=== PATIENT | female | born 1975 | race Caucasian/White ===

== ENCOUNTER → 2020-04-05 12:50 | Outpatient (BNVA) | payer MEDICARE, OTHER, SELFPAY | PROVIDERS: PCP Family Medicine; Referring Provider Family Medicine; Visit Provider Dietitian, Registered | DX: Z76.89 Persons encountering health services in other specified circumstances (principal) ==

== ENCOUNTER 2020-06-28 15:21 | Outpatient (REF) | payer MEDICARE, SELFPAY ==
[2020-06-29 09:21] LABS: BV Int Neg Control Negative (Negative); BV Int Pos Control Positive (Positive)
[2020-06-30 11:42] LABS: C. trachomatis RNA TMA NOT DETECTED (NOT DETECTED); N. gonorrhoeae RNA TMA NOT DETECTED (NOT DETECTED)
== END 2020-06-28 15:22 | disposition home or self-care (01) ==
LOC: HO.LAB 15:21
PROVIDERS: PCP Family Medicine; Visit Provider Advanced Practice Midwife
DX: N89.8 Other specified noninflammatory disorders of vagina (principal); N92.6 Irregular menstruation, unspecified; R35.0 Frequency of micturition; R23.2 Flushing; Z20.2 Contact with and (suspected) exposure to infections with a predominantly sexual mode of transmission
CPT/HCPCS: 36415; 87480; 87491; 87510; 87591; 87660; 99212

== ENCOUNTER 2020-07-02 16:28 | Outpatient (REF) | payer MEDICARE, SELFPAY ==
[2020-07-02 17:33] LABS: HCG Quantitative < 2 mIU/mL; Thyroid Stimulating Hormone 2.31 uIU/mL (0.32-4.0)
[2020-07-03 07:31] LABS: Follicle Stimulating Hormone 25.2 mIU/mL
[2020-07-04 13:32] LABS: C. trachomatis RNA TMA NOT DETECTED (NOT DETECTED); N. gonorrhoeae RNA TMA NOT DETECTED (NOT DETECTED)
== END 2020-07-02 16:29 | disposition home or self-care (01) ==
LOC: HO.LAB 16:28
PROVIDERS: Visit Provider Advanced Practice Midwife
DX: R23.2 Flushing (principal); N92.6 Irregular menstruation, unspecified; N92.1 Excessive and frequent menstruation with irregular cycle
CPT/HCPCS: 36415; 83001; 84443; 84702; 87491; 87591

== ENCOUNTER → 2020-07-10 11:31 | Outpatient (BNVA) | payer MEDICARE, SELFPAY | PROVIDERS: Visit Provider Advanced Practice Midwife | CPT/HCPCS: Q3014 ==

== ENCOUNTER 2020-08-31 14:37 | Outpatient (REF) | payer MEDICARE, SELFPAY ==
[2020-08-31 16:02] LABS: MANUAL DIFF FLAG NO
[2020-08-31 16:06] LABS: Basophils Percent Auto 0.6 % (0-2); Eosinophils Absolute Auto 0.2 X10*3/uL (0.0-0.4); Eosinophils Percent Auto 2.2 % (0-4); Hemoglobin 15.2 g/dl (12.0-16.0); Imm Gran Abs Auto 0.03 X10*3/uL (0.00-0.03); Imm Gran Pct Auto 0.4 % (0.0-0.4); Lymphocytes Absolute Auto 2.9 X10*3/uL (1.2-4.9); Lymphocytes Percent Auto 42.5 % (20-40); Mean Corpuscular HGB Conc 34.5 g/dl (31.0-35.0); Mean Corpuscular Hemoglobin 30.8 pg (27.0-33.0); Mean Corpuscular Volume 89.1 fL (80-98); Mean Platelet Volume 10.9 fL (9.4-12.3); Monocytes Absolute Auto 0.5 X10*3/uL (0.1-1.2); Monocytes Percent Auto 7.8 % (2-11); Neutrophils Absolute Auto 3.2 X10*3/uL (2.0-8.3); Neutrophils Percent Auto 46.5 % (45-73); Platelet Count 342 X10*3/uL (160-400); Red Blood Count 4.94 X10*6/uL (4.20-5.50); White Blood Count 6.8 X10*3/uL (4.8-10.8)
[2020-08-31 16:35] LABS: Alanine Aminotransferase 46 U/L (0-31); Albumin Level 4.3 g/dL (3.5-5.0); Anion Gap 11 (12-20); Aspartate Amino Transferase 26 U/L (5-31); Bilirubin Total 0.6 mg/dL (0.0-1.0); Blood Urea Nitrogen 13 mg/dL (9-16); C Reactive Protein 0.55 mg/dL (< or = 0.50); Calcium 9.6 mg/dL (8.4-10.2); Carbon Dioxide 26 mmol/L (22-29); Chloride 107 mmol/L (96-108); Estimated Glomerular Filt Rate > 60; Glucose Random 100 mg/dL (60-115); Potassium 4.4 mmol/L (3.3-5.1); Sodium 140 mmol/L (135-145); Total Protein 7.8 g/dL (6.5-8.0)
[2020-08-31 16:40] LABS: Alkaline Phosphatase 74 U/L (39-117)
[2020-08-31 17:19] LABS: Erythrocyte Sedimentation Rate 12 MM/HR (0-20)
== END 2020-08-31 14:38 | disposition home or self-care (01) ==
LOC: HO.LAB 14:37
PROVIDERS: PCP Family Medicine; Visit Provider Student in an Organized Health Care Education/Training Program
DX: M05.9 Rheumatoid arthritis with rheumatoid factor, unspecified (principal)
CPT/HCPCS: 36415; 80053; 85025; 85652; 86140; 99212

== ENCOUNTER 2020-09-18 16:11 | Outpatient (REF) | payer MEDICARE, OTHER, SELFPAY ==
[2020-09-19 04:49] LABS: CT PCR NOT DETECTED (Not Detect.); NG PCR NOT DETECTED (Not Detect.)
[2020-09-20 08:37] LABS: Follicle Stimulating Hormone 31.9 mIU/mL
== END 2020-09-18 16:12 | disposition home or self-care (01) ==
LOC: HO.LAB 16:11
PROVIDERS: Visit Provider Advanced Practice Midwife
DX: N89.8 Other specified noninflammatory disorders of vagina (principal); R23.2 Flushing; Z20.2 Contact with and (suspected) exposure to infections with a predominantly sexual mode of transmission
CPT/HCPCS: 83001; 87491; 87591

== ENCOUNTER 2020-10-09 15:30 | Outpatient (RCR) | payer MEDICARE, OTHER, SELFPAY ==
--- NOTE | 2020-09-11 15:14 | MHC.OT.OEV ---
[address] [phone] F: [phone] Occupational Therapy Evaluation Diagnosis: RA, B/L HAND PAIN AND TRIGGER FINGER Date of Onset: 03/25/20 Attending Provider: Florentin Richardson Prescribed Treatment: EVAL AND TREAT History of Current Condition: REPORTS A SIX MONTH HISTORY OF TRIGGER FINGER TO RIGHT MIDDLE FINGER, AND A THREE YEAR HISTORY OF ARTHRITIS WITH RECENT INCREASE IN PAIN TO B/L IPs. Significant Medical History: OA, RA, L SHOULDER FRACTURE 2000 Precautions/Contraindications: UNIVERSAL Patient Goals: RELIEVE PAIN Hand Dominance: Right Observations: B/L ARTIFICIAL NAILS QuickDASH Score: 93 Prior Level of Function and Occupation Self Care, Employment, Leisure: STAY AT HOME MOM, DISABLED Living Situation, Family and/or Social Support: LIVES WITH CHILDREN (11 AND 13) AND SPOUSE Current Level of Function and Occupation Self Care, Employment, Leisure: DIFFICULTIES WITH USING KNIFE TO CUT FOOD, OPEN WATER BOTTLES AND CONTAINERS. TROUBLE WITH BUTTONS, ZIPPERS AND SNAPS. Sleep: REPORTS SEVERE DIFFICULTIES WITH SLEEPING DUE TO CONSTANT PAIN Driving: DOES NOT DRIVE Pain Assessment Pain Score: 6-10 Pain Scale Used: Numeric (0 - 10) Pain Location and Description: B/L IPs R>L RIGHT IPs 7/10 AT REST; LEFT IPs 5/10 AT REST 10/10 WITH USE Aggravating Factors: GRIPPING, HEAVY LIFTING WHILE COMPLETING IADLs Alleviating Factors: GABAPENTIN, HUMIRA, FINDS RELIEF WITH USE OF HEAT Skin and Soft Tissue Assessment Skin and Soft Tissue: Comments: SMALL VOLAR NODULE TO R D3 MCP; LONG ARTIFICIAL NAILS Sensory Assessment Temperature: Light Touch: B/L Impaired Proprioception: Vibration: Comments: SUBJECTIVE REPORTS OF SENSORY IMPAIRMENTS B/L'LY, WILL CONTINUE TO ASSESS WITH ONGOING SESSIONS Edema Assessment Upper Extremity: WNL Lower Extremity: Comments: CIRCUMFERENCE OF MCPs D2-D5: RIGHT 20.1 CM, LEFT 20.0 CM SUBJECTIVE REPORTS OF EDEMA IN PIPJs Dexterity Assessment Dexterity: Left Impaired Comments: FUNCTIONAL DEXTERITY TEST: RIGHT 23 SECONDS (NORMAL); LEFT 31 SECONDS (MODERATELY FUNCTIONAL LEVEL) Special Tests Comments: AROM(PROM) Strength Shoulder Flexion: Extension: Abduction: Internal Rotation: External Rotation: Comments: L SHOULDER IMPAIRED FROM PREVIOUS FRACTURE, REPORTS HX OF ATTENDING THERAPY. GROSSLY 110 DEGREES FLEXION Flexion: Extension: Abduction: Internal Rotation: External Rotation: Comments: Elbow Flexion: Extension: Pronation: Supination: Comments: WFL Flexion: Extension: Pronation: Supination: Comments: Wrist Flexion: R 52, L 55 Extension: R 62, L 65 Ulnar Deviation: Radial Deviation: Comments: Flexion: Extension: Ulnar Deviation: Radial Deviation: Comments: Digits Index MCP: PIP: DIP: Long MCP: PIP: DIP: Ring MCP: PIP: DIP: Small MCP: PIP: DIP: Comments: Gross Grasp: R 13, L 38 Lateral Pinch: R 7, L 8 Two-Point Pinch: R 4, L 5 Three-Jaw Vladislav: R 5, L 6 Comments: PAIN WITH R GRASP Patient Education Primary Language: Trimming Machine Operator Required: Yes Current Knowledge: Understands information with skills for self-management Teaching Method: Demonstration Handouts Phone Call Verbal Education Needs Identified on Evaluation: ADL's Disease Information Equipment Use Exercise Pain Safety How did patient/family demonstrate learning? Patient demonstrates Patient verbalizes Needs reinforcement Barriers to Learning: None Readiness for Learning: Accepting Who was educated? 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 SHE REPORTS A SIX MONTH HISTORY OF TRIGGER FINGER TO HER RIGHT MIDDLE FINGER, AND INCREASING DIFFICULTIES PERFORMING HER ADLs AND IADLs. A 93% LIMITATION IS REPORTED PER THE QUICK DASH ASSESSMENT. SHE WOULD BENEFIT FROM SKILLED OT TO ADDRESS THE AREAS MENTIONED BELOW AND IMPROVE HER QOL. STG Duration: 2 WEEKS Short Term Goals: IND HEP IND USE OF HEAT/ ICE IND JOINT PROTECTION AND ACTIVITY MODIFICATION IND ORTHOSIS WEAR REPORT <3/10 PAIN IN B/L HANDS WITH ADLs LTG Duration: 4 WEEKS Nuisance Animal Damage Control Agent Goals: IMPROVE R GRASP >30 POUNDS REPORT <5/10 PAIN IN B/L HANDS WITH MODERATE IADLs QUICK DASH <70 IND SELF MANAGEMENT OF TRIGGER FINGER SYMPTOMS Frequency and Duration: The patient will be seen 2x/WEEK FOR 4 WEEKS Treatment Plan: Therapeutic Exercise Therapeutic Activity Home Exercise Program Splinting Neuro Re-ed Patient Education Desensitization/Sensory Re-ed Edema Control ADL Training Ultrasound NMES Iontophoresis Paraffin Fluidotherapy MHP Cold Packs Joint Mobilization Soft Tissue Mobilization Kinesiotaping Electronically Signed By: ASAD AKINS OTR/L Reviewed/agree with student documentation: N/A Therapist: Please sign and return to therapist, Thank you for your referral.
== END 2021-09-24 10:18 | disposition home or self-care (01) ==
LOC: HO.OT 15:30
PROVIDERS: PCP Family Medicine; Visit Provider Student in an Organized Health Care Education/Training Program
DX: M05.9 Rheumatoid arthritis with rheumatoid factor, unspecified (principal)
CPT/HCPCS: 97035; 97110; 97140; 97166; 97760

== ENCOUNTER 2020-12-25 14:45 | Outpatient (REF) | payer MEDICARE, OTHER, SELFPAY ==
[2020-12-25 15:47] LABS: MANUAL DIFF FLAG NO
[2020-12-25 15:51] LABS: Basophils Percent Auto 0.5 % (0-2); Eosinophils Absolute Auto 0.2 X10*3/uL (0.0-0.4); Eosinophils Percent Auto 1.7 % (0-4); Hemoglobin 13.8 g/dl (12.0-16.0); Imm Gran Abs Auto 0.03 X10*3/uL (0.00-0.03); Imm Gran Pct Auto 0.3 % (0.0-0.4); Lymphocytes Percent Auto 34.4 % (20-40); Mean Corpuscular HGB Conc 33.7 g/dl (31.0-35.0); Mean Corpuscular Hemoglobin 29.9 pg (27.0-33.0); Mean Corpuscular Volume 88.9 fL (80-98); Monocytes Absolute Auto 0.6 X10*3/uL (0.1-1.2); Monocytes Percent Auto 6.6 % (2-11); Neutrophils Percent Auto 56.5 % (45-73); Platelet Count 359 X10*3/uL (160-400); Red Blood Count 4.61 X10*6/uL (4.20-5.50); Red Cell Distribution Width 12.7 % (11.0-16.0); White Blood Count 8.8 X10*3/uL (4.8-10.8)
[2020-12-25 16:19] LABS: Alanine Aminotransferase 29 U/L (0-31); Albumin Level 4.2 g/dL (3.5-5.0); Alkaline Phosphatase 76 U/L (39-117); Anion Gap 13 (12-20); Aspartate Amino Transferase 15 U/L (5-31); Bilirubin Total 0.4 mg/dL (0.0-1.0); Blood Urea Nitrogen 11 mg/dL (9-16); C Reactive Protein 0.33 mg/dL (< or = 0.50); Calcium 9.6 mg/dL (8.4-10.2); Carbon Dioxide 17 mmol/L (22-29); Chloride 113 mmol/L (96-108); Estimated Glomerular Filt Rate > 60; Glucose Random 95 mg/dL (60-115); Potassium 4.1 mmol/L (3.3-5.1); Sodium 139 mmol/L (135-145); Total Protein 7.2 g/dL (6.5-8.0)
[2020-12-25 16:33] LABS: Erythrocyte Sedimentation Rate 9 MM/HR (0-20)
== END 2020-12-25 14:46 | disposition home or self-care (01) ==
LOC: HO.LAB 14:45
PROVIDERS: PCP Family Medicine; Visit Provider Student in an Organized Health Care Education/Training Program
DX: M05.9 Rheumatoid arthritis with rheumatoid factor, unspecified (principal)
CPT/HCPCS: 36415; 80053; 85025; 85652; 86140; 99212

== ENCOUNTER 2021-03-19 12:47 | Outpatient (REF) | payer MEDICARE, OTHER, SELFPAY ==
--- NOTE | ~2021-03-19 | US_ITS ---
EXAMINATION: MM DIAGNOSTIC DIGITAL BREAST TOMOSYNTHESIS, BILATERAL US DIAGNOSTIC ULTRASOUND BREAST, RIGHT CLINICAL INFORMATION: 45-year-old with burning pain and fullness outer right breast. Due for yearly. No known family history breast cancer. The lifetime risk of breast cancer based on the Tyrer-Cuzick Model is 11%. COMPARISON: Mammography: 03/14/2019, 03/05/2018 TECHNIQUE: Digital breast tomosynthesis is performed in both the craniocaudal and mediolateral oblique views along with computer-aided detection (CAD). Synthesized 2D images are generated from the tomosynthesis. Ultrasound right breast is targeted to the areas of clinical concern 7:00 through 11:00 position. Grayscale imaging and color Doppler are performed without and with harmonics. FINDINGS: There are scattered areas of fibroglandular density (ACR BI-RADS breast composition Category b). Background stromal and fibroglandular markings are stable. There is no interval mass or architectural abnormality or abnormal calcifications. No skin thickening or coarsening of the Lukasz's ligaments. No interval duct ectasia. The axilla and skin contours are unremarkable. Ultrasound demonstrates no cystic or solid mass or architectural abnormality. No focal duct ectasia. No skin thickening or edema tracking in soft tissue planes. Results are discussed with the patient at time of visit, using an speech language pathology assistant. US/US breast RT limited IMPRESSION: No mammographic evidence of malignancy or inflammatory changes. Unremarkable targeted right breast ultrasound. ASSESSMENT: BI-RADS 1: Negative RECOMMENDATION: 1. Patient should be managed based on the clinical impression. If there is clinical concern for palpable abnormality, then surgical consult may be considered for further evaluation. 2. Otherwise, routine annual screening mammography. This patient's information was entered into a reminder system with a target due date for their next mammogram.
== END 2021-03-19 12:48 | disposition home or self-care (01) ==
LOC: HO.MAMMO 12:47
PROVIDERS: Visit Provider Internal Medicine
DX: N63.15 Unspecified lump in the right breast, overlapping quadrants (principal)
CPT/HCPCS: 76642; 77062; 77066

== ENCOUNTER 2021-06-27 15:46 | Outpatient (REF) | payer MEDICARE, OTHER, SELFPAY ==
[2021-06-27 16:07] LABS: MANUAL DIFF FLAG NO
[2021-06-27 16:28] LABS: Basophils Percent Auto 0.4 % (0-2); Eosinophils Absolute Auto 0.1 X10*3/uL (0.0-0.4); Eosinophils Percent Auto 1.9 % (0-4); Hematocrit 39.8 % (37.0-47.0); Hemoglobin 13.5 g/dl (12.0-16.0); Imm Gran Abs Auto 0.01 X10*3/uL (0.00-0.03); Imm Gran Pct Auto 0.1 % (0.0-0.4); Lymphocytes Absolute Auto 2.7 X10*3/uL (1.2-4.9); Lymphocytes Percent Auto 35.6 % (20-40); Mean Corpuscular HGB Conc 33.9 g/dl (31.0-35.0); Mean Corpuscular Volume 91.3 fL (80.0-98.0); Mean Platelet Volume 10.8 fL (9.4-12.3); Monocytes Absolute Auto 0.5 X10*3/uL (0.1-1.2); Monocytes Percent Auto 6.5 % (2-11); Neutrophils Absolute Auto 4.2 x10*3/uL (2.0-8.3); Neutrophils Percent Auto 55.5 % (45-73); Platelet Count 318 X10*3/uL (160-400); Red Blood Count 4.36 X10*6/uL (4.20-5.50); Red Cell Distribution Width 12.2 % (11.0-16.0); White Blood Count 7.5 X10*3/uL (4.8-10.8)
[2021-06-27 16:48] LABS: Alanine Aminotransferase 24 U/L (0-31); Alkaline Phosphatase 69 U/L (39-117); Anion Gap 8 (12-20); Aspartate Amino Transferase 17 U/L (5-31); Bilirubin Total 0.6 mg/dL (0.0-1.0); Blood Urea Nitrogen 10 mg/dL (9-16); Calcium 9.7 mg/dL (8.4-10.2); Carbon Dioxide 27 mmol/L (22-29); Chloride 109 mmol/L (96-108); Estimated Glomerular Filt Rate > 60; Glucose Random 85 mg/dL (60-115); Potassium 4.3 mmol/L (3.3-5.1); Sodium 140 mmol/L (135-145)
[2021-06-27 17:04] LABS: Erythrocyte Sedimentation Rate 12 MM/HR (0-20)
== END 2021-06-27 15:47 | disposition home or self-care (01) ==
LOC: HO.LAB 15:46
PROVIDERS: PCP Nurse Practitioner; Visit Provider Nurse Practitioner Family
DX: M05.9 Rheumatoid arthritis with rheumatoid factor, unspecified (principal)
CPT/HCPCS: 36415; 80053; 85025; 85652; 86140

== ENCOUNTER → 2021-07-04 12:50 | Outpatient (BNVA) | payer MEDICARE, OTHER, SELFPAY | PROVIDERS: PCP Nurse Practitioner; Visit Provider Nurse Practitioner Family | DX: M05.9 Rheumatoid arthritis with rheumatoid factor, unspecified (principal) | CPT/HCPCS: 99212 ==

== ENCOUNTER 2021-10-16 10:54 | Outpatient (REF) | payer MEDICARE, OTHER, SELFPAY ==
--- NOTE | ~2021-10-16 | XR_ITS ---
EXAMINATION: X-RAY BILATERAL FEET CLINICAL INFORMATION: Rheumatoid arthritis COMPARISON: None TECHNIQUE: Bilateral feet each 3 views FINDINGS: Right foot: No fracture or dislocation. Toes are slightly flexed in positioning. No significant joint space narrowing or marginal osteophytes. No osseous erosion. No abnormal soft tissue calcification. Small posterior calcaneal spur. Left foot: No fracture or dislocation. Toes are slightly flexed in positioning. No significant joint space narrowing or marginal osteophytes. No osseous erosion. No abnormal soft tissue calcification. Small posterior calcaneus spur. XR/XR foot RT 2V IMPRESSION: No radiographic evidence of significant arthropathy.
--- NOTE | ~2021-10-16 | XR_ITS ---
EXAMINATION: X-RAY BILATERAL HANDS CLINICAL INFORMATION: Rheumatoid arthritis with rheumatoid factor COMPARISON: X-ray 02/23/2018 TECHNIQUE: Bilateral hands each 3 views FINDINGS: Left hand: No fracture or dislocation. No significant joint space narrowing or marginal osteophytes. No osseous erosion. No abnormal soft tissue calcification. Right hand: No fracture or dislocation. No significant joint space narrowing or marginal osteophytes. No osseous erosion. No abnormal soft tissue calcification. XR/XR hand LT min 3V IMPRESSION: No radiographic evidence of significant arthropathy.
--- NOTE | ~2021-10-16 | XR_ITS ---
EXAMINATION: X-RAY BILATERAL HANDS CLINICAL INFORMATION: Rheumatoid arthritis with rheumatoid factor COMPARISON: X-ray 02/23/2018 TECHNIQUE: Bilateral hands each 3 views FINDINGS: Left hand: No fracture or dislocation. No significant joint space narrowing or marginal osteophytes. No osseous erosion. No abnormal soft tissue calcification. Right hand: No fracture or dislocation. No significant joint space narrowing or marginal osteophytes. No osseous erosion. No abnormal soft tissue calcification. XR/XR hand RT min 3V IMPRESSION: No radiographic evidence of significant arthropathy.
--- NOTE | ~2021-10-16 | XR_ITS ---
EXAMINATION: X-RAY BILATERAL FEET CLINICAL INFORMATION: Rheumatoid arthritis COMPARISON: None TECHNIQUE: Bilateral feet each 3 views FINDINGS: Right foot: No fracture or dislocation. Toes are slightly flexed in positioning. No significant joint space narrowing or marginal osteophytes. No osseous erosion. No abnormal soft tissue calcification. Small posterior calcaneal spur. Left foot: No fracture or dislocation. Toes are slightly flexed in positioning. No significant joint space narrowing or marginal osteophytes. No osseous erosion. No abnormal soft tissue calcification. Small posterior calcaneus spur. XR/XR foot LT 2V IMPRESSION: No radiographic evidence of significant arthropathy.
[2021-10-16 12:45] LABS: MANUAL DIFF FLAG NO
[2021-10-16 13:18] LABS: Basophils Percent Auto 0.3 % (0-2); Eosinophils Absolute Auto 0.1 X10*3/uL (0.0-0.4); Eosinophils Percent Auto 1.6 % (0-4); Hematocrit 40.7 % (37.0-47.0); Hemoglobin 13.8 g/dl (12.0-16.0); Imm Gran Abs Auto 0.03 X10*3/uL (0.00-0.03); Imm Gran Pct Auto 0.4 % (0.0-0.4); Lymphocytes Percent Auto 37.8 % (20-40); Mean Corpuscular HGB Conc 33.9 g/dl (31.0-35.0); Mean Corpuscular Hemoglobin 30.5 pg (27.0-33.0); Mean Corpuscular Volume 89.8 fL (80.0-98.0); Mean Platelet Volume 11.1 fL (9.4-12.3); Monocytes Absolute Auto 0.4 X10*3/uL (0.1-1.2); Monocytes Percent Auto 4.8 % (2-11); Neutrophils Absolute Auto 4.4 x10*3/uL (2.0-8.3); Neutrophils Percent Auto 55.1 % (45-73); Platelet Count 286 X10*3/uL (160-400); Red Blood Count 4.53 X10*6/uL (4.20-5.50); Red Cell Distribution Width 12.3 % (11.0-16.0); White Blood Count 7.9 X10*3/uL (4.8-10.8)
[2021-10-16 13:53] LABS: Alanine Aminotransferase 21 U/L (0-31); Albumin Level 4.1 g/dL (3.5-5.0); Alkaline Phosphatase 66 U/L (39-117); Anion Gap 12 (12-20); Aspartate Amino Transferase 13 U/L (5-31); Bilirubin Total 0.5 mg/dL (0.0-1.0); Blood Urea Nitrogen 14 mg/dL (9-16); C Reactive Protein 0.21 mg/dL (< or = 0.50); Calcium 9.8 mg/dL (8.4-10.2); Carbon Dioxide 22 mmol/L (22-29); Chloride 108 mmol/L (96-108); Erythrocyte Sedimentation Rate 6 MM/HR (0-20); Estimated Glomerular Filt Rate > 60; Glucose Random 124 mg/dL (60-115); Potassium 4.4 mmol/L (3.3-5.1); Sodium 138 mmol/L (135-145); Total Protein 7.3 g/dL (6.5-8.0)
== END 2021-10-16 10:55 | disposition home or self-care (01) ==
LOC: HO.LAB 10:54
PROVIDERS: PCP Nurse Practitioner; Visit Provider Nurse Practitioner Family
DX: M05.9 Rheumatoid arthritis with rheumatoid factor, unspecified (principal)
CPT/HCPCS: 36415; 73130; 73620; 80053; 85025; 85652; 86140; 99212

== ENCOUNTER 2022-01-20 12:10 | Outpatient (REF) | payer MEDICARE, SELFPAY ==
[2022-01-20 13:43] LABS: MANUAL DIFF FLAG NO
[2022-01-20 13:54] LABS: Basophils Absolute Auto 0.1 X10*3/uL (0.0-0.2); Basophils Percent Auto 0.6 % (0-2); Eosinophils Absolute Auto 0.2 X10*3/uL (0.0-0.4); Eosinophils Percent Auto 2.2 % (0-4); Hematocrit 41.1 % (37.0-47.0); Hemoglobin 14.2 g/dl (12.0-16.0); Imm Gran Abs Auto 0.04 X10*3/uL (0.00-0.03); Imm Gran Pct Auto 0.5 % (0.0-0.4); Lymphocytes Percent Auto 34.2 % (20-40); Mean Corpuscular HGB Conc 34.5 g/dl (31.0-35.0); Mean Corpuscular Hemoglobin 31.1 pg (27.0-33.0); Mean Corpuscular Volume 90.1 fL (80.0-98.0); Mean Platelet Volume 10.5 fL (9.4-12.3); Monocytes Absolute Auto 0.4 X10*3/uL (0.1-1.2); Monocytes Percent Auto 4.9 % (2-11); Neutrophils Percent Auto 57.6 % (45-73); Platelet Count 356 X10*3/uL (160-400); Red Blood Count 4.56 X10*6/uL (4.20-5.50); Red Cell Distribution Width 12.4 % (11.0-16.0); White Blood Count 8.7 X10*3/uL (4.8-10.8)
[2022-01-20 14:38] LABS: Erythrocyte Sedimentation Rate 9 MM/HR (0-20)
[2022-01-20 14:48] LABS: Alanine Aminotransferase 25 U/L (0-31); Aspartate Amino Transferase 17 U/L (5-31); C Reactive Protein 0.45 mg/dL (< or = 0.50); Estimated Glomerular Filt Rate > 60
== END 2022-01-20 12:11 | disposition home or self-care (01) ==
LOC: HO.LAB 12:10
PROVIDERS: PCP Nurse Practitioner; Visit Provider Nurse Practitioner Family
DX: M05.9 Rheumatoid arthritis with rheumatoid factor, unspecified (principal); M79.7 Fibromyalgia; Z79.899 Other long term (current) drug therapy
CPT/HCPCS: 36415; 82565; 84450; 84460; 85025; 85652; 86140; 99212

== ENCOUNTER → 2022-05-27 10:20 | Outpatient (BNVA) | payer MEDICARE, SELFPAY | PROVIDERS: PCP Nurse Practitioner; Visit Provider Nurse Practitioner Family | DX: M05.9 Rheumatoid arthritis with rheumatoid factor, unspecified (principal); M79.7 Fibromyalgia; M17.0 Bilateral primary osteoarthritis of knee; Z79.899 Other long term (current) drug therapy; Z22.7 Latent tuberculosis | CPT/HCPCS: 36415; 82565; 84450; 84460; 85025; 85652; 86140; 99212 ==

== ENCOUNTER 2022-05-27 11:33 | Outpatient (REF) | payer MEDICARE, SELFPAY ==
[2022-05-27 13:45] LABS: MANUAL DIFF FLAG NO
[2022-05-27 13:54] LABS: Basophils Percent Auto 0.6 % (0-2); Eosinophils Absolute Auto 0.2 X10*3/uL (0.0-0.4); Eosinophils Percent Auto 2.6 % (0-4); Hematocrit 42.7 % (37.0-47.0); Hemoglobin 14.2 g/dl (12.0-16.0); Imm Gran Abs Auto 0.02 X10*3/uL (0.00-0.03); Imm Gran Pct Auto 0.3 % (0.0-0.4); Lymphocytes Absolute Auto 2.7 X10*3/uL (1.2-4.9); Lymphocytes Percent Auto 42.4 % (20-40); Mean Corpuscular HGB Conc 33.3 g/dl (31.0-35.0); Mean Corpuscular Hemoglobin 30.2 pg (27.0-33.0); Mean Corpuscular Volume 90.9 fL (80.0-98.0); Mean Platelet Volume 11.3 fL (9.4-12.3); Monocytes Absolute Auto 0.3 X10*3/uL (0.1-1.2); Neutrophils Absolute Auto 3.1 x10*3/uL (2.0-8.3); Neutrophils Percent Auto 49.1 % (45-73); Platelet Count 326 X10*3/uL (160-400); White Blood Count 6.3 X10*3/uL (4.8-10.8)
[2022-05-27 14:06] LABS: Alanine Aminotransferase 23 U/L (0-31); Aspartate Amino Transferase 14 U/L (5-31); C Reactive Protein 0.28 mg/dL (< or = 0.50); Estimated Glomerular Filt Rate > 60
[2022-05-27 14:45] LABS: Erythrocyte Sedimentation Rate 7 MM/HR (0-20)
== END 2022-05-27 11:34 | disposition home or self-care (01) ==
LOC: HO.10HDL 11:33
PROVIDERS: Visit Provider Nurse Practitioner Family
DX: Z13.89 Encounter for screening for other disorder (principal)
CPT/HCPCS: 36415; 82565; 84450; 84460; 85025; 85652; 86140

== ENCOUNTER → 2022-10-09 13:23 | Outpatient (BNVA) | payer MEDICARE, MEDICAID, SELFPAY | PROVIDERS: PCP Nurse Practitioner; Visit Provider Nurse Practitioner Family | DX: M05.9 Rheumatoid arthritis with rheumatoid factor, unspecified (principal); M79.7 Fibromyalgia; M79.18 Myalgia, other site; Z79.899 Other long term (current) drug therapy | CPT/HCPCS: 99212 ==

== ENCOUNTER 2022-10-27 10:15 | Outpatient (REF) | payer MEDICARE, MEDICAID, SELFPAY ==
--- NOTE | ~2022-10-27 | XR_ITS ---
EXAMINATION: XR HIP, RIGHT CLINICAL INFORMATION: Rheumatoid arthritis. COMPARISON: None available. TECHNIQUE: Two views of the right hip. FINDINGS: Bones and soft tissues appear unremarkable. No fracture identified. Alignment is anatomic. Hip joint space is maintained. XR/XR hip RT min 2V IMPRESSION: Normal plain film examination of the right hip.
--- NOTE | ~2022-10-27 | XR_ITS ---
EXAMINATION: XR LUMBOSACRAL SPINE WITH OBLIQUES CLINICAL INFORMATION: Rheumatoid arthritis. COMPARISON: None available. TECHNIQUE: AP, both oblique, and lateral views of the lumbar spine. Lateral view of the lumbosacral junction. FINDINGS: The vertebral bodies and posterior elements appear unremarkable. Mild disc degenerative change at L4-L5 and L5-S1. The vertebral alignment appears unremarkable. The paraspinal soft tissues appear unremarkable. XR/XR lumbar spine 4V min IMPRESSION: Mild disc degenerative change at L4-L5 and L5-S1.
--- NOTE | ~2022-10-27 | XR_ITS ---
EXAMINATION: XR HIP, LEFT CLINICAL INFORMATION: Rheumatoid arthritis. COMPARISON: None available. TECHNIQUE: Two views of the left hip. FINDINGS: Bones and soft tissues appear unremarkable. No fracture identified. Alignment is anatomic. Hip joint space is maintained. XR/XR hip LT min 2V IMPRESSION: Normal plain film examination of the left hip.
[2022-10-27 10:44] LABS: MANUAL DIFF FLAG NO
[2022-10-27 11:30] LABS: Basophils Absolute Auto 0.1 X10*3/uL (0.0-0.2); Basophils Percent Auto 0.6 % (0-2); Eosinophils Absolute Auto 0.2 X10*3/uL (0.0-0.4); Eosinophils Percent Auto 1.9 % (0-4); Imm Gran Abs Auto 0.02 X10*3/uL (0.00-0.03); Imm Gran Pct Auto 0.3 % (0.0-0.4); Lymphocytes Absolute Auto 3.2 X10*3/uL (1.2-4.9); Lymphocytes Percent Auto 41.2 % (20-40); Mean Corpuscular HGB Conc 33.3 g/dl (31.0-35.0); Mean Corpuscular Hemoglobin 30.6 pg (27.0-33.0); Mean Corpuscular Volume 91.7 fL (80.0-98.0); Mean Platelet Volume 11.3 fL (9.4-12.3); Monocytes Absolute Auto 0.4 X10*3/uL (0.1-1.2); Monocytes Percent Auto 5.6 % (2-11); Neutrophils Absolute Auto 3.9 x10*3/uL (2.0-8.3); Neutrophils Percent Auto 50.4 % (45-73); Platelet Count 363 X10*3/uL (160-400); Red Blood Count 4.58 X10*6/uL (4.20-5.50); Red Cell Distribution Width 12.1 % (11.0-16.0); White Blood Count 7.7 X10*3/uL (4.8-10.8)
[2022-10-27 11:59] LABS: Alanine Aminotransferase 22 U/L (0-31); Albumin Level 4.2 g/dL (3.5-5.0); Alkaline Phosphatase 69 U/L (39-117); Anion Gap 12 (12-20); Aspartate Amino Transferase 12 U/L (5-31); Bilirubin Total 0.6 mg/dL (0.0-1.0); Blood Urea Nitrogen 17 mg/dL (9-16); C Reactive Protein 0.25 mg/dL (< or = 0.50); Calcium 9.6 mg/dL (8.4-10.2); Carbon Dioxide 21 mmol/L (22-29); Chloride 111 mmol/L (96-108); Estimated Glomerular Filt Rate > 60; Glucose Random 103 mg/dL (60-115); Potassium 4.4 mmol/L (3.3-5.1); Sodium 140 mmol/L (135-145); Total Protein 7.4 g/dL (6.5-8.0)
[2022-10-27 12:06] LABS: Erythrocyte Sedimentation Rate 9 MM/HR (0-20)
== END 2022-10-27 10:16 | disposition home or self-care (01) ==
LOC: HO.XRAY 10:15
PROVIDERS: Absent Provider Student in an Organized Health Care Education/Training Program; PCP Nurse Practitioner; Visit Provider Nurse Practitioner Family
DX: M54.50 Low back pain, unspecified (principal); M05.9 Rheumatoid arthritis with rheumatoid factor, unspecified
CPT/HCPCS: 36415; 72110; 73502; 80053; 85025; 85652; 86140

== ENCOUNTER 2022-12-02 08:39 | Outpatient (AMB) | payer MEDICARE, MEDICAID, SELFPAY ==
[2022-12-02 08:45] VITALS: BMI 44.3
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
== END 2022-12-02 09:35 | disposition home or self-care (01) ==
PROVIDERS: PCP Nurse Practitioner; Visit Provider Physician Assistant
DX: M17.10 Unilateral primary osteoarthritis, unspecified knee (principal)
CPT/HCPCS: 20610; 99204

== ENCOUNTER 2022-12-02 11:21 | Outpatient (REF) | payer MEDICARE, MEDICAID, SELFPAY ==
--- NOTE | ~2022-12-02 | XR_ITS ---
Examination: XR knee standing BI, XR knee RT 2V, XR knee LT 2V Indication: Pain Comparison: No pertinent prior studies are currently available for comparison. Technique: Frontal views of both knees with coned lateral and sunrise views of both knees and separately. Findings: Right: Tricompartmental degenerative changes are seen with loss of joint space in both medial lateral compartments with osteophyte formation in all 3 compartments. I do not appreciate any acute fracture or dislocation. Surrounding soft tissues unremarkable. Left: Tricompartmental degenerative changes are seen as well with loss of joint space in the medial more so in the lateral compartments with mild tricompartmental osteophyte formation and no significant joint effusion. XR/XR knee standing BI Impression: Tricompartmental degenerative changes bilaterally. No acute fracture or dislocation.
--- NOTE | ~2022-12-02 | XR_ITS ---
Examination: XR knee standing BI, XR knee RT 2V, XR knee LT 2V Indication: Pain Comparison: No pertinent prior studies are currently available for comparison. Technique: Frontal views of both knees with coned lateral and sunrise views of both knees and separately. Findings: Right: Tricompartmental degenerative changes are seen with loss of joint space in both medial lateral compartments with osteophyte formation in all 3 compartments. I do not appreciate any acute fracture or dislocation. Surrounding soft tissues unremarkable. Left: Tricompartmental degenerative changes are seen as well with loss of joint space in the medial more so in the lateral compartments with mild tricompartmental osteophyte formation and no significant joint effusion. XR/XR knee LT 2V Impression: Tricompartmental degenerative changes bilaterally. No acute fracture or dislocation.
--- NOTE | ~2022-12-02 | XR_ITS ---
Examination: XR knee standing BI, XR knee RT 2V, XR knee LT 2V Indication: Pain Comparison: No pertinent prior studies are currently available for comparison. Technique: Frontal views of both knees with coned lateral and sunrise views of both knees and separately. Findings: Right: Tricompartmental degenerative changes are seen with loss of joint space in both medial lateral compartments with osteophyte formation in all 3 compartments. I do not appreciate any acute fracture or dislocation. Surrounding soft tissues unremarkable. Left: Tricompartmental degenerative changes are seen as well with loss of joint space in the medial more so in the lateral compartments with mild tricompartmental osteophyte formation and no significant joint effusion. XR/XR knee RT 2V Impression: Tricompartmental degenerative changes bilaterally. No acute fracture or dislocation.
== END 2022-12-02 11:22 | disposition home or self-care (01) ==
LOC: HO.HOSX 11:21
PROVIDERS: Visit Provider Physician Assistant
DX: M17.0 Bilateral primary osteoarthritis of knee (principal)
CPT/HCPCS: 20610; 73560; 73565; 99202; J1040

== ENCOUNTER 2022-12-09 08:46 | Outpatient (AMB) | payer MEDICARE, MEDICAID, SELFPAY ==
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
[2022-12-09 08:52] VITALS: BP 143/92; PULSE 69; RESP 14; O2SAT 99; BMI 46.0
== END 2022-12-09 09:21 | disposition home or self-care (01) ==
PROVIDERS: PCP Nurse Practitioner; Visit Provider Registered Nurse Emergency
DX: M53.3 Sacrococcygeal disorders, not elsewhere classified (principal)
CPT/HCPCS: 99204

== ENCOUNTER → 2022-12-09 08:46 | Outpatient (BNVA) | payer MEDICARE, MEDICAID, SELFPAY | PROVIDERS: PCP Nurse Practitioner; Visit Provider Registered Nurse Emergency | DX: M53.3 Sacrococcygeal disorders, not elsewhere classified (principal) | CPT/HCPCS: 99202 ==

== ENCOUNTER 2022-12-18 11:00 | Outpatient (RCR) | payer MEDICARE, MEDICAID, SELFPAY | END 2023-01-14 15:33 | disposition home or self-care (01) | LOC: HO.PT 11:00 | PROVIDERS: PCP Nurse Practitioner; Visit Provider Nurse Practitioner Family | DX: M54.40 Lumbago with sciatica, unspecified side (principal); G89.29 Other chronic pain | CPT/HCPCS: 97110; 97162 ==

== ENCOUNTER 2023-01-06 06:05 | Outpatient (REF) | payer MEDICARE, MEDICAID, SELFPAY ==
--- NOTE | ~2023-01-06 | FL_ITS ---
EXAMINATION: XR FLUOROSCOPY WITH IMAGES CLINICAL INFORMATION: Sacrococcygeal disorders, not elsewhere classified. COMPARISON: None available. TECHNIQUE: Fluoroscopy Supervised By: Dr. Lionel Harden. Fluoroscopy Time: 0.2 minutes. Cumulative Dose: 13.3 mGy. DAP: 0.231 mGy-m2. Images: 2. FINDINGS: Images demonstrate contrast injection and needle placement over the left sacroiliac joint. FL/FL guidance in treatment room IMPRESSION: Fluoroscopy guidance for pain management procedure.
== END 2023-01-06 06:06 | disposition home or self-care (01) ==
LOC: CF 06:05
PROVIDERS: Visit Provider Anesthesiology
DX: M53.3 Sacrococcygeal disorders, not elsewhere classified (principal)
CPT/HCPCS: 27096

== ENCOUNTER 2023-01-06 13:20 | Outpatient (AMB) | payer MEDICARE, MEDICAID, SELFPAY ==
--- NOTE | 2023-01-06 13:41 | MHC.OFFVIS ---
Intake Vital Signs 01/06/23 13:42 01/06/23 14:03 Height 5 ft 4 in 5 ft 4 in Weight 268 lb 268 lb BMI 46.0 46.0 BP 136/78 124/60 Blood Pressure Location Lt brachial Lt brachial Position Sitting Sitting Respiration 16 16 Pulse 83 80 Pulse Source Pulse Oximeter Pulse Oximeter Pulse Oximetry (%) 98 99 Oxygen Delivery Method Room Air Room Air Comment pre-op Post-op Intake Visit Reasons: LEFT DIAGNOSTIC SIJ INJECTION Allergies methotrexate Allergy (Intermediate, Verified 01/06/23 13:41) rash [facility] Medical History (Updated 12/09/22 @ 09:32 by Nahed Winkler APRN, INTERNET SALES MANAGER) Fibromyalgia History of high blood pressure Low back pain, unspecified Morbid obesity with BMI of 45.0-49.9, adult Osteoarthritis of left knee Osteoarthritis of right knee Seropositive rheumatoid arthritis Surgical History History of surgery Hx of section Family History Father Diabetes Hypertension Mother Diabetes Hypertension Rheumatoid arthritis Kidney transplant recipient Sister Thyroid disease Social History Household Members: Spouse and Children Housing: Apartment Alcohol intake: never Patient Tobacco Use Status: Never used Tobacco Female Reproductive History Menstrual Age of Menarche: 12 Physical Exam Vital Signs: Last Vital Signs Pulse 80 01/06/23 14:03 Resp 16 01/06/23 14:03 BP 124/60 01/06/23 14:03 Pulse Ox 99 01/06/23 14:03 Oxygen Delivery Method Room Air 01/06/23 14:03 BMI result Body Mass Index 46.0 Assessment & Plan Assessment & Plan (1) Sacroiliac joint dysfunction of left side: Code(s): M53.3 - Sacrococcygeal disorders, not elsewhere classified Plan: left diagnostic sacroiliac joint injection Informed consent was explained thoroughly to the patient. All questions about benefits and risks for the procedure were answered. Patient came to the operating room and was positioned prone on the operating table with the pillow under the pelvis. Time out was performed delineating name and of the patient, allergies and the nature of the procedure. The lower back and buttocks of the patient were prepped with ChloraPrep prepped and draped with sterile utility towels. C-arm was brought over the operating field and sq picture of patient's pelvis was demonstrated on the screen. For the left joint tilting C-arm contralateral to the site of the joint the most posterior portion of the joints was superimposed with anterior silhouette of the joint. Skin was injected in the projection of the joint slightly medial to the location of the joint with 25 gauge 1/2 inch needle using local lidocaine 2% .After that 22 gauge 3 and 1/2 inch needle was driven to the right joint in tunnel vision fashion. When needle entered the joint capsule injection of the contrast was performed demonstrating intra-articular and minimally periarticular spread of the contrast. After that 4 cc. of ropivacaine 0.5% was injected into the joint. Upon completion of the injections the needle was removed Sterile dressing was applied. Upon completion of the injection patient was taken outside of the operating room to the recovery room where recovered uneventfully. Plan Eliza is a very pleasant 47-year-old female who presented to the office today for evaluation management of her left lower back pain. Recent x-ray was reviewed and discussed with patient. History, physical exam and provocative testing consistent with left-sided sacroiliac joint dysfunction. Discussed options for treatment including diagnostic interventional testing, epidural steroid injections, peripheral nerve stimulation with Sprint, RFA and more permanent neuromodulation. Will schedule patient for fluoroscopy guided left diagnostic sacroiliac joint injection with local anesthetic. Discussed in length with the patient diagnostic testing, if she receives good benefit will plan for a Fluoroscopy guided therapeutic left-sided SI joint injection with local anesthetic. Continue PT as planned. C/W naproxen as needed for pain. All questions and concerns have been answered and patient agrees with the plan. Follow up after injections and sooner if needed. Orders: Orders FL guidance in treatment room Today M53.3 - Sacrococcygeal disorders, not elsewhere classified Coding Level of Care Code Procedure Only Diagnoses Sacroiliac joint dysfunction of left side M53.3
[2023-01-06 13:42] VITALS: BP 136/78; PULSE 83; RESP 16; O2SAT 98; BMI 46.0
[2023-01-06 14:03] VITALS: BP 124/60; PULSE 80; RESP 16; O2SAT 99; BMI 46.0
== END 2023-01-06 13:53 | disposition home or self-care (01) ==
PROVIDERS: PCP Nurse Practitioner; Visit Provider Anesthesiology
DX: M53.3 Sacrococcygeal disorders, not elsewhere classified (principal)
CPT/HCPCS: 27096

== ENCOUNTER 2023-01-09 12:53 | Outpatient (AMB) | payer MEDICARE, MEDICAID, SELFPAY ==
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
[2023-01-09 13:05] VITALS: BP 122/84; PULSE 81; RESP 14; O2SAT 96; BMI 43.3
== END 2023-01-09 13:09 | disposition home or self-care (01) ==
PROVIDERS: PCP Nurse Practitioner; Visit Provider Registered Nurse Emergency
DX: M53.3 Sacrococcygeal disorders, not elsewhere classified (principal)
CPT/HCPCS: 99213

== ENCOUNTER → 2023-01-09 12:53 | Outpatient (BNVA) | payer MEDICARE, MEDICAID, SELFPAY | PROVIDERS: PCP Nurse Practitioner; Visit Provider Registered Nurse Emergency | DX: M53.3 Sacrococcygeal disorders, not elsewhere classified (principal) | CPT/HCPCS: 99212 ==

== ENCOUNTER 2023-02-03 13:48 | Outpatient (AMB) | payer MEDICARE, MEDICAID, SELFPAY ==
[2023-02-03 13:54] VITALS: BP 118/66; PULSE 78; TEMP 36.5; O2SAT 94; BMI 43.9
--- NOTE | 2023-02-03 13:54 | A.OFFVIS_ITS ---
Intake Vital Signs 02/03/23 13:54 Height 5 ft 4 in Weight 255 lb 8.252 oz BMI 43.9 BP 118/66 Blood Pressure Location Rt brachial Position Sitting Pulse 78 Pulse Source Pulse Oximeter Temp 97.7 F Temp Source Skin Pulse Oximetry (%) 94 Intake Visit Reasons: rheumatoid arthritis Intake Note: Pt seen today s/p SI joint injection. C/o injection site pain leg pain resolved. Commissioner Of Conciliation Required: Yes Commissioner Of Conciliation Name: Said [id number] Information Interpreted: clinical only Accompanied by: Self / Same As Patient Allergies methotrexate Allergy (Intermediate, Verified 02/03/23 13:58) rash Medication List - Last Reconciled 02/03/23 by Shirley De León MD adalimumab (Humira(CF)) inject one - 40 mg/0.4 mL syringe every 2 weeks subcut amitriptyline 50 mg PO DAILY amlodipine 10 mg PO DAILY bupropion HCl 300 mg PO DAILY buspirone 10 mg PO BID enalapril maleate 5 mg PO DAILY gabapentin 300 mg PO TID labetalol 100 mg PO BID naproxen 500 mg PO BID omeprazole 20 mg PO DAILY topiramate 50 mg PO Q12H trazodone 100 mg PO BEDTIME HPI HPI Comments History of Present Illness Details This is a 47-year-old female with seropositive RA returns for follow- up. On Humira every other week. She was last evaluated by Heidi Alvarez 09/2022. Patient was evaluated by Pain Management and had an SI joint injection therapeutic trial which was successful. She is to be scheduled for a therapeutic injection. She had bilateral knee cortisone injections by Orthopedics which provided some relief for about 15 days. Continues to have pain in her left leg, both knees and ankles. Her right index finger locks up after slicing some vegetables for 5-10 minutes. She has morning stiffness of her hands lasting 5-10 minutes. COUNT INCLUDES THE [facility] Medical History (Updated 02/03/23 @ 14:30 by Shirley De León MD) History of latent tuberculosis Osteoarthritis of left knee Osteoarthritis of right knee History of high blood pressure Low back pain, unspecified Fibromyalgia Seropositive rheumatoid arthritis Morbid obesity with BMI of 45.0-49.9, adult Surgical History History of surgery Hx of section Family History Father Diabetes Hypertension Mother Diabetes Hypertension Rheumatoid arthritis Kidney transplant recipient Sister Thyroid disease Social History Household Members: Spouse and Children Housing: Apartment Alcohol intake: never Patient Tobacco Use Status: Never used Tobacco Female Reproductive History Menstrual Age of Menarche: 12 Review of Systems Musc Reports arthralgias, Reports limited range of motion and Reports stiffness Physical Exam Vital Signs: Last Vital Signs Temp 97.7 F 02/03/23 13:54 Pulse 78 02/03/23 13:54 BP 118/66 02/03/23 13:54 Pulse Ox 94 02/03/23 13:54 BMI result Body Mass Index 43.9 Const General: cooperative, healthy appearing and comfortable Nutritional Appearance: obese morbidly obese Orientation/consciousness: patient oriented x3 Limitations: ambulation with cane HEENT Head: Yes normocephalic and Yes atraumatic Mouth: moist mucous membranes Resp Effort & Inspection: normal respiratory effort and able to speak in complete sentences Auscultation: clear to auscultation bilaterally Cardio Rate: regular rate Rhythm: regular rhythm Neuro General: patient oriented x3 Extrem Other: Right 2nd and 4th MCP tenderness without swelling Right 2nd through 5th PIP tenderness without swelling Right 2nd the IP tenderness Left 4th PIP tenderness MTP tenderness in the plantar aspect bilaterally, bilateral ankle tenderness without swelling Bilateral knee pain with flexion Assessment & Plan Assessment & Plan (1) Seropositive rheumatoid arthritis: Comment: +++RF-ve CCP Humira August 2018 - present Methotrexate- 2018- failed due to rash Enbrel- 07/2018-08/2018-ineffective Code(s): M05.9 - Rheumatoid arthritis with rheumatoid factor, unspecified Plan: This is a 47-year-old female with seropositive RA who returns for follow-up. On Humira every other week. Doing fairly well. She has few tender joints without swelling. Previous inflammatory markers were within normal. Continue Humira 40 mg every other week Labs before next visit in 4 months (2) Osteoarthritis of right knee: Code(s): M17.11 - Unilateral primary osteoarthritis, right knee Qualifiers: Osteoarthritis type: primary Qualified Code(s): M17.11 - Unilateral primary osteoarthritis, right knee (3) Osteoarthritis of left knee: Code(s): M17.12 - Unilateral primary osteoarthritis, left knee Qualifiers: Osteoarthritis type: primary Qualified Code(s): M17.12 - Unilateral primary osteoarthritis, left knee Plan: The patient received bilateral cortisone injections by Orthopedics which provided some relief for about 15 days. Will discuss gel injections next visit Plan I spent 26 minutes reviewing patient's chart, evaluating patient, ordering diagnostic workup, counseling patient and documenting in the chart Orders: Orders Comprehensive Met. Panel 4 Months M05.9 - Rheumatoid arthritis with rheumatoid factor, unspecified Erythrocyte Sedimentation Rate 4 Months M05.9 - Rheumatoid arthritis with rheumatoid factor, unspecified Protein Electrophoresis, Serum 4 Months M05.9 - Rheumatoid arthritis with rheumatoid factor, unspecified Complete Blood Count Auto Diff 4 Months M05.9 - Rheumatoid arthritis with rheumatoid factor, unspecified C Reactive Protein 4 Months M05.9 - Rheumatoid arthritis with rheumatoid factor, unspecified Hepatitis A,B,C Profile 4 Months Z11.59 - Encounter for screening for other viral diseases Immunofixation Pnl, Serum 4 Months M05.9 - Rheumatoid arthritis with rheumatoid factor, unspecified Coding Level of Care Code Est Pt Level 4 (07005) Diagnoses Seropositive rheumatoid arthritis M05.9 Primary osteoarthritis of right knee M17.11 Osteoarthritis type: primary Primary osteoarthritis of left knee M17.12 Osteoarthritis type: primary
== END 2023-02-03 14:23 | disposition home or self-care (01) ==
PROVIDERS: PCP Nurse Practitioner; Visit Provider Student in an Organized Health Care Education/Training Program
DX: M05.79 Rheumatoid arthritis with rheumatoid factor of multiple sites without organ or systems involvement (principal); M17.12 Unilateral primary osteoarthritis, left knee
CPT/HCPCS: 99214

== ENCOUNTER → 2023-02-03 13:48 | Outpatient (BNVA) | payer MEDICARE, MEDICAID, SELFPAY | PROVIDERS: PCP Nurse Practitioner; Visit Provider Student in an Organized Health Care Education/Training Program | DX: M05.9 Rheumatoid arthritis with rheumatoid factor, unspecified (principal); M17.0 Bilateral primary osteoarthritis of knee; Z79.899 Other long term (current) drug therapy | CPT/HCPCS: 99212 ==

== ENCOUNTER 2023-02-17 05:58 | Outpatient (REF) | payer MEDICARE, MEDICAID, SELFPAY ==
--- NOTE | ~2023-02-17 | FL_ITS ---
EXAMINATION: XR FLUOROSCOPY WITH IMAGES CLINICAL INFORMATION: Sacrococcygeal disorders, not elsewhere classified. Left SI joint injection. COMPARISON: None available. TECHNIQUE: Fluoroscopy Supervised By: Dr. Lionel Harden. Fluoroscopy Time: 0.1 minute. Cumulative Dose: 5.27 mGy. DAP: 0.0845 Gycm2. Images: 1. FINDINGS: Images demonstrate needle placement and contrast injection of the left sacroiliac joint FL/FL guidance in treatment room IMPRESSION: Fluoroscopy guidance for left sacroiliac joint injection.
== END 2023-02-17 05:59 | disposition home or self-care (01) ==
LOC: CF 05:58
PROVIDERS: Visit Provider Anesthesiology
DX: M53.3 Sacrococcygeal disorders, not elsewhere classified (principal)
CPT/HCPCS: 27096; J2795; J3301; Q9967

== ENCOUNTER 2023-02-17 07:39 | Outpatient (AMB) | payer MEDICARE, MEDICAID, SELFPAY ==
--- NOTE | 2023-02-17 07:44 | MHC.OFFVIS ---
Intake Vital Signs 02/17/23 07:45 02/17/23 09:05 Height 5 ft 4 in 5 ft 4 in Weight 255 lb 255 lb BMI 43.8 43.8 BP 130/62 124/72 Blood Pressure Location Rt brachial Rt radial Position Sitting Sitting Respiration 16 16 Pulse 78 75 Pulse Source Pulse Oximeter Pulse Oximeter Pulse Oximetry (%) 99 97 Oxygen Delivery Method Room Air Room Air Comment Pre-Op post-op Intake Visit Reasons: L SIJ STEROID INJ/LOCAL Allergies methotrexate Allergy (Intermediate, Verified 02/17/23 07:45) rash [facility] Medical History (Updated 02/17/23 @ 08:22 by Lionel Harden MD) History of latent tuberculosis Osteoarthritis of left knee Osteoarthritis of right knee History of high blood pressure Low back pain, unspecified Fibromyalgia Seropositive rheumatoid arthritis Morbid obesity with BMI of 45.0-49.9, adult Surgical History History of surgery Hx of section Family History Father Diabetes Hypertension Mother Diabetes Hypertension Rheumatoid arthritis Kidney transplant recipient Sister Thyroid disease Social History Household Members: Spouse and Children Housing: Apartment Alcohol intake: never Patient Tobacco Use Status: Never used Tobacco Female Reproductive History Menstrual Age of Menarche: 12 Physical Exam Vital Signs: Last Vital Signs Pulse 75 02/17/23 09:05 Resp 16 02/17/23 09:05 BP 124/72 02/17/23 09:05 Pulse Ox 97 02/17/23 09:05 Oxygen Delivery Method Room Air 02/17/23 09:05 BMI result Body Mass Index 43.8 Assessment & Plan Assessment & Plan (1) Sacroiliac joint dysfunction of left side: Code(s): M53.3 - Sacrococcygeal disorders, not elsewhere classified Plan: left therapeutic sacroiliac joint injection Informed consent was explained thoroughly to the patient. All questions about benefits and risks for the procedure were answered. Patient came to the operating room and was positioned prone on the operating table with the pillow under the pelvis. Time out was performed delineating name and of the patient, allergies and the nature of the procedure. The lower back and buttocks of the patient were prepped with ChloraPrep prepped and draped with sterile utility towels. C-arm was brought over the operating field and sq picture of patient's pelvis was demonstrated on the screen. For the left joint tilting C-arm contralateral to the site of the joint the most posterior portion of the joints was superimposed with anterior silhouette of the joint. Skin was injected in the projection of the joint slightly medial to the location of the joint with 25 gauge 1/2 inch needle using local lidocaine 2% .After that 22 gauge 3 and 1/2 inch needle was driven to the right joint in tunnel vision fashion. When needle entered the joint capsule injection of the contrast was performed demonstrating intra-articular and minimally periarticular spread of the contrast. After that 4 cc. of ropivacaine 0.5% mixed with kenalog 40 mg was injected into the joint. Upon completion of the injections the needle was removed Sterile dressing was applied. Upon completion of the injection patient was taken outside of the operating room to the recovery room where recovered uneventfully. Plan Eliza is a very pleasant 47-year-old female who presented to the office today follow up s/p left diagnostic SIJ injection. She reports 100% pain relief for 3 hours after procedure with improvement in mobility and function. She would like to proceed with therapeutic injection. Will schedule for fluoroscopy guided left therapeutic sacroiliac joint injection with local anesthetic. C/W naproxen as needed for pain. All questions and concerns have been answered and patient agrees with the plan. Follow up after injections and sooner if needed. Orders: Orders FL guidance in treatment room Today M53.3 - Sacrococcygeal disorders, not elsewhere classified Coding Level of Care Code Procedure Only Diagnoses Sacroiliac joint dysfunction of left side M53.3
[2023-02-17 07:45] VITALS: BP 130/62; PULSE 78; RESP 16; O2SAT 99; BMI 43.8
[2023-02-17 09:05] VITALS: BP 124/72; PULSE 75; RESP 16; O2SAT 97; BMI 43.8
== END 2023-02-17 08:32 | disposition home or self-care (01) ==
LOC: HO.PMCPRC 07:39
PROVIDERS: PCP Nurse Practitioner; Visit Provider Anesthesiology
DX: M53.3 Sacrococcygeal disorders, not elsewhere classified (principal)
CPT/HCPCS: 27096

== ENCOUNTER 2023-03-27 10:31 | Outpatient (AMB) | payer MEDICARE, MEDICAID, SELFPAY ==
[2023-03-27 10:39] VITALS: BP 131/74; PULSE 72; RESP 18; BMI 43.6
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
== END 2023-03-27 10:44 | disposition home or self-care (01) ==
PROVIDERS: PCP Nurse Practitioner; Visit Provider Registered Nurse Emergency
DX: M53.3 Sacrococcygeal disorders, not elsewhere classified (principal)
CPT/HCPCS: 99213

== ENCOUNTER → 2023-03-27 10:31 | Outpatient (BNVA) | payer MEDICARE, MEDICAID, SELFPAY | PROVIDERS: PCP Nurse Practitioner; Visit Provider Registered Nurse Emergency | DX: M53.3 Sacrococcygeal disorders, not elsewhere classified (principal) | CPT/HCPCS: 99212 ==

== ENCOUNTER 2023-04-28 14:16 | Outpatient (REF) | payer MEDICARE, MEDICAID, SELFPAY ==
[2023-04-28 15:06] LABS: Anion Gap 12 (12-20); Carbon Dioxide 22 mmol/L (22-29); Chloride 111 mmol/L (96-108); Potassium 4.3 mmol/L (3.3-5.1); Sodium 141 mmol/L (135-145)
[2023-04-28 15:09] LABS: Alanine Aminotransferase 15 U/L (0-31); Alkaline Phosphatase 58 U/L (39-117); Anion Gap 11 (12-20); Aspartate Amino Transferase 13 U/L (5-31); Bilirubin Total 0.4 mg/dL (0.0-1.0); Blood Urea Nitrogen 17 mg/dL (9-16); Calcium 9.2 mg/dL (8.4-10.2); Carbon Dioxide 22 mmol/L (22-29); Chloride 111 mmol/L (96-108); Estimated Glomerular Filt Rate > 60; Glucose Random 94 mg/dL (60-115); Potassium 4.1 mmol/L (3.3-5.1); Sodium 140 mmol/L (135-145); Total Protein 7.2 g/dL (6.5-8.0)
== END 2023-04-28 14:17 | disposition home or self-care (01) ==
LOC: HO.LAB 14:16
PROVIDERS: PCP Nurse Practitioner Family; Referring Provider Nurse Practitioner Family; Visit Provider Student in an Organized Health Care Education/Training Program
DX: I10 Essential (primary) hypertension (principal); G47.33 Obstructive sleep apnea (adult) (pediatric)
CPT/HCPCS: 36415; 80051; 80053

== ENCOUNTER 2023-06-01 15:23 | Outpatient (REF) | payer MEDICARE, MEDICAID, SELFPAY ==
[2023-06-01 15:43] LABS: MANUAL DIFF FLAG NO
[2023-06-01 17:04] LABS: Basophils Percent Auto 0.5 % (0-2); Eosinophils Absolute Auto 0.1 X10*3/uL (0.0-0.4); Eosinophils Percent Auto 1.4 % (0-4); Hematocrit 44.2 % (37.0-47.0); Hemoglobin 14.9 g/dl (12.0-16.0); Imm Gran Abs Auto 0.02 X10*3/uL (0.00-0.03); Imm Gran Pct Auto 0.3 % (0.0-0.4); Lymphocytes Absolute Auto 2.6 X10*3/uL (1.2-4.9); Lymphocytes Percent Auto 33.4 % (20-40); Mean Corpuscular HGB Conc 33.7 g/dl (31.0-35.0); Mean Corpuscular Hemoglobin 30.4 pg (27.0-33.0); Mean Corpuscular Volume 90.2 fL (80.0-98.0); Mean Platelet Volume 11.3 fL (9.4-12.3); Monocytes Absolute Auto 0.5 X10*3/uL (0.1-1.2); Monocytes Percent Auto 6.1 % (2-11); Neutrophils Absolute Auto 4.5 x10*3/uL (2.0-8.3); Neutrophils Percent Auto 58.3 % (45-73); Platelet Count 369 X10*3/uL (160-400); Red Cell Distribution Width 12.1 % (11.0-16.0); White Blood Count 7.7 X10*3/uL (4.8-10.8)
[2023-06-01 17:43] LABS: Alanine Aminotransferase 15 U/L (0-31); Albumin Level 4.2 g/dL (3.5-5.0); Alkaline Phosphatase 63 U/L (39-117); Anion Gap 15 (12-20); Aspartate Amino Transferase 13 U/L (5-31); Bilirubin Total 0.4 mg/dL (0.0-1.0); Blood Urea Nitrogen 14 mg/dL (9-16); C Reactive Protein 0.24 mg/dL (< or = 0.50); Carbon Dioxide 18 mmol/L (22-29); Chloride 109 mmol/L (96-108); Estimated Glomerular Filt Rate > 60; Glucose Random 92 mg/dL (60-115); Sodium 138 mmol/L (135-145); Total Protein 7.6 g/dL (6.5-8.0)
[2023-06-01 18:11] LABS: Erythrocyte Sedimentation Rate 10 MM/HR (0-20)
[2023-06-02 07:27] LABS: HBS Num1 0.49 mIU/mL (0-7.99); HBc Num1 0.09 S/CO (0.00-0.79); HBsAGNum1 0.27 S/CO (0.00-0.99); Hepatitis A Antibody IgM 0.24 Index (0-0.79); Hepatitis B Core Antibody Nonreactive (Nonreactive); Hepatitis B Surface Antigen Negative (Negative); ~HepC Num1 0.08 S/CO (0.00-0.79); ~Hepatitis A Antibody IgM Nonreactive (Nonreactive); ~Hepatitis B Surface Antibody NONREACTIVE (Nonreactive); ~Hepatitis C Antibody Nonreactive (Nonreactive)
[2023-06-04 11:04] LABS: Prot Elec - Albumin 4.2 g/dL (3.8-4.8); Prot Elec - Alpha1 0.3 g/dL (0.2-0.3); Prot Elec - Alpha2 0.7 g/dL (0.5-0.9); Prot Elec - Beta 1 0.5 g/dL (0.4-0.6); Prot Elec - Beta 2 0.5 g/dL (0.2-0.5); Prot Elec - Gamma 1.2 g/dL (0.8-1.7); Prot Elec - Total Protein 7.3 g/dL (6.1-8.1)
[2023-06-09 09:59] LABS: IgA 315 mg/dL (47-310); IgG 1303 mg/dL (600-1640); IgM 92 mg/dL (50-300)
== END 2023-06-01 15:24 | disposition home or self-care (01) ==
LOC: HO.LAB 15:23
PROVIDERS: PCP Nurse Practitioner; Visit Provider Student in an Organized Health Care Education/Training Program
DX: M05.9 Rheumatoid arthritis with rheumatoid factor, unspecified (principal); Z11.59 Encounter for screening for other viral diseases
CPT/HCPCS: 36415; 80053; 82784; 84165; 85025; 85652; 86140; 86334; 86704; 86706; 86709; 86803; 87340

== ENCOUNTER 2023-06-04 12:14 | Outpatient (AMB) | payer MEDICARE, MEDICAID, SELFPAY ==
--- NOTE | 2023-06-04 13:04 | A.OFFVIS_ITS ---
Intake Vital Signs 06/04/23 13:06 Height 5 ft 4 in Weight 248 lb 3.848 oz BMI 42.6 Temp 97.6 F Temp Source Skin Intake Visit Reasons: RA Intake Note: Pt last seen 02/03/23 presents today for follow up and test results. Denies new surgery or hospitalization. Animal Health Technician Required: Yes Animal Health Technician Name: Justin #[id number] Accompanied by: Self / Same As Patient Allergies methotrexate Allergy (Intermediate, Verified 06/04/23 14:08) rash Medication List - Last Reconciled 06/04/23 by Shirley De León MD adalimumab (Humira(CF)) inject one - 40 mg/0.4 mL syringe every 2 weeks subcut amitriptyline 50 mg PO DAILY amlodipine 10 mg PO DAILY bupropion HCl 300 mg PO DAILY buspirone 10 mg PO BID enalapril maleate 5 mg PO DAILY gabapentin 300 mg PO TID labetalol 100 mg PO BID naproxen 500 mg PO BID omeprazole 20 mg PO DAILY tizanidine 2 mg PO BEDTIME topiramate 50 mg PO Q12H trazodone 100 mg PO BEDTIME HPI HPI Comments History of Present Illness Details This is a 47-year-old female with seropositive RA returns for follow- up. On Humira every other week. Well tolerated. Patient states that she has diffuse pain, she has pain all over her body, including her joints, her muscles, her back, the pain is in the hands, knees, neck, back. She has been under plenty of stress recently, she has a problem with her neighbors. She feels that when she was started on Humira she felt much better but she does not believe that the medication is working very much anymore, she feels however that if she stops it she will get worse. She states that recently she has been having numbness of her hands and feet. Has been going on for 3 years She recently received SI joint injection by pain management and believes it did help. [facility] Medical History (Updated 06/04/23 @ 14:16 by Shirley De León MD) History of latent tuberculosis Osteoarthritis of left knee Osteoarthritis of right knee History of high blood pressure Low back pain, unspecified Fibromyalgia Seropositive rheumatoid arthritis Morbid obesity with BMI of 45.0-49.9, adult Surgical History History of surgery Hx of section Family History Father Diabetes Hypertension Mother Diabetes Hypertension Rheumatoid arthritis Kidney transplant recipient Sister Thyroid disease Social History Household Members: Spouse and Children Housing: Apartment Alcohol intake: never Patient Tobacco Use Status: Never used Tobacco Female Reproductive History Menstrual Age of Menarche: 12 Review of Systems Const Reports fatigue and Reports weakness ENT Reports neck pain Card Reports dyspnea Resp Reports dyspnea Musc Reports back pain, Reports arthralgias, Reports neck pain, Reports numbness and Reports tingling Neuro Reports numbness, Reports tingling and Reports weakness Endo Reports fatigue Physical Exam Vital Signs: Last Vital Signs Temp 97.6 F 06/04/23 13:06 BMI result Body Mass Index 42.6 Const General: cooperative, healthy appearing and comfortable Nutritional Appearance: obese morbidly obese Orientation/consciousness: patient oriented x3 Limitations: ambulation with cane HEENT Head: Yes normocephalic and Yes atraumatic Mouth: moist mucous membranes Resp Effort & Inspection: normal respiratory effort and able to speak in complete sentences Auscultation: clear to auscultation bilaterally Cardio Rate: regular rate Rhythm: regular rhythm Neuro General: patient oriented x3 Extrem Other: Multiple tender joints without swelling including wrists, MCPs, PIP, DIPs, elbows Multiple fibromyalgia tender points Multiple tender MTPs Negative Tinel sign bilaterally Sensation to touch is grossly normal all 4 extremities peripherally Right knee warmth Bilateral knee pain with flexion and extension Psych Other: Tearful Affect: Anxious affect present Assessment & Plan Assessment & Plan (1) Seropositive rheumatoid arthritis: Code(s): M05.9 - Rheumatoid arthritis with rheumatoid factor, unspecified Plan: This is a 47-year-old female with seropositive RA who returns for follow-up. On Humira every other week. Doing well. She has multiple tender joints as well as widespread tender points and widespread pains but no swollen joints. This is likely fibromyalgia Continue Humira 40 mg every other week Labs before next visit in 4 months (2) Numbness and tingling in both hands: Code(s): R20.0 - Anesthesia of skin; R20.2 - Paresthesia of skin Plan: And both feet. Order EMG/NCV for further evaluate (3) History of latent tuberculosis: Comment: s/p treatment Code(s): Z86.15 - Personal history of latent tuberculosis infection Plan I spent 30 minutes reviewing patient's chart, evaluating patient, ordering ken gnostic workup, counseling patient and documenting in the chart Orders: Orders NE electromyogram (EMG) Today R20.0 - Anesthesia of skin, R20.2 - Paresthesia of skin Comprehensive Met. Panel 3 Months M05.9 - Rheumatoid arthritis with rheumatoid factor, unspecified Erythrocyte Sedimentation Rate 3 Months M05.9 - Rheumatoid arthritis with rheumatoid factor, unspecified Complete Blood Count Auto Diff 3 Months M05.9 - Rheumatoid arthritis with rheumatoid factor, unspecified C Reactive Protein 3 Months M05.9 - Rheumatoid arthritis with rheumatoid factor, unspecified Coding Level of Care Code Est Pt Level 4 (47680) Diagnoses Seropositive rheumatoid arthritis M05.9 Numbness and tingling in both hands R20.0; R20.2 History of latent tuberculosis Z86.15
[2023-06-04 13:06] VITALS: TEMP 36.4; BMI 42.6
== END 2023-06-04 13:43 | disposition home or self-care (01) ==
PROVIDERS: PCP Nurse Practitioner; Visit Provider Student in an Organized Health Care Education/Training Program
DX: M05.79 Rheumatoid arthritis with rheumatoid factor of multiple sites without organ or systems involvement (principal); R20.0 Anesthesia of skin; R20.2 Paresthesia of skin; Z86.15 Personal history of latent tuberculosis infection
CPT/HCPCS: 99214

== ENCOUNTER → 2023-06-04 12:14 | Outpatient (BNVA) | payer MEDICARE, MEDICAID, SELFPAY | PROVIDERS: PCP Nurse Practitioner; Visit Provider Student in an Organized Health Care Education/Training Program | DX: M17.11 Unilateral primary osteoarthritis, right knee (principal); M17.12 Unilateral primary osteoarthritis, left knee; M05.9 Rheumatoid arthritis with rheumatoid factor, unspecified; R20.0 Anesthesia of skin; R20.2 Paresthesia of skin; Z86.15 Personal history of latent tuberculosis infection | CPT/HCPCS: 20610; 99212; J1040 ==

== ENCOUNTER 2023-06-04 13:53 | Outpatient (AMB) | payer MEDICARE, MEDICAID, SELFPAY ==
--- NOTE | 2023-06-04 14:06 | A.OFFVIS_ITS ---
Intake Vital Signs 06/04/23 14:07 Height 5 ft 4 in Weight 246 lb BMI 42.2 Intake Visit Reasons: ov- B/L knee pain last inject 12/02/22 Intake Note: Eliza is a 47 year old female who presents today for a follow up appointment for her bilateral knee OA, last injection 12/02/22. Patient reports pain in both knees but it is worse in the left. Computer Technical Specialist Required: Yes Computer Technical Specialist Name: Julia [id number] Allergies methotrexate Allergy (Intermediate, Verified 06/04/23 14:08) rash HPI ov- B/L knee pain last inject 12/02/22 HPI Details 47-year-old female, who is Kitt[place] speak ing, presents in the office today for a follow up of bilateral knee pain. I last saw the patient in the office on 12/02/2022 when she received bilateral knee cortisone injections. She was also give reaction knee braces for her knees. While in the office today she reports pain in both knees but states it is worse on the left side. [facility] Medical History (Updated 06/04/23 @ 14:16 by Shirley De León MD) History of latent tuberculosis Osteoarthritis of left knee Osteoarthritis of right knee History of high blood pressure Low back pain, unspecified Fibromyalgia Seropositive rheumatoid arthritis Morbid obesity with BMI of 45.0-49.9, adult Surgical History History of surgery Hx of section Family History Father Diabetes Hypertension Mother Diabetes Hypertension Rheumatoid arthritis Kidney transplant recipient Sister Thyroid disease Social History Household Members: Spouse and Children Housing: Apartment Alcohol intake: never Patient Tobacco Use Status: Never used Tobacco Female Reproductive History Menstrual Age of Menarche: 12 Review of Systems Const All systems reviewed & are unremarkable except as noted in HPI and below Physical Exam Vital Signs: BMI result Body Mass Index 42.2 Const General: cooperative, healthy appearing and no acute distress Resp Effort & Inspection: normal respiratory effort and able to speak in complete sentences Cardio Rate: regular rate Peripheral pulses: Peripheral pulses 2+ throughout GI Palpation (GI): Soft to palpation Skin Lesions: no lesions Rashes: no rashes Extrem Other: Bilateral knees: Normal to inspection. No ecchymosis, erythema, or joint effusion. No tenderness to palpation to the medial or lateral joint lines. Full knee extension and flexion. Crepitus felt with ROM. NVI. Office Procedures Joint Injection/Drain Joint Injection/Drain Primary Site: right knee Secondary Site: left knee Prep: site was prepped using aseptic technique, ethochloride spray was applied and injection warnings given Injected: 80 mg of, DepoMedrol, with 8 mL of (2% plain lido ) and in the joint Approach Used: anterolateral Procedure: The patient tolerated the procedure well, but had some pain with the injection and there was some relief with the local anesthesia Coding 52714 - Large joint Procedure code (CPT) selection complete Assessment & Plan Assessment & Plan (1) Osteoarthritis of right knee: Code(s): M17.11 - Unilateral primary osteoarthritis, right knee Qualifiers: Osteoarthritis type: primary Qualified Code(s): M17.11 - Unilateral primary osteoarthritis, right knee (2) Osteoarthritis of left knee: Code(s): M17.12 - Unilateral primary osteoarthritis, left knee Qualifiers: Osteoarthritis type: primary Qualified Code(s): M17.12 - Unilateral primary osteoarthritis, left knee Plan Ms. Kenia Hernandes is a 47-year-old female, who is Kitt[place] speaking, presents in the office today for a follow up of bilateral knee pain. I last saw the patient in the office on 12/02/2022 when she received bilateral knee cortisone injections. She was also give reaction knee braces for her knees. While in the office today she reports pain in both knees but states it is worse on the left side. The patient was offered a cortisone injection in the bilateral knees with 80 mg of DepoMedrol. The patient was explained the risk, benefits, and alternatives to receiving this injection. After receiving consent for the injection, the patient had the procedure done while in office today. The patient tolerated the procedure well with no complications. Follow up will be PRN, or sooner if needed. Patient Instructions: Scribed for Silvia Da Silva PA-C by Janey Nguyen medical instrument technician, on 06/04/2023 at 2:15 pm, EST. Coding Level of Care Code Est Pt Level 3 (23190) Diagnoses Primary osteoarthritis of right knee M17.11 Osteoarthritis type: primary Primary osteoarthritis of left knee M17.12 Osteoarthritis type: primary CPT Codes Coding - 41292 Large joint: 19079 - Large joint ([id number])
[2023-06-04 14:07] VITALS: BMI 42.2
== END 2023-06-04 15:14 | disposition home or self-care (01) ==
PROVIDERS: PCP Nurse Practitioner; Visit Provider Physician Assistant
DX: M17.0 Bilateral primary osteoarthritis of knee (principal)
CPT/HCPCS: 20610; 99213

== ENCOUNTER 2023-06-19 13:13 | Outpatient (AMB) | payer MEDICARE, MEDICAID, SELFPAY ==
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
== END 2023-06-19 13:26 | disposition home or self-care (01) ==
LOC: HO.PMC 13:13
PROVIDERS: PCP Nurse Practitioner; Visit Provider Registered Nurse Emergency
DX: M53.3 Sacrococcygeal disorders, not elsewhere classified (principal)
CPT/HCPCS: 99442

== ENCOUNTER → 2023-06-19 13:13 | Outpatient (BNVA) | payer MEDICARE, MEDICAID, SELFPAY | PROVIDERS: PCP Nurse Practitioner; Visit Provider Registered Nurse Emergency ==

== ENCOUNTER 2023-07-22 12:58 | Outpatient (REF) | payer MEDICARE, MEDICAID, SELFPAY ==
--- NOTE | 2023-07-22 13:01 | EMG_ITS ---
Chief complaint: History of RA, diabetes, hand and feet numbness especially in the morning Reason for referral: Evaluate for neuropathy, Carpal Tunnel Syndrome Referred by: Dr. De León Procedure done: Bilateral upper extremities/bilateral lower extremity NCS/EMG Precautions and/or limitations: None The limb temperature was monitored continuously and remained between 32-36 degrees C during the performance of the NCS. Nerve Conduction Studies Anti Sensory Summary Table ?Stim Site NR Onset (ms) Norm Onset (ms) Peak (ms) Norm Peak (ms) O-P Amp (?V) Norm O-P Amp Site1 Site2 Delta-0 (ms) Dist (cm) Fab (m/s) Norm Fab (m/s) Left Median Anti Sensory (2nd Digit) Wrist ? 2.2 2.6 <3.6 29.5 >10 Wrist 2nd Digit 2.2 14.0 64 Right Median Anti Sensory (2nd Digit) Wrist ? 2.2 2.7 <3.6 46.7 >10 Wrist 2nd Digit 2.2 14.0 64 Left Sural Anti Sensory (Lat Mall) Calf ? 2.4 3.2 <4.0 5.4 >5.0 Calf Lat Mall 2.4 14.0 58 Right Sural Anti Sensory (Lat Mall) Calf ? 2.3 2.9 <4.0 5.4 >5.0 Calf Lat Mall 2.3 14.0 61 Left Ulnar Anti Sensory (5th Digit) Wrist ? 2.2 2.8 <3.7 15 >15.0 Wrist 5th Digit 2.2 14.0 64 Right Ulnar Anti Sensory (5th Digit) Wrist ? 2.1 2.6 <3.7 15 >15.0 Wrist 5th Digit 2.1 14.0 67 Motor Summary Table ?Stim Site NR Onset (ms) Norm Onset (ms) O-P Amp (mV) Norm O-P Amp iAmp (mV) Amp (1st) (%) Site1 Site2 Delta-0 (ms) Dist (cm) Fab (m/s) Norm Fab (m/s) Left Median Motor (Abd Poll Brev) Wrist ? 2.5 <3.9 12.7 >4.5 15.8 100.0 Elbow Wrist 3.0 18.0 60 >45 Elbow ? 5.5 10.9 14.3 85.8 Right Median Motor (Abd Poll Brev) Wrist ? 2.7 <3.9 11.1 >4.5 14.7 100.0 Elbow Wrist 3.2 18.5 58 >45 Elbow ? 5.9 12.1 16.0 109.0 Left Peroneal Motor (Ext Dig Brev) Ankle ? 3.4 <4.0 4.5 >2.5 5.5 100.0 Ankle Ext Dig Brev 3.4 0.0 B Fib ? 9.7 4.3 5.2 95.6 B Fib Ankle 6.3 32.0 51 >40 Poplt ? 10.2 4.2 5.2 93.3 Poplt B Fib 0.5 5.0 100 >40 Right Peroneal Motor (Ext Dig Brev) Ankle ? 3.8 <4.0 5.3 >2.5 6.8 100.0 Ankle Ext Dig Brev 3.8 0.0 B Fib ? 10.4 4.8 6.2 90.6 B Fib Ankle 6.6 35.0 53 >40 Poplt ? 10.9 4.9 6.3 92.5 Poplt B Fib 0.5 4.0 80 >40 Left Tibial Motor (Abd Ceballos Brev) Ankle ? 3.8 <5 6.0 >2.5 9.0 100.0 Ankle Abd Ceballos Brev 3.8 0.0 Knee ? 10.6 4.7 7.2 78.3 Knee Ankle 6.8 36.0 53 >40 Right Tibial Motor (Abd Ceballos Brev) Ankle ? 4.9 <5 4.8 >2.5 6.8 100.0 Ankle Abd Ceballos Brev 4.9 0.0 Knee ? 9.9 6.1 8.9 127.1 Knee Ankle 5.0 38.0 76 >40 Left Ulnar Motor (Abd Dig Minimi) Wrist ? 2.3 <3.0 5.6 >5 7.5 100.0 B Elbow Wrist 2.6 19.0 73 >45 B Elbow ? 4.9 5.4 7.4 96.4 A Elbow B Elbow 1.0 10.0 100 >45 A Elbow ? 5.9 5.3 7.2 94.6 Right Ulnar Motor (Abd Dig Minimi) Wrist ? 2.4 <3.0 7.1 >5 8.8 100.0 B Elbow Wrist 2.7 17.0 63 >45 B Elbow ? 5.1 6.5 8.2 91.5 A Elbow B Elbow 0.7 10.0 143 >45 A Elbow ? 5.8 7.1 9.0 100.0 EMG ?Side Muscle Nerve Root Ins Act Fibs Psw Amp Dur Poly Recrt Int Pat Comment Right 1stDorInt Ulnar C8-T1 Nml Nml Nml Nml Nml 0 Nml Complete Right FlexCarRad Median C6-7 Nml Nml Nml Nml Nml 0 Nml Complete Right Biceps Musculocut C5-6 Nml Nml Nml Nml Nml 0 Nml Complete Right Triceps Radial C6-7-8 Nml Nml Nml Nml Nml 0 Nml Complete Right Deltoid Axillary C5-6 Nml Nml Nml Nml Nml 0 Nml Complete Right AbdHallucis MedPlantar S1-2 Nml Nml Nml Nml Nml 0 Nml Complete Right AntTibialis Dp Br Peron L4-5 Nml Nml Nml Nml Nml 0 Nml Complete Right PostTibialis Tibial L5, S1 Nml Nml Nml Nml Nml 0 Nml Complete Right MedGastroc Tibial S1-2 Nml Nml Nml Nml Nml 0 Nml Complete Right VastusMed Femoral L2-4 Nml Nml Nml Nml Nml 0 Nml Complete Left AbdHallucis MedPlantar S1-2 Nml Nml Nml Nml Nml 0 Nml Complete Left AntTibialis Dp Br Peron L4-5 Nml Nml Nml Nml Nml 0 Nml Complete Left PostTibialis Tibial L5, S1 Nml Nml Nml Nml Nml 0 Nml Complete Left MedGastroc Tibial S1-2 Nml Nml Nml Nml Nml 0 Nml Complete Left VastusMed Femoral L2-4 Nml Nml Nml Nml Nml 0 Nml Complete FINDINGS: All motor and sensory nerves tested showed normal latencies, amplitudes and conduction velocities. Concentric needle EMG was performed in selected muscles of the bilateral lower extremity and right upper extremity. Study did not reveal signs of electric abnormalities as shown in the table below. IMPRESSION: 1. This is a normal study. 2. There is no electrodiagnostic evidence for median neuropathy, ulnar neuropathy, brachial plexopathy or cervical radiculopathy. 3. There is no electrodiagnostic evidence for peroneal neuropathy, tibial neuropathy, lumbosacral plexopathy, lumbar radiculopathy, or peripheral neuropathy. Thank you for your kind referral. Chuyita Salazar MD, CHAPO Board Certified, [place] Board [employer] and Rehabilitation (ABPMR) Board Certified, [place] Board of Electrodiagnostic Medicine (ABEM) CODIN 26026 x 3 MTDD
== END 2023-07-22 12:59 | disposition home or self-care (01) ==
LOC: HO.NEURO 12:58
PROVIDERS: PCP Nurse Practitioner; Visit Provider Student in an Organized Health Care Education/Training Program
DX: R20.0 Anesthesia of skin (principal); R20.2 Paresthesia of skin
CPT/HCPCS: 95886; 95913

== ENCOUNTER → 2023-07-22 13:01 | Outpatient (BNV) | payer MEDICARE, MEDICAID, SELFPAY | PROVIDERS: PCP Nurse Practitioner; Visit Provider Physical Medicine & Rehabilitation | DX: M79.641 Pain in right hand (principal); M79.642 Pain in left hand; M79.671 Pain in right foot; M79.672 Pain in left foot; R20.0 Anesthesia of skin | CPT/HCPCS: 95886; 95913 ==

== ENCOUNTER 2023-09-02 16:22 | Outpatient (REF) | payer MEDICARE, MEDICAID, SELFPAY ==
[2023-09-02 16:41] LABS: MANUAL DIFF FLAG NO
[2023-09-02 17:51] LABS: Basophils Absolute Auto 0.1 X10*3/uL (0.0-0.2); Basophils Percent Auto 0.6 % (0-2); Eosinophils Absolute Auto 0.1 X10*3/uL (0.0-0.4); Eosinophils Percent Auto 1.5 % (0-4); Hematocrit 42.2 % (37.0-47.0); Hemoglobin 14.7 g/dl (12.0-16.0); Imm Gran Abs Auto 0.06 X10*3/uL (0.00-0.03); Imm Gran Pct Auto 0.8 % (0.0-0.4); Lymphocytes Absolute Auto 3.1 X10*3/uL (1.2-4.9); Lymphocytes Percent Auto 39.8 % (20-40); Mean Corpuscular HGB Conc 34.8 g/dl (31.0-35.0); Mean Corpuscular Hemoglobin 30.9 pg (27.0-33.0); Mean Corpuscular Volume 88.7 fL (80.0-98.0); Mean Platelet Volume 11.2 fL (9.4-12.3); Monocytes Absolute Auto 0.5 X10*3/uL (0.1-1.2); Monocytes Percent Auto 5.9 % (2-11); Neutrophils Percent Auto 51.4 % (45-73); Platelet Count 344 X10*3/uL (160-400); Red Blood Count 4.76 X10*6/uL (4.20-5.50); Red Cell Distribution Width 12.2 % (11.0-16.0); White Blood Count 7.8 X10*3/uL (4.8-10.8)
[2023-09-02 18:31] LABS: Alanine Aminotransferase 21 U/L (0-31); Alkaline Phosphatase 71 U/L (39-117); Anion Gap 11 (12-20); Aspartate Amino Transferase 15 U/L (5-31); Bilirubin Total 0.4 mg/dL (0.0-1.0); Blood Urea Nitrogen 15 mg/dL (9-16); C Reactive Protein 0.33 mg/dL (< or = 0.50); Calcium 9.2 mg/dL (8.4-10.2); Carbon Dioxide 23 mmol/L (22-29); Chloride 110 mmol/L (96-108); Estimated Glomerular Filt Rate > 60; Glucose Random 116 mg/dL (60-115); Potassium 4.5 mmol/L (3.3-5.1); Sodium 139 mmol/L (135-145); Total Protein 7.4 g/dL (6.5-8.0)
[2023-09-02 18:43] LABS: Erythrocyte Sedimentation Rate 9 MM/HR (0-20)
== END 2023-09-02 16:23 | disposition home or self-care (01) ==
LOC: HO.LAB 16:22
PROVIDERS: PCP Nurse Practitioner; Visit Provider Student in an Organized Health Care Education/Training Program
DX: M05.9 Rheumatoid arthritis with rheumatoid factor, unspecified (principal)
CPT/HCPCS: 36415; 80053; 85025; 85652; 86140

== ENCOUNTER → 2023-09-03 10:04 | Outpatient (BNVA) | payer MEDICARE, MEDICAID, SELFPAY | PROVIDERS: PCP Nurse Practitioner; Visit Provider Advanced Practice Midwife | DX: M05.9 Rheumatoid arthritis with rheumatoid factor, unspecified (principal); R20.0 Anesthesia of skin; R20.2 Paresthesia of skin; Z86.15 Personal history of latent tuberculosis infection | CPT/HCPCS: 99212 ==

== ENCOUNTER 2023-09-03 14:51 | Outpatient (AMB) | payer MEDICARE, MEDICAID, SELFPAY ==
[2023-09-03 15:02] VITALS: BP 118/74; PULSE 78; O2SAT 98; BMI 44.2
--- NOTE | 2023-09-03 15:02 | MHC.OFFVIS ---
Intake Vital Signs 09/03/23 15:02 Height 5 ft 4 in Weight 257 lb 4.471 oz BMI 44.2 BP 118/74 Blood Pressure Location Rt brachial Position Sitting Pulse 78 Pulse Source Pulse Oximeter Pulse Oximetry (%) 98 Oxygen Delivery Method Room Air Intake Visit Reasons: RA Intake Note: Patient last seen 06/04/23 presents today for follow up and test results. [employer]ing [employer] Required: Yes [employer]ing [employer] Name: Luz Elena [id number] Information Interpreted: clinical only Accompanied by: Self / Same As Patient Allergies methotrexate Allergy (Intermediate, Verified 09/03/23 15:03) rash Medication List - Last Reconciled 09/03/23 by Shirley De León MD adalimumab (Humira(CF)) inject one - 40 mg/0.4 mL syringe every 2 weeks subcut amitriptyline 50 mg PO DAILY amlodipine 10 mg PO DAILY bupropion HCl XL 300 mg PO DAILY buspirone 10 mg PO BID enalapril maleate 5 mg PO DAILY gabapentin 300 mg PO TID labetalol 100 mg PO BID omeprazole 20 mg PO DAILY tizanidine 2 mg PO BEDTIME topiramate 50 mg PO Q12H trazodone 100 mg PO BEDTIME HPI HPI Comments History of Present Illness Details This is a 47-year-old female with seropositive RA returns for follow-up. On Humira every other week. Well tolerated. She has no new complaints today. [facility] Medical History History of latent tuberculosis Osteoarthritis of left knee Osteoarthritis of right knee History of high blood pressure Low back pain, unspecified Fibromyalgia Seropositive rheumatoid arthritis Morbid obesity with BMI of 45.0-49.9, adult Surgical History History of surgery Hx of section Family History Father Diabetes Hypertension Mother Diabetes Hypertension Rheumatoid arthritis Kidney transplant recipient Sister Thyroid disease Social History Household Members: Spouse and Children Housing: Apartment Alcohol intake: never Patient Tobacco Use Status: Never used Tobacco Female Reproductive History Menstrual Age of Menarche: 12 Review of Systems [employer] [facility] Reports back pain and Reports arthralgias Physical Exam Vital Signs: Last Vital Signs Pulse 78 09/03/23 15:02 BP 118/74 09/03/23 15:02 Pulse Ox 98 09/03/23 15:02 Oxygen Delivery Method Room Air 09/03/23 15:02 BMI result Body Mass Index 44.2 Const General: cooperative, healthy appearing and comfortable Nutritional Appearance: obese morbidly obese Orientation/consciousness: patient oriented x3 HEENT Head: Yes normocephalic and Yes atraumatic Mouth: moist mucous membranes Resp Effort & Inspection: normal respiratory effort and able to speak in complete sentences Cardio Rate: regular rate Rhythm: regular rhythm Neuro General: patient oriented x3 Extrem Other: No swollen or tender joints today. No active synovitis Psych Other: Tearful Affect: Anxious affect present Assessment & Plan Assessment & Plan (1) Seropositive rheumatoid arthritis: Code(s): M05.9 - Rheumatoid arthritis with rheumatoid factor, unspecified Plan: This is a 47-year-old female with seropositive RA who returns for follow-up. On Humira every other week. Doing well. There is no active synovitis on exam Continue Humira 40 mg every other week Labs before next visit in 4 months (2) Numbness and tingling in both hands: Code(s): R20.0 - Anesthesia of skin; R20.2 - Paresthesia of skin Plan: Bilateral upper extremity EMG/NCV was unremarkable (3) History of latent tuberculosis: Comment: s/p treatment Code(s): Z86.15 - Personal history of latent tuberculosis infection Plan I spent 25 minutes reviewing patient's chart, evaluating patient, ordering diagnostic workup, counseling patient and documenting in the chart Orders: Orders Complete Blood Count Auto Diff 4 Months M05.9 - Rheumatoid arthritis with rheumatoid factor, unspecified Comprehensive Met. Panel 4 Months M05.9 - Rheumatoid arthritis with rheumatoid factor, unspecified Erythrocyte Sedimentation Rate 4 Months M05.9 - Rheumatoid arthritis with rheumatoid factor, unspecified C Reactive Protein 4 Months M05.9 - Rheumatoid arthritis with rheumatoid factor, unspecified Coding Level of Care Code Est Pt Level 4 (31446) Diagnoses Seropositive rheumatoid arthritis M05.9 Numbness and tingling in both hands R20.0; R20.2 History of latent tuberculosis Z86.15
== END 2023-09-03 15:11 | disposition home or self-care (01) ==
PROVIDERS: PCP Nurse Practitioner; Visit Provider Student in an Organized Health Care Education/Training Program
DX: M05.79 Rheumatoid arthritis with rheumatoid factor of multiple sites without organ or systems involvement (principal); R20.0 Anesthesia of skin; R20.2 Paresthesia of skin; Z86.15 Personal history of latent tuberculosis infection
CPT/HCPCS: 99214

== ENCOUNTER 2023-09-09 14:36 | Outpatient (AMB) | payer MEDICARE, MEDICAID, SELFPAY ==
[2023-09-09 14:42] VITALS: BP 154/97; PULSE 20; RESP 20; O2SAT 98; BMI 43.1
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
== END 2023-09-09 15:00 | disposition home or self-care (01) ==
PROVIDERS: PCP Nurse Practitioner; Visit Provider Registered Nurse Emergency
DX: M53.3 Sacrococcygeal disorders, not elsewhere classified (principal)
CPT/HCPCS: 99213

== ENCOUNTER → 2023-09-09 14:36 | Outpatient (BNVA) | payer MEDICARE, MEDICAID, SELFPAY | PROVIDERS: PCP Nurse Practitioner; Visit Provider Registered Nurse Emergency | DX: G89.29 Other chronic pain (principal); M53.3 Sacrococcygeal disorders, not elsewhere classified | CPT/HCPCS: 99212 ==

== ENCOUNTER 2023-10-27 06:56 | Outpatient (REF) | payer MEDICARE, MEDICAID, SELFPAY ==
--- NOTE | ~2023-10-27 | FL_ITS ---
EXAMINATION: XR FLUOROSCOPY WITH IMAGES CLINICAL INFORMATION: Sacrococcygeal disorder. COMPARISON: None available. TECHNIQUE: Fluoroscopy Supervised By: Dr. Harden. Fluoroscopy Time: 0.1 mins. Cumulative Dose: 7.54 mGy. DAP: 0.131 mGym2. Images: 2. FINDINGS: Intraoperative fluoroscopy and spot films were performed during a procedure in the OR. Spinal needle overlies the left SI joint with injected contrast media seen within the joint. Please see Dereck's report for complete details. FL/FL guidance in treatment room IMPRESSION: Intraoperative fluoroscopy and spot films were obtained. Please see Dr. Harden's report for complete details.
== END 2023-10-27 06:57 | disposition home or self-care (01) ==
LOC: CF 06:56
PROVIDERS: Visit Provider Anesthesiology
DX: M53.3 Sacrococcygeal disorders, not elsewhere classified (principal)
CPT/HCPCS: 27096; J2795; J3301; Q9967

== ENCOUNTER 2023-10-27 14:52 | Outpatient (AMB) | payer MEDICARE, MEDICAID, SELFPAY ==
--- NOTE | 2023-10-27 15:12 | A.OFFVIS_ITS ---
Vital Signs 10/27/23 15:30 10/27/23 15:31 Height 5 ft 4 in BP 136/84 128/76 Blood Pressure Location Lt brachial Lt brachial Position Sitting Sitting Respiration 18 Pulse 77 Pulse Source Pulse Oximeter Pulse Oximetry (%) 99 Oxygen Delivery Method Room Air Comment Pre-Op Intake Visit Reasons: LEFT THERAPEUTIC SIJ INJECTION Allergies methotrexate Allergy (Intermediate, Verified 09/03/23 15:03) rash [facility] Medical History History of latent tuberculosis Osteoarthritis of left knee Osteoarthritis of right knee History of high blood pressure Low back pain, unspecified Fibromyalgia Seropositive rheumatoid arthritis Morbid obesity with BMI of 45.0-49.9, adult Surgical History History of surgery Hx of section Family History Father Diabetes Hypertension Mother Diabetes Hypertension Rheumatoid arthritis Kidney transplant recipient Sister Thyroid disease Social History Household Members: Spouse and Children Housing: Apartment Alcohol intake: never Patient Tobacco Use Status: Never used Tobacco Female Reproductive History Menstrual Age of Menarche: 12 Physical Exam Vital Signs: Last Vital Signs Pulse 77 10/27/23 15:30 Resp 18 10/27/23 15:30 BP 128/76 10/27/23 15:31 Pulse Ox 99 10/27/23 15:30 Oxygen Delivery Method Room Air 10/27/23 15:30 Assessment & Plan Assessment & Plan (1) Sacroiliac joint dysfunction of left side: Code(s): M53.3 - Sacrococcygeal disorders, not elsewhere classified Category: Medical Plan: Left therapeutic sacroiliac joint injection. Informed consent was explained thoroughly to the patient. All questions about benefits and risks for the procedure were answered. Patient came to the operating room and was positioned prone on the operating table with the pillow under the pelvis. Time out was performed delineating name and of the patient, allergies and the nature of the procedure. The lower back and buttocks of the patient were prepped with ChloraPrep prepped and draped with sterile utility towels. C-arm was brought over the operating field and sq picture of patient's pelvis was demonstrated on the screen. For the left joint tilting C-arm contralateral to the site of the joint the most posterior portion of the joints was superimposed with anterior silhouette of the joint. Skin was injected in the projection of the joint slightly medial to the location of the joint with 25 gauge 1/2 inch needle using local lidocaine 2% .After that 22 gauge 3 and 1/2 inch needle was driven to the right joint in tunnel vision fashion. When needle entered the joint capsule injection of the contrast was performed demonstrating intra-articular and minimally periarticular spread of the contrast. After that 4 cc. of ropivacaine 0.5% was injected into the joint. Upon completion of the injections the needle was removed Sterile dressing was applied. Upon completion of the injection patient was taken outside of the operating room to the recovery room where recovered uneventfully. Plan Patient presents the office today for follow-up left sacroiliac joint dysfunction She is awaiting repeat left therapeutic sacroiliac joint injections. This has been submitted to her insurance but is pending approval. In the meantime her pain has returned and is continuing to worsen. Will recent tizanidine 2 mg p.o. 3 times daily as needed Patient advised that she will be called to schedule left therapeutic sacroiliac joint injection once approved by her insurance. All questions and concerns have been answered and patient agrees with the plan. Follow up after injection, sooner if needed. Coding Level of Care Code Procedure Only Diagnoses Sacroiliac joint dysfunction of left side M53.3
[2023-10-27 15:30] VITALS: BP 136/84; PULSE 77; RESP 18; O2SAT 99
[2023-10-27 15:31] VITALS: BP 128/76
== END 2023-10-27 15:26 | disposition home or self-care (01) ==
LOC: HO.PMCPRC 14:52
PROVIDERS: PCP Nurse Practitioner; Visit Provider Anesthesiology
DX: M53.3 Sacrococcygeal disorders, not elsewhere classified (principal)
CPT/HCPCS: 27096

== ENCOUNTER 2023-11-18 13:41 | Outpatient (AMB) | payer MEDICARE, MEDICAID, SELFPAY ==
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
== END 2023-11-18 13:45 | disposition home or self-care (01) ==
LOC: HO.PMC 13:41
PROVIDERS: PCP Nurse Practitioner; Visit Provider Registered Nurse Emergency
DX: M53.3 Sacrococcygeal disorders, not elsewhere classified (principal)
CPT/HCPCS: 99441

== ENCOUNTER → 2023-11-18 13:41 | Outpatient (BNVA) | payer MEDICARE, MEDICAID, SELFPAY | PROVIDERS: PCP Nurse Practitioner; Visit Provider Registered Nurse Emergency ==

== ENCOUNTER 2023-12-30 15:14 | Outpatient (REF) | payer MEDICARE, MEDICAID, SELFPAY ==
[2023-12-30 15:30] LABS: MANUAL DIFF FLAG NO
[2023-12-30 15:59] LABS: Basophils Absolute Auto 0.1 X10*3/uL (0.0-0.2); Basophils Percent Auto 0.6 % (0-2); Eosinophils Absolute Auto 0.1 X10*3/uL (0.0-0.4); Eosinophils Percent Auto 1.3 % (0-4); Hematocrit 43.3 % (37.0-47.0); Hemoglobin 15.1 g/dl (12.0-16.0); Imm Gran Abs Auto 0.02 X10*3/uL (0.00-0.03); Imm Gran Pct Auto 0.3 % (0.0-0.4); Lymphocytes Absolute Auto 2.4 X10*3/uL (1.2-4.9); Lymphocytes Percent Auto 30.2 % (20-40); Mean Corpuscular HGB Conc 34.9 g/dl (31.0-35.0); Mean Corpuscular Hemoglobin 31.1 pg (27.0-33.0); Mean Corpuscular Volume 89.3 fL (80.0-98.0); Mean Platelet Volume 10.5 fL (9.4-12.3); Monocytes Absolute Auto 0.4 X10*3/uL (0.1-1.2); Monocytes Percent Auto 5.4 % (2-11); Neutrophils Absolute Auto 4.9 x10*3/uL (2.0-8.3); Neutrophils Percent Auto 62.2 % (45-73); Platelet Count 357 X10*3/uL (160-400); Red Blood Count 4.85 X10*6/uL (4.20-5.50); Red Cell Distribution Width 12.4 % (11.0-16.0); White Blood Count 7.9 X10*3/uL (4.8-10.8)
[2023-12-30 16:25] LABS: Alanine Aminotransferase 14 U/L (0-31); Alkaline Phosphatase 63 U/L (39-117); Anion Gap 11 (12-20); Aspartate Amino Transferase 10 U/L (5-31); Bilirubin Total 0.3 mg/dL (0.0-1.0); Blood Urea Nitrogen 9 mg/dL (9-16); C Reactive Protein 0.18 mg/dL (< or = 0.50); Calcium 9.3 mg/dL (8.4-10.2); Carbon Dioxide 23 mmol/L (22-29); Chloride 110 mmol/L (96-108); Estimated Glomerular Filt Rate > 60; Glucose Random 92 mg/dL (60-115); Potassium 3.8 mmol/L (3.3-5.1); Sodium 140 mmol/L (135-145)
[2023-12-30 16:53] LABS: Erythrocyte Sedimentation Rate 6 MM/HR (0-20)
== END 2023-12-30 15:15 | disposition home or self-care (01) ==
LOC: HO.LAB 15:14
PROVIDERS: PCP Nurse Practitioner; Visit Provider Student in an Organized Health Care Education/Training Program
DX: M05.9 Rheumatoid arthritis with rheumatoid factor, unspecified (principal)
CPT/HCPCS: 36415; 80053; 85025; 85652; 86140

== ENCOUNTER 2024-03-08 15:59 | Outpatient (AMB) | payer MEDICARE, MEDICAID, SELFPAY ==
--- NOTE | 2024-03-08 16:01 | A.OFFVIS_ITS ---
Vital Signs 03/08/24 16:02 Height 5 ft 4 in Weight 253 lb 8.505 oz BMI 43.5 BP 130/62 Blood Pressure Location Rt brachial Position Sitting Pulse 88 Pulse Source Pulse Oximeter Pulse Oximetry (%) 98 Oxygen Delivery Method Room Air Intake Visit Reasons: RA Intake Note: Patient last seen by Doctor Shirley De León on 09/03/23. Presents today for RA follow up and test results.? Power Superintendent Name: Anne-Marie [phone] Allergies methotrexate Allergy (Intermediate, Verified 03/08/24 16:06) rash Medication List - Last Reconciled 03/08/24 by Shirley De León MD adalimumab (Humira(CF)) inject one - 40 mg/0.4 mL syringe every 2 weeks subcut amitriptyline 50 mg PO DAILY amlodipine 10 mg PO DAILY bupropion HCl XL 300 mg PO DAILY buspirone 10 mg PO BID enalapril maleate 5 mg PO DAILY gabapentin 300 mg PO TID labetalol 100 mg PO BID omeprazole 20 mg PO DAILY tizanidine 2 mg PO TID topiramate 50 mg PO Q12H trazodone 100 mg PO BEDTIME HPI Comments Details: This is a 48-year-old female with seropositive RA returns for follow-up. On Humira every other week. She states that she has been having pain in her left elbow. She also has pain in her right shoulder. It hurts when she lies on her right side at bed. She cut her right thumb while work in the kitchen 4-5 days ago. She has been cleaning it. She does not think it is infected [facility] Medical History History of latent tuberculosis Osteoarthritis of left knee Osteoarthritis of right knee History of high blood pressure Low back pain, unspecified Fibromyalgia Seropositive rheumatoid arthritis Morbid obesity with BMI of 45.0-49.9, adult Surgical History History of surgery Hx of section Family History Father Diabetes Hypertension Mother Diabetes Hypertension Rheumatoid arthritis Kidney transplant recipient Sister Thyroid disease Social History Household Members: Spouse and Children Housing: Apartment Alcohol intake: never Patient Tobacco Use Status: Never used Tobacco Female Reproductive History Menstrual Age of Menarche: 12 Review of Systems [facility] [place] arthralgias and Reports limited range of motion Physical Exam Vital Signs: Last Vital Signs Pulse 88 03/08/24 16:02 BP 130/62 03/08/24 16:02 Pulse Ox 98 03/08/24 16:02 Oxygen Delivery Method Room Air 03/08/24 16:02 BMI result Body Mass Index 43.5 Const General: cooperative, healthy appearing and comfortable Nutritional Appearance: obese morbidly obese Orientation/consciousness: patient oriented x3 HEENT Head: Yes normocephalic and Yes atraumatic Mouth: moist mucous membranes Resp Effort & Inspection: normal respiratory effort and able to speak in complete sentences Cardio Rate: regular rate Rhythm: regular rhythm Neuro General: patient oriented x3 Extrem Other: Mild tenderness at the common extensor origin on the left lateral epicondyle Positive empty can test on the right A clean cut on right thumb Psych Other: Tearful Affect: Anxious affect present Assessment & Plan Assessment & Plan (1) Seropositive rheumatoid arthritis: Comment: +++RF-ve CCP Humira August 2018 - present effective Methotrexate- 2018- failed due to rash Enbrel- 07/2018-08/2018-ineffective Code(s): M05.9 - Rheumatoid arthritis with rheumatoid factor, unspecified Category: Medical Plan: This is a 48-year-old female with seropositive RA who returns for follow-up. On Humira every other week. Doing well. There is no active synovitis on exam Continue Humira 40 mg every other week Labs before next visit in 4 months (2) History of latent tuberculosis: Comment: s/p treatment Code(s): Z86.15 - Personal history of latent tuberculosis infection Category: Medical (3) Left tennis elbow: Code(s): M77.12 - Lateral epicondylitis, left elbow Category: Medical Plan: Home exercises provided. Advised patient to let us know if she is not improving in a few weeks and I will refer her to formal occupation therapy (4) Right rotator cuff tendinitis: Code(s): M75.81 - Other shoulder lesions, right shoulder Category: Medical Plan: Home exercises provided. Advised patient to let us know if she is not improving in a few weeks and I will refer her to formal physical therapy (5) High risk medication use: Code(s): Z79.899 - Other care home (current) drug therapy Category: Medical Plan: Side effects of Humira were discussed with the patient in detail including increased risk of infection, demyelinating disease, reactivation of latent TB, possible increased risk of solid and skin tumors. Patient fully aware. Advised patient to seek medical care YENY if patient has an infection and advised patient to stop the medication until the infection is resolved. Plan I spent 30 minutes reviewing patient's chart, evaluating patient, ordering diagnostic workup, counseling patient and documenting in the chart Orders: Orders Comprehensive Met. Panel 4 Months M05.9 - Rheumatoid arthritis with rheumatoid factor, unspecified Erythrocyte Sedimentation Rate 4 Months M05.9 - Rheumatoid arthritis with rheumatoid factor, unspecified Complete Blood Count Auto Diff 4 Months M05.9 - Rheumatoid arthritis with rheumatoid factor, unspecified C Reactive Protein 4 Months M05.9 - Rheumatoid arthritis with rheumatoid facto r, unspecified Coding Level of Care Code Est Pt Level 4 (50042) Complex EM visit Add On G2211 Diagnoses Seropositive rheumatoid arthritis M05.9 History of latent tuberculosis Z86.15 Left tennis elbow M77.12 Right rotator cuff tendinitis M75.81 High risk medication use Z79.899
[2024-03-08 16:02] VITALS: BP 130/62; PULSE 88; O2SAT 98; BMI 43.5
== END 2024-03-08 16:21 | disposition home or self-care (01) ==
PROVIDERS: PCP Nurse Practitioner; Visit Provider Student in an Organized Health Care Education/Training Program
DX: M05.79 Rheumatoid arthritis with rheumatoid factor of multiple sites without organ or systems involvement (principal); Z86.15 Personal history of latent tuberculosis infection; M77.12 Lateral epicondylitis, left elbow; M75.81 Other shoulder lesions, right shoulder; Z79.899 Other long term (current) drug therapy
CPT/HCPCS: 99214; G2211

== ENCOUNTER → 2024-03-08 15:59 | Outpatient (BNVA) | payer MEDICARE, MEDICAID, SELFPAY | PROVIDERS: PCP Nurse Practitioner; Visit Provider Student in an Organized Health Care Education/Training Program | DX: M05.9 Rheumatoid arthritis with rheumatoid factor, unspecified (principal); M77.12 Lateral epicondylitis, left elbow; M75.81 Other shoulder lesions, right shoulder; M79.7 Fibromyalgia; E66.01 Morbid (severe) obesity due to excess calories; Z68.41 Body mass index [BMI] 40.0-44.9, adult; Z86.13 Personal history of malaria; Z79.620 Long term (current) use of immunosuppressive biologic | CPT/HCPCS: 99212 ==

== ENCOUNTER 2024-04-12 09:11 | Outpatient (REF) | payer MEDICARE, MEDICAID, SELFPAY | END 2024-04-12 09:12 | disposition home or self-care (01) | LOC: HO.HOSX 09:11 | PROVIDERS: Visit Provider Physician Assistant | DX: M25.569 Pain in unspecified knee (principal); M17.0 Bilateral primary osteoarthritis of knee | CPT/HCPCS: 20610; 73562; 99212; J1010; J2003 ==

== ENCOUNTER 2024-04-12 12:22 | Outpatient (AMB) | payer MEDICARE, MEDICAID, SELFPAY ==
--- NOTE | 2024-04-12 12:54 | A.OFFVIS_ITS ---
Intake Visit Reasons: OV - B/L knee OA, last inj 06/04/23 Intake Note: Eliza is a 47 year old female who presents today for a follow up appointment for her bilateral knee OA, last injection 06/04/23. Patient reports her last injections gave her relief and she would like to repeat. Her last injections gave her more than 3 months of relief. Allergies methotrexate Allergy (Intermediate, Verified 04/12/24 13:08) rash HPI HPI OV - B/L knee OA, last inj 06/04/23: Details: 48-year-old female, who is Greenlandic speaking, presents in the office today for a follow-up of bilateral knee osteoarthritis. I last saw the patient in the office on 06/04/23 when she was given a cortisone injection in the bilateral knees. While in the office today, the patient reports her last cortisone injection in the bilateral knees provided her more than 3 months of relief. She would like to have a repeat injection today. [facility] Medical History History of latent tuberculosis Osteoarthritis of left knee Osteoarthritis of right knee History of high blood pressure Low back pain, unspecified Fibromyalgia Seropositive rheumatoid arthritis Morbid obesity with BMI of 45.0-49.9, adult Surgical History History of surgery Hx of section Family History Father Diabetes Hypertension Mother Diabetes Hypertension Rheumatoid arthritis Kidney transplant recipient Sister Thyroid disease Social History Household Members: Spouse and Children Housing: Apartment Alcohol intake: never Patient Tobacco Use Status: Never used Tobacco Female Reproductive History Menstrual Age of Menarche: 12 Review of Systems Const All systems reviewed & are unremarkable except as noted in HPI and below Physical Exam Const General: cooperative, healthy appearing and no acute distress Resp Effort & Inspection: normal respiratory effort and able to speak in complete sentences Cardio Rate: regular rate Peripheral pulses: Peripheral pulses 2+ throughout GI Palpation (GI): Soft to palpation Skin Lesions: no lesions Rashes: no rashes Extrem Other: Bilateral knees: Normal to inspection. No ecchymosis, erythema, or joint effusion. No tenderness to palpation to the medial or lateral joint lines. Full knee extension and flexion. Crepitus felt with ROM. NVI. Office Procedures AMB Joint Injection/Aspiration Joint Injection/Aspiration Primary Site: right knee Secondary Site: left knee Prep: site was prepped using aseptic technique, ethochloride spray was applied and injection warnings given Injected: 80 mg of, DepoMedrol, with 8 mL of (2% plain lido ) and in the joint Approach Used: anterolateral Procedure: The patient tolerated the procedure well, but had some pain with the injection and there was some relief with the local anesthesia Coding 85346 - Large joint Procedure code (CPT) selection complete Assessment & Plan Assessment & Plan (1) Osteoarthritis of right knee: Code(s): M17.11 - Unilateral primary osteoarthritis, right knee Category: Medical Qualifiers: Osteoarthritis type: primary Qualified Code(s): M17.11 - Unilateral primary osteoarthritis, right knee (2) Osteoarthritis of left knee: Code(s): M17.12 - Unilateral primary osteoarthritis, left knee Category: Medical Qualifiers: Osteoarthritis type: primary Qualified Code(s): M17.12 - Unilateral primary osteoarthritis, left knee Plan Ms. Kenia Hernandes is a 48-year-old female, who is Green[place]ic speaking, presents in the office today for a follow-up of bilateral knee osteoarthritis. I last saw the patient in the office on 06/04/23 when she was given a cortisone injection in the bilateral knees. While in the office today, the patient reports her last cortisone injection in the bilateral knees provided her more than 3 months of relief. She would like to have a repeat injection today. The patient was offered a cortisone injection in the bilateral knees with 80 mg of DepoMedrol. The patient was explained the risks, benefits, and alternatives to receiving this injection. After receiving consent for the injection, the patient had the procedure done while in office today. The patient tolerated the procedure well with no complications. Follow up will be PRN, or sooner if needed. X-rays of the bilateral knees, which were obtained while in the office today and were reviewed by me, Silvia Da Silva PA-C, revealed: Osteoarthritis of the bilateral knees. Orders: Orders XR knee LT 3V 04/12/24 M25.569 - Pain in unspecified knee XR knee RT 3V 04/12/24 M25.569 - Pain in unspecified knee Patient Instructions: Scribed by Karime aCrter, durable medical equipment technician, for Silvia Avinash JIMENEZ on 04/12/2024 at 01:13 pm EST. Coding Level of Care Code Est Pt Level 3 (61946) Diagnoses Primary osteoarthritis of right knee M17.11 Osteoarthritis type: primary Primary osteoarthritis of left knee M17.12 Osteoarthritis type: primary CPT Codes Coding - 71966 Large joint: 69913 - Large joint ([id number])
== END 2024-04-12 13:20 | disposition home or self-care (01) ==
PROVIDERS: PCP Nurse Practitioner; Visit Provider Physician Assistant
DX: M17.0 Bilateral primary osteoarthritis of knee (principal)
CPT/HCPCS: 20610; 99213

== ENCOUNTER → 2024-04-12 12:43 | Outpatient (BNV) | payer MEDICARE, MEDICAID, SELFPAY | PROVIDERS: Visit Provider Radiology Diagnostic Radiology | DX: M17.12 Unilateral primary osteoarthritis, left knee (principal) | CPT/HCPCS: 73562 ==

== ENCOUNTER 2024-06-29 15:36 | Outpatient (REF) | payer MEDICARE, MEDICAID, SELFPAY ==
[2024-06-29 16:25] LABS: MANUAL DIFF FLAG NO
[2024-06-29 16:28] LABS: Basophils Absolute Auto 0.1 X10*3/uL (0.0-0.2); Basophils Percent Auto 0.5 % (0-2); Eosinophils Absolute Auto 0.2 X10*3/uL (0.0-0.4); Eosinophils Percent Auto 2.2 % (0-4); Hematocrit 43.3 % (37.0-47.0); Hemoglobin 14.5 g/dl (12.0-16.0); Imm Gran Abs Auto 0.04 X10*3/uL (0.00-0.03); Imm Gran Pct Auto 0.4 % (0.0-0.4); Lymphocytes Absolute Auto 3.1 X10*3/uL (1.2-4.9); Lymphocytes Percent Auto 32.7 % (20-40); Mean Corpuscular HGB Conc 33.5 g/dl (31.0-35.0); Mean Corpuscular Hemoglobin 30.7 pg (27.0-33.0); Mean Corpuscular Volume 91.5 fL (80.0-98.0); Mean Platelet Volume 10.6 fL (9.4-12.3); Monocytes Absolute Auto 0.5 X10*3/uL (0.1-1.2); Monocytes Percent Auto 5.6 % (2-11); Neutrophils Absolute Auto 5.5 x10*3/uL (2.0-8.3); Neutrophils Percent Auto 58.6 % (45-73); Platelet Count 370 X10*3/uL (160-400); Red Blood Count 4.73 X10*6/uL (4.20-5.50); Red Cell Distribution Width 12.6 % (11.0-16.0); White Blood Count 9.5 X10*3/uL (4.8-10.8)
[2024-06-29 16:58] LABS: Alanine Aminotransferase 18 U/L (0-31); Albumin Level 3.9 g/dL (3.5-5.0); Anion Gap 11 (12-20); Aspartate Amino Transferase 16 U/L (5-31); Bilirubin Total 0.4 mg/dL (0.0-1.0); Blood Urea Nitrogen 13 mg/dL (9-16); C Reactive Protein 0.27 mg/dL (< or = 0.50); Calcium 9.7 mg/dL (8.4-10.2); Carbon Dioxide 23 mmol/L (22-29); Chloride 110 mmol/L (96-108); Estimated Glomerular Filt Rate > 60; Glucose Random 91 mg/dL (60-115); Potassium 4.5 mmol/L (3.3-5.1); Sodium 139 mmol/L (135-145); Total Protein 7.9 g/dL (6.5-8.0)
[2024-06-29 17:05] LABS: Erythrocyte Sedimentation Rate 14 MM/HR (0-20)
[2024-06-29 17:10] LABS: Alkaline Phosphatase 66 U/L (39-117)
== END 2024-06-29 15:37 | disposition home or self-care (01) ==
LOC: HO.HHCL 15:36
PROVIDERS: Visit Provider Student in an Organized Health Care Education/Training Program
DX: M05.9 Rheumatoid arthritis with rheumatoid factor, unspecified (principal)
CPT/HCPCS: 36415; 80053; 85025; 85652; 86140

== ENCOUNTER 2024-07-14 13:10 | Outpatient (AMB) | payer MEDICARE, MEDICAID, SELFPAY ==
--- NOTE | 2024-07-14 13:33 | A.OFFVIS_ITS ---
Intake Visit Reasons: B/L knee Injections (80), last inj 04/12/24 Intake Note: Eliza is a 47 year old female who presents today for a follow up appointment for her bilateral knee OA, last injection 04/12/24. Patient states that her last injections gave her about 2 - 3 months of relief and she would like to repeat. Allergies methotrexate Allergy (Intermediate, Verified 07/14/24 13:33) rash HPI HPI B/L knee Injections (80), last inj 04/12/24: Details: Patient presents to the office today for repeat bilateral knee injections. Last injection was . Patient reports that she had good relief up until recently and would like to repeat injection. [facility] Medical History History of latent tuberculosis Osteoarthritis of left knee Osteoarthritis of right knee History of high blood pressure Low back pain, unspecified Fibromyalgia Seropositive rheumatoid arthritis Morbid obesity with BMI of 45.0-49.9, adult Surgical History History of surgery Hx of section Family History Father Diabetes Hypertension Mother Diabetes Hypertension Rheumatoid arthritis Kidney transplant recipient Sister Thyroid disease Social History Household Members: Spouse and Children Housing: Apartment Alcohol intake: never Patient Tobacco Use Status: Never used Tobacco Female Reproductive History Menstrual Age of Menarche: 12 Review of Systems Const All systems reviewed & are unremarkable except as noted in HPI and below Physical Exam Const General: cooperative, healthy appearing and no acute distress Resp Effort & Inspection: normal respiratory effort and able to speak in complete sentences Cardio Rate: regular rate Peripheral pulses: Peripheral pulses 2+ throughout GI Palpation (GI): Soft to palpation Skin Lesions: no lesions Rashes: no rashes Extrem Other: Bilateral knees: Normal to inspection. No ecchymosis, erythema, or joint effusion. No tenderness to palpation to the medial or lateral joint lines. Full knee extension and flexion. Crepitus felt with ROM. NVI. Office Procedures AMB Joint Injection/Aspiration Joint Injection/Aspiration Primary Site: right knee Secondary Site: left knee Prep: site was prepped using aseptic technique, ethochloride spray was applied and injection warnings given Injected: 80 mg of, DepoMedrol, with 8 mL of (2% plain lido ) and in the joint Approach Used: anterolateral Procedure: The patient tolerated the procedure well, but had some pain with the injection and there was some relief with the local anesthesia Coding - Large joint Procedure code (CPT) selection complete Assessment & Plan Assessment & Plan (1) Osteoarthritis of right knee: Code(s): M17.11 - Unilateral primary osteoarthritis, right knee Category: Medical Qualifiers: Osteoarthritis type: primary Qualified Code(s): M17.11 - Unilateral primary osteoarthritis, right knee (2) Osteoarthritis of left knee: Code(s): M17.12 - Unilateral primary osteoarthritis, left knee Category: Medical Qualifiers: Osteoarthritis type: primary Qualified Code(s): M17.12 - Unilateral primary osteoarthritis, left knee Plan The patient was offered a cortisone injection in bilateral knees with 80 mg of DepoMedrol. The patient was explained the risks, benefits, and alternatives to receiving this injection. After receiving consent for the injection, the patient had the procedure done while in the office today. The patient tolerated the procedure well with no complications. Follow-up will be p.r.n., or sooner if needed Coding Level of Care Code Est Pt Level 3 (51215) Diagnoses Primary osteoarthritis of right knee M17.11 Osteoarthritis type: primary Primary osteoarthritis of left knee M17.12 Osteoarthritis type: primary CPT Codes Coding - Large joint: 75595 - Large joint ([id number])
--- OUTSIDE RECORDS SUMMARY | 2024-07-14 14:05 | XMS_ITS | Encounter Summary ---
Author Organization [email or web address] Address [address] [place] [address] Care Team Providers Care Title Closer Name Role Phone Corrine Barth Primary Care Provider [phone] Quach MD Primary Care Provider [phone] Luz Elena Jiménez MD Primary Care Provide r Dory Ramírez MD Primary Care Provider + Reason for Visit * Reason Onset Date Comments Med Refill 10/27/2023 Encounter Details Date Type Department Care Team (Late st Contact Info) Description 10/27/2023 Refill [facility] MED & PEDS [address] [place] [address] Corrine Barth FNP [address] [place], [place] [phone] Social History Tobacco Use Types Packs/Day Years Used Date Smoking Tobacco: Never Passive Smoke Exposure: Never Smokeless Tobacco: Never Alcohol Use Standard Drinks/Week Comments Never 0 (1 standard drink = 0.6 oz pur e alcohol) Depression Answer Date Recorded Patient Health Questionnaire-9 Score 10/21/2023 Patient Health Questionnaire-9 Score 10/21/2023 Last PHQ-9: Questionnaire Data Not on file 0 10/21/2023 Housing Stability Answer Date Recorded What is your housing situation today? I have yifan rios 03/09/[address] you li ve. Do you have problems with any of the following? None of the above 03/09/2023 Food Insecurity Answer Date Recorded Within the past 12 months, y ou worried that your food would run out before you got money to buy more: Never True 03/09/2023 Within the past 12 months,th e food you bought just didn't last and you didn't have enough money to get more: Never True Transportation Answer Date Recorded In the past 12 months, has l ack of transportation kept you from medical appts, meetings, work or from getting things needed for daily living? No 03/09/2023 Utilities Answer Date Recorded In the past 12 months, has t he electric, gas, oil or water company threatened to shut off services in your home? No 03/09/2023 Depression Answer Date Recorded Patient Health Questionnaire-2 Score 6 10/21/2023 Comments Unknown Sex and Gender Information Value Date Recorded Sex Assigned at Female 03/24/2022 10:28 AM EDT Legal Sex Female 10:28 AM EDT Gender Identity Female 03/24/2022 10:28 AM EDT Sexual Orientation Straight 03/24/2022 10 :28 AM EDT documented as of this encounter Plan of Treatment Upcoming Encounters Date Type Department Care Team (Late st Contact Info) Description 08/18/2024 9:00 AM EDT Office Visit [facility] MEDICINE [address] [place], [place] [phone] Dory Ramírez MD [address] [place] [address] documented as of this encounter Visit Diagnoses Not on filedocumented in this encounter Additional Health Concerns Assessment Noted Time PHQ-9 Depression Total Score: 20 024 9:51 AM EDT documented as of this encounter Care Teams Title Closer Relationship Specialty Start Date End Date Corrine Barth FNP [address] [place], [place] [phone] PCP - General Family Medicine 11/28/22 01/25/24 No Quach MD [address] [place], [place] [phone] PCP - General Family Medicine 01/26/24 03/29/24 Luz Elena Jiménez MD [address] [place] [address] PCP - General Internal Medicine 03/30/24 05/05/24 Dory Ramírez MD [address] [place] [address] PCP - General Internal Medicine 05/06/24 documented as of this encounter
--- OUTSIDE RECORDS SUMMARY | 2024-07-14 14:05 | XMS_ITS | Encounter Summary ---
Author Organization [employer] Address [address] 7[address] [place] [address] Care Team Providers Care Autism Teacher Name Role Phone Dory Ramírez MD Primary Care Provider + Reason for Visit * Reason Comments Care Coordination CHW outreach for SDO H housing search-referral completed Encounter Details Date Type Department Care Team (Latest Contact Info) Description 07/01/2024 Patient Outreach [facility] MEDICINE [address] [place], [place] [phone] Dory Ramírez MD [address] [place], [place] [phone] Care Coordination (CHW outreach for SDOH housing search-referral completed ) Social History Tobacco Use Types Packs/Day Years Used Date Smoking Tobacco: Never Passive Smoke Exposure: Never Smokeless Tobacco: Never Alcohol Use Standard Drinks/Week Comments Never 0 (1 standard drink = 0.6 oz pur e alcohol) Depression Answer Date Recorded Patient Health Questionnaire-9 Score 11 03/03/2024 Patient Health Questionnaire-9 Score 11 03/03/2024 Last PHQ-9: Questionnaire Data Not on file 1 Housing Stability Answer Date Recorded What is your housing situation today? I do not have housing (Staying with others, in a hotel, in a residential, living outside on the street, on a beach, in a car, or in a park 06/20/[address] you li ve. Do you have problems with any of the following? None of the above 06/20/2024 Food Insecurity Answer Date Recorded Within the past 12 months, y ou worried that your food would run out before you got money to buy more: Often true 06/20/2024 Within the past 12 months,th e food you bought just didn't last and you didn't have enough money to get more: Often true Transportation Answer Date Recorded In the past 12 months, has l ack of transportation kept you from medical appts, meetings, work or from getting things needed for daily living? Yes, it has kept me from medical appointments or getting medications. 06/20/2024 Utilities Answer Date Recorded In the past 12 months, has t he electric, gas, oil or water company threatened to shut off services in your home? No 06/20/2024 Depression Answer Date Recorded Patient Health Questionnaire-2 Score 6 03/03/2024 Internet Access Answer Date Recorded Internet Access Q1 Yes 06/20/2024 Internet Access Q2 Not on file 06/20/2024 Comments No Sex and Gender Information Value Date Recorded Sex Assigned at Female 03/24/2022 10:28 AM EDT Legal Sex Female 10:28 AM EDT Gender Identity Female 03/24/2022 10:28 AM EDT Sexual Orientation Straight 03/24/2022 10 :28 AM EDT documented as of this encounter Progress Notes * Jeffy Early - 07/01/2024 11:56 AM EST CHW Jeffy Early, placed outbound call to patient for assistance with SDOH as a referral was received by the provider. Patient's name and were confirmed. Patient screened positive for the following SDOH housing insecurities. CHW referred patient to housing listing was mail out to address on file. Patient agree to follow up with housing search with list and applications. Patient educated onextended clinic hours on Mondays through Wednesdays, and Walk-In Urgent Care Located in [facility]. Patient provided with after-hours line for [facility], , which offer night time triage service and option to transfer to preparation plant supervisor provider if needed. documented in this encounter Plan of Treatment Upcoming Encounters Date Type Department Care Team (Late st Contact Info) Description 08/18/2024 9:00 AM EDT Office Visit [facility] MEDICINE [address] [place] [address] Dory Ramírez MD [address] [place] [address] documented as of this encounter Visit Diagnoses Not on filedocumented in this encounter Additional Health Concerns Assessment Noted Time PHQ-9 Depression Total Score: 11 024 9:38 AM EDT documented as of this encounter Care Teams Autism Teacher Relationship Specialty Start Date End Date Dory Ramírez MD [address] [place] [address] PCP - General Internal Medicine 05/06/24 documented as of this encounter
--- OUTSIDE RECORDS SUMMARY | 2024-07-14 14:05 | XMS_ITS | Encounter Summary ---
Author Organization [employer] Address [address] [place] [address] Care Team Providers Care Lumber Tripper Name Role Phone Corrine Barth Primary Care Provider [phone] No Quach MD Primary Care Provider [phone] Luz Elena Jiménez MD Primary Care Provide r Dory Ramírez MD Primary Care Provider + Reason for Visit * Reason Onset Date Comments Med Refill 03/09/2023 Encounter Details Date Type Department Care Team (Late st Contact Info) Description 03/09/2023 Refill [facility] MED & PEDS [address] [place] [address] Corrine Barth FNP [address] [place], [place] [phone] Social History Tobacco Use Types Packs/Day Years Used Date Smoking Tobacco: Never Passive Smoke Exposure: Never Smokeless Tobacco: Never Alcohol Use Standard Drinks/Week Comments Never 0 (1 standard drink = 0.6 oz pur e alcohol) Depression Answer Date Recorded Patient Health Questionnaire-9 Score 8 08/29/2022 Housing Stability Answer Date Recorded What is [...] Answer Date Recorded Patient Health Questionnaire-2 Score 2 08/29/2022 Comments Unknown Sex and Gender Information Value [...] Description 08/18/2024 9:00 AM EDT Office Visit [facility] MEDICINE [address] [place] [address] Dory Ramírez MD [address] [place] [address] documented as of this encounter Visit Diagnoses Not on filedocumented in this encounter Additional Health Concerns Assessment Noted Time PHQ-9 Depression Total Score: 8 08/30/19 23 2:28 PM EDT documented as of this encounter Care Teams Lumber Tripper Relationship Specialty Start Date End Date Corrine Barth FNP [address] [place] [address] PCP - General Family Medicine 11/28/22 01/25/24 No Quach MD [address] [place] [address] PCP - General Family Medicine 01/26/24 03/29/24 Luz Elena Jiménez MD [address] [place] [address] PCP - General Internal Medicine 03/30/24 05/05/24 Dory Ramírez MD [address] [place] [address] PCP - General Internal Medicine 05/06/24 documented as of this encounter
--- OUTSIDE RECORDS SUMMARY | 2024-07-14 14:05 | XMS_ITS | Encounter Summary ---
Author Organization [employer] Address [address] [place] [address] Care Team Providers Care Electoral Officer Name Role Phone Dory Ramírez MD Primary Care Provider + Encounter Details Date Type Department Care Team (Latest Contact Info) Description 07/01/2024 Travel Social History Tobacco Use Types Packs/Day Years [...] with others, in a hotel, in a assisted, living outside on the street, on a [...] Description 08/18/2024 9:00 AM EDT Office Visit [facility] MEDICINE [address] [place] [address] Dory Ramírez MD [address] [place] [address] documented as of this encounter Visit Diagnoses Not on filedocumented in this encounter Additional Health Concerns Assessment Noted Time PHQ-9 Depression Total Score: 11 024 9:38 AM EDT documented as of this encounter Care Teams Electoral Officer Relationship Specialty Start Date End Date Dory Ramírez MD [address] [place] [address] PCP - General Internal Medicine 05/06/24 documented as of this encounter
--- OUTSIDE RECORDS SUMMARY | 2024-07-14 14:05 | XMS_ITS | Encounter Summary ---
Author Organization [employer] Address [address] [place] [address] Care Team Providers Care Hot Die Press Operator Name Role Phone Corrine Barth Primary Care Provider [phone] No Quach MD Primary Care Provider [phone] Luz Elena Jiménez MD Primary Care Provide r Dory Ramírez MD Primary Care Provider + Reason for Visit * Reason Comments Med Refill Encounter Details Date Type Department Care Team (Late st Contact Info) Description 09/25/2023 Refill [facility] MEDICINE [address] [place], [place] [phone] Corrine Barth FNP [address] [place], [place] [phone] Social History Tobacco Use Types Packs/Day Years Used Date Smoking Tobacco: Never Passive Smoke Exposure: Never Smokeless Tobacco: Never Alcohol Use Standard Drinks/Week Comments Never 0 (1 standard drink = 0.6 oz pur e alcohol) Depression Answer Date Recorded Patient Health Questionnaire-9 Score 17 09/29/2023 Patient Health Questionnaire-9 Score 17 09/29/2023 Last PHQ-9: Questionnaire Data Not on file 0 09/29/2023 Housing Stability Answer Date Recorded What is [...] the past 12 months, has t he [employer], gas, oil or water company threatened to shut off services in your home? No 03/09/2023 Depression Answer Date Recorded Patient Health Questionnaire-2 Score 6 09/29/2023 Comments Unknown Sex and Gender Information Value [...] Description 08/18/2024 9:00 AM EDT Office Visit [facility] MEDICINE [address] [place], [place] [phone] Dory Ramírez MD [address] [place] [address] documented as of this encounter Visit Diagnoses Not on filedocumented in this encounter Additional Health Concerns Assessment Noted Time PHQ-9 Depression Total Score: 20 024 11:50 AM EDT documented as of this encounter Care Teams Hot Die Press Operator Relationship Specialty Start Date End Date Corrine Barth FNP [address] [place], [place] [phone] PCP - General Family Medicine 11/28/22 01/25/24 No Quach MD [address] [place] [phone] PCP - General Family Medicine 01/26/24 03/29/24 Luz Elena Jiménez MD [address] [place] [address] PCP - General Internal Medicine 03/30/24 05/05/24 Dory Ramírez MD [address] [place] [address] PCP - General Internal Medicine 05/06/24 documented as of this encounter
--- OUTSIDE RECORDS SUMMARY | 2024-07-14 14:05 | XMS_ITS | Encounter Summary ---
Author Organization [employer] Address [address] [place] [address] Care Team Providers Care Interpretative Dancer Name Role Phone Corrine Barth Primary Care Provider [phone] No Quach MD Primary Care Provider [phone] Luz Elena Jiménez MD Primary Care Provide r Dory Ramírez MD Primary Care Provider + Reason for Visit * Reason Onset Date Comments Med Refill 03/09/2023 Encounter Details Date Type Department Care Team (Late st Contact Info) Description 03/09/2023 Refill [facility] MED & PEDS [address] [place] [address] Corrine Barth FNP [address] [place], [place] [phone] Social History Tobacco Use Types Packs/Day Years [...] Description 08/18/2024 9:00 AM EDT Office Visit [facility] MEDICINE [address] [place] [address] Dory Ramírez MD [address] [place] [address] documented as of this encounter Visit Diagnoses Not on filedocumented in this encounter Additional Health Concerns Assessment Noted Time PHQ-9 Depression Total Score: 8 08/30/19 23 2:28 PM EDT documented as of this encounter Care Teams Interpretative Dancer Relationship Specialty Start Date End Date Corrine Barth FNP [address] [place] [address] PCP - General Family Medicine 11/28/22 01/25/24 No Quach MD [address] [place] [address] PCP - General Family Medicine 01/26/24 03/29/24 Luz Elena Jiménez MD [address] [place] [address] PCP - General Internal Medicine 03/30/24 05/05/24 Dory Ramírez MD [address] [place] [address] PCP - General Internal Medicine 05/06/24 documented as of this encounter
--- OUTSIDE RECORDS SUMMARY | 2024-07-14 14:05 | XMS_ITS | Encounter Summary ---
Author Organization [employer] Address [address] [place] [address] Care Team Providers Care Refinery Operator Helper Crude Unit Name Role Phone Dory Ramírez MD Primary Care Provider + Reason for Visit * Reason Onset Date Comments Record Request 07/01/2024 Encounter Details Date Type Department Care Team ([facility] st Contact Info) Description 07/01/2024 Telephone [facility] MEDICINE [address] [place], [place] [phone] Dory Ramríez MD [address] [place], [place] [phone] Record Request Social History Tobacco Use Types Packs/Day Years [...] with others, in a hotel, in a mcc, living outside on the street, on a [...] the past 12 months, has t he [employer], gas, oil or water company threatened to [...] AM EDT documented as of this encounter Miscellaneous Notes * Telephone Encounter - Cinthia Ambriz MA - 07/01/2024 2:39 PM EST Tc to [facility] cardiology to requests tests, and OV note. Spoke to Janey who requested cover sheet with pt's info, and needed information. Cover sheet was faxed to ([phone]). * Telephone Encounter - Cinthia Ambriz MA - 07/01/2024 2:37 PM EST ----- Message from Dory Ramírez MD sent at 07/01/2024 11:52 AM EST ----- Please obtain cardiology notes , specially echo, stress test, holter, she was seen there around [phone]? documented in this encounter Plan of Treatment Upcoming Encounters Date Type Department Care Team (Late st Contact Info) Description 08/18/2024 9:00 AM EDT Office Visit [facility] MEDICINE [address] [place] [address] Dory Ramírez MD [address] [place] [address] documented as of this encounter Visit Diagnoses Not on filedocumented in this encounter Additional Health Concerns Assessment Noted Time PHQ-9 Depression Total Score: 11 024 9:38 AM EDT documented as of this encounter Care Teams Refinery Operator Helper Crude Unit Relationship Specialty Start Date End Date Dory Ramírez MD [address] [place] [address] PCP - General Internal Medicine 05/06/24 documented as of this encounter
--- OUTSIDE RECORDS SUMMARY | 2024-07-14 14:05 | XMS_ITS | Encounter Summary ---
Author Organization [employer] Address [address] [place] [address] Care Team Providers Care Air Pollution Specialist Name Role Phone Dory Ramírez MD Primary Care Provider + Reason for Visit * Reason Comments Care Coordination CHW outreach for SDO H PT-1 and food needs-LVM Encounter Details Date Type Department Care Team (Latest Contact Info) Description 06/20/2024 Patient Outreach [facility] MEDICINE [address] [place] [address] Dory Ramírez MD [address] [place], [place] [phone] Care Coordination (CHW outreach for SDOH PT-1 and food needs-LVM ) Social History Tobacco Use Types Packs/Day [...] with others, in a hotel, in a long-term, living outside on the street, on a [...] Access Q2 Not on file 06/20/2024 Comments Unknown Sex and Gender Information Value Date Recorded Sex Assigned at Female 03/24/2022 10:28 AM EDT Legal Sex Female 10:28 AM EDT Gender Identity Female 03/24/2022 10:28 AM EDT Sexual Orientation Straight 03/24/2022 10 :28 AM EDT documented as of this encounter Progress Notes * Jeffy Early - 06/20/2024 2:03 PM EST CHW Jeffy Early, placed outbound call to patient for assistance with SDOH as a referral was placed by the provider. Patient had screened positive for the following SDOH insecurities. No answer atthis time. Patient's name and were not confirmed. CHW left detailed message and provided contact information requesting return call for assistance. Patient educated on extended clinic hours on Mondays through Wednesdays, and Walk-In Urgent Care Located in [facility]. Patient provided with after-hours line for [facility], , which offer night time triage service and option to transfer toon call provider if needed. documented in this encounter Plan of Treatment Upcoming Encounters Date Type Department Care Team (Late st Contact Info) Description 08/18/2024 9:00 AM EDT Office Visit [facility] MEDICINE [address] [place] [address] Dory Ramírez MD [address] [place] [address] documented as of this encounter Visit Diagnoses Not on filedocumented in this encounter Additional Health Concerns Assessment Noted Time PHQ-9 Depression Total Score: 11 024 9:38 AM EDT documented as of this encounter Care Teams Air Pollution Specialist Relationship Specialty Start Date End Date Dory Ramírez MD [address] [place] [address] PCP - General Internal Medicine 05/06/24 documented as of this encounter
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
--- OUTSIDE RECORDS SUMMARY | 2024-07-14 14:05 | XMS_ITS | Encounter Summary ---
Author Organization [employer] Address [address] [place] [address] Care Team Providers Care Application Programmer Analyst Name Role Phone Corrine Barth Primary Care Provider [phone] No Quach MD Primary Care Provider [phone] Elena Jiménez MD Primary Care Provide r Dory Ramírez MD Primary Care Provider + Reason for Visit * Reason Onset Date Comments Med Refill 03/09/2023 Encounter Details Date Type Department Care Team (Late st Contact Info) Description 03/09/2023 Refill [facility] MEDICINE [address] [place], [place] [phone] Corrine Barth FNP [address] [place], [place] [phone] Neuropathy Social History Tobacco Use Types Packs/Day Years [...] Description 08/18/2024 9:00 AM EDT Office Visit [facility] MEDICINE [address] [place] [address] Dory Ramírez MD [address] [place] [address] documented as of this encounter Visit Diagnoses Diagnosis Neuropathy Mononeuritis of unspecified site documented in this encounter Additional Health Concerns Assessment Noted Time PHQ-9 Depression Total Score: 8 08/30/19 23 2:28 PM EDT documented as of this encounter Care Teams Application Programmer Analyst Relationship Specialty Start Date End Date Corrine Barth FNP [address] [place] [address] PCP - General Family Medicine 11/28/22 01/25/24 No Quach MD [address] [place] [id number] PCP - General Family Medicine 01/26/24 03/29/24 Luz Elena Jiménez MD [address] [place] [address] PCP - General Internal Medicine 03/30/24 05/05/24 Dory Ramírez MD [address] [place] [address] PCP - General Internal Medicine 05/06/24 documented as of this encounter
--- OUTSIDE RECORDS SUMMARY | 2024-07-14 14:05 | XMS_ITS | Clinical Summary ---
Author Organization [facility] [facility] [employer] Address [address] 7[address] [place] [address] Care Team Providers Care Prison Classification Counselor Name Role Phone Dory Ramírez MD Primary Care Provider + Allergies Active Allergy Reactions Criticality Noted Date Comments Methotrexate 10/31/2020 Other reaction(s): Rash, Rash Sumatriptan Nausea Only 10/31/2020 Medications * This document contains information received from the source organization and may not represent a complete record from that organization. gabapentin (Neurontin) 300 MG capsule Take 1 capsule by mouth at bed time. Active Humira 40 MG/0.4ML Prefilled Syringe Kit prefilled syringe 05/22/20 22 Active amLODIPine (Norvasc) 10 MG tablet Take 1 tablet (10 mg) by mouth Once per day. 90 tablet 2 09/26/19 24 Active busPIRone (Buspar) 10 MG tablet Take 1 tablet (10 mg) by mouth 2 times daily. 180 tablet 3 09/26/19 24 025 Active polyethylene glycol, PEG, 3350 (Glycolax) 17 GM/SCOOP powder TAKE 17 GM MIXED IN 8 OUNCES OF WATER, COFFEE OR TEA ONCE DAILY AT BEDTIME NEEDED FOR CONSTIPATION 510 g 5 01/15/20 24 Active labetalol (Normodyne) 100 MG tablet TAKE 1 TABLET BY MOUTH TWICE DAILY 180 tablet 3 02/01/20 24 Active enalapril (Vasotec) 5 MG tablet TAKE 1 TABLET BY MOUTH EVERY MORNING 90 tablet 3 02/01/20 24 Active rizatriptan EMPLOYMENT AND CLAIMS AIDE (Maxalt-EMPLOYMENT AND CLAIMS AIDE) 5 MG disintegrating tablet DISSOLVE 1 TABLET ON TONGUE AND SWALLOW ONCE NEEDED FOR MIGRAINE, MAY REPEAT IN 2 HOURS NEEDED, DO NOT EXCEED 6 TABLETS / 24 HOURS 9 tablet 02/02/20 24 Active hydrOXYzine pamoate (Vistaril) 25 MG capsule TAKE 1 CAPSULE BY MOUTH EVERY DAY AT BEDTIME NEEDED FOR ANXIETY 30 capsule 1 02/25/20 24 Active tiZANidine (Zanaflex) 2 MG tablet Take 2 mg by mouth if needed in the morning, at noon, and at bedtime for muscle spasms. 03/28/20 24 Active omeprazole (PriLOSEC) [address] capsule TAKE 1 CAPSULE BY MOUTH EVERY DAY NEEDED FOR HEARTBURN 90 capsule 1 04/27/20 24 Active topiramate 50 MG tabletIndications: Neuropathy TAKE 1 TABLET BY MOUTH EVERY TWELVE HOURS 180 tablet 1 04/27/20 24 Active docusate sodium (Colace) 100 MG capsule Take 1 tab po bid prn constipation 60 capsule 3 06/14/19 25 Active DULoxetine (Cymbalta) [address] capsule Take 1 capsule (30 mg) by mouth Once per day. Do not crush or chew. 30 capsule 11 07/01/19 25 026 Active Active Problems Problem Noted Date Diagnosed Date BMI 40.0-44.9, adult 07/01/2024 Assessment & Plan (07/01/2024 10:02 AM EST): Discussed re weight reduction options including exercise, life style modifications, diet. Recommended to decrease soda and sugary beverage consumption, increase protein intake with meals (at least 1 portion of protein with each meal) to assist with satiety, increase dietary fiber Recommended at least 150 min/week of moderate intensity exercise. Fu 1 mo, will consider meds. Housing instability 07/01/2024 Assessment & Plan (07/01/2024 9:59 AM EST): Currently living at a relative with her family. Negative for information about [employer] to reach out regarding housing issues and will refer to case management. Class 3 severe obesity with serious comorbidity and body mass index (BMI) of 40.0 to 44.9 in adult 07/01/2024 Assessment & Plan (07/01/2024 10:14 AM EST): Discussed re weight reduction options including exercise, life style modifications, diet. Recommended to decrease soda and sugary beverage consumption, increase protein intake with meals (at least 1 portion of protein with each meal) to assist with satiety, increase dietary fiber Recommended at least 150 min/week of moderate intensity exercise. Fu 1 mo, will consider meds. Generalized anxiety disorder with panic attacks 05/12/2023 Neuropathy 04/21/2022 Obstructive sleep apnea syndrome 03/10/2022 Assessment & Plan (07/01/2024 9:56 AM EST): Using CPAP every night, feels comfortable and sleeps well Continue to use CPAP every night, will order O2 sat monitoring at some point at next appointment. Advised to weight reduction Fibromyalgia 12/16/2021 Assessment & Plan (07/01/2024 9:59 AM EST): Seen by rheumatology Advised regarding importance of [...] and Tylenol as needed and follow-up with taping supervisor Migraine with aura 11/04/2020 Palpitations 01/11/2020 Diastolic heart failure 12/23/2019 Assessment & Plan (07/01/2024 9:57 AM EST): Seen last time in 2019 by Jessica Interiano, no recent notes available I will obtain results of most recent echocardiogram and a stress test is available. Seropositive rheumatoid arthritis 04/01/2018 Assessment & Plan (07/01/2024 10:01 AM EST): Doing well on Humira twice per month, follow-up with taping supervisor Will retrieve recent labs from [facility]. COVID influenza and pneumonia immunizations are up-to-date. Essential hypertension 06/04/2016 Hypermetropia 05/07/2016 Primary osteoarthritis of both knees 04/25/2016 Recurrent major depressive episodes 04/25/2016 Assessment & Plan (07/01/2024 10:00 AM EST): Currently exacerbated by potential homelessness. Advised to follow-up with counselor, will refer to case planner to help her with housing issues. Start duloxetine 30 mg and follow-up with me in 4 weeks. Encounters * This document contains information received from the source organization and may not represent a complete record from that organization. Date Type Department Care Team Description 07/01/2024 9:15 AM EST Office Visit [facility] [address] [place] [phone] Dory Ramírez MD Recurrent major depressive episodes (CMS/HCC) (Primary Dx); Seropositive rheumatoid arthritis (CMS/HCC); BMI 40.0-44.9, adult (CMS/HCC); Chronic diastolic heart failure (CMS/HCC); Fibromyalgia; Housing instability; Obstructive sleep apnea syndrome; Dietary counseling; Exercise counseling; Class 3 severe obesity with serious comorbidity and body mass index (BMI) of 40.0 to 44.9 in adult, unspecified obesity type (CMS/HCC) 07/01/2024 Telephone [facility] [address] [place] [address] [phone] Dory Ramírez MD Record Request 07/01/2024 Patient Outreach [facility] [address] [place], [place] [phone] Dory Ramírez MD Care Coordination (CH[facility] outreach for SDOH housing search-referral completed ) 07/01/2024 Travel 06/20/2024 Patient Outreach [facility] [address] [place] [address] [phone] Dory Ramírez MD Care Coordination ([facility] outreach for SDOH PT-1 and food needs-LVM ) 06/20/2024 Patient Outreach [facility] [address] [place], [place] [phone] Dory Ramírez MD Pre-visit Planning (SDOH screening positive and Tobacco screening negative) 06/14/2024 Refill [facility] [address] [place], [place] [phone] Dory Ramírez MD 05/31/2024 Outside Procedure [facility] [address] [place] [address] Steven, Annemarie, OD Presbyopia (Primary Dx) 05/30/2024 1:00 PM EST Office Visit [facility] [address] [facility] [place] [phone] Steven, Annemarie, OD Hyperopia of both eyes (Primary Dx) 05/30/2024 Travel 05/06/2024 Telephone [facility] [address] [place] [address] Myriam Mc MA R\S APPT 05/06/2024 Telephone [facility] [address] [place] [address] Luz Elena Jiménez MD Appointment Request 04/29/2024 Patient Outreach [facility] [address] [place], [place] [phone] Luz Elena Jiménez MD Pre-visit Planning ((Unable to reach for PVP screening, LVM)) 04/27/2024 Refill [facility] [address] [place], [place] [phone] Corrine Barth FNP Neuropathy from Last 3 Months Immunizations Name Administration Dates Next Due Hep B, adult 03/30/2019,04/01/2018,02/16/2017 Influenza Injectable Quadriv alant Preservative Free IIV4 MDCK 04/06/2020 Influenza injectable quadriv alent IIV4 with preservative 04/01/2018 Influenza injectable quadriv alent preservative free 03/04/2023,02/07/2022,03/30/2019,2016,03/11/2016 Influenza, seasonal, injecta ble, preservative free 03/30/2024 Pfizer Covid-19 Vaccine 12+ 03/30/2024,1 ,10/07/2021,2020,01/29/2021 Pfizer Covid-19 Vaccine 12+ jay-sucrose (Kendall Cap) 10/07/2021 Tdap 06/04/2016,12/24/2015 Family History Medical History Relation Name Comments Diabetes Father Hypertension Father Diabetes Mother Hypertension Mother Kidney disease Mother Uterine cancer Paternal Grandmother Relation Name Status Comments Father Mother Paternal Grandmother Social History Tobacco Use Types Packs/Day Years [...] with others, in a hotel, in a usp, living outside on the street, on a [...] Orientation Straight 03/24/2022 10 :28 AM EDT Last Filed Vital Signs Vital Sign Reading [...] Mass Index 42.31 07/01/2024 8:41 AM EST Plan of Treatment Upcoming Encounters Date Type Department Care Team (Late st Contact Info) Description 08/18/2024 9:00 AM EDT Office Visit [facility] [address] [place], [place] [phone] Dory Ramírez MD [address] [place], [place] [phone] Health Maintenance Due Date Last Done Comments CT Colonography 1976 Colonoscopy 1976 Colorectal Cancer Screening 1976 FIT DNA/Cologuard 1976 FIT 1976 FOBT 1976 HIV Screening 1976 Sigmoidoscopy 1976 Alcohol/Substance Use Screening 1988 Family Planning (PISQ) 11/09/1991 Hepatitis C Screening 1994 Pneumococcal Vaccine: Pediatrics (0 to 5 Years) and At-Risk Patients (6 to 49) Years) (1 of 2 - PCV) 11/09/1995 Pap Smear 1997 Cervical Cancer Screening 2006 HPV/Cotest 2006 Mammogram 03/19/2023 03/19/2021, 02/23, 03/09/2018 Depression Monitoring (PHQ-9) 09/01/2024 03/03/2024, 03/03/2024 Depression Screening 03/03/2025 03/03/2024, 03/03/20 24 SDOH Screening 06/20/2025 06/20/2024 Tobacco Screening 07/01/2025 07/01/2024 Lipid Panel 10/31/2025 10/31/2020 DTaP/Tdap/Td Vaccines (3 - Td or Tdap) 06/04/2026 06/04/2016, 12/24/2015 Zoster Vaccines (1 of 2) 2026 RSV Patients and Patients Aged 60 years or older (1 - 1-dose 75+ series) 11/09/2051 Hepatitis B Vaccines Completed 03/30/2019, 04/01/2018, 02/16/2017 COVID-19 Vaccine Completed 03/30/2024, 03/2023, 10/07/2021, Additional history exists Influenza Vaccine Completed 03/30/2024, , 02/07/2022, Additional history exists HIB Vaccines Aged Out No longer eligi ble based on patient's age to complete this topic HPV Vaccines Aged Out No longer eligi ble based on patient's age to complete this topic Hepatitis A Vaccines Aged Out No long er eligible based on patient's age to complete this topic IPV Vaccines Aged Out No longer eligi ble based on patient's age to complete this topic Meningococcal Vaccine Aged Out No faviola omar eligible based on patient's age to complete this topic RSV under 20 months Aged Out No longe r eligible based on patient's age to complete this topic Rotavirus Vaccines Aged Out No longer eligible based on patient's age to complete this topic Procedures Procedure Name Priority Date/Time Associated Diagnosis Comments MAMMOGRAM GENERIC Routine 03/19/2021 1:0 0 PM EDT LIPID PANEL, STANDARD Routine 10/31/2020 10:09 AM EDT from Last 3 Months or Most Recently Relevant to Health Maintenance Results * Mammography Report 1 (03/19/2021 1:00 PM EDT) Anatomical Region Laterality Modality Breast Bilateral Mammography 03/19/2021 1:00 PM EDT Narrative 03/19/2021 2:08 PM EDT Refer to the Notes tab for result details [facility] Procedure: Mammography Report 1 Procedure Note ProviderAndrew MD - 08/17/2022 Refer to the Notes tab for result details [facility] Procedure: Mammography Report 1 Salena Lerma MD IMG BI PROCEDURES Final Resu lt * (ABNORMAL) LIPID PANEL, STANDARD (10/31/2020 10:09 AM EDT) Chol/HDLC Ratio 4.5 <5.0 (calc) [facility] Cholesterol, Total 207(H) <200 mg/dL [facility] HDL Cholesterol 46(L) > OR = 50 mg/dL [facility] LDL Cholesterol 126(H) mg/dL (calc) [facility] Comment: Reference range: <100 ?? Desirable range <100 mg/dL for primary prevention; ?? <70 mg/dL for patients with CHD or diabetic patients ?? with > or = 2 CHD risk factors. ?? LDL-C is now calculated using the Memo ?? calculation, which is a validated novel method providing ?? better accuracy than the Friedewald equation in the ?? estimation of LDL-C. ?? Eric RODRIGUEZ et al. EDUARDA. 2013;310(19): 2807-3902 ?? (http://education.BollingoBlog.Beiang Technology/faq/PQY443) Non-HDL Cholesterol 161(H) <130 mg/dL (calc) [facility] Comment: For patients with diabetes plus 1 major ASCVD risk ?? factor, treating to a non-HDL-C goal of <100 mg/dL ?? (LDL-C of <70 mg/dL) is considered a therapeutic ?? option. Triglycerides 208(H) <150 mg/dL [facility] Comment: ?? If a non-fasting specimen was collected, consider repeat triglyceride testing on a fasting specimen if clinically indicated. ?? Lynn et al. J. of Clin. Lipidol. 2015;9:129-169. ?? 10/31/2020 10:0 9 AM EDT us Jessica Interiano HAND PAINT MIXER LAB BLOOD ORDERABLES Final Resu lt [facility] [address] from Last 3 Months or Most Recently Relevant to Health Maintenance Insurance [employer] MEDICARE REPLACEMENT Care Teams Prison Classification Counselor Relationship Specialty Start Date End Date Dory Ramírez MD [address] [place] [address] NEO Vivas [address] PCP - General Internal Medicine 05/06/24
--- OUTSIDE RECORDS SUMMARY | 2024-07-14 14:06 | XMS_ITS | Encounter Summary ---
Author Organization [employer] Address [address] [place] [address] Care Team Providers Care Real Time Operator Name Role Phone Corrine Barth Primary Care Provider [phone] No Quach MD Primary Care Provider Luz Elena Jiménez MD Primary Care Provide r Dory Ramírez MD Primary Care Provider + Reason for Visit * Reason Onset Date Comments Med Refill 10/27/2023 Encounter Details Date Type Department Care Team (Late st Contact Info) Description 10/27/2023 Refill [facility] [address] [place], [place] [phone] Corrine Barth FNP [address] [place], [place] [phone] Social History Tobacco Use Types Packs/Day Years [...] Description 08/18/2024 9:00 AM EDT Office Visit [facility] [address] [place], [place] [phone] Dory Raímrez MD [address] [place] [address] documented as of this encounter Visit Diagnoses Not on filedocumented in this encounter Additional Health Concerns Assessment Noted Time PHQ-9 Depression Total Score: 20 024 9:51 AM EDT documented as of this encounter Care Teams Real Time Operator Relationship Specialty Start Date End Date Corrine Barth FNP [address] [place], [place] [phone] PCP - General Family Medicine 11/28/22 01/25/24 No Quach MD [address] [place], [place] [phone] PCP - General Family Medicine 01/26/24 03/29/24 Luz Elena Jiménez MD [address] [place] [address] PCP - General Internal Medicine 03/30/24 05/05/24 Dory Ramírez MD [address] [place] [address] PCP - General Internal Medicine 05/06/24 documented as of this encounter
--- OUTSIDE RECORDS SUMMARY | 2024-07-14 14:06 | XMS_ITS | Encounter Summary ---
Author Organization [employer] Address [address] [place] [address] Care Team Providers Care Foundry Superintendant Name Role Phone Dory Ramírez MD Primary Care Provider + Reason for Visit * Reason Onset Date Comments Med Refill 06/14/2024 Encounter Details Date Type Department Care Team (Late st Contact Info) Description 06/14/2024 Refill [facility] [address] [place] [address] Dory Ramírez MD [address] [place] [address] Social History Tobacco Use Types Packs/Day Years [...] Recorded Patient Health Questionnaire-2 Score 6 03/03/2024 Comments Unknown Sex and Gender Information Value [...] Description 08/18/2024 9:00 AM EDT Office Visit [facility] [address] [place] [address] Dory Ramírez MD [address] [place] [address] documented as of this encounter Visit Diagnoses Not on filedocumented in this encounter Additional Health Concerns Assessment Noted Time PHQ-9 Depression Total Score: 11 024 9:38 AM EDT documented as of this encounter Care Teams Foundry Superintendant Relationship Specialty Start Date End Date Dory Ramírez MD [address] [place] [address] PCP - General Internal Medicine 05/06/24 documented as of this encounter
--- OUTSIDE RECORDS SUMMARY | 2024-07-14 14:06 | XMS_ITS | Encounter Summary ---
Author Organization [employer] Address [address] [place] [address] Care Team Providers Care Hydroelectric Production Technician Name Role Phone Dory Ramírez MD Primary Care Provider + Reason for Visit * Reason Comments Pre-visit Planning SDOH screening posit shazia and Tobacco screening negative Encounter Details Date Type Department Care Team ([facility] st Contact Info) Description 06/20/2024 Patient Outreach [facility] [address] [place], [place] [phone] Dory Ramírez MD [address] [place], [place] [phone] Pre-visit Planning (SDOH screening positive and Tobacco screening negative) Social History Tobacco Use Types Packs/Day Years [...] with others, in a hotel, in a longterm, living outside on the street, on a [...] as of this encounter Progress Notes * Melvin Huffman - 06/20/2024 12:39 PM EST SHAYNA Davis placed successful outbound call to patient for pre-visit planning. Patient name and confirmed. Patient confirms appt date and time, and has transportation arrangements. Biggest concern for appointment at this time is she is having upper back pain and would like STD testing. Patientadvised to bring to appointment a photo id and insurance card. Appropriate screenings completed in a nticipation of appointment. SDOH positive. Patient looking for assistance with housing: stays in a attic, transportation and food insecurities. Referral will be placed. documented in this encounter Plan of Treatment Upcoming Encounters Date Type Department Care Team (Late st Contact Info) Description 08/18/2024 9:00 AM EDT Office Visit [facility] [address] [place] [address] Dory Ramírez MD [address] [place] [address] documented as of this encounter Visit Diagnoses Not on filedocumented in this encounter Additional Health Concerns Assessment Noted Time PHQ-9 Depression Total Score: 11 024 9:38 AM EDT documented as of this encounter Care Teams Hydroelectric Production Technician Relationship Specialty Start Date End Date Dory Ramírez MD [address] [place] [address] PCP - General Internal Medicine 05/06/24 documented as of this encounter
--- OUTSIDE RECORDS SUMMARY | 2024-07-14 14:06 | XMS_ITS | Encounter Summary ---
Author Organization [employer] Address [address] [place] [address] Care Team Providers Care Adjunct Mathematics Instructor Name Role Phone Dory Ramírez MD Primary Care Provider + Reason for Visit * Reason Onset Date Comments Appointment Request 05/06/2024 Encounter Details Date Type Department Care Team ([facility] st Contact Info) Description 05/06/2024 Telephone [facility] [address] [place], [place] [phone] Luz Elena Jiménez MD [address] [place], [place] [phone] Appointment Request Social History Tobacco Use Types Packs/Day [...] is your housing situation today? I have yifannorth rios 03/09/[address] you [...] encounter Miscellaneous Notes * Telephone Encounter - Marlon Alexander - 05/06/2024 8:02 AM EST TC from pt requesting to r/s TP apt from 05/06. Contact pt at [phone] documented in this encounter Plan of Treatment Upcoming Encounters Date Type Department Care Team (Late st Contact Info) Description 08/18/2024 9:00 AM EDT Office Visit [facility] [address] [place] [address] Dory Ramírez MD [address] [place] [address] documented as of this encounter Visit Diagnoses Not on filedocumented in this encounter Additional Health Concerns Assessment Noted Time PHQ-9 Depression Total Score: 11 024 9:38 AM EDT documented as of this encounter Care Teams Adjunct Mathematics Instructor Relationship Specialty Start Date End Date Dory Ramírez MD [address] [place] [phone] PCP - General Internal Medicine 05/06/24 documented as of this encounter
== END 2024-07-14 13:45 | disposition home or self-care (01) ==
PROVIDERS: PCP Nurse Practitioner; Visit Provider Physician Assistant
DX: M17.0 Bilateral primary osteoarthritis of knee (principal)
CPT/HCPCS: 20610; 99213

== ENCOUNTER → 2024-07-14 13:10 | Outpatient (BNVA) | payer MEDICARE, MEDICAID, SELFPAY | PROVIDERS: PCP Nurse Practitioner; Visit Provider Physician Assistant | DX: M17.0 Bilateral primary osteoarthritis of knee (principal) | CPT/HCPCS: 20610; 99212; J1010; J2003 ==

== ENCOUNTER 2024-10-11 13:31 | Outpatient (AMB) | payer MEDICARE, MEDICAID, SELFPAY ==
--- NOTE | 2024-10-11 13:41 | MHC.OFFVIS ---
Vital Signs 10/11/24 13:52 Height 5 ft 4 in Intake Visit Reasons: Inj-B/L knee Injections last inj 07/14/24 Intake Note: Eliza is a 48 year old female who presents today for a repeat injection for her bilateral knee OA, last injection 07/14/24. Patient states her last injections gave her 3 months of relief. She states her right knee swelling has gone down and her knee brace is fitting a little lose. Allergies methotrexate Allergy (Intermediate, Verified 10/11/24 13:52) rash HPI HPI Inj-B/L knee Injections last inj 07/14/24: Details: Ms. Kenia Hernandes is a 48 yo female presents to the office today for bilat knee osteoarthritis. She would like to repeat cortisone injections. [facility] Medical History History of latent tuberculosis Osteoarthritis of left knee Osteoarthritis of right knee History of high blood pressure Low back pain, unspecified Fibromyalgia Seropositive rheumatoid arthritis Morbid obesity with BMI of 45.0-49.9, adult Surgical History History of surgery Hx of section Family History Father Diabetes Hypertension Mother Diabetes Hypertension Rheumatoid arthritis Kidney transplant recipient Sister Thyroid disease Social History Household Members: Spouse and Children Housing: Apartment Alcohol intake: never Patient Tobacco Use Status: Never used Tobacco Female Reproductive History Menstrual Age of Menarche: 12 Physical Exam Const General: cooperative, healthy appearing and no acute distress Resp Effort & Inspection: normal respiratory effort and able to speak in complete sentences Extrem Other: Bilateral knees: Normal to inspection. No ecchymosis, erythema, or joint effusion. No tenderness to palpation to the medial or lateral joint lines. Full knee extension and flexion. Crepitus felt with ROM. NVI. Office Procedures AMB Joint Injection/Aspiration Joint Injection/Aspiration Primary Site: left knee Secondary Site: right knee Prep: site was prepped using aseptic technique, ethochloride spray was applied and injection warnings given Injected: 80 mg of, DepoMedrol, with 8 mL of (2% plain lido ) and in the joint Approach Used: anterolateral Procedure: The patient tolerated the procedure well, but had some pain with the injection and there was some relief with the local anesthesia Coding - Bilateral Large Joint Procedure code (CPT) selection complete Assessment & Plan Assessment & Plan (1) Osteoarthritis of right knee: Code(s): M17.11 - Unilateral primary osteoarthritis, right knee Category: Medical Qualifiers: Osteoarthritis type: primary Qualified Code(s): M17.11 - Unilateral primary osteoarthritis, right knee (2) Osteoarthritis of left knee: Code(s): M17.12 - Unilateral primary osteoarthritis, left knee Category: Medical Qualifiers: Osteoarthritis type: primary Qualified Code(s): M17.12 - Unilateral primary osteoarthritis, left knee Plan The patient was offered a cortisone injection in bilateral knees with 80 mg of DepoMedrol. The patient was explained the risks, benefits, and alternatives to receiving this injection. After receiving consent for the injection, the patient had the procedure done while in the office today. The patient tolerated the procedure well with no complications. Additionally, the patient was given a right knee reaction brace off the shelf while in the office today. Follow-up will be prn, or sooner if needed. Coding Level of Care Code Est Pt Level 3 (93478) Diagnoses Primary osteoarthritis of right knee M17.11 Osteoarthritis type: primary Primary osteoarthritis of left knee M17.12 Osteoarthritis type: primary CPT Codes Coding - - Bilateral Large Joint: 00607 - Bilateral Large Joint ([id number])
--- OUTSIDE RECORDS SUMMARY | 2024-10-11 14:43 | XMS_ITS | Encounter Summary ---
Author Organization [employer] Address [address] 7 [place] [address] Care Team Providers Care Biochemistry Technologist Name Role Phone Dory Ramírez MD Primary Care Provider + Reason for Visit * Reason Onset Date Comments Appointment Request 05/06/2024 Encounter Details Date Type Department Care Team ([facility] st Contact Info) Description 05/06/2024 Telephone [facility] MEDICINE [address] [place], [place] [phone] Luz Elena Jiménez MD [address] [place], [place] [phone] Appointment Request Social History Tobacco Use Types [...] TP apt from 05/06. Contact pt at [phone] documented in this encounter Plan of Treatment Upcoming Encounters Date Type Department Care Team (Late st Contact Info) Description 12/13/2024 1:45 PM EDT Office Visit [facility] MEDICINE [address] [place] [address] Dory Ramírez MD [address] [place] [address] documented as of this encounter Visit Diagnoses Not on filedocumented in this encounter Additional Health Concerns Assessment Noted Time PHQ-9 Depression Total Score: 11 024 9:38 AM EDT documented as of this encounter Care Teams Biochemistry Technologist Relationship Specialty Start Date End Date Dory Ramírez MD [address] [place] [address] PCP - General Internal Medicine 05/06/24 documented as of this encounter
--- OUTSIDE RECORDS SUMMARY | 2024-10-11 14:43 | XMS_ITS | Encounter Summary ---
Author Organization [employer] Address [address] 7t [place] [address] Care Team Providers Care Wire Splicer Name Role Phone Corrine Barth Primary Care Provider +[phone] No Quach MD Primary Care Provider [phone] Luz Elena Jiménez MD Primary Care Provide r Dory Ramírez MD Primary Care Provider + Reason for Visit * Reason Onset Date Comments Med Refill 03/09/2023 Encounter Details Date Type Department Care Team (Late st Contact Info) Description 03/09/2023 Refill [facility] MEDICINE [address] [place], [place] [phone] Corrine Barth FNP [address] [place], [place] [phone] Neuropathy Social History Tobacco Use Types Packs/Day [...] Description 12/13/2024 1:45 PM EDT Office Visit [facility] MEDICINE [address] [place] [address] Dory Ramírez MD [address] [place] [address] documented as of this encounter Visit Diagnoses Diagnosis Neuropathy Mononeuritis of unspecified site documented in this encounter Additional Health Concerns Assessment Noted Time PHQ-9 Depression Total Score: 8 08/30/19 23 2:28 PM EDT documented as of this encounter Care Teams Wire Splicer Relationship Specialty Start Date End Date Corrine Barth FNP [address] [place] [address] PCP - General Family Medicine 11/28/22 01/25/24 No Quach MD [address] [place] [address] PCP - General Family Medicine 01/26/24 03/29/24 Luz Elena Jiménez MD [address] [place] [address] PCP - General Internal Medicine 03/30/24 05/05/24 Dory Ramírez MD [address] [place] [address] PCP - General Internal Medicine 05/06/24 documented as of this encounter
--- OUTSIDE RECORDS SUMMARY | 2024-10-11 14:43 | XMS_ITS | Encounter Summary ---
Author Organization [employer] Address [address] 7t [place] [address] Care Team Providers Care Cognos Bi Administrator Name Role Phone Corrine Barth Primary Care Provider [phone] No Quach MD Primary Care Provider Luz Elena Jiménez MD Primary Care Provide r Dory Ramírez MD Primary Care Provider + Reason for Visit * Reason Onset Date Comments Med Refill 10/27/2023 Encounter Details Date Type Department Care Team (Late st Contact Info) Description 10/27/2023 Refill [facility] MED & PEDS [address] [place] [address] Corrine Barth FNP [address] [place], [place] [phone] Social History Tobacco Use Types Packs/Day Years [...] Description 12/13/2024 1:45 PM EDT Office Visit [facility] MEDICINE [address] [place], [place] [phone] Dory Ramírez MD [address] [place] [address] documented as of this encounter Visit Diagnoses Not on filedocumented in this encounter Additional Health Concerns Assessment Noted Time PHQ-9 Depression Total Score: 20 024 9:51 AM EDT documented as of this encounter Care Teams Cognos Bi Administrator Relationship Specialty Start Date End Date Corrine Barth FNP [address] [place], [place] [phone] PCP - General Family Medicine 11/28/22 01/25/24 No Quach MD [address] [place] [address] [phone] PCP - General Family Medicine 01/26/24 03/29/24 Luz Elena Jiménez MD [address] [place] [address] PCP - General Internal Medicine 03/30/24 05/05/24 Dory Ramírez MD [address] [place] [address] PCP - General Internal Medicine 05/06/24 documented as of this encounter
--- OUTSIDE RECORDS SUMMARY | 2024-10-11 14:43 | XMS_ITS | Encounter Summary ---
Author Organization [employer] Address [address] 7[address] [place] [address] Care Team Providers Care Database Developer Name Role Phone Corrine Barth Primary Care Provider +[phone] No Quach MD Primary Care Provider [phone] Luz Elena Jiménez MD Primary Care Provide r Dory Ramírez MD Primary Care Provider + Reason for Visit * Reason Comments Med Refill Encounter Details Date Type Department Care Team (Late st Contact Info) Description 09/25/2023 Refill [facility] MEDICINE [address] [place], [place] [phone] Corrine Barth FNP [address] [place], [place] [phone] Social History Tobacco Use Types Packs/Day Years [...] the past 12 months, has t he [employer] gas, oil or water company threatened to [...] Description 12/13/2024 1:45 PM EDT Office Visit [facility] MEDICINE 230 [place], [place] [phone] Dory Ramírez MD [address] [place] [address] documented as of this encounter Visit Diagnoses Not on filedocumented in this encounter Additional Health Concerns Assessment Noted Time PHQ-9 Depression Total Score: 20 024 11:50 AM EDT documented as of this encounter Care Teams Database Developer Relationship Specialty Start Date End Date Corrine Barth FNP [address] [place], [place] [phone] PCP - General Family Medicine 11/28/22 01/25/24 No Quach MD [address] [place] [address] [phone] PCP - General Family Medicine 01/26/24 03/29/24 Luz Elena Jiménez MD [address] [place] [address] PCP - General Internal Medicine 03/30/24 05/05/24 Dory Ramírez MD [address] [place] [address] PCP - General Internal Medicine 05/06/24 documented as of this encounter
--- OUTSIDE RECORDS SUMMARY | 2024-10-11 14:43 | XMS_ITS | Encounter Summary ---
Author Organization [employer] Address [address] 7t [place] [address] Care Team Providers Care Exhibits Coordinator Name Role Phone Corrine Barth Primary Care Provider +[phone] No Quach MD Primary Care Provider [phone] Luz Elena Jiménez MD Primary Care Provide r Dory Ramírez MD Primary Care Provider + Reason for Visit * Reason Onset Date Comments Med Refill 03/09/2023 Encounter Details Date Type Department Care Team (Late st Contact Info) Description 03/09/2023 Refill [facility] MED & PEDS [address] [place] [address] Corrine Barth FNP [address] [place], [place] [phone] Social History Tobacco Use Types Packs/Day Years [...] Description 12/13/2024 1:45 PM EDT Office Visit [facility] MEDICINE [address] [place] [address] Dory Ramírez MD [address] [place] [address] documented as of this encounter Visit Diagnoses Not on filedocumented in this encounter Additional Health Concerns Assessment Noted Time PHQ-9 Depression Total Score: 8 08/30/19 23 2:28 PM EDT documented as of this encounter Care Teams Exhibits Coordinator Relationship Specialty Start Date End Date Corrine Barth FNP [address] [place] [address] PCP - General Family Medicine 11/28/22 01/25/24 No Quach MD [address] [place] [address] PCP - General Family Medicine 01/26/24 03/29/24 LuzE lena Jiménez MD 230 [place] [address] PCP - General Internal Medicine 03/30/24 05/05/24 Dory Ramírez MD [address] [place] [address] PCP - General Internal Medicine 05/06/24 documented as of this encounter
--- OUTSIDE RECORDS SUMMARY | 2024-10-11 14:43 | XMS_ITS | Clinical Summary ---
Author Organization [employer] Address [address] [facility] 7t [place] [address] Care Team Providers Care Construction Controller Name Role Phone Dory Ramírez MD Primary [...] 40 MG/0.4ML Prefilled Syringe Kit prefilled syringe 022 Active amLODIPine (Norvasc) 10 MG tablet Take 1 tablet (10 mg) by mouth Once per day. 90 tablet 2 Active busPIRone (Buspar) 10 MG tablet Take 1 tablet (10 mg) by mouth 2 times daily. 180 tablet 3 024 Active polyethylene glycol, PEG, 3350 (Glycolax) 17 GM/SCOOP powder TAKE 17 GM MIXED IN 8 OUNCES OF WATER, COFFEE OR TEA ONCE DAILY AT BEDTIME NEEDED FOR CONSTIPATION 510 g 5 024 Active labetalol (Normodyne) 100 MG tablet TAKE 1 TABLET BY MOUTH TWICE DAILY 180 tablet 3 Active enalapril (Vasotec) 5 MG tablet TAKE 1 TABLET BY MOUTH EVERY MORNING 90 tablet 3 024 Active rizatriptan SCRIP CLERK (Maxalt-SCRIP CLERK) 5 MG disintegrating tablet DISSOLVE 1 TABLET ON TONGUE AND SWALLOW ONCE NEEDED FOR MIGRAINE, MAY REPEAT IN 2 HOURS NEEDED, DO NOT EXCEED 6 TABLETS / 24 HOURS 9 tablet Active hydrOXYzine pamoate (Vistaril) 25 MG capsule TAKE 1 CAPSULE BY MOUTH EVERY DAY AT BEDTIME NEEDED FOR ANXIETY 30 capsule 1 Active omeprazole (PriLOSEC) [address] capsule TAKE 1 CAPSULE BY MOUTH EVERY DAY NEEDED FOR HEARTBURN 90 capsule 1 Active topiramate 50 MG tabletIndications :Neuropathy TAKE 1 TABLET BY MOUTH EVERY TWELVE HOURS 180 tablet 1 Active DULoxetine (Cymbalta) [address] capsule Take 1 capsule (30 mg) by mouth Once per day. Do not crush or chew. 30 capsule 11 2025 Active docusate sodium (Colace) 100 MG capsule TAKE 1 CAPSULE BY MOUTH TWICE DAILY NEEDED FOR CONSTIPATION 180 capsule 1 Active tiZANidine (Zanaflex) 2 MG tablet Take 1 tablet (2 mg) by mouth if needed in the morning and at bedtime for muscle spasms. 60 tablet Active meloxicam (Mobic) 15 MG tablet Take 1 tablet (15 mg) by mouth Once per day. 30 tablet 2025 Active acetaminophen (Tylenol Extra Strength) 500 MG tablet Take 1 tablet (500 mg) by mouth every 6 (six) hours if needed for mild pain. 120 tablet 2024 Active tiZANidine (Zanaflex) 2 MG tablet Take 2 mg by mouth if needed in the morning, at noon, and at bedtime for muscle spasms. 2024 Discontinued(R eorder (will not trigger notification to Pharmacy)) Active Problems Problem Noted Date Diagnosed Date Mastalgia 09/13/2024 Chronic bilateral thoracic back pain 09/13/2024 Menopause 09/13/2024 Chronic bilateral low back pain without sciatica 09/13/2024 Screening mammogram for breast cancer 09/13/2024 BMI 40.0-44.9, adult 07/01/2024 Assessment & Plan [...] exercise. Fu 1 mo, will consider meds. Class 3 severe obesity with serious comorbidity [...] and Tylenol as needed and follow-up with hatchery laborer Migraine with aura 11/04/2020 Palpitations 01/11/2020 Overview (07/20/2024): Holter monitor on 01/19/2020 was within normal limits, average rhythm was NSR at 61-116 bpm Diastolic heart failure 12/23/2019 Overview (07/20/2024): Echo on 12/23/2019 at [facility] showed normal LVEF and no wall abnormalities, essentially normal echo. Nuclear stress test on 12/23/2019 was negative for ischemia, no arrhythmias and normotensive response to test Patient last seen at [facility] cardiology by Penelope Bhakta NP Assessment & Plan (07/01/2024 9:57 AM EST): Seen last time in 2019 by Jessica Interiano, no recent notes available I will obtain results of most recent echocardiogram and a stress test is available. Seropositive rheumatoid arthritis 04/01/2018 Assessment & Plan (07/01/2024 10:01 AM EST): Doing well on Humira twice per month, follow-up with hatchery laborer Will retrieve recent labs from [facility]. COVID influenza and pneumonia immunizations are up-to-date. Essential hypertension 06/04/2016 Hypermetropia 05/07/2016 Primary osteoarthritis of both knees 04/25/2016 Recurrent major depressive episodes 04/25/2016 Assessment & Plan (07/01/2024 10:00 AM EST): Currently exacerbated by potential homelessness. Advised to follow-up with counselor, will refer to supportive employment case manager to help her with housing issues. Start duloxetine 30 mg and follow-up with me in 4 weeks. Resolved Problems Problem Noted Date Diagnosed Date Resolved Date Housing instability 07/01/2024 09/14/19 25 Assessment & Plan (07/01/2024 9:59 AM EST): Currently living at a relative with her family. Negative for information about [employer] to reach out regarding housing issues and will refer to case management. Encounters * This document contains information received from the source organization and may not represent a complete record from that organization. Date Type Department Care Team Description 09/13/2024 3:00 PM EDT Office Visit [facility] MEDICINE [address] [place] [phone] Dory Ramírez MD Essential hypertension (Primary Dx); Mastalgia; Seropositive rheumatoid arthritis (CMS/HCC); Menopause; Chronic bilateral thoracic back pain; Chronic bilateral low back pain without sciatica; Screening mammogram for breast cancer 09/13/2024 Travel 09/05/2024 Refill [facility] PEDS [address] [place] [address] Dory Ramírez MD 07/28/2024 Travel from Last 3 Months Immunizations Immunization Administration Dates Next Due Hep B, adult [...] Answer Date Recorded Patient Health Questionnaire-9 Score 12 07/18/2024 Patient Health Questionnaire-9 Score 12 07/18/2024 Last PHQ-9: Questionnaire Data Not on file 0 07/18/2024 Housing Stability Answer Date Recorded What is your housing situation today? I do not have housing (Staying with others, in a hotel, in a correction, living outside on the street, on a [...] Answer Date Recorded Patient Health Questionnaire-2 Score 3 07/18/2024 Internet Access Answer Date Recorded Internet Access [...] Sign Reading Time Taken Comments Blood Pressure 140/88 09/13/2024 2:03 PM EDT Pulse 104 09/13/2024 2:03 PM EDT Temperature 36.6 ??C (97.8 ??F) 09/13/2024 2:03 PM ED T Respiratory Rate 24 09/13/2024 2:03 PM EDT Oxygen Saturation 99% 09/13/2024 2:03 PM EDT Inhaled Oxygen Concentration - - Weight 118 kg (260 lb) 09/13/2024 2:03 PM EDT Height 165.1 cm (5' 5 ) 09/13/2024 2:03 PM EDT Body Mass Index 43.27 09/13/2024 2:03 PM EDT Plan of Treatment Upcoming Encounters Date Type Department Care Team (Late st Contact Info) Description 12/13/2024 1:45 PM EDT Office Visit [facility] MEDICINE [address] [place] [address] Dory Ramírez MD [address] [place] [address] Health Maintenance Due Date Last Done Comments CT Colonography 1976 Colonoscopy 1976 Colorectal Cancer Screening 1976 FIT DNA/Cologuard 1976 FIT 1976 FOBT 1976 HIV Screening 1976 Sigmoidoscopy 1976 Disability Screening 1976 Alcohol/Substance Use Screening 1988 Family Planning (PISQ) 11/09/1991 Hepatitis C Screening 1994 Pneumococcal Vaccine: Pediatrics (0 to 5 Years) and At-Risk Patients (6 to 49) Years) (1 of 2 - PCV) 11/09/1995 Pap Smear 1997 Cervical Cancer Screening 2006 HPV/Cotest 2006 Mammogram 03/19/2023 03/19/2021, 02/23, 03/09/2018 SDOH Screening 06/20/2025 06/20/2024 Depression Screening 07/18/2025 07/18/2024, 07/18/19 25 Tobacco Screening 09/13/2025 09/13/2024 Lipid Panel 10/31/2025 10/31/2020 DTaP/Tdap/Td Vaccines (3 [...] patient's age to complete this topic Meningococcal B Vaccine Aged Out No l onger eligible based on patient's age to complete [...] Legacy Procedure: Mammography Report 1 Procedure Note Provider, MD Andrew - 08/17/2022 Refer to the Notes tab [...] ?? LDL-C is now calculated using the Eric-Hines ?? calculation, which is a validated novel method providing ?? better accuracy than the Friedewald equation in the ?? estimation of LDL-C. ?? Eric SS et al. EDUARDA. 2013;310(19): 2868-4319 ?? (http://Theravance.Reality Mobile/faq/BPD811) Non-HDL Cholesterol 161(H) <130 mg/dL (calc) [facility] [...] 2015;9:129-169. ?? 10/31/2020 10:0 9 AM EDT Jessica Interiano NP LAB BLOOD ORDERABLES Final Resu lt [facility] [address] from Last 3 Months or Most Recently Relevant to Health Maintenance Insurance N PARTIAL [employer] MEDICARE REPLACEMENT Care Teams Construction Controller Relationship Specialty Start Date End Date Dory Ramírez MD [address] [place] [address] [place] [address] PCP - General Internal Medicine 05/06/24
--- OUTSIDE RECORDS SUMMARY | 2024-10-11 14:43 | XMS_ITS | Encounter Summary ---
Author Organization [employer] Address [address] 7t [place] [address] Care Team Providers Care Operating Room Specialist Name Role Phone Corrine Barth Primary Care Provider +[phone] No Quach MD Primary Care Provider [phone] Luz Elena Jiménez MD Primary Care Provide r Dory Ramírez MD Primary Care Provider + Reason for Visit * Reason Onset Date Comments Med Refill 03/09/2023 Encounter Details Date Type Department Care Team (Late st Contact Info) Description 03/09/2023 Refill [facility] MED & PEDS [address] [place] [address] Corrine Barth FNP [address], [place] [phone] Social History Tobacco Use Types Packs/Day Years [...] Description 12/13/2024 1:45 PM EDT Office Visit [facility] MEDICINE [address] [place] [address] Dory Ramírez MD [address] [place] [address] documented as of this encounter Visit Diagnoses Not on filedocumented in this encounter Additional Health Concerns Assessment Noted Time PHQ-9 Depression Total Score: 8 08/30/19 23 2:28 PM EDT documented as of this encounter Care Teams Operating Room Specialist Relationship Specialty Start Date End Date Corrine Barth FNP [address] [place] [address] PCP - General Family Medicine 11/28/22 01/25/24 No Quach MD [address] [place] [address] PCP - General Family Medicine 01/26/24 03/29/24 Luz Elena Jiménez MD [address] [place] [address] PCP - General Internal Medicine 03/30/24 05/05/24 Dory Ramírez MD [address] [place] [address] PCP - General Internal Medicine 05/06/24 documented as of this encounter
--- OUTSIDE RECORDS SUMMARY | 2024-10-11 14:43 | XMS_ITS | Encounter Summary ---
Author Organization [employer] Address [address] [facility] [place] [address] Care Team Providers Care Roguer Name Role Phone Corrine Barth Primary Care Provider [phone] No Quach MD Primary Care Provider Luz Elena Jiménez MD Primary Care Provide r Dory Ramírez MD Primary Care Provider + Reason for Visit * Reason Onset Date Comments Med Refill 10/27/2023 Encounter Details Date Type Department Care Team (Late st Contact Info) Description 10/27/2023 Refill [facility] [address] [place], [place] [phone] Corrine Barth FNP [address] [place], [place] [phone] Social History Tobacco Use Types Packs/Day Years [...] Description 12/13/2024 1:45 PM EDT Office Visit [facility] [facility] MEDICINE [address] [place], [place] [phone] Dory Ramírez MD [address] [place] [address] documented as of this encounter Visit Diagnoses Not on filedocumented in this encounter Additional Health Concerns Assessment Noted Time PHQ-9 Depression Total Score: 20 024 9:51 AM EDT documented as of this encounter Care Teams Roguer Relationship Specialty Start Date End Date Corrine Barth FNP [address] [place], [place] [phone] PCP - General Family Medicine 11/28/22 01/25/24 No Quach MD [address] [place] [address] [phone] PCP - General Family Medicine 01/26/24 03/29/24 Luz Elena Jiménez MD [address] [place] [address] PCP - General Internal Medicine 03/30/24 05/05/24 Dory Ramírez MD [address] [place] [address] PCP - General Internal Medicine 05/06/24 documented as of this encounter
== END 2024-10-11 14:08 | disposition home or self-care (01) ==
LOC: HO.HOS 13:32
PROVIDERS: PCP Nurse Practitioner; Visit Provider Physician Assistant
DX: M17.0 Bilateral primary osteoarthritis of knee (principal)
CPT/HCPCS: 20610; 99213

== ENCOUNTER → 2024-10-11 13:31 | Outpatient (BNVA) | payer MEDICARE, MEDICAID, SELFPAY | PROVIDERS: PCP Nurse Practitioner; Visit Provider Physician Assistant | DX: M17.0 Bilateral primary osteoarthritis of knee (principal) | CPT/HCPCS: 20610; 99212; J1010; J2003 ==

== ENCOUNTER 2024-11-07 16:36 | Outpatient (REF) | payer MEDICARE, SELFPAY ==
--- NOTE | ~2024-11-07 | XR_ITS ---
EXAMINATION: XR THORACIC SPINE CLINICAL INFORMATION: mid and LBP COMPARISON: None available. TECHNIQUE: 3 views of the thoracic spine were obtained. FINDINGS: There is no fracture or bone destruction seen and the vertebral alignment is normal. There is no disc space narrowing. There is no abnormality of the paraspinal soft tissues. XR/XR thoracic spine 3V IMPRESSION: Unremarkable examination. Electronically signed by: Sandor Zeng MD 11/07/2024 06:02 PM EDT
--- NOTE | ~2024-11-07 | XR_ITS ---
EXAMINATION: XR LUMBOSACRAL SPINE CLINICAL INFORMATION: mid and LBP COMPARISON: October 27, 2022 TECHNIQUE: Three views of the lumbosacral spine. FINDINGS: There are 5 nonrib-bearing lumbar sequence. Convex right curvature is noted. T12-L1: There is mild disc space narrowing. Stable L1-2: There is moderate disc space narrowing and endplate osteophytes. Stable. L2-3: There is mild disc space narrowing. Stable. Otherwise unremarkable. XR/XR lumbar spine 2-3V IMPRESSION: Stable mild degenerative disc disease. Electronically signed by: Sandor Zeng MD 11/07/2024 06:01 PM EDT
[2024-11-07 17:13] LABS: Baso%MD 0.5 %; Eos%MD 1.7 %; Hematocrit 40.6 % (37.0-47.0); Hemoglobin 13.7 g/dl (12.0-16.0); IG%MD 0.4 %; Lymph%MD 37.2 %; Mean Corpuscular HGB Conc 33.7 g/dl (31.0-35.0); Mean Corpuscular Hemoglobin 31.1 pg (27.0-33.0); Mean Corpuscular Volume 92.1 fL (80.0-98.0); Mean Platelet Volume 10.9 fL (9.4-12.3); Mono%MD 6.2 %; Platelet Count 360 X10*3/uL (160-400); Red Blood Count 4.41 X10*6/uL (4.20-5.50); Red Cell Distribution Width 12.1 % (11.0-16.0); White Blood Count 8.4 X10*3/uL (4.8-10.8)
[2024-11-07 17:33] LABS: Alanine Aminotransferase 22 U/L (0-31); Albumin Level 4.3 g/dL (3.5-5.0); Alkaline Phosphatase 70 U/L (39-117); Anion Gap 12 (12-20); Aspartate Amino Transferase 17 U/L (5-31); Bilirubin Total 0.5 mg/dL (0.0-1.0); Blood Urea Nitrogen 13 mg/dL (9-16); C Reactive Protein 0.18 mg/dL (< or = 0.50); Calcium 9.5 mg/dL (8.4-10.2); Carbon Dioxide 21 mmol/L (22-29); Chloride 111 mmol/L (96-108); Estimated Glomerular Filt Rate > 60; Glucose Random 90 mg/dL (60-115); Potassium 3.8 mmol/L (3.3-5.1); Sodium 140 mmol/L (135-145); Total Protein 7.2 g/dL (6.5-8.0)
--- OUTSIDE RECORDS SUMMARY | 2024-11-07 18:01 | XMS_ITS | Encounter Summary ---
Author Organization [employer] Address [address] 7[address] [place] [address] Care Team Providers Care Window Display Designer Name Role Phone Corrine Barth Primary Care Provider [phone] No Quach MD Primary Care Provider Luz Elena Jiménez MD Primary Care Provide r Dory Ramírez MD Primary Care Provider + Reason for Visit * Reason Onset Date Comments Med Refill 03/09/2023 Encounter Details Date Type Department Care Team (Late st Contact Info) Description 03/09/2023 Refill [facility] [address] [place], [place] [phone] Corrine Barth FNP [address] [place], [place] [phone] Neuropathy Social History Tobacco Use Types Packs/Day [...] 1:45 PM EDT Office Visit [facility] MEDICINE [address] [place] [address] Dory Ramírez MD [address] [place] [address] documented as of this encounter Visit Diagnoses Diagnosis Neuropathy Mononeuritis of unspecified site documented in this encounter Additional Health Concerns Assessment Noted Time PHQ-9 Depression Total Score: 8 08/30/19 23 2:28 PM EDT documented as of this encounter Care Teams Window Display Designer Relationship Specialty Start Date End Date Corrine Barth FNP [address] [place] [address] PCP - General Family Medicine 11/28/22 01/25/24 No Quach MD [address] [place] [address] PCP - General Family Medicine 01/26/24 03/29/24 Luz Elena iJménez MD [address] [place] [address] PCP - General Internal Medicine 03/30/24 05/05/24 Dory Ramírez MD [address] [place] [address] PCP - General Internal Medicine 05/06/24 documented as of this encounter
[2024-11-07 18:07] LABS: Erythrocyte Sedimentation Rate 9 MM/HR (0-20)
[2024-11-07 18:21] LABS: Atypical Lymph Absolute Manual 0.3 x10*3/uL; Atypical Lymphs Percent Manual 4 % (0-6); Band Neutrophils Percent 1 % (3-5); Eosinophils Absolute Manual 0.2 X10*3/uL (0.0-0.4); Eosinophils Percent Manual 2 % (0-4); Lymphocytes Absolute Manual 3.4 X10*3/uL (1.2-4.9); Lymphocytes Percent Manual 40 % (20-40); Monocytes Absolute Manual 0.2 X10*3/uL (0.1-1.2); Monocytes Percent Manual 2 % (2-11); Neutrophils Absolute Manual 4.4 X10*3/uL (2.0-8.3); Neutrophils Percent Manual 51 % (45-73); Platelet Estimate NORMAL (NORMAL); Platelet Morphology Comment NORMAL; RBC Morphology NORMAL
[2024-11-08 03:47] LABS: HBS Num1 0.29 mIU/mL (0-7.99); HBc Num1 0.04 S/CO (0.00-0.79); Hepatitis B Core Antibody Nonreactive (Nonreactive); Hepatitis B Surface Antigen Negative (Negative); ~HepC Num1 0.11 S/CO (0.00-0.79); ~Hepatitis B Surface Antibody NONREACTIVE (Nonreactive); ~Hepatitis C Antibody Nonreactive (Nonreactive)
[2024-11-10 01:54] LABS: TS Negative Control Passed; TS Panel A 21; TS Panel B 33; TS Positive Control Passed; TSpotTB Positive (Negative)
== END 2024-11-07 16:37 | disposition home or self-care (01) ==
LOC: HO.XRAY 16:36
PROVIDERS: Absent Provider Student in an Organized Health Care Education/Training Program; PCP Internal Medicine; Visit Provider Internal Medicine
DX: M51.360 Other intervertebral disc degeneration, lumbar region with discogenic back pain only (principal); M05.9 Rheumatoid arthritis with rheumatoid factor, unspecified; G89.29 Other chronic pain
CPT/HCPCS: 36415; 72072; 72100; 80053; 85007; 85027; 85652; 86140; 86481; 86704; 86706; 86803; 87340

== ENCOUNTER → 2024-11-07 16:51 | Outpatient (BNV) | payer MEDICARE, SELFPAY | PROVIDERS: Absent Provider Student in an Organized Health Care Education/Training Program; PCP Internal Medicine; Visit Provider Radiology Diagnostic Radiology | DX: M54.6 Pain in thoracic spine (principal); M54.50 Low back pain, unspecified | CPT/HCPCS: 72072; 72100 ==

== ENCOUNTER 2024-11-09 08:41 | Outpatient (AMB) | payer MEDICARE, SELFPAY ==
--- NOTE | 2024-11-09 09:06 | A.OFFVIS_ITS ---
Vital Signs 11/09/24 09:10 Height 5 ft 4 in Weight 247 lb 12.793 oz BMI 42.5 BP 124/82 Blood Pressure Location Rt radial Position Sitting Pulse 97 Pulse Source Pulse Oximeter Pulse Oximetry (%) 98 Oxygen Delivery Method Room Air Intake Visit Reasons: RA Intake Note: Patient presents for RA [id number]. Residential Director Required: Yes Residential Director Language: Railroad Signal And Switch Operator Name: Manoj [id number] Information Interpreted: non-clinical & clinical Allergies methotrexate Allergy (Intermediate, Verified 11/09/24 09:09) rash Medication List - Last Reconciled 11/09/24 by Ashley Hurley MD adalimumab (Humira(CF)) 40 mg (0.4 mL) subcut QWEEK amitriptyline 50 mg PO DAILY amlodipine 10 mg PO DAILY bupropion HCl XL 300 mg PO DAILY buspirone 10 mg PO BID diclofenac sodium 1% 4 grams topical QID enalapril maleate 5 mg PO DAILY gabapentin 300 mg PO TID labetalol 100 mg PO BID omeprazole 20 mg PO DAILY prednisone 5 mg PO DIRECTED tizanidine 2 mg PO TID topiramate 50 mg PO Q12H trazodone 100 mg PO BEDTIME HPI Comments Details: Patient is a 49-year-old female with hypertension, GERD, history of latent TB status post treatment, polyarticular osteoarthritis, fibromyalgia and seropositive rheumatoid arthritis here today for follow up Interval History: Patient last seen 03/08/[address] De León. At that time she was following up for her seropositive rheumatoid arthritis on Humira every other week. She was complaining of pain in her left elbow, pain in her right shoulder and pain when she lies on her right side at night. There is no evidence of active synovitis on her examination and so her Humira was continued. She was diagnosed with lateral epicondylitis and given home exercises. She also was given home exercises for her shoulder pain which was likely rotator cuff tendonitis. Rheumatologic History: +++RF-ve CCP Humira August 2018 - present effective Methotrexate- 2018- failed due to rash Enbrel- 07/2018-08/2018-ineffective Current Rheumatology Medication(s): Humira 40 mg every other week Topical diclofenac 1% [facility] Medical History History of latent tuberculosis Osteoarthritis of left knee Osteoarthritis of right knee History of high blood pressure Low back pain, unspecified Fibromyalgia Seropositive rheumatoid arthritis Morbid obesity with BMI of 45.0-49.9, adult Surgical History History of surgery Hx of section Family History (Updated 11/09/24 @ 09:09 by KIARA Nicole) Father Diabetes Hypertension Cancer Mother Diabetes Hypertension Rheumatoid arthritis Kidney transplant recipient Sister Thyroid disease Social History Household Members: Spouse and Children Housing: Apartment Alcohol intake: never Patient Tobacco Use Status: Never used Tobacco Female Reproductive History Menstrual Age of Menarche: 12 Review of Systems Const Details: Review of Systems Constitutional: Denies fever, chills, weight loss ENT: Denies vision changes, eye pain or eye redness, dental caries, dry mouth GI: Denies nausea, vomiting, diarrhea, abdominal pain, change in BM Pulm: Denies SOB, RYAN, hemoptysis, wheezing Cards: Denies chest pain, palpitations Skin: Denies Raynaud's, rash, nail changes, photosensitivity, INSTITUTION DIRECTOR: Denies headaches, weakness, paresthesias, recurrent falls MSK: as per HPI All other systems reviewed and are unremarkable except noted above Physical Exam Vital Signs: Last Vital Signs Pulse 97 11/09/24 09:10 BP 124/82 11/09/24 09:10 Pulse Ox 98 11/09/24 09:10 Oxygen Delivery Method Room Air 11/09/24 09:10 BMI result Body Mass Index 42.5 Vital signs reviewed Physical Examination CONSTITUITIONAL Patient alert and cooperative. Well appearing and in no apparent painful distress HEENT Conjunctiva and sclera clear. No lymphadenopathy. CHEST/RESPIRATORY SYSTEM Normal respiratory effort and able to speak in complete sentences. Clear to auscultation bilaterally. No crackles, rales, rhonchi, wheezes heard. CARDIAC SYSTEM Regular rate and rhythm. S1 and S2 heard no murmurs. Radial pulses intact bilaterally MSK Hands * Able to make a fist bilaterally. Tenderness to palpation of bilateral MCPs PIPs. Wrists * Right Wrist: Full ROM. 70 degrees of wrist flexion, 80 degrees of wrist extens ion. Tenderness to palpation * Left Wrist: Full ROM. 70 degrees of wrist flexion, 80 degrees of wrist extension. Tenderness to palpation Elbows * Right Elbow: Full ROM. No swelling but tenderness to palpation of the lateral epicondyle * Left Elbow: Full ROM. No swelling but tenderness to palpation of the lateral epicondyle Shoulders * Right shoulder: Full ROM. No swelling noted. Tenderness to palpation of the AC joint and subacromial bursa * Left shoulder: Full ROM. No swelling noted. Tenderness to palpation of the AC joint and subacromial bursa Knees * Right knee: Full ROM. No swelling noted. No TTP of the knee joint lie or pes anserine bursa * Left knee: Full ROM. No swelling noted. No TTP of the knee joint lie or pes anserine bursa. Ankles * Right ankle: Good ankle dorsiflexion and plantar flexion. No swelling. No TTP of the ankle joint * Left ankle: Good ankle dorsiflexion and plantar flexion. No swelling. No TTP of the ankle joint Feet * Right foot: Negative squeeze test * Left foot: Negative squeeze test Tender points? * No tenderness to palpation of the bilateral trapezius, supraspinatus, anterior costochondral junctions, bilateral suboccipital muscle insertions SKIN No rashes Results Reviewed Results Reviewed: Laboratory Tests 11/07/24 16:49 WBC 8.4 RBC 4.41 Hgb 13.7 Hct 40.6 Plt Count 360 ESR 9 Sodium 140 Potassium 3.8 Chloride 111 H Carbon Dioxide 21 L BUN 13 Creatinine 0.80 AST 17 ALT 22 Alkaline Phosphatase 70 C-Reactive Protein 0.18 Total Protein 7.2 Albumin 4.3 Laboratory Tests 11/07/24 16:49 Hep Bs Antigen Negative Hep Bs Antibody NONREACTIVE Hep B Core Total Ab Nonreactive Hepatitis C Ab (EIA) Nonreactive TB Test (T-Spot) Com Pending Assessment & Plan Assessment & Plan (1) Seropositive rheumatoid arthritis: Comment: +++RF-ve CCP Humira August 2018 - present effective Methotrexate- 2018- failed due to rash Enbrel- 07/2018-08/2018-ineffective Code(s): M05.9 - Rheumatoid arthritis with rheumatoid factor, unspecified Category: Medical Plan: #Seropositive RA Patient is a 49-year-old female with seropositive rheumatoid arthritis here today for follow up. Patient has a moderate disease activity despite Humira monotherapy. It does seem that the drug effectiveness wanes after a week of administration. Therefore we will increase the frequency of administration to weekly For now we will give her a short course of prednisone to assist with her joint pain. Plan - Increase humira 40mg SC every week - Prednisone 15mg x 4 days then 10mg x 4 days then 5mg x 4 days then stop - RTC 4 months - Labs before visit: CBC, CMP, ESR, CRP (2) Fibromyalgia: Code(s): M79.7 - Fibromyalgia Category: Medical Plan: #Fibromyalgia Patient with several fibromyalgia tender points today. We will control her rheumatoid arthritis and see what disease activities left from her fibromyalgia and see if we can optimize this. (3) Encounter for monitoring of adalimumab therapy: Code(s): Z51.81 - Encounter for therapeutic drug level monitoring; Z79.620 - long-term (current) use of immunosuppressive biologic Plan: #Long-term Use of TNF Inhibitors: Humira Discussed with the patient the benefits and risks of TNF inhibitors for the management of the rheumatic condition Benefits include reduce pain, maintenance of remission and reduction of flares as well as ?progression of the disease Risks include injection sites/infusion reactions, serious infections (such as bacterial infections, opportunistic infections), malignancy, delaminating syndromes, autoimmune phenomena, CHF exacerbations, palmar plantar psoriasis and cytopenias Recommended rotating injection sites, and holding medication during and for up to 1 week after resolution of a febrile illness or open skin wound Plan I spent 40 minutes reviewing the record and labs, taking a history, examining the patient, discussing the treatment plan, ordering diagnostic work up and documenting in the medical record Orders: Orders Comprehensive Met. Panel 4 Months M05.9 - Rheumatoid arthritis with rheumatoid factor, unspecified XR hand LT min 3V Today M05.9 - Rheumatoid arthritis with rheumatoid factor, unspecified XR hand RT min 3V Today M05.9 - Rheumatoid arthritis with rheumatoid factor, unspecified Complete Blood Count Auto Diff 4 Months M05.9 - Rheumatoid arthritis with rheumatoid factor, unspecified C Reactive Protein 4 Months M05.9 - Rheumatoid arthritis with rheumatoid factor, unspecified Erythrocyte Sedimentation Rate 4 Months M05.9 - Rheumatoid arthritis with rheumatoid factor, unspecified Medications: New prednisone Take 3 tablets for 4 days then 2 tablets for 4 days then 1 tablet for 4 days then stop 5 mg PO DIRECTED 24 tabs 0RF M05.9 - Rheumatoid arthritis with rheumatoid factor, unspecified Changed From adalimumab (Humira(CF)) 40 mg (0.4 mL) subcut Q2W 2 ea 2RF M05.9 - Rheumatoid arthritis with rheumatoid factor, unspecified To adalimumab (Humira(CF)) 40 mg (0.4 mL) subcut QWEEK 4 ea 5RF M05.9 - Rheumatoid arthritis with rheumatoid factor, unspecified Coding Level of Care Code Est Pt Level 5 (25698) Complex EM visit Add On G2211 Diagnoses Seropositive rheumatoid arthritis M05.9 Fibromyalgia M79.7 Encounter for monitoring of adalimumab therapy Z51.81; Z79.620
--- OUTSIDE RECORDS SUMMARY | 2024-11-09 09:07 | XMS_ITS | Encounter Summary ---
Author Organization [employer] Address [address] [place] [address] Care Team Providers Care Psychologist Educational Name Role Phone Corrine Barth Primary Care Provider [phone] No Quach MD Primary Care Provider [phone] Luz Elena Jiménez MD Primary Care Provide r Dory Ramírez MD Primary Care Provider + Reason for Visit * Reason Onset Date Comments Med Refill 03/09/2023 Encounter Details Date Type Department Care Team (Late st Contact Info) Description 03/09/2023 Refill [facility] [address] [place], [place] [phone] Corrine Barth FNP [address] [place], [place] [phone] Neuropathy Social History Tobacco Use Types Packs/Day [...] Description 12/13/2024 1:45 PM EDT Office Visit [facility] [address] [place] [phone] Dory Ramírez MD [address] [place] [phone] documented as of this encounter Visit Diagnoses Diagnosis Neuropathy Mononeuritis of unspecified site documented in this encounter Additional Health Concerns Assessment Noted Time PHQ-9 Depression Total Score: 8 08/30/19 23 2:28 PM EDT documented as of this encounter Care Teams Psychologist Educational Relationship Specialty Start Date End Date Corrine Barth FNP [address] [place] [address] PCP - General Family Medicine 11/28/22 01/25/24 No Quach MD [address] [place] [address] PCP - General Family Medicine 01/26/24 03/29/24 Luz Elena Jiménez MD [address] [place] [address] PCP - General Internal Medicine 03/30/24 05/05/24 Dory Ramírez MD [address] [place] [address] PCP - General Internal Medicine 05/06/24 documented as of this encounter
[2024-11-09 09:10] VITALS: BP 124/82; PULSE 97; O2SAT 98; BMI 42.5
== END 2024-11-09 09:57 | disposition home or self-care (01) ==
PROVIDERS: PCP Internal Medicine; Visit Provider Student in an Organized Health Care Education/Training Program
DX: M05.79 Rheumatoid arthritis with rheumatoid factor of multiple sites without organ or systems involvement (principal); M79.7 Fibromyalgia; Z51.81 Encounter for therapeutic drug level monitoring; Z79.620 Long term (current) use of immunosuppressive biologic
CPT/HCPCS: 99215; G2211

== ENCOUNTER → 2024-11-09 08:41 | Outpatient (BNVA) | payer MEDICARE, SELFPAY | PROVIDERS: Visit Provider Student in an Organized Health Care Education/Training Program | DX: M05.79 Rheumatoid arthritis with rheumatoid factor of multiple sites without organ or systems involvement (principal); M79.7 Fibromyalgia; Z79.620 Long term (current) use of immunosuppressive biologic; Z51.81 Encounter for therapeutic drug level monitoring | CPT/HCPCS: 99212 ==

== ENCOUNTER 2025-01-17 13:26 | Outpatient (AMB) | payer MEDICARE, SELFPAY ==
[2025-01-17 13:30] VITALS: BMI 42.4
--- NOTE | 2025-01-17 13:30 | A.OFFVIS_ITS ---
Vital Signs 01/17/25 13:30 Height 5 ft 4 in Weight 247 lb BMI 42.4 Intake Visit Reasons: Inj-B/L knee Injections last inj 10/11/24 Intake Note: Eliza is a 49 year old female who presents today for a repeat injection for her bilateral knee OA, last injection 10/11/24. Patient states the injections have been helping with the pain and last about 3 months. She is currently feeling more pain in her right knee compared to her left. interested in proceding with bilateral knee injections Allergies methotrexate Allergy (Intermediate, Verified 01/17/25 13:36) rash HPI HPI Inj-B/L knee Injections last inj 10/11/24: Details: Ms. Kenia Hernandes is a 49-year-old female who presents to the office today for bilateral knee arthritis. Patient experiences chronic pain from this. Last cortisone injections were administered on 10/11/2024. She would like to repeat injections while in the office today. [facility] Medical History History of latent tuberculosis Osteoarthritis of left knee Osteoarthritis of right knee History of high blood pressure Low back pain, unspecified Fibromyalgia Seropositive rheumatoid arthritis Morbid obesity with BMI of 45.0-49.9, adult Surgical History History of surgery Hx of section Family History (Updated 11/09/24 @ 09:09 by KIARA Nicole) Father Diabetes Hypertension Cancer Mother Diabetes Hypertension Rheumatoid arthritis Kidney transplant recipient Sister Thyroid disease Social History Household Members: Spouse and Children Housing: Apartment Alcohol intake: never Patient Tobacco Use Status: Never used Tobacco Female Reproductive History Menstrual Age of Menarche: 12 Review of Systems Const All systems reviewed & are unremarkable except as noted in HPI and below Physical Exam Vital Signs: BMI result Body Mass Index 42.4 Const General: cooperative, healthy appearing and no acute distress Resp Effort & Inspection: normal respiratory effort and able to speak in complete sentences Extrem Other: Bilateral knees: Normal to inspection. No ecchymosis, erythema, or joint effusion. No tenderness to palpation to the medial or lateral joint lines. Full knee extension and flexion. Crepitus felt with ROM. NVI. Office Procedures AMB Joint Injection/Aspiration Joint Injection/Aspiration Primary Site: right knee Secondary Site: left knee Prep: site was prepped using aseptic technique, ethochloride spray was applied and injection warnings given Injected: with 1 mL of (DEXA), with 3 mL of (2% plain lidocaine), 0.25% bupivacaine (3 mL of 2% plain lidocaine) and other (And 0.25% bupivacaine) Approach Used: anterolateral Procedure: The patient tolerated the procedure well, but had some pain with the injection and there was some relief with the local anesthesia Coding - Bilateral Large Joint Procedure code (CPT) selection complete Assessment & Plan Assessment & Plan (1) Osteoarthritis of left knee: Code(s): M17.12 - Unilateral primary osteoarthritis, left knee Category: Medical Qualifiers: Osteoarthritis type: primary Qualified Code(s): M17.12 - Unilateral primary osteoarthritis, left knee (2) Osteoarthritis of right knee: Code(s): M17.11 - Unilateral primary osteoarthritis, right knee Category: Medical Qualifiers: Osteoarthritis type: primary Qualified Code(s): M17.11 - Unilateral primary osteoarthritis, right knee Plan The patient was offered a TYPE injection in the BODYPART with DOSE mg of DepoMedrol. The patient was explained the risks, benefits, and alternatives to receiving this injection. After receiving consent for the injection, the patient had the procedure done while in the office today. The patient tolerated the procedure well with no complications. Follow-up will be PRN, or sooner if needed Coding Level of Care Code Est Pt Level 3 (31532) Diagnoses Primary osteoarthritis of left knee M17.12 Osteoarthritis type: primary Primary osteoarthritis of right knee M17.11 Osteoarthritis type: primary CPT Codes Coding - 08318 - Bilateral Large Joint: 85130 - Bilateral Large Joint ([id number])
--- OUTSIDE RECORDS SUMMARY | 2025-01-17 14:22 | XMS_ITS | Encounter Summary ---
Author Organization [employer] Address [address] [place] [address] Care Team Providers Care Holter Scanning Technician Name Role Phone Corrine Barth Primary Care Provider [phone] No Quach MD Primary Care Provider [phone] Luz Elena Jiménez MD Primary Care Provide r Dory Ramírez MD Primary Care Provider + Reason for Visit * Reason Comments Med Refill Encounter Details Date Type Department Care Team (Late st Contact Info) Description 09/25/2023 Refill [facility] [address] [place], [place] [phone] Corrine Barth FNP [address] [place], [place] [phone] Social History Tobacco Use Types Packs/Day Years [...] the past 12 months, has t he [employer], gas, oil or water company threatened to [...] Care Team (Late st Contact Info) Description 02/15/2025 11:30 AM EDT Office Visit [facility] [address] [place], [place] [phone] Dory Ramírez MD [address] [place] [address] documented as of this encounter Visit Diagnoses Not on filedocumented in this encounter Additional Health Concerns Assessment Noted Time PHQ-9 Depression Total Score: 20 024 11:50 AM EDT documented as of this encounter Care Teams Holter Scanning Technician Relationship Specialty Start Date End Date Corrine Barth FNP [address] [place], [place] [phone] PCP - General Family Medicine 11/28/22 01/25/24 No Quach MD [address] [place] [phone] PCP - General Family Medicine 01/26/24 03/29/24 Luz Elena Jiménez MD [address] [place] [address] PCP - General Internal Medicine 03/30/24 05/05/24 Dory Ramírez MD [address] [place] [address] PCP - General Internal Medicine 05/06/24 documented as of this encounter
--- OUTSIDE RECORDS SUMMARY | 2025-01-17 14:22 | XMS_ITS | Encounter Summary ---
Author Organization [employer] Address [address] [place] [address] Care Team Providers Care Minister Assistant Name Role Phone Corrine Barth Primary Care Provider [phone] No Quach MD Primary Care Provider [phone] Luz Elena Jiménez MD Primary Care Provide r Dory Ramírez MD Primary Care Provider + Reason for Visit * Reason Onset Date Comments Med Refill 03/09/2023 Encounter Details Date Type Department Care Team (Late st Contact Info) Description 03/09/2023 Refill [facility] [address] [place] [address] Corrine Barth FNP [address] [place], [place] [phone] Social History Tobacco Use Types Packs/Day Years [...] Description 02/15/2025 11:30 AM EDT Office Visit [facility] [address] [place] [address] Dory Ramírez MD [address] [place] [phone] documented as of this encounter Visit Diagnoses Not on filedocumented in this encounter Additional Health Concerns Assessment Noted Time PHQ-9 Depression Total Score: 8 08/30/19 23 2:28 PM EDT documented as of this encounter Care Teams Minister Assistant Relationship Specialty Start Date End Date Corrine Barth FNP [address] [place] [id number] PCP - General Family Medicine 11/28/22 01/25/24 No Quach MD [address] [place] [id number] PCP - General Family Medicine 01/26/24 03/29/24 Luz Elena Jiménez MD [address] [place] [address] PCP - General Internal Medicine 03/30/24 05/05/24 Dory Ramírez MD [address] [place] [address] PCP - General Internal Medicine 05/06/24 documented as of this encounter
--- OUTSIDE RECORDS SUMMARY | 2025-01-17 14:22 | XMS_ITS | Encounter Summary ---
Author Organization [employer] Address [address] [place] [address] Care Team Providers Care Large Engine Assembler Name Role Phone Corrine Barth Primary Care Provider [phone] No Quach MD Primary Care Provider Luz Elena Jiménez MD Primary Care Provide r Dory Ramírez MD Primary Care Provider + Reason for Visit * Reason Onset Date Comments Med Refill 03/09/2023 Encounter Details Date Type Department Care Team (Late st Contact Info) Description 03/09/2023 Refill [facility] [address] [place] [address] Corrine Barth FNP [address] [place], [place] [phone] Social History Tobacco Use Types Packs/Day Years [...] Description 02/15/2025 11:30 AM EDT Office Visit [facility] [address] [place] [address] Dory Ramírez MD [address] [place] [phone] documented as of this encounter Visit Diagnoses Not on filedocumented in this encounter Additional Health Concerns Assessment Noted Time PHQ-9 Depression Total Score: 8 08/30/19 23 2:28 PM EDT documented as of this encounter Care Teams Large Engine Assembler Relationship Specialty Start Date End Date Corrine Barth FNP [address] [place] [phone] PCP - General Family Medicine 11/28/22 01/25/24 No Quach MD [address] [place] [id number] PCP - General Family Medicine 01/26/24 03/29/24 Luz Elena Jiménez MD [address] [place] [address] PCP - General Internal Medicine 03/30/24 05/05/24 Dory Ramírez MD [address] [place] [address] PCP - General Internal Medicine 05/06/24 documented as of this encounter
--- OUTSIDE RECORDS SUMMARY | 2025-01-17 14:22 | XMS_ITS | Encounter Summary ---
Author Organization [employer] Address [address] [place] [address] Care Team Providers Care Lean Manager Name Role Phone Dory Ramírez MD Primary Care Provider + Reason for Visit * Reason Onset Date Comments Appointment Request 05/06/2024 Encounter Details Date Type Department Care Team ([facility] st Contact Info) Description 05/06/2024 Telephone [facility] [address] [place], [place] [phone] Luz Elena Jiménez MD [address] [place], [place] [phone] Appointment Request Social History Tobacco Use Types [...] TP apt from 05/06. Contact pt at [phone] documented in this encounter Plan of Treatment Upcoming Encounters Date Type Department Care Team (Late st Contact Info) Description 02/15/2025 11:30 AM EDT Office Visit [facility] [address] [place] [address] Dory Ramírez MD [address] [place] [address] documented as of this encounter Visit Diagnoses Not on filedocumented in this encounter Additional Health Concerns Assessment Noted Time PHQ-9 Depression Total Score: 11 024 9:38 AM EDT documented as of this encounter Care Teams Lean Manager Relationship Specialty Start Date End Date Dory Ramírez MD [address] [place] [id number] PCP - General Internal Medicine 05/06/24 documented as of this encounter
--- OUTSIDE RECORDS SUMMARY | 2025-01-17 14:22 | XMS_ITS | Encounter Summary ---
Author Organization [employer] Address [address] [place] [address] Care Team Providers Care Conference Director Name Role Phone Dory Ramírez MD Primary Care Provider + Reason for Visit * Reason Onset Date Comments Results 11/15/2024 Encounter Details Date Type Department Care Team (Latest Contact Info) Description 11/15/2024 Results Follow-Up [facility] [address] [place] [address] Dory Ramírez MD [address] [place] [address] Complete Blood Count Manual Diff, Comprehensive Metabolic Panel, C-reactive Protein, Additional followed-up results: 3 Social History Tobacco Use Types Packs/Day Years Used Date Smoking Tobacco: Never Passive Smoke Exposure: Never Smokeless Tobacco: Never Alcohol Use Standard Drinks/Week Comments Never 0 (1 standard drink = 0.6 oz pur e alcohol) Depression Answer Date Recorded Patient Health Questionnaire-9 Score 0 12/13/2024 Patient Health Questionnaire-9 Score 0 12/13/2024 Last PHQ-9: Questionnaire Data Not on file 0 12/13/2024 Housing Stability Answer Date Recorded What is your housing situation today? I have yifan rios 12/13/[address] you li ve. Do you have problems with any of the following? None of the above 12/13/2024 Food Insecurity Answer Date Recorded Within the [...] getting things needed for daily living? No 12/13/2024 Utilities Answer Date Recorded In the past 12 months, has t he electric, gas, oil or water company threatened to shut off services in your home? No 06/20/2024 Depression Answer Date Recorded Patient Health Questionnaire-2 Score 0 12/13/2024 Internet Access Answer Date Recorded Internet Access Q1 Yes 06/20/2024 Internet Access Q2 Not on file 06/20/2024 Comments No Sex and Gender Information Value Date Recorded Sex Assigned at Female 03/24/2022 10:28 AM EDT Legal Sex Female 10:28 AM EDT Gender Identity Female 03/24/2022 10:28 AM EDT Sexual Orientation Straight 03/24/2022 10 :28 AM EDT documented as of this encounter Functional Status * Over the past 2 weeks, how often have you been bothered by any of the following problems? Question Answer Date of Assessment Author Patient Health Questionnaire -2 Score 0 12/13/2024 11:21 AM EDT Dolores Tom MA * Little interest or pleasure in doing things Answer Date of Assessment Author Not at all 12/13/2024 11:21 AM EDT Dolores Tom MA * Feeling down, depressed, or hopeless Answer Date of Assessment Author Not at all 12/13/2024 11:21 AM EDT Dolores Tom MA * Trouble falling or staying asleep, or sleeping too much Answer Date of Assessment Author Not at all 12/13/2024 11:21 AM EDT Dolores Tom MA * Feeling tired or having little energy Answer Date of Assessment Author Not at all 12/13/2024 11:21 AM DOROTHYT Dolores Tom MA * Poor appetite or overeating Answer Date of Assessment Author Not at all 12/13/2024 11:21 AM EDT Dolores oTm MA * Feeling bad about yourself - or that you are a failure or have let yourself or your family down Answer Date of Assessment Author Not at all 12/13/2024 11:21 AM Dolores Santiago MA * Trouble concentrating on things, such as reading the newspaper or watching television Answer Date of Assessment Author Not at all 12/13/2024 11:21 AM Dolores Santiago MA * Moving or speaking so slowly that other people could have noticed? Or the opposite - being so fidgety or restless that you have been moving around a lot more than usual. Answer Date of Assessment Author Not at all 12/13/2024 11:21 AM Dolores Santiago MA * Thoughts that you would be better off or hurting yourself in some way Answer Date of Assessment Author Not at all 12/13/2024 11:21 AM Dolores Santiago MA * Patient Health Questionnaire-9 Score Answer Date of Assessment Author 0 12/13/2024 11:21 AM Dolores Santiago MA * Over the last 2 weeks, how often have you been bothered by any of the following problems? Question Answer Date of Assessment Author Feeling nervous, anxious, or on edge 0 12/13/2024 11:22 AM Dolores Santiago MA Not being able to stop or co ntrol worrying 0 12/13/2024 11:22 AM Dolores Santiago MA Worrying too much about diff erent things 0 12/13/2024 11:22 AM Dolores Santiago MA Trouble relaxing 0 12/13/2024 11:22 AM Dolores Santiago MA Being so restless that it is hard to sit still 0 12/13/2024 11:22 AM Dolores Santiago MA Becoming easily annoyed or irritable 0 12/13/2024 11:22 AM Dolores Santiago MA Feeling afraid as if somethi ng awful might happen 0 12/13/2024 11:22 AM Dolores Santiago MA ANTHONY-7 Total Score 0 12/13/2024 11:22 AM Dolores Santiago MA documented as of this encounter Miscellaneous Notes * Telephone Encounter - Stephanie Alcantara RN - 11/16/2024 9:04 AM EDT Noted. Patient has history of latent TB from 2018. Labs were ordered by rheumatology. 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 RN was was informed a message would be sent to the provider to review and office will return call to [facility] once provider respond s. Please consider adding latent TB diagnosis to problem list ----- Message from Dory Ramírez MD sent at 11/15/2024 8:00 PM EDT ----- Labs on 11/07/2024 showed positive T spot which is at least consistent with latent tuberculosis. I do not see a history of previous TB spot of TB testing ordered recent CXR. Please call patient and check for history of a positive TB test at any point and if she has not had a CXR done within the past year, please ask her to get CXR, if she has any S/S of active TB (history of fever, chills, cough, SOB, pleuritic chest pain, hemoptysis or weight loss), please schedule a walk-in clinic witha sick appointment with me to address this issues. Test was done probably by his rheumatology as patient is not on Humira, is very likely that they have previous TB testing, Please call them if appropriate ----- Message ----- From: Interface, Lab Results In Sent: 11/07/2024 5:13 PM EDT To: Dory Ramírez MD * Result Encounter Note - Dory Ramírez MD - 11/15/2024 8:00 PM EDT Labs on 11/07/2024 showed positive T spot which is at least consistent with latent tuberculosis. I do not see a history of previous TB spot of TB testing ordered recent CXR. Please call patient and check for history of a positive TB test at any point and if she has not had a CXR done within the pastyear, please ask her to get CXR, if she has any S/S of active TB (history of fever, chills, cough, SOB, pleuritic chest pain, hemoptysis or weight loss), please schedule a walk-in clinic with a sick appointment with me to address this issues. Test was done probably by his rheumatology as patient isnot on Humira, is very likely that they have previous TB testing, Please call them if appropriate documented in this encounter Plan of Treatment Upcoming Encounters Date Type Department Care Team (Late st Contact Info) Description 02/15/2025 11:30 AM EDT Office Visit [facility] [address] [place] [phone] Dory Ramírez MD [address] [place] [phone] Scheduled Orders Name Type Priority Associated Diagnoses Orde r Schedule XR Chest 2 Views Imaging Routine Positive TB test Ordered: 11/15/2024 documented as of this encounter Visit Diagnoses Diagnosis Positive TB test- Primary documented in this encounter Additional Health Concerns Assessment Noted Time PHQ-9 Depression Total Score: 12 025 4:04 PM EST documented as of this encounter Care Teams Conference Director Relationship Specialty Start Date End Date Dory Ramírez MD [address] [place] [id number] PCP - General Internal Medicine 05/06/24 documented as of this encounter
--- OUTSIDE RECORDS SUMMARY | 2025-01-17 14:22 | XMS_ITS | Encounter Summary ---
Author Organization [employer] Address [address] [place] [address] Care Team Providers Care Bilingual Executive Assistant Name Role Phone Dory Ramírez MD Primary Care Provider + Reason for Visit * Reason Onset Date Comments Med Refill 12/01/2024 Encounter Details Date Type Department Care Team (Late st Contact Info) Description 12/01/2024 Refill [facility] [address] [place], [place] [phone] Corrine Barth FNP [address] [place], [place] [phone] Social History Tobacco Use Types Packs/Day Years [...] Description 02/15/2025 11:30 AM EDT Office Visit [facility] [address] [place] [phone] Dory Ramírez MD [address] [place] [address] documented as of this encounter Visit Diagnoses Not on filedocumented in this encounter Additional Health Concerns Assessment Noted Time PHQ-9 Depression Total Score: 12 025 4:04 PM EST documented as of this encounter Care Teams Bilingual Executive Assistant Relationship Specialty Start Date End Date Dory Ramírez MD [address] [place] [id number] PCP - General Internal Medicine 05/06/24 documented as of this encounter
--- OUTSIDE RECORDS SUMMARY | 2025-01-17 14:22 | XMS_ITS | Clinical Summary ---
Author Organization [employer] Address [address] [place] [address] Care Team Providers Care Lens Polisher Name Role Phone Dory Ramírez MD Primary [...] Syringe Kit prefilled syringe 05/22/20 22 Active polyethylene glycol, PEG, 3350 (Glycolax) 17 [...] MORNING 90 tablet 3 02/01/20 24 Active hydrOXYzine pamoate (Vistaril) 25 MG capsule TAKE 1 CAPSULE BY MOUTH EVERY DAY AT BEDTIME NEEDED FOR ANXIETY 30 capsule 1 02/25/20 24 Active docusate sodium (Colace) 100 MG capsule TAKE 1 CAPSULE BY MOUTH TWICE DAILY NEEDED FOR CONSTIPATION 180 capsule 1 09/07/19 25 Active tiZANidine (Zanaflex) 2 MG tablet Take 1 tablet (2 mg) by mouth if needed in the morning and at bedtime for muscle spasms. 60 tablet 09/14/19 25 Active Acetaminophen Extra Strength 500 MG tablet TAKE 1 TABLET BY MOUTH EVERY 6 HOURS NEEDED FOR MILD PAIN 120 tablet 11/25/19 25 Active busPIRone (Buspar) 10 MG tablet TAKE 1 TABLET BY MOUTH TWICE A DAY 180 tablet 3 12/02/19 25 Active rizatriptan FLOOR REPRESENTATIVE (Maxalt-FLOOR REPRESENTATIVE) 5 MG disintegrating tablet DISSOLVE 1 TABLET ON TONGUE AND SWALLOW ONCE NEEDED FOR MIGRAINE, MAY REPEAT IN 2 HOURS NEEDED, DO NOT EXCEED 6 TABLETS / 24 HOURS 9 tablet 12/02/19 25 Active amLODIPine (Norvasc) 10 MG tablet TAKE 1 TABLET BY MOUTH EVERY DAY 90 tablet 3 12/02/19 25 Active topiramate 50 MG tabletIndications: Neuropathy TAKE 1 TABLET BY MOUTH EVERY TWELVE HOURS 180 tablet 1 12/02/19 25 Active meloxicam (Mobic) 15 MG tablet TAKE 1 TABLET BY MOUTH EVERY DAY 30 tablet 12/02/19 25 Active omeprazole (PriLOSEC) [address] capsule TAKE 1 CAPSULE BY MOUTH EVERY DAY NEEDED FOR HEARTBURN 90 capsule 1 12/02/19 25 Active buPROPion XL (Wellbutrin XL) 150 MG 24 hr tablet Take 1 tablet (150 mg) by mouth Once per day. Do not crush, chew, or split. 30 tablet 11 12/14/19 25 026 Active amoxicillin-clavul anate (Augmentin) 875-125 MG tabletIndications: Tooth infection Take 1 tablet by mouth 2 times daily for 7 days. 14 tablet 01/01/20 25 025 ibuprofen 800 MG tabletIndications: Tooth infection Take 1 tablet (800 mg) by mouth every 8 (eight) hours if needed for moderate pain for up to 10 days. 30 tablet 01/01/20 25 025 Active Problems Problem Noted Date Diagnosed Date Tooth infection 12/31/2024 Open fracture of tooth 12/31/2024 TB lung, latent 12/13/2024 Assessment & Plan (12/13/2024 1:53 PM EDT): Old, reportedly status post INH, will obtain records from director of group sales. Order CXR. Mastalgia 09/13/2024 Assessment & Plan (12/13/2024 1:53 PM EDT): Unchanged, referral has been sent since last month, information given to patient to call and schedule her appointment. Follow-up closely right after mammogram and ultrasound Assessment & Plan (11/29/2024 12:45 PM EDT): Take tylenol prn Order mammogram and US Chronic bilateral thoracic back pain 09/13/2024 Assessment & Plan (11/29/2024 12:51 PM EDT): Take tylenol and tizanidine Declined PT referral, she will call back if she wants to be referred. Menopause 09/13/2024 Assessment & Plan (11/29/2024 12:44 PM EDT): We discussed about tight control of HTN, weight reduction, increased physical activity Reminded to take duloxetine and topamax daily. Discussed re obtaining mammogram an PAP smear reportedly done within this past year, will obtain results Chronic bilateral low back pain without sciatica 09/13/2024 Screening mammogram for breast cancer 09/13/2024 Assessment & Plan (11/29/2024 12:57 PM EDT): No report of mammogram, will order BMI 40.0-44.9, adult 07/01/2024 Assessment & Plan [...] 44.9 in adult 07/01/2024 Assessment & Plan (12/13/2024 1:52 PM EDT): Discussed re weight reduction options including exercise, life style modifications, diet. Recommended to decrease soda and sugary beverage consumption, increase protein intake with meals (at least 1 portion of protein with each meal) to assist with satiety, increase dietary fiber Recommended at least 150 min/week of moderate intensity exercise. Will send a referral to dietitian Restart Wellbutrin 150 mg daily and follow-up in 4 weeks, may titrate up and consider Topamax titration. Assessment & Plan (07/01/2024 10:14 AM EST): [...] weight reduction Fibromyalgia 12/16/2021 Assessment & Plan (12/13/2024 1:59 PM EDT): Patient is mostly followed by rheumatology. I congratulated him for doing her best to stay physically active and encouraged her to continue exercises as much as she can. Continue tizanidine and Tylenol as needed. Continue close follow-up with mental health team, will discuss with her current counselor (Denise De Jesus) regarding long-term psychotherapist and prescriber. Will start Wellbutrin due to safer weight loss profile and DC duloxetine. Follow-up in 4 weeks. We discussed importance of coming to acupuncture clinic at least once per week, we will try to see if she is eligible for transportation of some sort. Assessment & Plan (07/01/2024 9:59 AM EST): [...] and Tylenol as needed and follow-up with director of group sales Migraine with aura 11/04/2020 Palpitations 01/11/2020 Overview (07/20/2024): Holter monitor on 01/19/2020 was within normal limits, average rhythm was NSR at 61-116 bpm Diastolic heart failure 12/23/2019 Overview (07/20/2024): Echo on 12/23/2019 at [facility] showed normal LVEF and no wall abnormalities, essentially normal echo. Nuclear stress test on 12/23/2019 was negative for ischemia, no arrhythmias and normotensive response to test Patient last seen at [facility] cardiology by Penelope Bhakta NP Assessment & Plan (07/01/2024 9:57 AM EST): Seen last time in 2019 by Jessica Interiano, no recent notes available I will obtain results of most recent echocardiogram and a stress test is available. Seropositive rheumatoid arthritis 04/01/2018 Assessment & Plan (11/29/2024 12:48 PM EDT): Continue Humira and fu with rheumatology Assessment & Plan (07/01/2024 10:01 AM EST): Doing well on Humira twice per month, follow-up with director of group sales Will retrieve recent labs from [facility]. COVID influenza and pneumonia immunizations are up-to-date. Essential hypertension 06/04/2016 Assessment & Plan (11/29/2024 12:33 PM EDT): Controlled. Compliant w/meds Continue labetalol + amlodipine same dose Counseled re low salt diet/increase moderate physical activity. Check home BP BIW and prn CP/PLASENCIA/RYAN Non smoking patient. Hypermetropia 05/07/2016 Primary osteoarthritis of both knees 04/25/2016 Recurrent major depressive episodes 04/25/2016 Assessment & Plan (12/13/2024 1:55 PM EDT): Currently out of mental health care, she would like to have a female counselor, will contact Denise Barreraro for this. Start Wellbutrin XL100 50 mg daily and follow-up in 4 weeks, she will continue duloxetine for the next 3 weeks and stop. Continue BuSpar and gabapentin nightly (may consider titrating up Topamax that will help with weight loss instead of gabapentin, will follow-up at next visit) Use hydroxyzine as needed anxiety Follow-up with me in 4 weeks Assessment & Plan (07/01/2024 10:00 AM EST): Currently exacerbated by potential homelessness. Advised to follow-up with counselor, will refer to case assistant to help her with housing issues. Start duloxetine 30 mg and follow-up with me in 4 weeks. Resolved Problems Problem Noted Date Diagnosed Date Resolved Date Housing instability 07/01/2024 09/14/19 Assessment & Plan (07/01/2024 9:59 AM EST): Currently living at a relative with her family. Negative for information about [employer] to reach out regarding housing issues and will refer to case management. Encounters Date Type Department Care Team Description 12/31/2024 9:20 AM EDT Office Visit [facility] [address] [place] [phone] Luz Elena Jiménez MD Tooth infection; Open fracture of tooth, initial encounter 12/31/2024 Travel 12/13/2024 11:30 AM EDT Office Visit [facility] [address] [place] [phone] Dory Ramírez MD Mastalgia (Primary Dx); Class 3 severe obesity with serious comorbidity and body mass index (BMI) of 40.0 to 44.9 in adult; Recurrent major depressive episodes (CMS/HCC); TB lung, latent; Fibromyalgia 12/13/2024 Patient Outreach [facility] [address] [place] [phone] Dory Ramírez MD Care Coordination ([facility] outreach for SDOH PT-1 and food needs-referral completed /) 12/13/2024 Travel 12/10/2024 Telephone [facility] [address] [place] [phone] Dory Ramírez MD Chart Prep 12/01/2024 Refill [facility] [address] [place] [phone] Corrine Barth FNP Neuropathy 12/01/2024 Refill [facility] [address] [place] [phone] Corrine Barth FNP 12/01/2024 Refill [facility] [address] [place] [address] Corrine Barth FNP 12/01/2024 Refill [facility] [address] [place] [address] Corrine Barth FNP Neuropathy 12/01/2024 Refill [facility] [address] [place] [address] Corrine Barth FNP 12/01/2024 Refill [facility] [address] [place] [phone] Dory Ramírez MD 12/01/2024 Refill [facility] [address] [place] [phone] Dory Ramírez MD 11/23/2024 Refill [facility] [address] [place] [phone] Dory Ramírez MD 11/16/2024 Telephone [facility] [address] [place] [phone] Dory Ramírez MD Call Back Request 11/15/2024 Results Follow-Up [facility] [address] [place] [phone] Dory Ramírez MD Complete Blood Count Manual Diff, Comprehensive Metabolic Panel, C-reactive Protein, Additional followed-up results: 3 11/07/2024 Orders Only GENERIC EXTERNAL DATA DEPARTMENT Provider, Generic External Data from Last 3 Months Immunizations Immunization Administration [...] Sign Reading Time Taken Comments Blood Pressure 127/84 12/31/2024 9:08 AM EDT Pulse 72 12/31/2024 9:08 AM EDT Temperature 35.3 C (95.5 F) 12/31/2024 9:08 AM EDT Respiratory Rate 18 12/31/2024 9:08 AM EDT Oxygen Saturation 96% 12/31/2024 9:08 AM EDT Inhaled Oxygen Concentration - - Weight 110 kg (243 lb) 12/31/2024 9:08 AM EDT Height 162.6 cm (5' 4 ) 12/31/2024 9:08 AM EDT Body Mass Index 41.71 12/31/2024 9:08 AM EDT Plan of Treatment Upcoming Encounters Date Type Department Care Team (Late st Contact Info) Description 02/15/2025 11:30 AM EDT Office Visit [facility] [address] [place] [address] Dory aRmírez MD [address] [place] [address] Health Maintenance Due Date Last Done Comments CT Colonography 1975 Colonoscopy 1976 Colorectal Cancer Screening 1975 FIT DNA/Cologuard 1976 FIT 1975 FOBT 1975 HIV Screening 1975 Sigmoidoscopy 1975 Family Planning (PISQ) 11/09/1991 Pneumococcal Vaccine: Pediatrics (0 to 5 Years) and At-Risk Patients (6 to 49) Years (1 of 2 - PCV) 11/09/1995 Pap Smear 1997 Cervical Cancer Screening 2006 HPV/Cotest 2006 Mammogram 03/19/2023 03/19/2021, 02/23, 03/09/2018 Influenza Vaccine (#1) 2025 , 03/04/2023, 02/07/2022, Additional history exists Lipid Panel 10/31/2025 10/31/2020 Alcohol/Substance Use Screening 12/13/2025 12/13/2024 Depression Screening 12/13/2025 12/13/2024, 12/14/19 Disability Screening 12/13/2025 12/13/2024 SDOH Screening 12/13/2025 12/13/2024 Tobacco Screening 12/13/2025 12/13/2024 DTaP/Tdap/Td Vaccines (3 - Td or Tdap) 06/04/2026 06/04/2016, 12/24/2015 Zoster Vaccines (1 of 2) 2026 RSV Patients and Patients Aged 60 years or older (1 - 1-dose 75+ series) 11/09/2051 Hepatitis B Vaccines Completed 03/30/2019, 04/01/2018, 02/16/2017 COVID-19 Vaccine Completed 03/30/2024, 03/2023, 10/07/2021, Additional history exists Hepatitis C Screening Completed 11/07/2024 HIB Vaccines Aged Out No longer eligi [...] Procedure Name Priority Date/Time Associated Diagnosis Comments XR THORACIC SPINE 3 VIEWS Routine 11/07/2024 5:00 PM EDT Chronic bilateral thoracic back pain XR LUMBAR SPINE 2-3 VIEWS Routine 11/07/2024 5:00 PM EDT Chronic bilateral low back pain without sciatica T-SPOT(R).TB Routine 11/07/2024 4:49 PM EDT HEPATITIS B, C PROFILE Routine 4:49 PM EDT SED RATE BY MODIFIED WESTERGREN Routine 11/07/2024 4:49 PM EDT C-REACTIVE PROTEIN Routine 11/07/2024 4: 49 PM EDT COMPREHENSIVE METABOLIC PANEL Routine 11/07/2024 4:49 PM EDT COMPLETE BLOOD COUNT MAN DIF Routine 11/07/2024 4:49 PM EDT MAMMOGRAM GENERIC Routine 03/19/2021 1:0 0 PM EDT LIPID PANEL, STANDARD Routine 10/31/2020 10:09 AM EDT from Last 3 Months or Most Recently Relevant to Health Maintenance Results * XR Lumbar Spine 2-3 Views (11/07/2024 5:00 PM EDT) Anatomical Region Laterality Modality Spine, L-spine Radiographic Venessa ging 11/07/2024 5:00 PM EDT Narrative 11/07/2024 6:04 PM EDT [address] [address] XRay Report Signed Patient: Eliza Meléndez MR#: [id number] 547 : 1975 Acct:[id number] Age/Sex: 48 / F ADM Date: 11/07/24 Loc: HO.XRAY Attending Dr: Dory Ramírez MD Ordering Physician: Dory Ramírez MD Date of Service: 11/07/24 Procedure(s): XR lumbar spine 2-3V Accession Number(s): [id number] cc: Dory Ramírez MD EXAMINATION: XR LUMBOSACRAL SPINE CLINICAL INFORMATION: mid and LBP COMPARISON: October 27, 2022 TECHNIQUE: Three views of the lumbosacral spine. FINDINGS: There are 5 nonrib-bearing lumbar sequence. Convex right curvature is noted. T12-L1: There is mild disc space narrowing. Stable L1-2: There is moderate disc space narrowing and endplate osteophytes. Stable. L2-3: There is mild disc space narrowing. Stable. Otherwise unremarkable. XR/XR lumbar spine 2-3V IMPRESSION: Stable mild degenerative disc disease. Electronically signed by: Sandor Zeng MD 11/07/2024 06:01 PM EDT RP Dictated By: Sandor Zeng MD Signed By: <Electronically signed by Sandor Zeng MD in OV> 11/07/24 1801 DD/ 1700 TD/TT: 11/07/24 1715 Clinical Training Coordinator: Procedure Note Donotuseinterpreter, Image - 11/07/2024 [place] [address] XRay Report Signed Patient: Anahi Meléndez#: [id number] 547 : 1975Acct:[id number] Age/Sex: 48 / FADM Date: 11/07/24 Loc: [facility] Attending Dr: Dory Ramírez MD Ordering Physician: Dory Ramírez MD Date of Service: 11/07/24 Procedure(s): XR lumbar spine 2-3V Accession Number(s): [id number] cc: Dory Ramírez MD EXAMINATION: XR LUMBOSACRAL SPINE CLINICAL INFORMATION: mid and LBP COMPARISON: October 27, 2022 TECHNIQUE: Three views of the lumbosacral spine. FINDINGS: There are 5 nonrib-bearing lumbar sequence. Convex right curvature is noted. T12-L1: There is mild disc space narrowing. Stable L1-2: There is moderate disc space narrowing and endplate osteophytes. Stable. L2-3: There is mild disc space narrowing. Stable. Otherwise unremarkable. XR/XR lumbar spine 2-3V IMPRESSION: Stable mild degenerative disc disease. Electronically signed by: Sandor Zeng MD 11/07/2024 06:01 PM EDT RP Dictated By: Sandor Zeng MD Signed By: <Electronically signed by Sandor Zeng MD in OV> 11/07/24 1801 DD/ 1700 TD/TT: 11/07/24 1715 Clinical Training Coordinator: Dory Ramírez MD IMG XR PROCEDURES Final Result * XR Thoracic Spine 3 Views (11/07/2024 5:00 PM EDT) Anatomical Region Laterality Modality Spine, T-spine Radiographic Venessa ging 11/07/2024 5:00 PM EDT Narrative 11/07/2024 6:05 PM EDT [place] [address] XRay Report Signed Patient: Eliza Meléndez MR#: [id number] 547 : 1975 Acct:[id number] Age/Sex: 48 / F ADM Date: 11/07/24 Loc: HO.XRAY Attending Dr: Dory Ramírez MD Ordering Physician: Dory Ramírez MD Date of Service: 11/07/24 Procedure(s): XR thoracic spine 3V Accession Number(s): [id number] cc: Dory Ramírez MD EXAMINATION: XR THORACIC SPINE CLINICAL INFORMATION: mid and LBP COMPARISON: None available. TECHNIQUE: 3 views of the thoracic spine were obtained. FINDINGS: There is no fracture or bone destruction seen and the vertebral alignment is normal. There is no disc space narrowing. There is no abnormality of the paraspinal soft tissues. XR/XR thoracic spine 3V IMPRESSION: Unremarkable examination. Electronically signed by: Sandor Zeng MD 11/07/2024 06:02 PM EDT RP Dictated By: Sandor Zeng MD Signed By: <Electronically signed by Sandor Zeng MD in OV> 11/07/241801 DD/ 99 TD/TT: 11/07/241714 Clinical Training Coordinator: Procedure Note Donotuseinterpreter, Image - 11/07/[address] [address] XRay Report Signed Patient: Anahi Meléndez#: [id number] 547 : 1975Acct:[id number] Age/Sex: 48 / FADM Date: 11/07/24 Loc: [facility] Attending Dr: Dory Ramírez MD Ordering Physician: Dory Ramírez MD Date of Service: 11/07/24 Procedure(s): XR thoracic spine 3V Accession Number(s): [id number] cc: Dory Ramírez MD EXAMINATION: XR THORACIC SPINE CLINICAL INFORMATION: mid and LBP COMPARISON: None available. TECHNIQUE: 3 views of the thoracic spine were obtained. FINDINGS: There is no fracture or bone destruction seen and the vertebral alignment is normal. There is no disc space narrowing. There is no abnormality of the paraspinal soft tissues. XR/XR thoracic spine 3V IMPRESSION: Unremarkable examination. Electronically signed by: Sandor Zeng MD 11/07/2024 06:02 PM EDT RP Dictated By: Sandor Zeng MD Signed By: <Electronically signed by Sandor Zeng MD in OV> 11/07/24 180 DD/ 99 TD/TT: 11/07/241714 Clinical Training Coordinator: Dory Ramírez MD IMG XR PROCEDURES Final Result * Hepatitis B, C Profile (11/07/2024 4:49 PM EDT) ~Hepatitis B Surface Antibody NONREACTIVE Nonreactive [facility] Comment:Nonreactive: < 8.00 mIU/mL Hepatitis B Core Antibody Nonreactive Nonreactive [facility] Hepatitis C Antibody Nonreactive Nonreactive [facility] Comment:Antibodies to HCV no t detected; does not exclude early acuteHCV infection. Hepatitis B Surface Ag Negative Negative [facility] 11/07/2024 4:49 PM EDT 11/07/2024 4:49 PM EDT us Generic External Data Provider LAB BLOOD ORDERAB LES Final Result [facility] [address] [place] [address] [phone] * (ABNORMAL) Complete Blood Count Manual Diff (11/07/2024 4:49 PM EDT) White Blood Count 8.4 4.8 - 10.8 X10*3/uL [facility] Red Blood Count 4.41 4.20 - 5.50 X10*6/uL [facility] Hemoglobin 13.7 12.0 - 16.0 g/dl [facility] Hematocrit 40.6 37.0 - 47.0 % [facility] Mean Corpuscular Volume 92.1 80.0 - 98.0 fL [facility] Mean Corpuscular Hemoglobin 31.1 27.0 - 33.0 pg [facility] Mean Corpuscular HGB Conc 33.7 31.0 - 35.0 g/dl [facility] Red Cell Distribution Width 12.1 11.0 - 16.0 % [facility] Platelet Count 360 160 - 400 X10*3/uL [facility] Mean Platelet Volume 10.9 9.4 - 12.3 fL [facility] NRBC Pct Auto 0.0 0.0 - 0.2 /100WBC [facility] NRBC Abs Auto 0.000 0.0 - 0.012 X10*3/uL [facility] Neutrophils % Manual 51 45 - 73 % [facility] Band Neutrophils Percent 1(L) 3 - 5 % [facility] Lymphocytes Percent Manual 40 20 - 40 % [facility] Atypical Lymphs Percent Manual 4 0 - 6 % [facility] Monocytes Percent Manual 2 2 - 11 % [facility] EOSINOPHILS % MANUAL 2 0 - 4 % [facility] NEUTROPHILS ABSOLUTE MANUAL 4.4 2.0 - 8.3 X10*3/uL [facility] LYMPHOCYTES ABSOLUTE MANUAL 3.4 1.2 - 4.9 X10*3/uL [facility] Atypical Lymph Absolute Manual 0.3 x10*3/uL [facility] MONOCYTES ABSOLUTE MANUAL 0.2 0.1 - 1.2 X10*3/uL [facility] EOSINOPHILS ABSOLUTE MANUAL 0.2 0.0 - 0.4 X10*3/uL [facility] Platelet Estimate NORMAL N[facility]AL [facility] Platelet Morphology Comment NORMAL [facility] RBC Morphology NORMAL [facility] 11/07/2024 4:49 PM EDT 11/07/2024 4:49 PM EDT us Generic External Data Provider LAB BLOOD ORDERAB LES Final Result [facility] [address] [place] [phone] * (ABNORMAL) T-SPOT??.TB (11/07/2024 4:49 PM EDT) T Spot TB Positive( A) Negative [facility] Comment: Diagnosing or excluding tuberculosis (TB) disease andassessing the probability of latent TB infection (LTBI)requires a combination of epidemiological, historical,medical and diagnostic findings that should be takeninto consideration when interpreting T-SPOT.TB testresults. A positive test result does not rule in activeTB disease caused by Mycobacterium tuberculosis(M. tuberculosis); active TB disease should beconfirmed by other tests such as sputum smear andculture, PCR, and chest radiography.Uncommonly, a positive T-SPOT.TB result may be due toinfection with other Mycobacterium species includingM. kansasii, M. szulgai, M. gordonae, or M. marinum.Alternative tests would be required if these infectionsare suspected.The T-SPOT.TB test is qualitative and results arereported as positive, borderline, or negative, giventhat the test controls perform as expected. In linewith the Centers for Disease Control and Prevention's2010 recommendation to report quantitative measurementsalongside the qualitative result, the laboratoryprovides spot counts for informational purposes only.The T-SPOT.TB test should not be interpreted as aquantitative test. TS PANEL A 21 [facility] TS PANEL B 33 [facility] Negative Control Passed [facility] Positive Control Passed [facility] Comment:For additional infor mation, please refer tohttp://education.Jixee/faq/YUA374(This link is being provided for informational/educational purposes only.)THIS TEST WAS PERFORMED AT:[employer] [id number] [place] [id number] CARRERO MD,PHD 11/07/2024 4:49 PM EDT 11/07/2024 4:49 PM EDT us Generic External Data Provider LAB BLOOD ORDERAB LES Final Result Performing Organization Address [facility]/ZIP Co de Phone Number [facility] [address] [place] [phone] * Sed Rate by Modified Chrissergren (11/07/2024 4:49 PM EDT) Erythrocyte Sedimentation Rate 9 0 - 20 MM/HR [facility] Comment:Patients with polycy themia and many hemoglobin abnormalitiesmay have depressed sed rates whereas patients with anemiamay have elevated sed rates. 11/07/2024 4:4 9 PM EDT 11/07/2024 4:49 PM EDT us Generic External Data Provider LAB BLOOD ORDERAB LES Final Result Performing Organization Address [facility]/ZIP Co de Phone Number [facility] [address] [place] [phone] * C-reactive Protein (11/07/2024 4:49 PM EDT) C Reactive Protein 0.18 < or = 0.50 mg/dL [facility] 11/07/2024 4:49 PM EDT 11/07/2024 4:49 PM EDT us Generic External Data Provider LAB BLOOD ORDERAB LES Final Result [facility] [address] [place] [address] [phone] * (ABNORMAL) Comprehensive Metabolic Panel (11/07/2024 4:49 PM EDT) Sodium 140 135 - 145 mmol/L [facility] Potassium 3.8 3.3 - 5.1 mmol/L [facility] Chloride 111(H) 96 - 108 mmol/L [facility] Carbon Dioxide 21(L) 22 - 29 mmol/L [facility] Anion Gap 12 12 - 20 [facility] Urea Nitrogen (BUN) 13 9 - 16 mg/dL [facility] Creatinine, Serum 0.80 0.5 - 1.4 mg/dL [facility] Estimated Glomerular Filt Rate >60 [facility] Comment:Chronic Kidney Disea se: Estimated GFR < 60 mL/min/1.31v5[place]edhiz Kidney Disease: Estimated GFR < 15 mL/min/1.73m2 Glucose 90 60 - 115 mg/dL [facility] Calcium 9.5 8.4 - 10.2 mg/dL [facility] Bilirubin, Total 0.5 0.0 - 1.0 mg/dL [facility] Aspartate Amino Transferase 17 5 - 31 U/L [facility] Alanine Aminotransferase 22 0 - 31 U/L [facility] Total Protein 7.2 6.5 - 8.0 g/dL [facility] Albumin Level 4.3 3.5 - 5.0 g/dL [facility] Alkaline Phosphatase 70 39 - 117 U/L [facility] 11/07/2024 4:49 PM EDT 11/07/2024 4:49 PM EDT us Generic External Data Provider LAB BLOOD ORDERAB LES Final Result [facility] [address] [place] [phone] * Mammography Report 1 (03/19/2021 1:00 PM EDT) Anatomical Region Laterality Modality Breast Bilateral Mammography 03/19/2021 1:00 PM EDT Narrative 03/19/2021 2:08 PM EDT Refer to the Notes tab for result details [facility] Procedure: Mammography Report 1 Procedure Note ProviderAndrew MD - 08/17/2022 Refer to the Notes tab for result details [facility] Procedure: Mammography Report 1 us Salena Lerma MD IMG BI PROCEDURES Final Resu lt * (ABNORMAL) LIPID PANEL, STANDARD (10/31/2020 10:09 AM EDT) Chol/HDLC Ratio 4.5 <5.0 (calc) [facility] Cholesterol, Total 207(H) <200 mg/dL [facility] HDL Cholesterol 46(L) > OR = 50 mg/dL [facility] LDL Cholesterol 126(H) mg/dL (calc) [facility] Comment: Reference range: <100 Desirable range <100 mg/dL for primary prevention; <70 mg/dL for patients with CHD or diabetic patients with > or = 2 CHD risk factors. LDL-C is now calculated using the Memo calculation, which is a validated novel method providing better accuracy than the Friedewald equation in the estimation of LDL-C. Eric RODRIGUEZ et al. EDUARDA. 2013;310(19): 6359-2918 (http://education.Invision.com.FLIP4NEW/faq/MMM809) Non-HDL Cholesterol 161(H) <130 mg/dL (calc) [facility] Comment: For patients with diabetes plus 1 major ASCVD risk factor, treating to a non-HDL-C goal of <100 mg/dL (LDL-C of <70 mg/dL) is considered a therapeutic option. Triglycerides 208(H) <150 mg/dL [facility] Comment: If a non-fasting specimen was collected, consider repeat triglyceride testing on a fasting specimen if clinically indicated. Lynn et al. J. of Clin. Lipidol. 2015;9:129-169. 10/31/2020 10:0 9 AM EDT us Jessica Interiano HOUSE PAINTER HELPER LAB BLOOD ORDERABLES Final Resu lt [facility] [address] from Last 3 Months or Most Recently Relevant to Health Maintenance Insurance [employer] MEDICARE REPLACEMENT Care Teams Lens Polisher Relationship Specialty Start Date End Date Dory Ramírez MD [address] [place] [address] NEO Maher [address] PCP - General Internal Medicine 05/06/24
--- OUTSIDE RECORDS SUMMARY | 2025-01-17 14:22 | XMS_ITS | Encounter Summary ---
Author Organization [employer] Address [address] 7t [place] [address] Care Team Providers Care Municipal Firefighter Name Role Phone Corrine Barth Primary Care Provider [phone] No Quach MD Primary Care Provider Luz Elena Jiménez MD Primary Care Provide r Dory Ramírez MD Primary Care Provider + Reason for Visit * Reason Onset Date Comments Med Refill 10/27/2023 Encounter Details Date Type Department Care Team (Late st Contact Info) Description 10/27/2023 Refill [facility] & [facility]S [address] [place] [address] Corrine Barth FNP [address] [place], [place] [phone] Social History Tobacco Use Types Packs/Day Years Used Date Smoking Tobacco: Never Passive Smoke Exposure: Never Smokeless Tobacco: Never Alcohol Use Standard Drinks/Week Comments Never 0 (1 standard drink = 0.6 oz pur e alcohol) Depression Answer Date Recorded Patient Health Questionnaire-9 Score 20 10/21/2023 Patient Health Questionnaire-9 Score 10/21/2023 Last [...] Description 02/15/2025 11:30 AM EDT Office Visit [facility] [address] [place], [place] [phone] Dory Ramírez MD 230 [place] [address] documented as of this encounter Visit Diagnoses Not on filedocumented in this encounter Additional Health Concerns Assessment Noted Time PHQ-9 Depression Total Score: 20 024 9:51 AM EDT documented as of this encounter Care Teams Municipal Firefighter Relationship Specialty Start Date End Date Corrine Barth FNP 230 [place], [place] [phone] PCP - General Family Medicine 11/28/22 01/25/24 No Quach MD 230 [place], [place] [phone] PCP - General Family Medicine 01/26/24 03/29/24 Luz Elena Jiménez MD 230 [place] [address] PCP - General Internal Medicine 03/30/24 05/05/24 Dory Ramírez MD 230 [place] [address] PCP - General Internal Medicine 05/06/24 documented as of this encounter
--- OUTSIDE RECORDS SUMMARY | 2025-01-17 14:22 | XMS_ITS | Encounter Summary ---
Author Organization [employer] Address [address] [facility] 7 [place] [address] Care Team Providers Care Reel Tender Name Role Phone Dory Ramírez MD Primary Care Provider + Reason for Visit * Reason Onset Date Comments Med Refill 12/01/2024 Encounter Details Date Type Department Care Team (Late st Contact Info) Description 12/01/2024 Refill [facility] MED & PEDS [address] [place] [address] Corrine Barth, PATHOLOGY MANAGER 230 [facility] [place] [address] Social History Tobacco Use Types Packs/Day Years [...] Description 02/15/2025 11:30 AM EDT Office Visit [facility] MEDICINE [address] [place] [address] Dory Ramírez MD 230 [place] [address] documented as of this encounter Visit Diagnoses Not on filedocumented in this encounter Additional Health Concerns Assessment Noted Time PHQ-9 Depression Total Score: 12 025 4:04 PM EST documented as of this encounter Care Teams Reel Tender Relationship Specialty Start Date End Date Dory Ramírez MD [address] [place] [address] PCP - General Internal Medicine 05/06/24 documented as of this encounter
--- OUTSIDE RECORDS SUMMARY | 2025-01-17 14:22 | XMS_ITS | Encounter Summary ---
Author Organization [employer] Address [address] [facility] [address] [address] 7[address] [place] [address] Care Team Providers Care Interpreter And Translator Name Role Phone Corrine Barth Primary Care Provider [phone] No Quach MD Primary Care Provider uLz Elena Jiménez MD Primary Care Provide r Dory Ramírez MD Primary Care Provider + Reason for Visit * Reason Onset Date Comments Med Refill 10/27/2023 Encounter Details Date Type Department Care Team (Late st Contact Info) Description 10/27/2023 Refill [facility] 230 [place], [place] [phone] Corrine Barth FNP 230 [place], [place] [phone] Social History Tobacco Use Types Packs/Day Years [...] Description 02/15/2025 11:30 AM EDT Office Visit [facility] 230 [place], [place] [phone] Dory Ramírez MD 230 [place] [address] documented as of this encounter Visit Diagnoses Not on filedocumented in this encounter Additional Health Concerns Assessment Noted Time PHQ-9 Depression Total Score: 20 024 9:51 AM EDT documented as of this encounter Care Teams Interpreter And Translator Relationship Specialty Start Date End Date Corrine Barth FNP 230 [place], [place] [phone] PCP - General Family Medicine 11/28/22 01/25/24 No Quach MD 230 [place], [place] [phone] PCP - General Family Medicine 01/26/24 03/29/24 Luz Elena Jiménez MD 230 [place] [address] PCP - General Internal Medicine 03/30/24 05/05/24 Dory Ramírez MD 230 [place] [address] PCP - General Internal Medicine 05/06/24 documented as of this encounter
--- OUTSIDE RECORDS SUMMARY | 2025-01-17 14:22 | XMS_ITS | Encounter Summary ---
Author Organization [employer] Address [address] 7t [place] [address] Care Team Providers Care Bee Keeper Name Role Phone Corrine Barth Primary Care Provider +[phone] No Quach MD Primary Care Provider [phone] Luz Elena Jiménez MD Primary Care Provide r Dory Ramírez MD Primary Care Provider + Reason for Visit * Reason Onset Date Comments Med Refill 03/09/2023 Encounter Details Date Type Department Care Team (Late st Contact Info) Description 03/09/2023 Refill [facility] 230 [place], [place] [phone] Corrine Barth FNP 230 [place], [place] [phone] Neuropathy Social History Tobacco Use Types Packs/Day [...] Description 02/15/2025 11:30 AM EDT Office Visit [facility] 230 [place] [address] Dory Ramírez MD 230 [place] [address] documented as of this encounter Visit Diagnoses Diagnosis Neuropathy Mononeuritis of unspecified site documented in this encounter Additional Health Concerns Assessment Noted Time PHQ-9 Depression Total Score: 8 08/30/19 23 2:28 PM EDT documented as of this encounter Care Teams Bee Keeper Relationship Specialty Start Date End Date Corrine Barth FNP 230 [place] [address] PCP - General Family Medicine 11/28/22 01/25/24 No Quach MD [address] [place] [address] PCP - General Family Medicine 01/26/24 03/29/24 Luz Elena Jiménez MD 230 [place] [address] PCP - General Internal Medicine 03/30/24 05/05/24 Dory Ramírez MD 230 [place] [address] PCP - General Internal Medicine 05/06/24 documented as of this encounter
--- OUTSIDE RECORDS SUMMARY | 2025-01-17 14:23 | XMS_ITS | Encounter Summary ---
Author Organization [employer] Address [address] [facility] 7 [place] [address] Care Team Providers Care Quilting Machine Helper Name Role Phone Dory Ramírez MD Primary Care Provider + Reason for Visit * Reason Onset Date Comments Med Refill 12/01/2024 Encounter Details Date Type Department Care Team (Late st Contact Info) Description 12/01/2024 Refill [facility]S [address] [place] [address] Corrine Barth, COSMETIC SALES ADVISOR 230 [facility] [place] [address] Social History Tobacco Use Types Packs/Day Years [...] with others, in a hotel, in a custodial, living outside on the street, on a [...] Description 02/15/2025 11:30 AM EDT Office Visit [facility] MEDICINE [address] [place] [address] Dory Ramírez MD 230 [place] [address] documented as of this encounter Visit Diagnoses Not on filedocumented in this encounter Additional Health Concerns Assessment Noted Time PHQ-9 Depression Total Score: 12 025 4:04 PM EST documented as of this encounter Care Teams Quilting Machine Helper Relationship Specialty Start Date End Date Dory Ramírez MD [address] [place] [address] PCP - General Internal Medicine 05/06/24 documented as of this encounter
--- OUTSIDE RECORDS SUMMARY | 2025-01-17 14:23 | XMS_ITS | Encounter Summary ---
Author Organization [employer] Address [address] [facility] 7 [place] [address] Care Team Providers Care Pomologist Name Role Phone Dory Ramírez MD Primary Care Provider + Reason for Visit * Reason Onset Date Comments Med Refill 12/01/2024 Encounter Details Date Type Department Care Team (Late st Contact Info) Description 12/01/2024 Refill [facility] MED[facility] 230 [place], [place] [phone] Dory Ramírez MD 230 [place], [place] [phone] Social History Tobacco Use Types Packs/Day Years [...] Description 02/15/2025 11:30 AM EDT Office Visit [facility] MEDICINE [address] [place] [address] Dory Ramírez MD [address] [place] [address] documented as of this encounter Visit Diagnoses Not on filedocumented in this encounter Additional Health Concerns Assessment Noted Time PHQ-9 Depression Total Score: 12 025 4:04 PM EST documented as of this encounter Care Teams Pomologist Relationship Specialty Start Date End Date Dory Ramírez MD [address] [place] [address] PCP - General Internal Medicine 05/06/24 documented as of this encounter
--- OUTSIDE RECORDS SUMMARY | 2025-01-17 14:23 | XMS_ITS | Encounter Summary ---
Author Organization [employer] Address [address] [facility] 7 [place] [address] Care Team Providers Care Process Supervisor Name Role Phone Dory Ramírez MD Primary Care Provider + Reason for Visit * Reason Onset Date Comments Med Refill 12/01/2024 Encounter Details Date Type Department Care Team (Late st Contact Info) Description 12/01/2024 Refill [facility] MED & PEDS [address] [place] [address] Corrine Barth, SYSTEM SUPPORT SPECIALIST 230 [facility] [place] [address] Neuropathy Social History Tobacco Use Types Packs/Day [...] with others, in a hotel, in a [place] [facility] [place], living outside on the street, on a [...] Description 02/15/2025 11:30 AM EDT Office Visit [facility] MEDICINE [address] [place] [address] Dory Ramírez MD 230 [place] [address] documented as of this encounter Visit Diagnoses Diagnosis Neuropathy Mononeuritis of unspecified site documented in this encounter Additional Health Concerns Assessment Noted Time PHQ-9 Depression Total Score: 12 025 4:04 PM EST documented as of this encounter Care Teams Process Supervisor Relationship Specialty Start Date End Date Dory Ramírez MD [address] [place] [address] PCP - General Internal Medicine 05/06/24 documented as of this encounter
--- OUTSIDE RECORDS SUMMARY | 2025-01-17 14:23 | XMS_ITS | Encounter Summary ---
Author Organization [employer] Address 75 [facility] 7 [place] [address] Care Team Providers Care Baseball Inspector And Repairer Name Role Phone Dory Ramírez MD Primary Care Provider + Reason for Visit * Reason Onset Date Comments Med Refill 12/01/2024 Encounter Details Date Type Department Care Team (Late st Contact Info) Description 12/01/2024 Refill [facility] MEDICINE 230 [place], [place] [phone] Dory Ramírez MD 230 [place], [place] [phone] Social History Tobacco Use Types Packs/Day Years [...] with others, in a hotel, in a fdc, living outside on the street, on a [...] Description 02/15/2025 11:30 AM EDT Office Visit [facility] MEDICINE [address] [place] [address] Dory Ramírez MD [address] [place] [address] documented as of this encounter Visit Diagnoses Not on filedocumented in this encounter Additional Health Concerns Assessment Noted Time PHQ-9 Depression Total Score: 12 025 4:04 PM EST documented as of this encounter Care Teams Baseball Inspector And Repairer Relationship Specialty Start Date End Date Dory Ramírez MD [address] [place] [address] PCP - General Internal Medicine 05/06/24 documented as of this encounter
== END 2025-01-17 14:03 | disposition home or self-care (01) ==
LOC: HO.HOS 13:27
PROVIDERS: PCP Nurse Practitioner; Visit Provider Physician Assistant
DX: M17.0 Bilateral primary osteoarthritis of knee (principal)
CPT/HCPCS: 20610

== ENCOUNTER → 2025-01-17 13:26 | Outpatient (BNVA) | payer MEDICARE, SELFPAY | PROVIDERS: PCP Nurse Practitioner; Visit Provider Physician Assistant | DX: M17.12 Unilateral primary osteoarthritis, left knee (principal); M17.11 Unilateral primary osteoarthritis, right knee | CPT/HCPCS: 20610; J0665; J1100; J2003 ==

== ENCOUNTER 2025-01-24 15:30 | Outpatient (REF) | payer MEDICARE, SELFPAY ==
--- NOTE | ~2025-01-24 | XR_ITS ---
EXAMINATION: XR CHEST CLINICAL INFORMATION: Positive TB test COMPARISON: May 28, 2018. TECHNIQUE: 2 views of the chest were obtained. FINDINGS: No consolidation, pleural effusion or pneumothorax. Poor inspiration. Cardiac mediastinal silhouette size is normal. Mild multilevel thoracic spondylosis. Patient's large body habitus/obesity. XR/XR chest 2V IMPRESSION: No acute airspace disease. Stable chest. Electronically signed by: Ryan Casiano MD 01/24/2025 03:50 PM EDT
--- OUTSIDE RECORDS SUMMARY | 2025-01-24 16:31 | XMS_ITS | Encounter Summary ---
Author Organization [employer] Address [address] [facility] 7 [place] [address] Care Team Providers Care Manager Case Name Role Phone Dory Ramírez MD Primary Care Provider + Reason for Visit * Reason Onset Date Comments Med Refill 12/01/2024 Encounter Details Date Type Department Care Team (Late st Contact Info) Description 12/01/2024 Refill [facility] MED & PEDS [address] [place] [address] Corrine Barth, TRANSFER AND LINE UP WORKER 230 [facility] [place] [address] Social History Tobacco Use Types Packs/Day Years [...] with others, in a hotel, in a group home, living outside on the street, on a [...] Description 02/15/2025 11:30 AM EDT Office Visit [facility] MEDICINE [address] [place] [address] Dory Ramírez MD 230 [place] [address] documented as of this encounter Visit Diagnoses Not on filedocumented in this encounter Additional Health Concerns Assessment Noted Time PHQ-9 Depression Total Score: 12 025 4:04 PM EST documented as of this encounter Care Teams Manager Case Relationship Specialty Start Date End Date Dory Ramírez MD [address] [place] [address] PCP - General Internal Medicine 05/06/24 documented as of this encounter
--- OUTSIDE RECORDS SUMMARY | 2025-01-24 16:31 | XMS_ITS | Encounter Summary ---
Author Organization [employer] Address 75 [facility] 7 [place] [address] Care Team Providers Care Tetryl Blender Operator Name Role Phone Dory Ramírez MD Primary Care Provider + Reason for Visit * Reason Onset Date Comments Med Refill 12/01/2024 Encounter Details Date Type Department Care Team (Late st Contact Info) Description 12/01/2024 Refill [facility] MED & PEDS [address] [place] [address] Corrine Barth, CONE PICKER 230 [facility] [place] [address] Social History Tobacco Use Types Packs/Day Years [...] Description 02/15/2025 11:30 AM EDT Office Visit [facility] MEDICINE [address] [place] [address] Dory Ramírez MD 230 [place] [address] documented as of this encounter Visit Diagnoses Not on filedocumented in this encounter Additional Health Concerns Assessment Noted Time PHQ-9 Depression Total Score: 12 025 4:04 PM EST documented as of this encounter Care Teams Tetryl Blender Operator Relationship Specialty Start Date End Date Dory Ramírez MD [address] [place] [address] PCP - General Internal Medicine 05/06/24 documented as of this encounter
--- OUTSIDE RECORDS SUMMARY | 2025-01-24 16:31 | XMS_ITS | Encounter Summary ---
Author Organization [employer] Address [address] [facility] [address] 7t [place] [address] Care Team Providers Care Director Of Retail Operations Name Role Phone Corrine Barth Primary Care Provider [phone] No Quach MD Primary Care Provider Luz Elena Jiménez MD Primary Care Provide r Dory Ramírez MD Primary Care Provider + Reason for Visit * Reason Onset Date Comments Med Refill 10/27/2023 Encounter Details Date Type Department Care Team (Late st Contact Info) Description 10/27/2023 Refill [facility] MED & PEDS [address] [place] [address] Corrine Barth FNP [address] [place], [place] [phone] Social History Tobacco Use Types Packs/Day Years Used Date Smoking Tobacco: Never Passive Smoke Exposure: Never Smokeless Tobacco: Never Alcohol Use Standard Drinks/Week Comments Never 0 (1 standard drink = 0.6 oz pur e alcohol) Depression Answer Date Recorded Patient Health Questionnaire-9 Score 20 10/21/2023 Patient Health Questionnaire-9 Score 20 10/21/2023 Last PHQ-9: Questionnaire Data Not on [...] Description 02/15/2025 11:30 AM EDT Office Visit [facility] MEDICINE 230 [place], [place] [phone] Dory Ramírez MD 230 [place] [address] documented as of this encounter Visit Diagnoses Not on filedocumented in this encounter Additional Health Concerns Assessment Noted Time PHQ-9 Depression Total Score: 20 024 9:51 AM EDT documented as of this encounter Care Teams Director Of Retail Operations Relationship Specialty Start Date End Date Corrine Barth FNP 230 [place], [place] [phone] PCP - General Family Medicine 11/28/22 01/25/24 No Quach MD 230 [place], [place] [phone] PCP - General Family Medicine 01/26/24 03/29/24 Luz Elena Jiménez MD 230 [place] [address] PCP - General Internal Medicine 03/30/24 05/05/24 Dory Ramírez MD 230 [place] [address] PCP - General Internal Medicine 05/06/24 documented as of this encounter
--- OUTSIDE RECORDS SUMMARY | 2025-01-24 16:31 | XMS_ITS | Encounter Summary ---
Author Organization [employer] Address [address] [facility] [address] 7t [place] [address] Care Team Providers Care Water Resource Manager Name Role Phone Corrine Barth Primary Care Provider +[phone] No Quach MD Primary Care Provider [phone] Luz Elena Jiménez MD Primary Care Provide r Dory Ramírez MD Primary Care Provider + Reason for Visit * Reason Comments Med Refill Encounter Details Date Type Department Care Team (Late st Contact Info) Description 09/25/2023 Refill [facility] MEDICINE 230 [place], [place] [phone] Corrine Barth FNP 230 [place], [place] [phone] Social History Tobacco Use Types Packs/Day Years [...] the past 12 months, has t he [employer], gas, oil or water company threatened to [...] Description 02/15/2025 11:30 AM EDT Office Visit [facility] MEDICINE 230 [place], [place] [phone] Dory Ramírez MD 230 [place] [address] documented as of this encounter Visit Diagnoses Not on filedocumented in this encounter Additional Health Concerns Assessment Noted Time PHQ-9 Depression Total Score: 20 024 11:50 AM EDT documented as of this encounter Care Teams Water Resource Manager Relationship Specialty Start Date End Date Corrine Barth FNP 230 [place], [place] [phone] PCP - General Family Medicine 11/28/22 01/25/24 No Quach MD [address] [place] [phone] PCP - General Family Medicine 01/26/24 03/29/24 Luz Elena Jiménez MD 230 [place] [address] PCP - General Internal Medicine 03/30/24 05/05/24 Dory Ramírez MD 230 [place] [address] PCP - General Internal Medicine 05/06/24 documented as of this encounter
--- OUTSIDE RECORDS SUMMARY | 2025-01-24 16:31 | XMS_ITS | Encounter Summary ---
Author Organization [employer] Address [address] [facility] [address] 7 [place] [address] Care Team Providers Care Animal Ride Attendant Name Role Phone Dory Ramírez MD Primary Care Provider + Reason for Visit * Reason Onset Date Comments Med Refill 12/01/2024 Encounter Details Date Type Department Care Team (Late st Contact Info) Description 12/01/2024 Refill [facility] 230 [place], [place] [phone] Corrine Barth FNP 230 [place], [place] [phone] Social History Tobacco Use Types Packs/Day Years [...] with others, in a hotel, in a fpc, living outside on the street, on a [...] Description 02/15/2025 11:30 AM EDT Office Visit [facility] MED[facility] [address] [place] [address] Dory Ramírez MD [address] [place] [address] documented as of this encounter Visit Diagnoses Not on filedocumented in this encounter Additional Health Concerns Assessment Noted Time PHQ-9 Depression Total Score: 12 025 4:04 PM EST documented as of this encounter Care Teams Animal Ride Attendant Relationship Specialty Start Date End Date Dory Ramírez MD [address] [place] [address] PCP - General Internal Medicine 05/06/24 documented as of this encounter
--- OUTSIDE RECORDS SUMMARY | 2025-01-24 16:31 | XMS_ITS | Encounter Summary ---
Author Organization [employer] Address 75 [facility] 7 [place] [address] Care Team Providers Care Furniture Repair Technician Name Role Phone Dory Ramírez MD Primary Care Provider + Reason for Visit * Reason Onset Date Comments Med Refill 12/01/2024 Encounter Details Date Type Department Care Team (Late st Contact Info) Description 12/01/2024 Refill [facility] MED[facility]INE 230 [place], [place] [phone] Dory Ramírez MD 230 [place], [place] [phone] Social History Tobacco Use Types Packs/Day Years [...] with others, in a hotel, in a retirement, living outside on the street, on a [...] Description 02/15/2025 11:30 AM EDT Office Visit [facility] MEDICINE [address] [place] [address] Dory Ramírez MD [address] [place] [address] documented as of this encounter Visit Diagnoses Not on filedocumented in this encounter Additional Health Concerns Assessment Noted Time PHQ-9 Depression Total Score: 12 025 4:04 PM EST documented as of this encounter Care Teams Furniture Repair Technician Relationship Specialty Start Date End Date Dory Ramírez MD [address] [place] [address] PCP - General Internal Medicine 05/06/24 documented as of this encounter
--- OUTSIDE RECORDS SUMMARY | 2025-01-24 16:31 | XMS_ITS | Encounter Summary ---
Author Organization [employer] Address 75 [facility] 7 [place] [address] Care Team Providers Care Coat Hanger Shaper Machine Operator Name Role Phone Dory Ramírez MD Primary Care Provider + Reason for Visit * Reason Onset Date Comments Med Refill 12/01/2024 Encounter Details Date Type Department Care Team (Late st Contact Info) Description 12/01/2024 Refill [facility] [address] [place], [place] [phone] Dory Ramírez MD [address] [place], [place] [phone] Social History Tobacco Use Types Packs/Day Years [...] Description 02/15/2025 11:30 AM EDT Office Visit [facility] [address] [place] [phone] Dory Ramírez MD [address] [place] [phone] documented as of this encounter Visit Diagnoses Not on filedocumented in this encounter Additional Health Concerns Assessment Noted Time PHQ-9 Depression Total Score: 12 025 4:04 PM EST documented as of this encounter Care Teams Coat Hanger Shaper Machine Operator Relationship Specialty Start Date End Date Dory Ramírez MD [address] [place] [phone] PCP - General Internal Medicine 05/06/24 documented as of this encounter
--- OUTSIDE RECORDS SUMMARY | 2025-01-24 16:31 | XMS_ITS | Encounter Summary ---
Author Organization [employer] Address [address] [facility] [address] 7t [place] [address] Care Team Providers Care Manager Pmo Name Role Phone Corrine Barth Primary Care Provider +3 No Quach MD Primary Care Provider Luz Elena Jiménez MD Primary Care Provide r Dory Ramírez MD Primary Care Provider + Reason for Visit * Reason Onset Date Comments Med Refill 03/09/2023 Encounter Details Date Type Department Care Team (Late st Contact Info) Description 03/09/2023 Refill [facility] [address] [place] [address] Corrine Barth FNP [address] [place], [place] [phone] Social History Tobacco Use Types Packs/Day Years [...] Description 02/15/2025 11:30 AM EDT Office Visit [facility] 230 [place] [address] Dory Ramírez MD [address] [place] [phone] documented as of this encounter Visit Diagnoses Not on filedocumented in this encounter Additional Health Concerns Assessment Noted Time PHQ-9 Depression Total Score: 8 08/30/19 23 2:28 PM EDT documented as of this encounter Care Teams Manager Pmo Relationship Specialty Start Date End Date Corrine Barth FNP [address] [place] [phone] PCP - General Family Medicine 11/28/22 01/25/24 No Quach MD [address] [place] [phone] PCP - General Family Medicine 01/26/24 03/29/24 Luz Elena Jiménez MD 230 [place] [address] PCP - General Internal Medicine 03/30/24 05/05/24 Dory Ramírez MD 230 [place] [address] PCP - General Internal Medicine 05/06/24 documented as of this encounter
--- OUTSIDE RECORDS SUMMARY | 2025-01-24 16:31 | XMS_ITS | Clinical Summary ---
Author Organization [employer] Address [address] [facility] [address] 7t [place] [address] Care Team Providers Care Planting Machine Crewman Name Role Phone Dory Ramírez MD Primary [...] 180 tablet 3 12/02/19 25 Active rizatriptan MARKET RESEARCH ASSISTANT (Maxalt-MARKET RESEARCH ASSISTANT) 5 MG disintegrating tablet DISSOLVE 1 TABLET [...] status post INH, will obtain records from corporate legal intern. Order CXR. Mastalgia 09/13/2024 Assessment & Plan [...] and Tylenol as needed and follow-up with corporate legal intern Migraine with aura 11/04/2020 Palpitations 01/11/2020 Overview (07/20/2024): Holter monitor on 01/19/2020 was within normal limits, average rhythm was NSR at 61-116 bpm Diastolic heart failure 12/23/2019 Overview (07/20/2024): Echo on 12/23/2019 at [facility] showed normal LVEF and no wall abnormalities, essentially normal echo. Nuclear stress test on 12/23/2019 was negative for ischemia, no arrhythmias and normotensive response to test Patient last seen at [facility] cardiology by Penelope Bhakta NP Assessment & [...] on Humira twice per month, follow-up with corporate legal intern Will retrieve recent labs from [facility]. COVID influenza and pneumonia immunizations are [...] to follow-up with counselor, will refer to registered nurse hh case manager to help her with housing [...] Description 12/31/2024 9:20 AM EDT Office Visit [facility] [address] [place] [address] Luz Elena Jiménez MD Tooth infection; Open fracture of tooth, initial encounter 12/31/2024 Travel 12/13/2024 11:30 AM EDT Office Visit [facility] [address] [place] [address] Dory Ramírez MD Mastalgia (Primary Dx); Class 3 severe obesity with serious comorbidity and body mass index (BMI) of 40.0 to 44.9 in adult; Recurrent major depressive episodes (CMS/HCC); TB lung, latent; Fibromyalgia 12/13/2024 Patient Outreach [facility] [address] [place] [phone] Dory Ramírez MD Care Coordination (CHW outreach for SDOH PT-1 and food needs-referral completed /) 12/13/2024 Travel 12/10/2024 Telephone [facility] [address] [place] [phone] Dory Ramírez MD Chart Prep 12/01/2024 Refill [facility] [address] [place] [address] Corrine Barth FNP Neuropathy 12/01/2024 Refill [facility] [address] [place] [address] Corrine Barth FNP 12/01/2024 Refill [facility] [address] [place] [address] Corrine Barth FNP 12/01/2024 Refill [facility] [address] [place] [address] Corrine Barth FNP Neuropathy 12/01/2024 Refill [facility] [address] [place] [address] Corrnie Barth FNP 12/01/2024 Refill [facility] [address] [place] [address] Dory Ramírez MD 12/01/2024 Refill [facility] [address] [place] [address] Dory Ramírez MD 11/23/2024 Refill [facility] [address] [place] [address] Dory Ramírez MD 11/16/2024 Telephone [facility] [address] [place] [phone] Dory Ramírez MD Call Back Request 11/15/2024 Results Follow-Up [facility] [address] [place] [phone] Dory Ramírez MD Complete Blood Count Manual [...] Description 02/15/2025 11:30 AM EDT Office Visit [facility] [address] [place] [address] Dory Ramírez MD 230 [place] [address] Health Maintenance Due Date Last Done Comments [...] Name Priority Date/Time Associated Diagnosis Comments XR CHEST 2 VIEWS Routine 01/24/2025 2:53 PM EDT Positive TB test XR THORACIC SPINE 3 VIEWS Routine 11/07/2024 [...] Relevant to Health Maintenance Results * XR Chest 2 Views (01/24/2025 2:53 PM EDT) Anatomical Region Laterality Modality Chest Radiographic Venessa ging 01/24/2025 2:53 PM EDT Narrative 01/24/2025 3:53 PM EDT [address] [address] XRay Report Signed Patient: Eliza Meléndez MR#: [id number] 547 : 1975 Acct:[id number] Age/Sex: 49 / F ADM Date: 01/24/25 [facility] Dr: Dory Ramírez MD Ordering Physician: Dory Ramírez MD Date of Service: 01/24/25 Procedure(s): XR chest 2V Accession Number(s): [id number] cc: Dory Ramírez MD Reason for Exam: Positive TB test EXAMINATION: XR CHEST CLINICAL INFORMATION: Positive TB test COMPARISON: May 28, 2018. TECHNIQUE: 2 views of the chest were obtained. FINDINGS: No consolidation, pleural effusion or pneumothorax. Poor inspiration. Cardiac mediastinal silhouette size is normal. Mild multilevel thoracic spondylosis. Patient's large body habitus/obesity. XR/XR chest 2V IMPRESSION: No acute airspace disease. Stable chest. Electronically signed by: Ryan Casiano MD 01/24/2025 03:50 PM EDT RP Dictated By: Ryan Mills MD Signed By: <Electronically signed by Ryan Grullon MD in OV> 01/24/25 1550 DD/ 1453 TD/TT: 01/24/25 1545 Resin Mixer: Procedure Note Donotuseinterpreter, Image - 01/24/2025 [place] [address] XRay Report Signed Patient: Anahi Meléndez#: [id number] 547 : 1975Acct:[id number] Age/Sex: 49 / FADM Date: 01/24/25 Loc: [facility] Attending Dr: Dory Ramírez MD Ordering Physician: Dory Ramírez MD Date of Service: 01/24/25 Procedure(s): XR chest 2V Accession Number(s): [id number] cc: Dory Ramírez MD Reason for Exam: Positive TB test EXAMINATION: XR CHEST CLINICAL INFORMATION: Positive TB test COMPARISON: May 28, 2018. TECHNIQUE: 2 views of the chest were obtained. FINDINGS: No consolidation, pleural effusion or pneumothorax. Poor inspiration. Cardiac mediastinal silhouette size is normal. Mild multilevel thoracic spondylosis. Patient's large body habitus/obesity. XR/XR chest 2V IMPRESSION: No acute airspace disease. Stable chest. Electronically signed by: Ryan Casiano MD 01/24/2025 03:50 PM EDT RP Dictated By: Ryan Mills MD Signed By: <Electronically signed by Ryan Grullon MDin OV> 01/24/25 1550 DD/ 1453 TD/TT: 01/24/25 1545 Resin Mixer: us Dory Ramírez MD IMG XR PROCEDURES Final Result * XR Lumbar Spine 2-3 Views (11/07/2024 5:00 PM EDT) Anatomical Region Laterality Modality Spine, L-spine Radiographic Venessa ging 11/07/2024 5:00 PM EDT Narrative 11/07/2024 6:04 PM EDT [place] [address] XRay Report Signed Patient: Eliza Meléndez MR#: [id number] 547 : 1975 Acct:[id number] Age/Sex: 48 / F ADM Date: 11/07/24 Loc: [facility] Attending Dr: Dory Ramírez MD Ordering Physician: Dory Ramírez MD Date of Service: 11/07/24 Procedure(s): XR lumbar spine 2-3V Accession Number(s): [id number] cc: Dory Ramírez MD EXAMINATION: XR LUMBOSACRAL [...] OV> 11/07/24 180 DD/ 99 TD/TT: 11/07/241714 Resin Mixer: Procedure Note Donotuseinterpreter, Image - 11/07/[address] [address] XRay Report Signed Patient: Anahi Meléndez#: [id number] 547 : 1975Acct:[id number] Age/Sex: 48 / FADM Date: 11/07/24 Loc: [facility].XRAY Attending Dr: Dory Ramírez MD Ordering Physician: Dory Ramírez MD Date of Service: 11/07/24 Procedure(s): XR lumbar spine 2-3V Accession Number(s): [id number] cc: Dory Ramírez MD EXAMINATION: XR LUMBOSACRAL [...] OV> 11/07/24 180 DD/ 99 TD/TT: 11/07/241714 Resin Mixer: Dory Ramírez MD IMG XR PROCEDURES Final Result * XR Thoracic Spine 3 Views (11/07/2024 5:00 PM EDT) Anatomical Region Laterality Modality Spine, T-spine Radiographic Venessa ging 11/07/2024 5:00 PM EDT Narrative 11/07/2024 6:05 PM EDT [address] [address] XRay Report Signed Patient: Eliza Meléndez MR#: [id number] 547 : 1975 Acct:[id number] Age/Sex: 48 / F ADM Date: 11/07/24 Loc: [facility] Attending Dr: Dory Ramírez MD Ordering Physician: Dory Ramírez MD Date of Service: 11/07/24 Procedure(s): XR thoracic spine 3V Accession Number(s): [id number] cc: Dory Ramírez MD EXAMINATION: XR THORACIC [...] Sandor Zeng MD 11/07/2024 06:02 PM EDT Dictated By: Sandor Zeng MD Signed By: <Electronically signed by Sandor Zeng MD in OV> 11/07/24 1802 DD/ 1700 TD/TT: 11/07/24 1715 Resin Mixer: Procedure Note Donotuseinterpreter, Image - 11/07/[address] [address] XRay Report Signed Patient: Angel MeléndezR#: [id number] 547 : 1975Acct:[id number] Age/Sex: 48 / FADM Date: 11/07/24 Loc: [facility] Attending Dr: Dory Ramírez MD Ordering Physician: Dory Ramírez MD Date of Service: 11/07/24 Procedure(s): XR thoracic spine 3V Accession Number(s): [id number] cc: Dory Ramírez MD EXAMINATION: XR THORACIC [...] by Sandor Zeng MD in OV> 11/07/24 1802 DD/ 1700 TD/TT: 11/07/24 1715 Resin Mixer: us Dory Ramírez MD IMG XR PROCEDURES Final Result * Hepatitis B, C Profile (11/07/2024 4:49 PM EDT) ~Hepatitis B Surface Antibody NONREACTIVE Nonreactive [facility] Comment:Nonreactive: < 8.00 mIU/mL Hepatitis B Core Antibody Nonreactive Nonreactive [facility] Hepatitis C Antibody Nonreactive Nonreactive [facility] Comment:Antibodies to HCV no t detected; does not exclude early acuteHCV infection. Hepatitis B Surface Ag Negative Negative [facility] 11/07/2024 4:49 PM EDT 11/07/2024 4:49 PM EDT us Generic External Data Provider LAB BLOOD ORDERAB LES Final Result [facility] [address] [place] [phone] * (ABNORMAL) Complete Blood Count Manual Diff (11/07/2024 4:49 PM EDT) White Blood Count 8.4 4.8 - 10.8 X10*3/uL [facility] Red Blood Count 4.41 4.20 - 5.50 X10*6/uL [facility] Hemoglobin 13.7 12.0 - 16.0 g/dl [facility] Hematocrit 40.6 37.0 - 47.0 % [facility] Mean Corpuscular Volume 92.1 80.0 - 98.0 fL [facility] Mean Corpuscular Hemoglobin 31.1 27.0 - 33.0 pg [facility] Mean Corpuscular HGB Conc 33.7 31.0 - 35.0 g/dl [facility] Red Cell Distribution Width 12.1 11.0 - 16.0 % [facility] Platelet Count 360 160 - 400 X10*3/uL [facility] Mean Platelet Volume 10.9 9.4 - 12.3 fL [facility] NRBC Pct Auto 0.0 0.0 - 0.2 /100WBC [facility] NRBC Abs Auto 0.000 0.0 - 0.012 X10*3/uL [facility] Neutrophils % Manual 51 45 - 73 % [facility] Band Neutrophils Percent 1(L) 3 - 5 % [facility] Lymphocytes Percent Manual 40 20 - 40 % [facility] Atypical Lymphs Percent Manual 4 0 - 6 % [facility] Monocytes Percent Manual 2 2 - 11 % [facility] EOSINOPHILS % MANUAL 2 0 - 4 % [facility] NEUTROPHILS ABSOLUTE MANUAL 4.4 2.0 - 8.3 X10*3/uL [facility] LYMPHOCYTES ABSOLUTE MANUAL 3.4 1.2 - 4.9 X10*3/uL [facility] Atypical Lymph Absolute Manual 0.3 x10*3/uL [facility] MONOCYTES ABSOLUTE MANUAL 0.2 0.1 - 1.2 X10*3/uL [facility] EOSINOPHILS ABSOLUTE MANUAL 0.2 0.0 - 0.4 X10*3/uL [facility] Platelet Estimate NORMAL NORMAL [facility] Platelet Morphology Comment NORMAL [facility] RBC Morphology NORMAL [facility] 11/07/2024 4:49 PM EDT 11/07/2024 4:49 PM EDT us Generic External Data Provider LAB BLOOD ORDERAB LES Final Result [facility] [address] [place] [phone] * (ABNORMAL) T-SPOT??.TB (11/07/2024 4:49 PM EDT) T Spot TB Positive( A) Negative [facility] Comment: Diagnosing or excluding tuberculosis [...] as aquantitative test. TS PANEL A 21 [facility] TS PANEL B 33 [facility] Negative Control Passed [facility] Positive Control Passed [facility] Comment:For additional infor polina, please refer tohttp://education.[employer]/faq/NFT429(This link is being provided for informational/educational purposes only.)THIS TEST WAS PERFORMED AT:[facility]/Tailored [id number] [place] [phone] CARRERO MD,PHD 11/07/2024 4:49 PM EDT 11/07/2024 4:49 PM EDT Generic External Data Provider LAB BLOOD ORDERAB LES Final Result Performing Organization Address City/[facility]/ZIP Co de Phone Number [facility] [address] [place] [phone] * Sed Rate by Modified Westergren (11/07/2024 4:49 PM EDT) Pathologist [facility] Erythrocyte Sedimentation Rate 9 0 - 20 MM/HR [facility] Comment:Patients with polycy themia and many hemoglobin abnormalitiesmay have depressed sed rates whereas patients with anemiamay have elevated sed rates. 11/07/2024 4:49 PM EDT 11/07/2024 4:49 PM EDT us Generic External Data Provider LAB BLOOD ORDERAB LES Final Result Performing Organization Address [facility] Co de Phone Number [facility] [address] [place] [phone] * C-reactive Protein (11/07/2024 4:49 PM EDT) Pathologist [facility] C Reactive Protein 0.18 < or = 0.50 mg/dL [facility] 11/07/2024 4:49 PM EDT 11/07/2024 4:49 PM EDT Generic External Data Provider LAB BLOOD ORDERAB LES Final Result Performing Organization Address [facility] Co de Phone Number [facility] [address] [place] [phone] * (ABNORMAL) Comprehensive Metabolic Panel (11/07/2024 4:49 PM EDT) Sodium 140 135 - 145 mmol/L [facility] Potassium 3.8 3.3 - 5.1 mmol/L [facility] Chloride 111(H) 96 - 108 mmol/L [facility] Carbon Dioxide 21(L) 22 - 29 mmol/L [facility] Anion Gap 12 12 - 20 [facility] Urea Nitrogen (BUN) 13 9 - 16 mg/dL [facility] Creatinine, Serum 0.80 0.5 - 1.4 mg/dL [facility] Estimated Glomerular Filt Rate >60 [facility] Comment:Chronic Kidney Disea se: Estimated GFR < 60 mL/min/1.55q3Qxapar Kidney Disease: Estimated GFR < 15 mL/min/1.73m2 Glucose 90 60 - 115 mg/dL [facility] Calcium 9.5 8.4 - 10.2 mg/dL [facility] Bilirubin, Total 0.5 0.0 - 1.0 mg/dL [facility] Aspartate Amino Transferase 17 5 - 31 U/L [facility] Alanine Aminotransferase 22 0 - 31 U/L [facility] Total Protein 7.2 6.5 - 8.0 g/dL [facility] Albumin Level 4.3 3.5 - 5.0 g/dL [facility] Alkaline Phosphatase 70 39 - 117 U/L [facility] 11/07/2024 4:49 PM EDT 11/07/2024 4:49 PM EDT us Generic External Data Provider LAB BLOOD ORDERAB LES Final Result [facility] [address] [place] [phone] * Mammography Report 1 (03/19/2021 1:00 [...] factors. LDL-C is now calculated using the Eric-Hines calculation, which is a validated novel method providing better accuracy than the Friedewald equation in the estimation of LDL-C. Eric SS et al. EDUARDA. 2013;310(19): 2601-4302 (http://education.[employer].com/faq/IBQ229) Non-HDL Cholesterol 161(H) <130 mg/dL (calc) [facility] Comment: For patients with diabetes plus 1 major ASCVD risk factor, treating to a non-HDL-C goal of <100 mg/dL (LDL-C of <70 mg/dL) is considered a therapeutic option. Triglycerides 208(H) <150 mg/dL [facility] Comment: If a non-fasting specimen was collected, consider repeat triglyceride testing on a fasting specimen if clinically indicated. Lynn et al. J. of Clin. Lipidol. 2015;9:129-169. 10/31/2020 10:0 9 AM EDT us Jessica Interiano NP LAB BLOOD ORDERABLES Final Resu lt [facility] [address] from Last 3 Months or Most Recently Relevant to Health Maintenance Insurance [employer] MEDICARE REPLACEMENT Care Teams Planting Machine Crewman Relationship Specialty Start Date End Date Dory Ramírez MD [address] [place] [address] [place] [address] PCP - General Internal Medicine 05/06/24
--- OUTSIDE RECORDS SUMMARY | 2025-01-24 16:31 | XMS_ITS | Encounter Summary ---
Author Organization [employer] Address [address] [facility] [address] 7[address] [place] [address] Care Team Providers Care Seed Laboratory Technician Name Role Phone Corrine Barth Primary Care Provider [phone] No Quach MD Primary Care Provider Luz Elena Jiménez MD Primary Care Provide r Dory Ramírez MD Primary Care Provider + Reason for Visit * Reason Onset Date Comments Med Refill 03/09/2023 Encounter Details Date Type Department Care Team (Late st Contact Info) Description 03/09/2023 Refill [facility] [address] [place], [place] [phone] Corrine Barth FNP [address] [place], [place] [phone] Neuropathy Social History Tobacco Use Types Packs/Day [...] Description 02/15/2025 11:30 AM EDT Office Visit [facility] [address] [place] [address] Dory Ramírez MD [address] [place] [address] documented as of this encounter Visit Diagnoses Diagnosis Neuropathy Mononeuritis of unspecified site documented in this encounter Additional Health Concerns Assessment Noted Time PHQ-9 Depression Total Score: 8 08/30/19 23 2:28 PM EDT documented as of this encounter Care Teams Seed Laboratory Technician Relationship Specialty Start Date End Date Corrine Barth FNP [address] [place] [address] PCP - General Family Medicine 11/28/22 01/25/24 No Quach MD [address] [place] [phone] PCP - General Family Medicine 01/26/24 03/29/24 Luz Elena Jiménez MD [address] [place] [address] PCP - General Internal Medicine 03/30/24 05/05/24 Dory Ramírez MD [address] [place] [address] PCP - General Internal Medicine 05/06/24 documented as of this encounter
--- OUTSIDE RECORDS SUMMARY | 2025-01-24 16:31 | XMS_ITS | Encounter Summary ---
Author Organization [employer] Address 75 [facility] 7 [place] [address] Care Team Providers Care Early Childhood Lead Teacher Name Role Phone Dory Ramírez MD Primary Care Provider + Reason for Visit * Reason Onset Date Comments Med Refill 12/01/2024 Encounter Details Date Type Department Care Team (Late st Contact Info) Description 12/01/2024 Refill [facility] [address] [place] [address] Corrine Barth, FACTORY LAY OUT ENGINEER [address] [facility] [place] [address] Neuropathy Social History Tobacco Use Types Packs/Day [...] with others, in a hotel, in a half-way, living outside on the street, on a [...] Description 02/15/2025 11:30 AM EDT Office Visit [facility] [address] [place] [phone] Dory Ramírez MD [address] [place] [address] documented as of this encounter Visit Diagnoses Diagnosis Neuropathy Mononeuritis of unspecified site documented in this encounter Additional Health Concerns Assessment Noted Time PHQ-9 Depression Total Score: 12 025 4:04 PM EST documented as of this encounter Care Teams Early Childhood Lead Teacher Relationship Specialty Start Date End Date Dory Ramírez MD [address] [place] [phone] PCP - General Internal Medicine 05/06/24 documented as of this encounter
--- OUTSIDE RECORDS SUMMARY | 2025-01-24 16:31 | XMS_ITS | Encounter Summary ---
Author Organization [employer] Address [address] [facility] [address] 7[address] [place] [address] Care Team Providers Care Geriatric Nurse Name Role Phone Corrine Barth Primary Care Provider [phone] No Quach MD Primary Care Provider Luz Elena Jiménez MD Primary Care Provide r Dory Ramírez MD Primary Care Provider + Reason for Visit * Reason Onset Date Comments Med Refill 10/27/2023 Encounter Details Date Type Department Care Team (Late st Contact Info) Description 10/27/2023 Refill [facility] [address] [place], [place] [phone] Corrine Barth FNP [address] [place], [place] [phone] Social History Tobacco Use Types Packs/Day Years [...] Description 02/15/2025 11:30 AM EDT Office Visit [facility] [address] [place], [place] [phone] Dory Ramírez MD 230 [place] [address] documented as of this encounter Visit Diagnoses Not on filedocumented in this encounter Additional Health Concerns Assessment Noted Time PHQ-9 Depression Total Score: 20 024 9:51 AM EDT documented as of this encounter Care Teams Geriatric Nurse Relationship Specialty Start Date End Date Corrine Barth FNP [address] [place], [place] [phone] PCP - General Family Medicine 11/28/22 01/25/24 No Quach MD 230 [place], [place] [phone] PCP - General Family Medicine 01/26/24 03/29/24 Luz Elena Jiménez MD [address] [place] [address] PCP - General Internal Medicine 03/30/24 05/05/24 Dory Ramírez MD [address] [place] [address] PCP - General Internal Medicine 05/06/24 documented as of this encounter
--- OUTSIDE RECORDS SUMMARY | 2025-01-24 16:31 | XMS_ITS | Encounter Summary ---
Author Organization [employer] Address [address] [facility] [address] [place] [address] Care Team Providers Care Director Of Rooms Name Role Phone Corrine Barth Primary Care Provider +0 No Quach MD Primary Care Provider Luz Elena Jiménez MD Primary Care Provide r Dory Ramírez MD Primary Care Provider + Reason for Visit * Reason Onset Date Comments Med Refill 03/09/2023 Encounter Details Date Type Department Care Team (Late st Contact Info) Description 03/09/2023 Refill [facility] [address] [place] [address] Corrine Barth FNP [address] [place], [place] [phone] Social History Tobacco Use Types Packs/Day Years [...] 02/15/2025 11:30 AM EDT Office Visit [facility] [address] [place] [address] Dory Ramírez MD [address] [place] [phone] documented as of this encounter Visit Diagnoses Not on filedocumented in this encounter Additional Health Concerns Assessment Noted Time PHQ-9 Depression Total Score: 8 08/30/19 23 2:28 PM EDT documented as of this encounter Care Teams Director Of Rooms Relationship Specialty Start Date End Date Corrine Barth FNP [address] [place] [phone] PCP - General Family Medicine 11/28/22 01/25/24 No Quach MD [address] [place] [id number] PCP - General Family Medicine 01/26/24 03/29/24 Luz Elena Jiménez MD [address] [place] [address] PCP - General Internal Medicine 03/30/24 05/05/24 Dory Ramírez MD [address] [place] [address] PCP - General Internal Medicine 05/06/24 documented as of this encounter
--- OUTSIDE RECORDS SUMMARY | 2025-01-24 16:31 | XMS_ITS | Encounter Summary ---
Author Organization [employer] Address [address] [place] [address] Care Team Providers Care Grain Elevator Man Name Role Phone Dory Ramírez MD Primary Care Provider + Reason for Visit * Reason Onset Date Comments Appointment Request 05/06/2024 Encounter Details Date Type Department Care Team ([facility] st Contact Info) Description 05/06/2024 Telephone [facility] [address] [place], [place] [phone] Luz Elena Jiménez MD [address] [place], [place] [phone] Appointment Request Social History Tobacco Use Types [...] TP apt from 05/06. Contact pt at [phone] documented in this encounter Plan of Treatment Upcoming Encounters Date Type Department Care Team (Late st Contact Info) Description 02/15/2025 11:30 AM EDT Office Visit [facility] [address] [place] [address] Dory Ramírez MD [address] [place] [address] documented as of this encounter Visit Diagnoses Not on filedocumented in this encounter Additional Health Concerns Assessment Noted Time PHQ-9 Depression Total Score: 11 024 9:38 AM EDT documented as of this encounter Care Teams Grain Elevator Man Relationship Specialty Start Date End Date Dory Ramírez MD [address] [place] [phone] PCP - General Internal Medicine 05/06/24 documented as of this encounter
== END 2025-01-24 15:31 | disposition home or self-care (01) ==
LOC: HO.HHCX 15:30
PROVIDERS: Visit Provider Internal Medicine
DX: R76.11 Nonspecific reaction to tuberculin skin test without active tuberculosis (principal)
CPT/HCPCS: 71046

== ENCOUNTER → 2025-01-24 15:30 | Outpatient (BNV) | payer MEDICARE, SELFPAY | PROVIDERS: Visit Provider Radiology Diagnostic Radiology | DX: R76.11 Nonspecific reaction to tuberculin skin test without active tuberculosis (principal) | CPT/HCPCS: 71046 ==

== ENCOUNTER 2025-02-01 11:48 | Outpatient (REF) | payer MEDICARE, SELFPAY ==
--- NOTE | ~2025-02-01 | US_ITS ---
EXAMINATION: MM DIAGNOSTIC DIGITAL BREAST TOMOSYNTHESIS, BILATERAL Bilateral Limited ultrasound. CLINICAL INFORMATION: Bilateral areas of pain and palpable lumps. COMPARISON: Mammography: Comparison is made with relevant prior exams. TECHNIQUE: Digital breast mammography with tomosynthesis is performed in both the craniocaudal and mediolateral oblique views along with computer-aided detection (CAD). FINDINGS: There are scattered areas of fibroglandular density (ACR BI-RADS breast composition Category b). Left: BB marker in the upper inner left breast without underlying abnormal finding. No suspicious calcifications masses or other abnormal findings. Targeted color Doppler ultrasound scanning in the left breast upper inner quadrant area of pain and palpable lump demonstrates normal follicular breast tissue. There is no sonographic abnormal finding. Right: BB marker in the upper outer breast middle to posterior depth area of patient's pain and palpable lump without underlying abnormal finding. No suspicious calcifications masses or other abnormal findings. Targeted color Doppler ultrasound scanning in the upper outer quadrant area of pain and palpable lump demonstrates normal fibronodular breast tissue. There is no sonographic abnormal finding. Results are provided to the patient at time of visit by the technologist. US/US breast BI limited mamm only IMPRESSION: No mammographic or sonographic abnormal findings to account for the patient's bilateral pain and palpable lumps. Recommend clinical evaluation and follow-up. ASSESSMENT: BI-RADS BI-RADS 1 - Negative RECOMMENDATION: 1 year F/U This patient's information was entered into a reminder system with a target due date for their next mammogram. Electronically signed by: Almita Ferraro DO 02/01/2025 01:10 PM EDT
--- OUTSIDE RECORDS SUMMARY | 2025-02-01 15:01 | XMS_ITS | Clinical Summary ---
Author Organization [employer] Address [address] [place] [address] Care Team Providers Care Mechanical Adjuster Name Role Phone Dory Ramírez MD Primary [...] 180 tablet 3 12/02/19 25 Active rizatriptan BRAIDER TENDER (Maxalt-BRAIDER TENDER) 5 MG disintegrating tablet DISSOLVE 1 TABLET [...] status post INH, will obtain records from machine umbrella tipper. Order CXR. Mastalgia 09/13/2024 Assessment & Plan [...] and Tylenol as needed and follow-up with machine umbrella tipper Migraine with aura 11/04/2020 Palpitations 01/11/2020 Overview (07/20/2024): Holter monitor on 01/19/2020 was within normal limits, average rhythm was NSR at 61-116 bpm Diastolic heart failure 12/23/2019 Overview (07/20/2024): Echo on 12/23/2019 at [facility] showed normal LVEF and no wall abnormalities, essentially normal echo. Nuclear stress test on 12/23/2019 was negative for ischemia, no arrhythmias and normotensive response to test Patient last seen at [facility] cardiology by Penelope Bhakta NP Assessment & [...] on Humira twice per month, follow-up with machine umbrella tipper Will retrieve recent labs from [facility]. COVID influenza and pneumonia immunizations are [...] have a female counselor, will contact Denise Neal for this. Start Wellbutrin XL100 50 mg [...] to follow-up with counselor, will refer to medical case manager to help her with housing [...] Encounters Date Type Department Care Team Description 02/01/[address] [facility] [address] [place] [phone] Dory Ramírez MD 12/31/2024 9:20 AM EDT Office Visit [facility] [address] [place] [phone] Luz Elena Jiménez MD Tooth infection; Open fracture of tooth, initial encounter 12/31/2024 Travel 12/13/2024 11:30 AM EDT Office Visit [address] [address] Dory Ramírez MD Mastalgia (Primary Dx); Class 3 severe obesity with serious comorbidity and body mass index (BMI) of 40.0 to 44.9 in adult; Recurrent major depressive episodes (CMS/HCC); TB lung, latent; Fibromyalgia 12/13/[address] [facility] [address] [place] [phone] Dory Ramírez MD Care Coordination (CHW outreach for SDOH PT-1 and food needs-referral completed /) 12/13/2024 Travel 12/10/[address] [facility] [address] [place] [phone] Dory Ramírez MD Chart Prep 12/01/[address] [facility] [address] [place] [phone] Corrine Barth FNP Neuropathy 12/01/[address] [facility] [address] [place] [phone] Corrine Barth FNP 12/01/[address] [facility] [address] [place] [address] Corrine Barth BIOMETRICS CONSULTANT 12/01/[address] [facility] [address] [place] [address] Corrine Barth FNP Neuropathy 12/01/[address] [facility] [address] [place] [address] Corrine Barth FNP 12/01/[address] [facility] [address] [place] [phone] Dory Ramírez MD 12/01/[address] [facility] [address] [place] [phone] Dory Ramírez MD 11/23/[address] [facility] [address] [place] [phone] Dory Ramírez MD 11/16/[address] [facility] [address] [place] [phone] Dory Ramírez MD Call Back Request 11/15/2024 Results Follow-Up [facility] [address] [place] [phone] Dory Ramírez MD Complete Blood Count Manual [...] Description 02/15/2025 11:30 AM EDT Office Visit [facility] [address] [place] [address] Dory Ramírez MD [address] [place] [address] Health Maintenance Due Date Last Done Comments CT Colonography 1975 Colonoscopy 1976 Colorectal Cancer Screening 1976 FIT DNA/Cologuard 1976 FIT 1976 FOBT 1975 HIV Screening 1975 Sigmoidoscopy 1975 Family Planning (PISQ) 11/09/1991 Pneumococcal Vaccine: Pediatrics (0 to 5 Years) and At-Risk Patients (6 to 49) Years (1 of 2 - PCV) 11/09/1995 Pap Smear 1997 Cervical Cancer Screening 2006 HPV/Cotest 2006 Mammogram 03/19/2023 02/01/2025, 01/23, 03/19/2021, Additional history exists Influenza Vaccine (#1) 2025 , 03/04/2023, 02/07/2022, Additional history exists Lipid Panel 10/31/2025 10/31/2020 Alcohol/Substance Use Screening 12/13/2025 12/13/2024 Depression Screening 12/13/2025 12/13/2024, 12/14/19 25 Disability Screening 12/13/2025 12/13/2024 SDOH Screening 12/13/2025 [...] Procedure Name Priority Date/Time Associated Diagnosis Comments BI US BREAST LIMITED BILATERAL Routine 02/01/2025 12:18 PM EDT BI MAMMOGRAM DIAGNOSTIC TOMOSYNTHESIS BILATERAL Routine 02/01/2025 11:55 AM EDT XR CHEST 2 VIEWS Routine 01/24/2025 2:53 [...] MAN DIF Routine 11/07/2024 4:49 PM EDT LIPID PANEL, STANDARD Routine 10/31/2020 10:09 AM EDT from Last 3 Months or Most Recently Relevant to Health Maintenance Results * BI US Breast Limited Bilateral (02/01/2025 12:18 PM EDT) Anatomical Region Laterality Modality Breast Bilateral Ultrasound 02/01/2025 12:1 8 PM EDT Narrative 02/01/2025 1:13 PM EDT [address] [place], [place] [address] Ultrasound Report Signed Patient: Eliza Meléndez MR#: [id number] 547 : 1975 Acct:[id number] Age/Sex: 49 / F ADM Date: 02/01/25 Loc: HO.MAMMO Attending Dr: Dory Ramírez MD Ordering Physician: Dory Ramírez MD Date of Service: 02/01/25 Procedure(s): US breast BI limited mamm only Accession Number(s): [id number] cc: Dory Ramírez MD Reason for Exam: MASTALGIA EXAMINATION: MM DIAGNOSTIC DIGITAL BREAST TOMOSYNTHESIS, BILATERAL Bilateral Limited ultrasound. CLINICAL INFORMATION: Bilateral areas of pain and palpable lumps. COMPARISON: Mammography: Comparison is made with relevant prior exams. TECHNIQUE: Digital breast mammography with tomosynthesis is performed in both the craniocaudal and mediolateral oblique views along with computer-aided detection (CAD). FINDINGS: There are scattered areas of fibroglandular density (ACR BI-RADS breast composition Category b). Left: BB marker in the upper inner left breast without underlying abnormal finding. No suspicious calcifications masses or other abnormal findings. Targeted color Doppler ultrasound scanning in the left breast upper inner quadrant area of pain and palpable lump demonstrates normal follicular breast tissue. There is no sonographic abnormal finding. Right: BB marker in the upper outer breast middle to posterior depth area of patient's pain and palpable lump without underlying abnormal finding. No suspicious calcifications masses or other abnormal findings. Targeted color Doppler ultrasound scanning in the upper outer quadrant area of pain and palpable lump demonstrates normal fibronodular breast tissue. There is no sonographic abnormal finding. Results are provided to the patient at time of visit by the technologist. US/US breast BI limited mamm only IMPRESSION: No mammographic or sonographic abnormal findings to account for the patient's bilateral pain and palpable lumps. Recommend clinical evaluation and follow-up. ASSESSMENT: BI-RADS BI-RADS 1 - Negative RECOMMENDATION: 1 year F/U This patient's information was entered into a reminder system with a target due date for their next mammogram. Electronically signed by: Almita Ferraro DO 02/01/2025 01:10 PM EDT Dictated By: Almita Ferraro DO Signed By: <Electronically signed by Almita Ferraro DO in OV> 02/01/25 1310 DD/ 1218 TD/TT: 02/01/25 1233 Seasonal Package Handler: Procedure Note Donotuseinterpreter, Image - 02/01/2025 [facility] [address] [place] [address] Ultrasound Report Signed Patient: Anahi Meléndez#: [id number] 547 : 1975Acct:[id number] Age/Sex: 49 / FADM Date: 02/01/25 Loc: HO.MAMMO Attending Dr: Dory Ramírez MD Ordering Physician: Dory Ramírez MD Date of Service: 02/01/25 Procedure(s): US breast BI limited mamm only Accession Number(s): [id number] cc: Dory Ramírez MD Reason for Exam: MASTALGIA EXAMINATION: MM DIAGNOSTIC DIGITAL BREAST TOMOSYNTHESIS, BILATERAL Bilateral Limited ultrasound. CLINICAL INFORMATION: Bilateral areas of pain and palpable lumps. COMPARISON: Mammography: Comparison is made with relevant prior exams. TECHNIQUE: Digital breast mammography with tomosynthesis is performed in both the craniocaudal and mediolateral oblique views along with computer-aided detection (CAD). FINDINGS: There are scattered areas of fibroglandular density (ACR BI-RADS breast composition Category b). Left: BB marker in the upper inner left breast without underlying abnormal finding. No suspicious calcifications masses or other abnormal findings. Targeted color Doppler ultrasound scanning in the left breast upper inner quadrant area of pain and palpable lump demonstrates normal follicular breast tissue. There is no sonographic abnormal finding. Right: BB marker in the upper outer breast middle to posterior depth area of patient's pain and palpable lump without underlying abnormal finding. No suspicious calcifications masses or other abnormal findings. Targeted color Doppler ultrasound scanning in the upper outer quadrant area of pain and palpable lump demonstrates normal fibronodular breast tissue. There is no sonographic abnormal finding. Results are provided to the patient at time of visit by the technologist. US/US breast BI limited mamm only IMPRESSION: No mammographic or sonographic abnormal findings to account for the patient's bilateral pain and palpable lumps. Recommend clinical evaluation and follow-up. ASSESSMENT: BI-RADS BI-RADS 1 - Negative RECOMMENDATION: 1 year F/U This patient's information was entered into a reminder system with a target due date for their next mammogram. Electronically signed by: Almita Ferraro DO 02/01/2025 01:10 PM EDT Dictated By: Almita Ferraro DO Signed By: <Electronically signed by Almita Ferraro DO in OV> 02/01/25 1310 DD/ 1218 TD/TT: 02/01/25 1233 Seasonal Package Handler: us Dory Ramírez MD IMG US PROCEDURES Final Result * BI Mammogram Diagnostic Tomosynthesis Bilateral (02/01/2025 11:55 AM EDT) Anatomical Region Laterality Modality Breast Bilateral Mammography 02/01/2025 11:5 5 AM EDT Narrative 02/01/2025 1:13 PM EDT [address] [place] [address] Mammography Report Signed Patient: Eliza Meléndez MR#: [id number] 547 : 1975 Acct:[id number] Age/Sex: 49 / F ADM Date: 02/01/25 Loc: HO.MAMMO Attending Dr: Dory Ramírez MD Ordering Physician: Dory Ramírez MD Results: 1Ne gative Date of Service: 02/01/25 Follow Up: 1 Year From [facility] Mammogram Procedure(s): MM tomosynthesis diagnostic BI Accession Number(s): [id number] cc: Dory Ramírez MD EXAMINATION: MM DIAGNOSTIC DIGITAL BREAST TOMOSYNTHESIS, BILATERAL Bilateral Limited ultrasound. CLINICAL INFORMATION: Bilateral areas of pain and palpable lumps. COMPARISON: Mammography: Comparison is made with relevant prior exams. TECHNIQUE: Digital breast mammography with tomosynthesis is performed in both the craniocaudal and mediolateral oblique views along with computer-aided detection (CAD). FINDINGS: There are scattered areas of fibroglandular density (ACR BI-RADS breast composition Category b). Left: BB marker in the upper inner left breast without underlying abnormal finding. No suspicious calcifications masses or other abnormal findings. Targeted color Doppler ultrasound scanning in the left breast upper inner quadrant area of pain and palpable lump demonstrates normal follicular breast tissue. There is no sonographic abnormal finding. Right: BB marker in the upper outer breast middle to posterior depth area of patient's pain and palpable lump without underlying abnormal finding. No suspicious calcifications masses or other abnormal findings. Targeted color Doppler ultrasound scanning in the upper outer quadrant area of pain and palpable lump demonstrates normal fibronodular breast tissue. There is no sonographic abnormal finding. Results are provided to the patient at time of visit by the technologist. MM/MM tomosynthesis diagnostic BI IMPRESSION: No mammographic or sonographic abnormal findings to account for the patient's bilateral pain and palpable lumps. Recommend clinical evaluation and follow-up. ASSESSMENT: BI-RADS BI-RADS 1 - Negative RECOMMENDATION: 1 year F/U This patient's information was entered into a reminder system with a target due date for their next mammogram. Electronically signed by: Almita Ferraro DO 02/01/2025 01:10 PM EDT Dictated By: Almita Ferraro DO Signed By: <Electronically signed by Almita Ferraro DO in OV> 02/01/25 1310 DD/ 1155 TD/TT: 02/01/25 1215 Seasonal Package Handler: Procedure Note Donotuseinterpreter, Image - 02/01/2025 [facility] [address] [place] [address] [place] [address] Mammography Report Signed Patient: Anahi Meléndez#: [id number] 547 : 1975Acct:[id number] Age/Sex: 49 / FADM Date: 02/01/25 Loc: COLLINSO Attending Dr: Dory Ramírez MD Ordering Physician: Dory Ramírez MDResults: 1Ne gative Date of Service: 02/01/25Follow Up: 1 Year From [facility] Mammogram Procedure(s): MM tomosynthesis diagnostic BI Accession Number(s): [id number] cc: Dory Ramírez MD EXAMINATION: MM DIAGNOSTIC DIGITAL BREAST TOMOSYNTHESIS, BILATERAL Bilateral Limited ultrasound. CLINICAL INFORMATION: Bilateral areas of pain and palpable lumps. COMPARISON: Mammography: Comparison is made with relevant prior exams. TECHNIQUE: Digital breast mammography with tomosynthesis is performed in both the craniocaudal and mediolateral oblique views along with computer-aided detection (CAD). FINDINGS: There are scattered areas of fibroglandular density (ACR BI-RADS breast composition Category b). Left: BB marker in the upper inner left breast without underlying abnormal finding. No suspicious calcifications masses or other abnormal findings. Targeted color Doppler ultrasound scanning in the left breast upper inner quadrant area of pain and palpable lump demonstrates normal follicular breast tissue. There is no sonographic abnormal finding. Right: BB marker in the upper outer breast middle to posterior depth area of patient's pain and palpable lump without underlying abnormal finding. No suspicious calcifications masses or other abnormal findings. Targeted color Doppler ultrasound scanning in the upper outer quadrant area of pain and palpable lump demonstrates normal fibronodular breast tissue. There is no sonographic abnormal finding. Results are provided to the patient at time of visit by the technologist. MM/MM tomosynthesis diagnostic BI IMPRESSION: No mammographic or sonographic abnormal findings to account for the patient's bilateral pain and palpable lumps. Recommend clinical evaluation and follow-up. ASSESSMENT: BI-RADS BI-RADS 1 - Negative RECOMMENDATION: 1 year F/U This patient's information was entered into a reminder system with a target due date for their next mammogram. Electronically signed by: Almita Ferraro DO 02/01/2025 01:10 PM EDT Dictated By: Almita Ferraro DO Signed By: <Electronically signed by Almita Ferraro DO in OV> 02/01/25 1310 DD/ 1155 TD/TT: 02/01/25 1215 Seasonal Package Handler: Dory Ramírez MD IMG BI PROCEDURES Final Result * XR Chest 2 Views (01/24/2025 2:53 PM EDT) Anatomical Region Laterality Modality Chest Radiographic Venessa ging 01/24/2025 2:53 PM EDT Narrative 01/24/2025 3:53 PM EDT [address] [address] XRay Report Signed Patient: Eliza Meléndez MR#: [id number] 547 : 1975 Acct:[id number] Age/Sex: 49 / F ADM Date: 01/24/25 Loc: JAENCBrad[facility] Attending Dr: Dory Ramírez MD Ordering Physician: Dory Ramírez MD Date of Service: 01/24/25 Procedure(s): XR chest 2V Accession Number(s): [id number] cc: Dory Ramírez MD Reason for Exam: [...] Ryan Casiano MD 01/24/2025 03:50 PM EDT Dictated By: Ryan Mills MD Signed By: <Electronically signed by Ryan Grullon MD in OV> 01/24/25 1550 DD/ 1453 TD/TT: 01/24/25 1545 Seasonal Package Handler: Procedure Note Donotuseinterpreter, Image - 01/24/[address] [address] XRay Report Signed Patient: Angel MeléndezR#: [id number] 547 : 1975Acct:[id number] Age/Sex: 49 / FADM Date: 01/24/25 Loc: HHCX Attending Dr: Dory Ramírez MD Ordering Physician: Dory Ramírez MD Date of Service: 01/24/25 Procedure(s): XR chest 2V Accession Number(s): [id number] cc: Dory Ramírez MD Reason for Exam: [...] 01/24/25 1550 DD/ 1453 TD/TT: 01/24/25 1545 Seasonal Package Handler: Dory Ramírez MD IMG XR PROCEDURES Final Result * XR Lumbar Spine 2-3 Views (11/07/2024 5:00 PM EDT) Anatomical Region Laterality Modality Spine, L-spine Radiographic Venessa ging 11/07/2024 5:00 PM EDT Narrative 11/07/2024 6:04 PM EDT [place] [address] XRay Report Signed Patient: Eliza Meléndez MR#: [id number] 547 : 1975 Acct:[id number] Age/Sex: 48 / F ADM Date: 11/07/24 Loc: DANYELLE Attending Dr: Dory Ramírez MD Ordering Physician: Dory Ramírez MD Date of Service: 11/07/24 Procedure(s): XR lumbar spine 2-3V Accession Number(s): [id number] cc: Dory Ramírez MD EXAMINATION: XR LUMBOSACRAL [...] 11/07/24 1801 DD/ 1700 TD/TT: 11/07/24 1715 Seasonal Package Handler: Procedure Note Donotuseinterpreter, Image - 11/07/[address] [address] XRay Report Signed Patient: Anahi Meléndez#: [id number] 547 : 1975Acct:[id number] Age/Sex: 48 / FADM Date: 11/07/24 Loc: HO.GARRETTAY Attending Dr: Dory Ramírez MD Ordering Physician: Dory Ramírez MD Date of Service: 11/07/24 Procedure(s): XR lumbar spine 2-3V Accession Number(s): [id number] cc: Dory Ramírez MD EXAMINATION: XR LUMBOSACRAL [...] 11/07/24 1801 DD/ 1700 TD/TT: 11/07/24 1715 Seasonal Package Handler: Dory Ramírez MD IMG XR PROCEDURES Final Result * XR Thoracic Spine 3 Views (11/07/2024 5:00 PM EDT) Anatomical Region Laterality Modality Spine, T-spine Radiographic Venessa ging 11/07/2024 5:00 PM EDT Narrative 11/07/2024 6:05 PM EDT [place] [address] XRay Report Signed Patient: Eliza Meléndez MR#: [id number] 547 : 1975 Acct:[id number] Age/Sex: 48 / F ADM Date: 11/07/24 Loc: DANYELLE Attending Dr: Dory Ramírez MD Ordering Physician: Dory Ramírez MD Date of Service: 11/07/24 Procedure(s): XR thoracic spine 3V Accession Number(s): [id number] cc: Dory Ramírez MD EXAMINATION: XR THORACIC [...] in OV> 11/07/24 1802 DD/ 1700 TD/TT: 11/07/241714 Seasonal Package Handler: Procedure Note Donotdebbieinterpreter, Image - 11/07/[address] [address] XRay Report Signed Patient: Angel MeléndezR#: [id number] 547 : 1975Acct:[id number] Age/Sex: 48 / FADM Date: 11/07/24 Loc: HO.XRAY Attending Dr: Dory Ramírez MD Ordering Physician: Dory Ramírez MD Date of Service: 11/07/24 Procedure(s): XR thoracic spine 3V Accession Number(s): [id number] cc: Dory Ramírez MD EXAMINATION: XR THORACIC [...] in OV> 11/07/24 1802 DD/ 1700 TD/TT: 11/07/241714 Seasonal Package Handler: Dory Ramírez MD IMG XR PROCEDURES Final Result * Hepatitis B, C Profile (11/07/2024 4:49 PM EDT) ~Hepatitis B Surface Antibody NONREACTIVE Nonreactive [facility] Comment:Nonreactive: < 8.00 mIU/mL Hepatitis B Core Antibody Nonreactive Nonreactive [facility] Hepatitis C Antibody Nonreactive Nonreactive [facility] Comment:Antibodies to HCV no t detected; does not exclude early acuteHCV infection. Hepatitis B Surface Ag Negative Negative [facility] 11/07/2024 4:49 PM EDT 11/07/2024 4:49 PM EDT us Generic External Data Provider LAB BLOOD ORDERAB LES Final Result [facility] [address] [place] [address] [phone] * (ABNORMAL) Complete Blood Count Manual Diff (11/07/2024 4:49 PM EDT) White Blood Count 8.4 4.8 - 10.8 X10*3/uL [facility] Red Blood Count 4.41 4.20 - 5.50 X10*6/uL [facility] Hemoglobin 13.7 12.0 - 16.0 g/dl [facility] Hematocrit 40.6 37.0 - 47.0 % [facility] Mean Corpuscular Volume 92.1 80.0 - 98.0 fL [facility] Mean Corpuscular Hemoglobin 31.1 27.0 - 33.0 pg [facility] Mean Corpuscular HGB Conc 33.7 31.0 - 35.0 g/dl [facility] Red Cell Distribution Width 12.1 11.0 - 16.0 % [facility] Platelet Count 360 160 - 400 X10*3/uL [facility] Mean Platelet Volume 10.9 9.4 - 12.3 fL [facility] NRBC Pct Auto 0.0 0.0 - 0.2 /100WBC [facility] NRBC Abs Auto 0.000 0.0 - 0.012 X10*3/uL [facility] Neutrophils % Manual 51 45 - 73 % [facility] Band Neutrophils Percent 1(L) 3 - 5 % [facility] Lymphocytes Percent Manual 40 20 - 40 % [facility] Atypical Lymphs Percent Manual 4 0 - 6 % [facility] Monocytes Percent Manual 2 2 - 11 % [facility] EOSINOPHILS % MANUAL 2 0 - 4 % [facility] NEUTROPHILS ABSOLUTE MANUAL 4.4 2.0 - 8.3 X10*3/uL [facility] LYMPHOCYTES ABSOLUTE MANUAL 3.4 1.2 - 4.9 X10*3/uL [facility] Atypical Lymph Absolute Manual 0.3 x10*3/uL [facility] MONOCYTES ABSOLUTE MANUAL 0.2 0.1 - 1.2 X10*3/uL [facility] EOSINOPHILS ABSOLUTE MANUAL 0.2 0.0 - 0.4 X10*3/uL [facility] Platelet Estimate NORMAL NORMAL [facility] Platelet Morphology Comment NORMAL [facility] RBC Morphology NORMAL [facility] 11/07/2024 4:49 PM EDT 11/07/2024 4:49 PM EDT us Generic External Data Provider LAB BLOOD ORDERAB LES Final Result [facility] [address] [place] [address] [phone] * (ABNORMAL) T-SPOT??.TB (11/07/2024 4:49 PM EDT) T Spot TB Positive( A) Negative [facility] Comment: Diagnosing or excluding tuberculosis [...] as aquantitative test. TS PANEL A 21 [facility] TS PANEL B 33 [facility] Negative Control Passed [facility] Positive Control Passed [facility] Comment:For additional infor polina, please refer tohttp://education.Vint/faq/NVQ775(This link is being provided for informational/educational purposes only.)THIS TEST WAS PERFORMED AT:[employer] [id number] [place] [address]KITBJXVAPOLINAR CARRERO MD,PHD 11/07/2024 4:49 PM EDT 11/07/2024 4:49 PM EDT Generic External Data Provider LAB BLOOD ORDERAB LES Final Result Performing Organization Address [facility]/ZIP Co de Phone Number [facility] [address] [place] [phone] * Sed Rate by Modified Westergren (11/07/2024 4:49 PM EDT) [facility] Erythrocyte Sedimentation Rate 9 0 - 20 MM/HR [facility] Comment:Patients with polycy themia and many hemoglobin abnormalitiesmay have depressed sed rates whereas patients with anemiamay have elevated sed rates. 11/07/2024 4:49 PM EDT 11/07/2024 4:49 PM EDT Generic External Data Provider LAB BLOOD ORDERAB LES Final Result Performing Organization Address [facility] Co de Phone Number [facility] [address] [place] [phone] * C-reactive Protein (11/07/2024 4:49 PM EDT) [facility] C Reactive Protein 0.18 < or = 0.50 mg/dL [facility] 11/07/2024 4:49 PM EDT 11/07/2024 4:49 PM EDT us Generic External Data Provider LAB BLOOD ORDERAB LES Final Result [facility] [address] [place] [address] [phone] * (ABNORMAL) Comprehensive Metabolic Panel (11/07/2024 4:49 PM EDT) Pathologist [facility] Sodium 140 135 - 145 mmol/L [facility] Potassium 3.8 3.3 - 5.1 mmol/L [facility] Chloride 111(H) 96 - 108 mmol/L [facility] Carbon Dioxide 21(L) 22 - 29 mmol/L [facility] Anion Gap 12 12 - 20 [facility] Urea Nitrogen (BUN) 13 9 - 16 mg/dL [facility] Creatinine, Serum 0.80 0.5 - 1.4 mg/dL [facility] Estimated Glomerular Filt Rate >60 [facility] Comment:Chronic Kidney Disea se: Estimated GFR < 60 mL/min/1.29r2Vsriec Kidney Disease: Estimated GFR < 15 mL/min/1.73m2 Glucose 90 60 - 115 mg/dL [facility] Calcium 9.5 8.4 - 10.2 mg/dL [facility] Bilirubin, Total 0.5 0.0 - 1.0 mg/dL [facility] Aspartate Amino Transferase 17 5 - 31 U/L [facility] Alanine Aminotransferase 22 0 - 31 U/L [facility] Total Protein 7.2 6.5 - 8.0 g/dL [facility] Albumin Level 4.3 3.5 - 5.0 g/dL [facility] Alkaline Phosphatase 70 39 - 117 U/L [facility] 11/07/2024 4:49 PM EDT 11/07/2024 4:49 PM EDT us Generic External Data Provider LAB BLOOD ORDERAB LES Final Result Performing Organization Address City/[facility]/ZIP Co de Phone Number [facility] [address] [place] [phone] * (ABNORMAL) LIPID PANEL, STANDARD (10/31/2020 10:09 [...] LDL-C. Eric SS et al. EDUARDA. 2013;310(19): 6563-2380 (http://education.[employer]faq/MFE398) Non-HDL Cholesterol 161(H) <130 mg/dL (calc) [facility] [...] 10:0 9 AM EDT us Jessica Interiano [facility] LAB BLOOD ORDERABLES Final Resu lt [facility] [address] from Last 3 Months or Most Recently Relevant to Health Maintenance Insurance [employer] MEDICARE REPLACEMENT Care Teams Mechanical Adjuster Relationship Specialty Start Date End Date Dory Ramírez MD [address] [place] [address] [place] Maher [address] PCP - General Internal Medicine 05/06/24
--- OUTSIDE RECORDS SUMMARY | 2025-02-01 15:01 | XMS_ITS | Encounter Summary ---
Author Organization [employer] Address [address] [facility] [address] [address] 7t [place] [address] Care Team Providers Care Bottle Dealer Name Role Phone Corrine Barth Primary Care Provider +-[phone] No Quach MD Primary Care Provider Luz Elena Jiménez MD Primary Care Provide r Dory Ramírez MD Primary Care Provider + Reason for Visit * Reason Onset Date Comments Med Refill 10/27/2023 Encounter Details Date Type Department Care Team (Late st Contact Info) Description 10/27/2023 Refill [facility] [address] [place], [place] [phone] Corrine Barth FNP [address] [place], [place] [phone] Social History Tobacco Use Types Packs/Day Years [...] Description 02/15/2025 11:30 AM EDT Office Visit [facility] [address] [place], [place] [phone] Dory Ramírez MD 230 [place] [address] documented as of this encounter Visit Diagnoses Not on filedocumented in this encounter Additional Health Concerns Assessment Noted Time PHQ-9 Depression Total Score: 20 024 9:51 AM EDT documented as of this encounter Care Teams Bottle Dealer Relationship Specialty Start Date End Date Corrine Barth FNP [address] [place], [place] [phone] PCP - General Family Medicine 11/28/22 01/25/24 No Quach MD [address] [place], [place] [phone] PCP - General Family Medicine 01/26/24 03/29/24 Luz Elena Jiménez MD [address] [place] [address] PCP - General Internal Medicine 03/30/24 05/05/24 Dory Ramírez MD [address] [place] [address] PCP - General Internal Medicine 05/06/24 documented as of this encounter
--- OUTSIDE RECORDS SUMMARY | 2025-02-01 15:01 | XMS_ITS | Encounter Summary ---
Author Organization [employer] Address [address] [facility] [address] 7 [place] [address] Care Team Providers Care Marketing Business Analyst Name Role Phone Dory Ramírez MD Primary Care Provider + Reason for Visit * Reason Onset Date Comments Appointment Request 05/06/2024 Encounter Details Date Type Department Care Team ([facility] st Contact Info) Description 05/06/2024 Telephone [facility] [address] [place], [place] [phone] Luz Elena Jiménez MD 230 [place], [place] [phone] Appointment Request Social History Tobacco Use Types [...] TP apt from 05/06. Contact pt at [phone] documented in this encounter Plan of Treatment Upcoming Encounters Date Type Department Care Team (Late st Contact Info) Description 02/15/2025 11:30 AM EDT Office Visit [facility] [address] [place] [address] Dory Ramírez MD [address] [place] [address] documented as of this encounter Visit Diagnoses Not on filedocumented in this encounter Additional Health Concerns Assessment Noted Time PHQ-9 Depression Total Score: 11 024 9:38 AM EDT documented as of this encounter Care Teams Marketing Business Analyst Relationship Specialty Start Date End Date Dory Ramírez MD [address] [place] [address] PCP - General Internal Medicine 05/06/24 documented as of this encounter
--- OUTSIDE RECORDS SUMMARY | 2025-02-01 15:01 | XMS_ITS | Encounter Summary ---
Author Organization [employer] Address [address] [facility] [address] 7t [place] [address] Care Team Providers Care Circular Saw Operator Name Role Phone Corrine Barth Primary Care Provider [phone] No Quach MD Primary Care Provider [phone] Luz Elena Jiménez MD Primary Care Provide r Dory Ramírez MD Primary Care Provider + Reason for Visit * Reason Onset Date Comments Med Refill 03/09/2023 Encounter Details Date Type Department Care Team (Late st Contact Info) Description 03/09/2023 Refill [facility] [address] [place], [place] [phone] Corrine Barth FNP [address] [place], [place] [phone] Neuropathy Social History Tobacco Use Types Packs/Day [...] 02/15/2025 11:30 AM EDT Office Visit [facility] [address] [place] [address] Dory Ramírez MD 230 [place] [address] documented as of this encounter Visit Diagnoses Diagnosis Neuropathy Mononeuritis of unspecified site documented in this encounter Additional Health Concerns Assessment Noted Time PHQ-9 Depression Total Score: 8 08/30/19 23 2:28 PM EDT documented as of this encounter Care Teams Circular Saw Operator Relationship Specialty Start Date End Date Corrine Barth FNP [address] [place] [address] PCP - General Family Medicine 11/28/22 01/25/24 No Quach MD [address] [place] [address] PCP - General Family Medicine 01/26/24 03/29/24 Luz Elena Jiménez MD [address] [place] [address] PCP - General Internal Medicine 03/30/24 05/05/24 Dory Ramírez MD [address] [place] [address] PCP - General Internal Medicine 05/06/24 documented as of this encounter
--- OUTSIDE RECORDS SUMMARY | 2025-02-01 15:01 | XMS_ITS | Encounter Summary ---
Author Organization [employer] Address [address] 7t [place] [address] Care Team Providers Care Nail Tech Name Role Phone Corrine Barth Primary Care Provider [phone] No Quach MD Primary Care Provider [phone] Luz Elena Jiménez MD Primary Care Provide r Dory Ramírez MD Primary Care Provider + Reason for Visit * Reason Onset Date Comments Med Refill 10/27/2023 Encounter Details Date Type Department Care Team (Late st Contact Info) Description 10/27/2023 Refill [facility] [address] [place] [address] Corrine Barth FNP [address] [place], [place] [phone] Social History Tobacco Use Types Packs/Day Years [...] 11:30 AM EDT Office Visit [facility] [address] [place], [place] [phone] Dory Ramírez MD 230 [place] [address] documented as of this encounter Visit Diagnoses Not on filedocumented in this encounter Additional Health Concerns Assessment Noted Time PHQ-9 Depression Total Score: 20 024 9:51 AM EDT documented as of this encounter Care Teams Nail Tech Relationship Specialty Start Date End Date Corrine Barth FNP [address] [place], [place] [phone] PCP - General Family Medicine 11/28/22 01/25/24 No Quach MD [address] [place], [place] [phone] PCP - General Family Medicine 01/26/24 03/29/24 Luz Elena Jiménez MD 230 [place] [address] PCP - General Internal Medicine 03/30/24 05/05/24 Dory Ramírez MD 230 [place] [address] PCP - General Internal Medicine 05/06/24 documented as of this encounter
--- OUTSIDE RECORDS SUMMARY | 2025-02-01 15:02 | XMS_ITS | Encounter Summary ---
Author Organization [employer] Address 75 [facility] 7 [place] [address] Care Team Providers Care Taker Off Hemp Fiber Name Role Phone Dory Ramírez MD Primary Care Provider + Reason for Visit * Reason Onset Date Comments Med Refill 12/01/2024 Encounter Details Date Type Department Care Team (Late st Contact Info) Description 12/01/2024 Refill [facility] 230 [place], [place] [phone] Dory Ramírez MD 230 [place], [place] [phone] Social History Tobacco Use Types Packs/Day Years [...] with others, in a hotel, in a penitentiary, living outside on the street, on a [...] Description 02/15/2025 11:30 AM EDT Office Visit [facility] [address] [place] [address] Dory Ramírez MD [address] [place] [address] documented as of this encounter Visit Diagnoses Not on filedocumented in this encounter Additional Health Concerns Assessment Noted Time PHQ-9 Depression Total Score: 12 025 4:04 PM EST documented as of this encounter Care Teams Taker Off Hemp Fiber Relationship Specialty Start Date End Date Dory Ramírez MD [address] [place] [address] PCP - General Internal Medicine 05/06/24 documented as of this encounter
--- OUTSIDE RECORDS SUMMARY | 2025-02-01 15:02 | XMS_ITS | Encounter Summary ---
Author Organization [employer] Address [address] [facility] [address] 7t [place] [address] Care Team Providers Care Php Software Engineer Name Role Phone Corrine Barth Primary Care Provider +-[phone] No Quach MD Primary Care Provider Luz Elena Jiménez MD Primary Care Provide r Dory Ramírez MD Primary Care Provider + Reason for Visit * Reason Onset Date Comments Med Refill 03/09/2023 Encounter Details Date Type Department Care Team (Late st Contact Info) Description 03/09/2023 Refill [facility] [address] [place] [address] Corrine Barth FNP [address] [place], [place] [phone] Social History Tobacco Use Types Packs/Day Years [...] 02/15/2025 11:30 AM EDT Office Visit [facility] [address] [place] [address] Dory Ramírez MD [address] [place] [address] documented as of this encounter Visit Diagnoses Not on filedocumented in this encounter Additional Health Concerns Assessment Noted Time PHQ-9 Depression Total Score: 8 08/30/19 23 2:28 PM EDT documented as of this encounter Care Teams Php Software Engineer Relationship Specialty Start Date End Date Corrine Barth FNP [address] [place] [address] PCP - General Family Medicine 11/28/22 01/25/24 No Quach MD [address] [place] [address] PCP - General Family Medicine 01/26/24 03/29/24 Luz Elena Jiménez MD 230 [place] [address] PCP - General Internal Medicine 03/30/24 05/05/24 Dory Ramírez MD 230 [place] [address] PCP - General Internal Medicine 05/06/24 documented as of this encounter
--- OUTSIDE RECORDS SUMMARY | 2025-02-01 15:02 | XMS_ITS | Encounter Summary ---
Author Organization [employer] Address [address] [facility] [address] 7t [place] [address] Care Team Providers Care Purchasing Buyer Name Role Phone Corrine Barth Primary Care Provider +-[phone] No Quach MD Primary Care Provider Luz Elena Jiménez MD Primary Care Provide r Dory Ramírez MD Primary Care Provider + Reason for Visit * Reason Onset Date Comments Med Refill 03/09/2023 Encounter Details Date Type Department Care Team (Late st Contact Info) Description 03/09/2023 Refill [facility] [address] [place] [address] Corrine Barth FNP [address] [place], [place] [phone] Social History Tobacco Use Types Packs/Day Years [...] Description 02/15/2025 11:30 AM EDT Office Visit [facility] 230 [place] [address] Dory Ramírez MD [address] [place] [address] documented as of this encounter Visit Diagnoses Not on filedocumented in this encounter Additional Health Concerns Assessment Noted Time PHQ-9 Depression Total Score: 8 08/30/19 23 2:28 PM EDT documented as of this encounter Care Teams Purchasing Buyer Relationship Specialty Start Date End Date Corrine Barth FNP [address] [place] [address] PCP - General Family Medicine 11/28/22 01/25/24 No Quach MD [address] [place] [address] PCP - General Family Medicine 01/26/24 03/29/24 Luz Elena Jiménez MD 230 [place] [address] PCP - General Internal Medicine 03/30/24 05/05/24 Dory Ramírez MD [address] [place] [address] PCP - General Internal Medicine 05/06/24 documented as of this encounter
--- OUTSIDE RECORDS SUMMARY | 2025-02-01 15:02 | XMS_ITS | Encounter Summary ---
Author Organization [employer] Address 75 [facility] 7 [place] [address] Care Team Providers Care Steeping Press Operator Name Role Phone Dory Ramírez MD Primary Care Provider + Reason for Visit * Reason Onset Date Comments Med Refill 12/01/2024 Encounter Details Date Type Department Care Team (Late st Contact Info) Description 12/01/2024 Refill [facility] 230 [place], [place] [phone] Dory Ramírez MD [address] [place], [place] [phone] Social History Tobacco Use Types Packs/Day Years [...] Description 02/15/2025 11:30 AM EDT Office Visit [facility] [address] [place] [address] Dory Ramírez MD [address] [place] [address] documented as of this encounter Visit Diagnoses Not on filedocumented in this encounter Additional Health Concerns Assessment Noted Time PHQ-9 Depression Total Score: 12 025 4:04 PM EST documented as of this encounter Care Teams Steeping Press Operator Relationship Specialty Start Date End Date Dory Ramírez MD [address] [place] [address] PCP - General Internal Medicine 05/06/24 documented as of this encounter
--- OUTSIDE RECORDS SUMMARY | 2025-02-01 15:02 | XMS_ITS | Encounter Summary ---
Author Organization [employer] Address [address] [facility] 7 [place] [address] Care Team Providers Care Car Unloader Helper Name Role Phone Dory Ramírez MD Primary Care Provider + Reason for Visit * Reason Onset Date Comments Med Refill 12/01/2024 Encounter Details Date Type Department Care Team (Late st Contact Info) Description 12/01/2024 Refill [facility] [address] [place] [address] Corrine Barth, MANAGER ECONOMIC [address] [facility] [place] [address] Social History Tobacco Use Types Packs/Day Years [...] with others, in a hotel, in a chcf, living outside on the street, on a [...] Description 02/15/2025 11:30 AM EDT Office Visit [facility] [address] [place] [address] Dory Ramírez MD 230 [place] [address] documented as of this encounter Visit Diagnoses Not on filedocumented in this encounter Additional Health Concerns Assessment Noted Time PHQ-9 Depression Total Score: 12 025 4:04 PM EST documented as of this encounter Care Teams Car Unloader Helper Relationship Specialty Start Date End Date Dory Ramírez MD [address] [place] [address] PCP - General Internal Medicine 05/06/24 documented as of this encounter
--- OUTSIDE RECORDS SUMMARY | 2025-02-01 15:02 | XMS_ITS | Encounter Summary ---
Author Organization [employer] Address [address] [facility] [address] 7 [place] [address] Care Team Providers Care Loader Magazine Grinder Name Role Phone Dory Ramírez MD Primary Care Provider + Reason for Visit * Reason Onset Date Comments Med Refill 12/01/2024 Encounter Details Date Type Department Care Team (Late st Contact Info) Description 12/01/2024 Refill [facility] 230 [place], [place] [phone] Corrine Barth FNP 230 [place], [place] [phone] Social History Tobacco Use Types Packs/Day Years [...] with others, in a hotel, in a skilled nursing, living outside on the street, on a [...] Office Visit [facility] [address] [place] [address] Dory Ramírez MD 230 [place] [address] documented as of this encounter Visit Diagnoses Not on filedocumented in this encounter Additional Health Concerns Assessment Noted Time PHQ-9 Depression Total Score: 12 025 4:04 PM EST documented as of this encounter Care Teams Loader Magazine Grinder Relationship Specialty Start Date End Date Dory Ramírez MD [address] [place] [address] PCP - General Internal Medicine 05/06/24 documented as of this encounter
--- OUTSIDE RECORDS SUMMARY | 2025-02-01 15:02 | XMS_ITS | Encounter Summary ---
Author Organization [employer] Address [address] [facility] [address] 7t [place] [address] Care Team Providers Care Quality Control Engineering Technician Name Role Phone Dory Ramírez MD Primary Care Provider + Encounter Details Date Type Department Care Team ([facility] st Contact Info) Description 02/01/2025 Orders Only [facility] [address] [place], [place] [phone] Dory Ramírez MD 230 [place], [place] [phone] Social History Tobacco Use Types Packs/Day Years [...] housing situation today? I have yifannorth rios 12/13/[address] you [...] 02/15/2025 11:30 AM EDT Office Visit [facility] [address] [place], [place] [phone] Dory Ramírez MD [address] [place], [place] [phone] documented as of this encounter Procedures Procedure Name Priority Date/Time Associated Diagnosis Comments BI US BREAST LIMITED BILATERAL Routine 02/01/2025 12:18 PM EDT documented in this encounter Results * BI US Breast Limited Bilateral (02/01/2025 12:18 PM EDT) Anatomical Region Laterality Modality Breast Bilateral Ultrasound 02/01/2025 12:1 8 PM EDT Narrative 02/01/2025 1:13 PM EDT [facility] [address] [place] [address] Ultrasound Report Signed Patient: Eliza Meléndez MR#: [id number] : 1975 Acct:[id number] Age/Sex: 49 / F ADM Date: 02/01/25 Loc: [facility] Attending Dr: Dory Ramírez MD Ordering Physician: Dory Ramírez MD Date of Service: 02/01/25 Procedure(s): US breast BI limited mamm only Accession Number(s): [id number] cc: Dory Ramírez MD Reason for Exam: [...] 02/01/25 1310 DD/ 1218 TD/TT: 02/01/25 1233 Workers' Compensation Claims Examiner: Procedure Note Donotdebbieinterpreter, Image - 02/01/2025 [facility] [address] [place], [place] [address] Ultrasound Report Signed Patient: Anahi Meléndez#: [id number] : 1975Acct:[id number] Age/Sex: 49 / FADM Date: 02/01/25 Loc: HO.MAMMO Attending Dr: Dory Ramírez MD Ordering Physician: Dory Ramírez MD Date of Service: 02/01/25 Procedure(s): US breast BI limited mamm only Accession Number(s): [id number] cc: Dory Ramírez MD Reason for Exam: [...] Almita Ferraro DO 02/01/2025 01:10 PM EDT RP Dictated By: Almita Ferraro DO Signed By: <Electronically signed by Almita Ferraro DO in OV> 02/01/25 1310 DD/ 1218 TD/TT: 02/01/25 1233 Workers' Compensation Claims Examiner: us Dory Ramírez MD IMG US PROCEDURES Final Result documented in this encounter Visit Diagnoses Not on filedocumented in this encounter Additional Health Concerns Assessment Noted Time PHQ-9 Depression Total Score: 0 12/14/19 25 11:21 AM EDT documented as of this encounter Care Teams Quality Control Engineering Technician Relationship Specialty Start Date End Date Dory Ramírez MD [address] [place] [address] PCP - General Internal Medicine 05/06/24 documented as of this encounter
--- OUTSIDE RECORDS SUMMARY | 2025-02-01 15:02 | XMS_ITS | Encounter Summary ---
Author Organization [employer] Address [address] [facility] [address] 7t [place] [address] Care Team Providers Care Water Commissioner Name Role Phone Corrine Barth Primary Care Provider +[phone] No Quach MD Primary Care Provider [phone] Luz Elena Jiménez MD Primary Care Provide r Dory Ramírez MD Primary Care Provider + Reason for Visit * Reason Comments Med Refill Encounter Details Date Type Department Care Team (Late st Contact Info) Description 09/25/2023 Refill [facility] 230 [place], [place] [phone] Corrine Barth FNP 230 [place], [place] [phone] Social History Tobacco Use Types Packs/Day Years [...] the past 12 months, has t he [employer] gas, oil or water company threatened to [...] 11:30 AM EDT Office Visit [facility] 230 [place], [place] [phone] Dory Ramírez MD 230 [place] [address] documented as of this encounter Visit Diagnoses Not on filedocumented in this encounter Additional Health Concerns Assessment Noted Time PHQ-9 Depression Total Score: 20 024 11:50 AM EDT documented as of this encounter Care Teams Water Commissioner Relationship Specialty Start Date End Date Corrine Barth FNP 230 [place], [place] [phone] PCP - General Family Medicine 11/28/22 01/25/24 oN Quach MD [address] [place] [address] [phone] PCP - General Family Medicine 01/26/24 03/29/24 Luz Elena Jiménez MD 230 [place] [address] PCP - General Internal Medicine 03/30/24 05/05/24 Dory Ramírez MD [address] [place] [address] PCP - General Internal Medicine 05/06/24 documented as of this encounter
--- OUTSIDE RECORDS SUMMARY | 2025-02-01 15:02 | XMS_ITS | Encounter Summary ---
Author Organization [employer] Address 75 [facility] 7 [place] [address] Care Team Providers Care Lap Machine Tender Name Role Phone Dory Ramírez MD Primary Care Provider + Reason for Visit * Reason Onset Date Comments Med Refill 12/01/2024 Encounter Details Date Type Department Care Team (Late st Contact Info) Description 12/01/2024 Refill [facility] [address] [place] [address] Corrine Barth, EXPLOSIVE ORDNANCE DISPOSAL TECHNICIAN [address] [facility] [place] [address] Neuropathy Social History Tobacco Use Types Packs/Day [...] Description 02/15/2025 11:30 AM EDT Office Visit [facility] [address] [place] [address] Dory Ramírez MD 230 [place] [address] documented as of this encounter Visit Diagnoses Diagnosis Neuropathy Mononeuritis of unspecified site documented in this encounter Additional Health Concerns Assessment Noted Time PHQ-9 Depression Total Score: 12 025 4:04 PM EST documented as of this encounter Care Teams Lap Machine Tender Relationship Specialty Start Date End Date Dory Ramírez MD [address] [place] [address] PCP - General Internal Medicine 05/06/24 documented as of this encounter
--- OUTSIDE RECORDS SUMMARY | 2025-02-01 15:02 | XMS_ITS | Encounter Summary ---
Author Organization [employer] Address 75 [facility] 7 [place] [address] Care Team Providers Care Cardiac Sonographer Name Role Phone Dory Ramírez MD Primary Care Provider + Reason for Visit * Reason Onset Date Comments Med Refill 12/01/2024 Encounter Details Date Type Department Care Team (Late st Contact Info) Description 12/01/2024 Refill [facility] [address] [place] [address] Corrine Barth, STRUCTURAL DESIGNER [address] [facility] [address] Social History Tobacco Use Types Packs/Day Years [...] 11:30 AM EDT Office Visit [facility] [address] [place] [address] Dory Ramírez MD 230 [place] [address] documented as of this encounter Visit Diagnoses Not on filedocumented in this encounter Additional Health Concerns Assessment Noted Time PHQ-9 Depression Total Score: 12 025 4:04 PM EST documented as of this encounter Care Teams Cardiac Sonographer Relationship Specialty Start Date End Date Dory Ramírez MD [address] [place] [address] PCP - General Internal Medicine 05/06/24 documented as of this encounter
== END 2025-02-01 11:49 | disposition home or self-care (01) ==
LOC: HO.MAMMO 11:48
PROVIDERS: PCP Internal Medicine; Visit Provider Internal Medicine
DX: N64.4 Mastodynia (principal)
CPT/HCPCS: 76642; 77062; 77066

== ENCOUNTER → 2025-02-01 12:30 | Outpatient (BNV) | payer MEDICARE, SELFPAY | PROVIDERS: PCP Internal Medicine; Visit Provider Internal Medicine | DX: N63.22 Unspecified lump in the left breast, upper inner quadrant (principal); N63.11 Unspecified lump in the right breast, upper outer quadrant | CPT/HCPCS: 76642; 77066; G0279 ==

== ENCOUNTER 2025-02-03 13:57 | Outpatient (AMB) | payer MEDICARE, SELFPAY ==
--- NOTE | 2025-02-03 14:00 | A.OFFVIS_ITS ---
Vital Signs 02/03/25 14:01 Height 5 ft 4 in Weight 236 lb BMI 40.5 BP 122/84 Blood Pressure Location Rt brachial Position Sitting Respiration 16 Pulse 75 Pulse Source Pulse Oximeter Pulse Oximetry (%) 99 Oxygen Delivery Method Room Air Intake Visit Reasons: Left Leg Pain Framework Developer Required: Yes Framework Developer Name: Tori [id number] Accompanied by: Self / Same As Patient Allergies methotrexate Allergy (Intermediate, Verified 02/03/25 14:02) rash HPI Comments Details: Visit completed with language interpreter Tori [id number]. The patient is a 49-year-old female presenting with chronic pain in the sacroiliac joint region. The pain has been persistent and has not improved with previous physical therapy sessions. The patient reports that the pain is worse on the left side and radiates posteriorly down the thigh to the knee. The pain is exacerbated by prolonged sitting, driving, and lying down in various positions. The patient describes the pain as severe and impacting daily activities, requiring frequent changes in position to alleviate discomfort. Previous interventions included injections including left therapeutic sacroiliac joint injection performed 10/2023 with 80% pain relief. The patient has also tried lkrm-pzh-oxolmln medications such as Tylenol and ibuprofen, along with heat application, with limited success. - Onset: Chronic pain persisting despite physical therapy - Quality: Severe pain with a sensation of a bump in the affected area - Location: Primarily on the left side, radiating to the left leg - Exacerbating factors: Prolonged sitting, driving, lying down - Relieving factors: Frequent changes in position - Affect: Pain significantly impacts daily activities and requires frequent position changes - Analgesia: Previous injections provided temporary relief; current use of Tylenol and ibuprofen with limited success - Activities of Daily Living: Pain interferes with sitting, driving, and sleeping [facility] Medical History History of latent tuberculosis Osteoarthritis of left knee Osteoarthritis of right knee History of high blood pressure Low back pain, unspecified Fibromyalgia Seropositive rheumatoid arthritis Morbid obesity with BMI of 45.0-49.9, adult Surgical History History of surgery Hx of section Family History (Updated 11/09/24 @ 09:09 by KIARA Nicole) Father Diabetes Hypertension Cancer Mother Diabetes Hypertension Rheumatoid arthritis Kidney transplant recipient Sister Thyroid disease Social History Household Members: Spouse and Children Housing: Apartment Alcohol intake: never Patient Tobacco Use Status: Never used Tobacco Female Reproductive History Menstrual Age of Menarche: 12 Review of Systems Const Details: - Musculoskeletal: Reports chronic pain in the sacroiliac joint region, radiating to the left leg - Musculoskeletal: Denies anterior pain Physical Exam Exam Exam: General: awake, alert, oriented. Answers questions appropriately. Fully engaged in examination. Skin: warm, dry, intact HEENT: Normocephalic. Hearing intact. Cardiac: External chest normal in appearance. Respiratory: No cough, audible wheezing or stridor. Abdomen: without gross distension. MS: No obvious swelling or deformities. Able to transition from sit to stand unassisted. Ambulates with bilaterally normal heel strike and toe off SLR negative bilaterally Bilateral lower extremity strength 5/5 Bilateral SI: Gaenslen positive, thigh thrust positive, tenderness over bilateral PSIS, SI compression positive Neurological: Oriented to person, place, time and situation. Thought process intact. No gait abnormalities appreciated. Psychiatric: Appropriate mood and affect. Good judgment and insight. Vital Signs: Last Vital Signs Pulse 75 02/03/25 14:01 Resp 16 02/03/25 14:01 BP 122/84 02/03/25 14:01 Pulse Ox 99 02/03/25 14:01 Oxygen Delivery Method Room Air 02/03/25 14:01 BMI result Body Mass Index 40.5 Results Reviewed Results Reviewed: 10/27/2022 EXAMINATION: XR LUMBOSACRAL SPINE WITH OBLIQUES FINDINGS: The vertebral bodies and posterior elements appear unremarkable. Mild disc degenerative change at L4-L5 and L5-S1. The vertebral alignment appears unremarkable. The paraspinal soft tissues appear unremarkable. IMPRESSION: Mild disc degenerative change at L4-L5 and L5-S1.? Assessment & Plan Assessment & Plan (1) Sacroiliac joint dysfunction of both sides: Code(s): M53.3 - Sacrococcygeal disorders, not elsewhere classified Category: Medical (2) Sacroiliac joint dysfunction of left side: Code(s): M53.3 - Sacrococcygeal disorders, not elsewhere classified Category: Medical Plan The plan involves administering test injections with numbing medication to confirm the source of pain in the sacroiliac joint. If the test injections provide relief, subsequent injections with steroids will be considered for longer-term pain management. The patient is advised to perform stretching exercises targeting the sacroiliac joints to aid in pain relief. A muscle relaxer prescription will be refilled, with instructions to avoid driving or consuming alcohol while taking it. The patient will be contacted to schedule the injections once insurance approval is obtained. Will schedule for fluoroscopy guided bilateral diagnostic sacroiliac joint injections with local anesthetic. Patient was informed and verbally consented to the use of an ambient scribe for clinic note documentation during this visit. Medications: Refilled tizanidine 2 mg PO TID 90 tabs 1RF muscle spasticity Coding Level of Care Code Est Pt Level 3 (30970) Complex EM visit Add On G2211 Diagnoses Sacroiliac joint dysfunction of both sides M53.3 Sacroiliac joint dysfunction of left side M53.3
[2025-02-03 14:01] VITALS: BP 122/84; PULSE 75; RESP 16; O2SAT 99; BMI 40.5
--- OUTSIDE RECORDS SUMMARY | 2025-02-03 16:55 | XMS_ITS | Encounter Summary ---
Author Organization [employer] Address [address] [facility] [address] 7 [place] [address] Care Team Providers Care Home Weatherizing Worker Name Role Phone Dory Ramírez MD Primary Care Provider + Reason for Visit * Reason Onset Date Comments Med Refill 12/01/2024 Encounter Details Date Type Department Care Team (Late st Contact Info) Description 12/01/2024 Refill [facility] [address] [place], [place] [phone] Corrine Barth FNP [address] [place], [place] [phone] Social History Tobacco Use Types Packs/Day Years [...] with others, in a hotel, in a long term, living outside on the street, on a [...] 02/15/2025 11:30 AM EDT Office Visit [facility] [address] [place] [address] Dory Ramírez MD 230 [place] [address] documented as of this encounter Visit Diagnoses Not on filedocumented in this encounter Additional Health Concerns Assessment Noted Time PHQ-9 Depression Total Score: 12 025 4:04 PM EST documented as of this encounter Care Teams Home Weatherizing Worker Relationship Specialty Start Date End Date Dory Ramírez MD [address] [place] [address] PCP - General Internal Medicine 05/06/24 documented as of this encounter
--- OUTSIDE RECORDS SUMMARY | 2025-02-03 16:55 | XMS_ITS | Encounter Summary ---
Author Organization [employer] Address [address] [facility] [address] 7t [place] [address] Care Team Providers Care Automatic Casting Machine Operator Name Role Phone Corrine Barth Primary Care Provider +1-2 No Quach MD Primary Care Provider Luz Elena Jiménez MD Primary Care Provide r Dory Ramírez MD Primary Care Provider + Reason for Visit * Reason Onset Date Comments Med Refill 03/09/2023 Encounter Details Date Type Department Care Team (Late st Contact Info) Description 03/09/[address] [facility] [address] [place], [place] [phone] Corrine Barth FNP [address] [place], [place] [phone] Neuropathy Social History Tobacco Use Types Packs/Day [...] 11:30 AM EDT Office Visit [facility] [address] [place] [address] Dory Ramírez MD [address] [place] [address] documented as of this encounter Visit Diagnoses Diagnosis Neuropathy Mononeuritis of unspecified site documented in this encounter Additional Health Concerns Assessment Noted Time PHQ-9 Depression Total Score: 8 08/30/19 23 2:28 PM EDT documented as of this encounter Care Teams Automatic Casting Machine Operator Relationship Specialty Start Date End Date Corrine Barth FNP [address] [place] [address] PCP - General Family Medicine 11/28/22 01/25/24 No Quach MD [address] [place] [address] PCP - General Family Medicine 01/26/24 03/29/24 Luz Elena Jiménez MD [address] [place] [address] PCP - General Internal Medicine 03/30/24 05/05/24 Dory Ramírez MD [address] [place] [address] PCP - General Internal Medicine 05/06/24 documented as of this encounter
--- OUTSIDE RECORDS SUMMARY | 2025-02-03 16:55 | XMS_ITS | Encounter Summary ---
Author Organization [employer] Address [address] [facility] [address] 7t [place] [address] Care Team Providers Care Conductor Freight Name Role Phone Corrine Barth Primary Care Provider +2 No Quach MD Primary Care Provider [phone] Luz Elena Jiménez MD Primary Care Provide r Dory Ramírez MD Primary Care Provider + Reason for Visit * Reason Comments Med Refill Encounter Details Date Type Department Care Team (Late st Contact Info) Description 09/25/2023 Refill [facility] [address] [place], [place] [phone] Corrine Barth FNP 230 [place], [place] [phone] Social History Tobacco Use Types Packs/Day Years [...] the past 12 months, has t he localbacon, gas, oil or water company threatened to [...] 02/15/2025 11:30 AM EDT Office Visit [facility] 230 [place], [place] [phone] Dory Ramírez MD 230 [place] [address] documented as of this encounter Visit Diagnoses Not on filedocumented in this encounter Additional Health Concerns Assessment Noted Time PHQ-9 Depression Total Score: 20 024 11:50 AM EDT documented as of this encounter Care Teams Conductor Freight Relationship Specialty Start Date End Date Corrine Barth FNP 230 [place], [place] [phone] PCP - General Family Medicine 11/28/22 01/25/24 No Quach MD [address] [place] [phone] PCP - General Family Medicine 01/26/24 03/29/24 Luz Elena Jiménez MD 230 [place] [address] PCP - General Internal Medicine 03/30/24 05/05/24 Dory Ramírez MD 230 [place] [address] PCP - General Internal Medicine 05/06/24 documented as of this encounter
--- OUTSIDE RECORDS SUMMARY | 2025-02-03 16:55 | XMS_ITS | Encounter Summary ---
Author Organization [employer] Address [address] [facility] [address] 7t [place] [address] Care Team Providers Care Tube Dispatcher Name Role Phone Corrine Barth Primary Care Provider + No Quach MD Primary Care Provider Luz Elena Jiménez MD Primary Care Provide r Dory Ramírez MD Primary Care Provider + Reason for Visit * Reason Onset Date Comments Med Refill 03/09/2023 Encounter Details Date Type Department Care Team (Late st Contact Info) Description 03/09/2023 Refill [facility] [address] [place] [address] Corrine Barth FNP [address] [place], [place] [phone] Social History Tobacco Use Types Packs/Day Years Used Date Smoking Tobacco: Never Passive Smoke Exposure: Never Smokeless Tobacco: Never Alcohol Use Standard Drinks/Week Comments Never 0 (1 standard drink = 0.6 oz pur e alcohol) Depression Answer Date Recorded Patient Health Questionnaire-9 Score 8 08/29/2022 Housing Stability Answer Date Recorded What is your housing situation today? I have yifan iros 03/09/[address] you li [...] Description 02/15/2025 11:30 AM EDT Office Visit [facility] 230 [place] [address] Dory Ramírez MD [address] [place] [address] documented as of this encounter Visit Diagnoses Not on filedocumented in this encounter Additional Health Concerns Assessment Noted Time PHQ-9 Depression Total Score: 8 08/30/19 23 2:28 PM EDT documented as of this encounter Care Teams Tube Dispatcher Relationship Specialty Start Date End Date Corrine Barth FNP [address] [place] [address] PCP - General Family Medicine 11/28/22 01/25/24 No Quach MD [address] [place] [address] PCP - General Family Medicine 01/26/24 03/29/24 Luz Elena Jiménez MD 230 [place] [address] PCP - General Internal Medicine 03/30/24 05/05/24 Dory Ramírez MD 230 [place] [address] PCP - General Internal Medicine 05/06/24 documented as of this encounter
--- OUTSIDE RECORDS SUMMARY | 2025-02-03 16:55 | XMS_ITS | Encounter Summary ---
Author Organization [employer] Address [address] [facility] [address] 7t [place] [address] Care Team Providers Care Mechatronics Technician Name Role Phone Corrine Barth Primary Care Provider +2 No Quach MD Primary Care Provider Luz Elena Jiménez MD Primary Care Provide r Dory Ramírez MD Primary Care Provider + Reason for Visit * Reason Onset Date Comments Med Refill 03/09/2023 Encounter Details Date Type Department Care Team (Late st Contact Info) Description 03/09/2023 Refill [facility] P[facility] [address] [place] [address] Corrine Barth FNP [address] [place], [place] [phone] Social History Tobacco Use Types Packs/Day Years [...] EDT Office Visit [facility] 230 [place] [address] Dory Ramírez MD [address] [place] [address] documented as of this encounter Visit Diagnoses Not on filedocumented in this encounter Additional Health Concerns Assessment Noted Time PHQ-9 Depression Total Score: 8 08/30/19 23 2:28 PM EDT documented as of this encounter Care Teams Mechatronics Technician Relationship Specialty Start Date End Date Corrine Barth FNP [address] [place] [address] PCP - General Family Medicine 11/28/22 01/25/24 No Quach MD [address] [place] [address] PCP - General Family Medicine 01/26/24 03/29/24 Luz Elena Jiménez MD 230 [place] [address] PCP - General Internal Medicine 03/30/24 05/05/24 Dory Ramírez MD 230 [place] [address] PCP - General Internal Medicine 05/06/24 documented as of this encounter
--- OUTSIDE RECORDS SUMMARY | 2025-02-03 16:55 | XMS_ITS | Encounter Summary ---
Author Organization [employer] Address [address] [facility] 7 [place] [address] Care Team Providers Care Video Producer Name Role Phone Dory Ramírez MD Primary Care Provider + Reason for Visit * Reason Onset Date Comments Med Refill 12/01/2024 Encounter Details Date Type Department Care Team (Late st Contact Info) Description 12/01/2024 Refill [facility] & PEDS [address] [place] [address] Corrine Barth, DRYING MACHINE TENDER [address] [facility] [place] [address] Neuropathy Social History Tobacco Use Types Packs/Day [...] Description 02/15/2025 11:30 AM EDT Office Visit [facility] [address] [place] [address] Dory Ramírez MD 230 [place] [address] documented as of this encounter Visit Diagnoses Diagnosis Neuropathy Mononeuritis of unspecified site documented in this encounter Additional Health Concerns Assessment Noted Time PHQ-9 Depression Total Score: 12 025 4:04 PM EST documented as of this encounter Care Teams Video Producer Relationship Specialty Start Date End Date Dory Ramírez MD [address] [place] [address] PCP - General Internal Medicine 05/06/24 documented as of this encounter
--- OUTSIDE RECORDS SUMMARY | 2025-02-03 16:55 | XMS_ITS | Encounter Summary ---
Author Organization [employer] Address 75 [facility] 7 [place] [address] Care Team Providers Care Credit Verifier Name Role Phone Dory Ramírez MD Primary Care Provider + Reason for Visit * Reason Onset Date Comments Med Refill 12/01/2024 Encounter Details Date Type Department Care Team (Late st Contact Info) Description 12/01/2024 Refill [facility] [address] [place] [address] Corrine Barth, CNC SPECIALIST [address] [facility] [place] [address] Social History Tobacco Use Types Packs/Day Years [...] Description 02/15/2025 11:30 AM EDT Office Visit [facility] MEDICINE [address] [place] [address] Dory Ramírez MD 230 [place] [address] documented as of this encounter Visit Diagnoses Not on filedocumented in this encounter Additional Health Concerns Assessment Noted Time PHQ-9 Depression Total Score: 12 025 4:04 PM EST documented as of this encounter Care Teams Credit Verifier Relationship Specialty Start Date End Date Dory Ramírez MD [address] [place] [address] PCP - General Internal Medicine 05/06/24 documented as of this encounter
--- OUTSIDE RECORDS SUMMARY | 2025-02-03 16:55 | XMS_ITS | Encounter Summary ---
Author Organization [employer] Address [address] [facility] [address] 7 [place] [address] Care Team Providers Care Clearing Hand Name Role Phone Dory Ramírez MD Primary Care Provider + Reason for Visit * Reason Onset Date Comments Appointment Request 05/06/2024 Encounter Details Date Type Department Care Team ([facility] st Contact Info) Description 05/06/2024 Telephone [facility] 230 [place], [place] [phone] Luz Elena Jiménez MD 230 [place], [place] [phone] Appointment Request Social History Tobacco Use Types [...] TP apt from 05/06. Contact pt at [phone] documented in this encounter Plan of Treatment Upcoming Encounters Date Type Department Care Team (Late st Contact Info) Description 02/15/2025 11:30 AM EDT Office Visit [facility] [address] [place] [address] Dory Ramírez MD 230 [place] [address] documented as of this encounter Visit Diagnoses Not on filedocumented in this encounter Additional Health Concerns Assessment Noted Time PHQ-9 Depression Total Score: 11 024 9:38 AM EDT documented as of this encounter Care Teams Clearing Hand Relationship Specialty Start Date End Date Dory Ramírez MD [address] [place] [address] PCP - General Internal Medicine 05/06/24 documented as of this encounter
--- OUTSIDE RECORDS SUMMARY | 2025-02-03 16:55 | XMS_ITS | Encounter Summary ---
Author Organization [employer] Address [address] [facility] [address] 7t [place] [address] Care Team Providers Care Relief Captain Name Role Phone Corrine Barth Primary Care Provider +[phone] No Quach MD Primary Care Provider Luz Elena Jiménez MD Primary Care Provide r Dory Ramírez MD Primary Care Provider + Reason for Visit * Reason Onset Date Comments Med Refill 10/27/2023 Encounter Details Date Type Department Care Team (Late st Contact Info) Description 10/27/2023 Refill [facility] PED[facility] [address] [place] [address] Corrine Barth FNP [address] [place], [place] [phone] Social History Tobacco Use Types Packs/Day Years [...] Description 02/15/2025 11:30 AM EDT Office Visit [facility] MED[facility] 230 [place], [place] [phone] Dory Ramírez MD 230 [place] [address] documented as of this encounter Visit Diagnoses Not on filedocumented in this encounter Additional Health Concerns Assessment Noted Time PHQ-9 Depression Total Score: 20 024 9:51 AM EDT documented as of this encounter Care Teams Relief Captain Relationship Specialty Start Date End Date Corrine Barth FNP 230 [place], [place] [phone] PCP - General Family Medicine 11/28/22 01/25/24 No Quach MD 230 [place], [place] [phone] PCP - General Family Medicine 01/26/24 03/29/24 Luz Elena Jiménez MD 230 [place] [address] PCP - General Internal Medicine 03/30/24 05/05/24 Dory Ramírez MD 230 [place] [address] PCP - General Internal Medicine 05/06/24 documented as of this encounter
--- OUTSIDE RECORDS SUMMARY | 2025-02-03 16:55 | XMS_ITS | Encounter Summary ---
Author Organization [employer] Address [address] [facility] 7 [place] [address] Care Team Providers Care Pie Baker Name Role Phone Dory Ramírez MD Primary Care Provider + Reason for Visit * Reason Onset Date Comments Med Refill 12/01/2024 Encounter Details Date Type Department Care Team (Late st Contact Info) Description 12/01/2024 Refill [facility] MED[facility] 230 [place], [place] [phone] Dory Ramírez MD 230 [place], [place] [phone] Social History Tobacco Use Types Packs/Day Years [...] 02/15/2025 11:30 AM EDT Office Visit [facility] MEDICINE [address] [place] [address] Dory Ramírez MD [address] [place] [address] documented as of this encounter Visit Diagnoses Not on filedocumented in this encounter Additional Health Concerns Assessment Noted Time PHQ-9 Depression Total Score: 12 025 4:04 PM EST documented as of this encounter Care Teams Pie Baker Relationship Specialty Start Date End Date Dory Ramírez MD [address] [place] [address] PCP - General Internal Medicine 05/06/24 documented as of this encounter
--- OUTSIDE RECORDS SUMMARY | 2025-02-03 16:55 | XMS_ITS | Encounter Summary ---
Author Organization [employer] Address [address] [facility] [facility] [address] [place] [address] Care Team Providers Care Gathering Worker Name Role Phone Corrine Barth Primary Care Provider [phone] Quach MD Primary Care Provider Luz Elena Jiménez MD Primary Care Provide r Dory Ramírez MD Primary Care Provider + Reason for Visit * Reason Onset Date Comments Med Refill 10/27/2023 Encounter Details Date Type Department Care Team (Late st Contact Info) Description 10/27/2023 Refill [facility] [address] [place], [place] [phone] Corrine Barth FNP [address] [place], [place] [phone] Social History Tobacco Use Types Packs/Day Years [...] Office Visit [facility] [address] [place], [place] [phone] Dory Ramírez MD [address] [place] [address] documented as of this encounter Visit Diagnoses Not on filedocumented in this encounter Additional Health Concerns Assessment Noted Time PHQ-9 Depression Total Score: 20 024 9:51 AM EDT documented as of this encounter Care Teams Gathering Worker Relationship Specialty Start Date End Date Corrine Barth FNP [address] [place], [place] [phone] PCP - General Family Medicine 11/28/22 01/25/24 No Quach MD [address] [place], [place] [phone] PCP - General Family Medicine 01/26/24 03/29/24 Luz Elena Jiménez MD [address] [place] [address] PCP - General Internal Medicine 03/30/24 05/05/24 Dory Ramírez MD [address] [place] [address] PCP - General Internal Medicine 05/06/24 documented as of this encounter
--- OUTSIDE RECORDS SUMMARY | 2025-02-03 16:55 | XMS_ITS | Encounter Summary ---
Author Organization [employer] Address [address] [facility] 7 [place] [address] Care Team Providers Care Jewelry Internship Name Role Phone Dory Ramírez MD Primary Care Provider + Reason for Visit * Reason Onset Date Comments Med Refill 12/01/2024 Encounter Details Date Type Department Care Team (Late st Contact Info) Description 12/01/2024 Refill [facility] [address] [place], [place] [phone] Dory Ramírez MD [address] [place], [place] [phone] Social History Tobacco Use Types Packs/Day Years [...] [facility] [address] [place] [phone] Dory Ramírez MD [address] [place] [phone] documented as of this encounter Visit Diagnoses Not on filedocumented in this encounter Additional Health Concerns Assessment Noted Time PHQ-9 Depression Total Score: 12 025 4:04 PM EST documented as of this encounter Care Teams Jewelry Internship Relationship Specialty Start Date End Date Dory Ramírez MD [address] [place] [phone] PCP - General Internal Medicine 05/06/24 documented as of this encounter
--- OUTSIDE RECORDS SUMMARY | 2025-02-03 16:55 | XMS_ITS | Encounter Summary ---
Author Organization [employer] Address [address] [facility] 7 [place] [address] Care Team Providers Care Fire Equipment Inspector Name Role Phone Dory Ramírez MD Primary Care Provider + Reason for Visit * Reason Onset Date Comments Med Refill 12/01/2024 Encounter Details Date Type Department Care Team (Late st Contact Info) Description 12/01/2024 Refill [facility] [address] [place] [address] Corrine Barth, THEATER TECHNICIAN [address] [facility] [address] Social History Tobacco Use Types Packs/Day Years [...] Office Visit [facility] [address] [place] [phone] Dory Ramírez MD 230 [place] [address] documented as of this encounter Visit Diagnoses Not on filedocumented in this encounter Additional Health Concerns Assessment Noted Time PHQ-9 Depression Total Score: 12 025 4:04 PM EST documented as of this encounter Care Teams Fire Equipment Inspector Relationship Specialty Start Date End Date Dory Ramírez MD [address] [place] [phone] PCP - General Internal Medicine 05/06/24 documented as of this encounter
--- OUTSIDE RECORDS SUMMARY | 2025-02-03 16:55 | XMS_ITS | Encounter Summary ---
Author Organization [employer] Address [address] [facility] [address] [place] [address] Care Team Providers Care Interior Block Wirer Name Role Phone oDry Ramírez MD Primary Care Provider + Encounter Details Date Type Department Care Team ([facility] st Contact Info) Description 02/01/2025 Orders Only [facility] [address] [place], [place] [phone] Dory Ramírez MD 230 [place], [place] [phone] Social History Tobacco Use Types Packs/Day Years [...] Description 02/15/2025 11:30 AM EDT Office Visit [facility] [address] [place], [place] [phone] Dory Ramírez MD [address] [place], [place] [phone] documented as of this encounter Procedures Procedure Name Priority Date/Time Associated Diagnosis Comments BI US BREAST LIMITED BILATERAL Routine 02/01/2025 12:18 PM EDT documented in this encounter Results * BI US Breast Limited Bilateral (02/01/2025 12:18 PM EDT) Anatomical Region Laterality Modality Breast Bilateral Ultrasound 02/01/2025 12:1 8 PM EDT Narrative 02/01/2025 1:13 PM EDT [facility] [address] [place] [address] Ultrasound Report Signed Patient: Eliza Meléndez MR#: [id number] 547 : 1975 Acct:[id number] Age/Sex: 49 / F ADM Date: 02/01/25 Loc: NICHOLAS Attending Dr: Dory Ramírez MD Ordering Physician: Dory Ramírez MD Date of Service: 02/01/25 Procedure(s): US breast BI limited mamm only Accession Number(s): [id number] cc: Dory Ramírez MD Reason for Exam: [...] 02/01/25 1310 DD/ 1218 TD/TT: 02/01/25 1233 Assessment Rn: Procedure Note Donotdebbieinterpreter, Image - 02/01/2025 [facility] [address] [place], [place] [address] Ultrasound Report Signed Patient: Anahi Meléndez#: [id number] 547 : 1975Acct:[id number] Age/Sex: 49 / FADM Date: 02/01/25 Loc: HO.MAMMO Attending Dr: Dory Ramírez MD Ordering Physician: Dory Ramírez MD Date of Service: 02/01/25 Procedure(s): US breast BI limited mamm only Accession Number(s): [id number] cc: Dory Ramírez MD Reason for Exam: [...] 02/01/25 1310 DD/ 1218 TD/TT: 02/01/25 1233 Assessment Rn: us Dory Ramírez MD IMG US PROCEDURES Final Result documented in this encounter Visit Diagnoses Not on filedocumented in this encounter Additional Health Concerns Assessment Noted Time PHQ-9 Depression Total Score: 0 12/14/19 25 11:21 AM EDT documented as of this encounter Care Teams Interior Block Wirer Relationship Specialty Start Date End Date Dory Ramírez MD [address] [place] [phone] PCP - General Internal Medicine 05/06/24 documented as of this encounter
--- OUTSIDE RECORDS SUMMARY | 2025-02-03 16:55 | XMS_ITS | Clinical Summary ---
Author Organization [employer] Address [address] [facility] [address] [place] [address] Care Team Providers Care Technical Document Writer Name Role Phone Dory Ramírez MD Primary [...] 180 tablet 3 12/02/19 25 Active rizatriptan EMS MANAGER (Maxalt-EMS MANAGER) 5 MG disintegrating tablet DISSOLVE 1 TABLET [...] status post INH, will obtain records from marketing information manager. Order CXR. Mastalgia 09/13/2024 Assessment & Plan [...] and Tylenol as needed and follow-up with marketing information manager Migraine with aura 11/04/2020 Palpitations 01/11/2020 Overview (07/20/2024): Holter monitor on 01/19/2020 was within normal limits, average rhythm was NSR at 61-116 bpm Diastolic heart failure 12/23/2019 Overview (07/20/2024): Echo on 12/23/2019 at [facility] showed normal LVEF and no wall abnormalities, essentially normal echo. Nuclear stress test on 12/23/2019 was negative for ischemia, no arrhythmias and normotensive response to test Patient last seen at [facility] cardiology by Penelope Bhakta NP Assessment & [...] on Humira twice per month, follow-up with marketing information manager Will retrieve recent labs from [facility]. COVID influenza and pneumonia immunizations are [...] to follow-up with counselor, will refer to assistant case manager to help her with housing [...] Department Care Team Description 02/01/2025 Orders Only [facility] [address] [place] [phone] Dory Ramírez MD 12/31/2024 9:20 AM EDT Office Visit [facility] [address] [place] [phone] Luz Elena Jiménez MD Tooth infection; Open fracture of tooth, initial encounter 12/31/2024 Travel 12/13/2024 11:30 AM EDT Office Visit [address] [address] Dory Ramírez MD Mastalgia (Primary Dx); Class 3 severe obesity with serious comorbidity and body mass index (BMI) of 40.0 to 44.9 in adult; Recurrent major depressive episodes (CMS/HCC); TB lung, latent; Fibromyalgia 12/13/2024 Patient Outreach [facility] [address] [place] [phone] Dory Ramírez MD Care Coordination (CHW outreach for SDOH PT-1 and food needs-referral completed /) 12/13/2024 Travel 12/10/2024 Telephone [facility] [address] [place] [phone] Dory Ramírez MD Chart Prep 12/01/2024 Refill [facility] [address] [place] [address] Corrine Barth FNP Neuropathy 12/01/2024 Refill [facility] [address] [place] [phone] Corrine Barth FNP 12/01/2024 Refill [facility] [address] [place] [address] Corrine Barth OUTSOLES CHANNEL OPENER 12/01/2024 Refill [facility] [address] [place] [address] Corrine Barth FNP Neuropathy 12/01/2024 Refill [facility] [address] [place] [address] Corrine Barth FNP 12/01/2024 Refill [facility] [address] [place] [address] Dory Ramírez MD 12/01/2024 Refill [facility] [address] [place] [address] Dory Ramírez MD 11/23/2024 Refill [facility] [address] [place] [address] Dory Ramírez MD 11/16/2024 Telephone [facility] [address] [place] [phone] Dory Ramírez MD Call Back Request 11/15/2024 Results Follow-Up [facility] [address] [place] [phone] Dory Ramírez MD Complete Blood Count Manual [...] 11:30 AM EDT Office Visit [facility] [address] [place] [address] Dory Ramírez MD [address] [place] [address] Health Maintenance Due Date Last Done Comments CT Colonography 1975 Colonoscopy 1975 Colorectal Cancer Screening 1975 FIT DNA/Cologuard 1975 FIT 1975 FOBT 1975 HIV Screening 1975 Sigmoidoscopy 1975 Family Planning (PISQ) 11/09/1991 Pneumococcal Vaccine: Pediatrics (0 to 5 Years) and At-Risk Patients (6 to 49) Years (1 of 2 - PCV) 11/09/1995 Pap Smear 1997 Cervical Cancer Screening 2006 HPV/Cotest 2006 Influenza Vaccine (#1) 2025 , 03/04/2023, 02/07/2022, Additional history exists Lipid Panel 10/31/2025 10/31/2020 Alcohol/Substance Use Screening 12/13/2025 12/13/2024 Depression Screening 12/13/2025 12/13/2024, 12/14/19 Disability Screening 12/13/2025 12/13/2024 SDOH Screening 12/13/2025 12/13/2024 Tobacco Screening 12/13/2025 12/13/2024 Mammogram 02/01/2026 02/01/2025, 01/23, 03/19/2021, Additional history exists DTaP/Tdap/Td Vaccines (3 - Td or Tdap) [...] PM EDT Narrative 02/01/2025 1:13 PM EDT [address] [place], [place] [address] Ultrasound Report Signed Patient: Eliza Meléndez MR#: [id number] 547 : 1975 Acct:[id number] Age/Sex: 49 / F ADM Date: 02/01/25 Loc: HO.MAMMO Attending Dr: Dory Ramírez MD Ordering Physician: Dory Ramírez MD Date of Service: 02/01/25 Procedure(s): US breast BI limited mamm only Accession Number(s): [id number] cc: Dory Ramírez MD Reason for Exam: [...] 02/01/25 1310 DD/ 1218 TD/TT: 02/01/25 1233 Electronics Lead: Procedure Note Donotuseinterpreter, Image - 02/01/2025 [facility] [address] [place] [address] Ultrasound Report Signed Patient: Anahi Meléndez#: [id number] 547 : 1975Acct:[id number] Age/Sex: 49 / FADM Date: 02/01/25 Loc: HO.MAMMO Attending Dr: Dory Ramírez MD Ordering Physician: Dory Ramírez MD Date of Service: 02/01/25 Procedure(s): US breast BI limited mamm only Accession Number(s): [id number] cc: Dory Ramírez MD Reason for Exam: [...] 02/01/25 1310 DD/ 1218 TD/TT: 02/01/25 1233 Electronics Lead: us Dory Ramírez MD IMG US PROCEDURES Final Result * BI Mammogram Diagnostic Tomosynthesis Bilateral (02/01/2025 11:55 AM EDT) Anatomical Region Laterality Modality Breast Bilateral Mammography 02/01/2025 11:5 5 AM EDT Narrative 02/01/2025 1:13 PM EDT [address] [place] [address] Mammography Report Signed Patient: Eliza Meléndez MR#: [id number] 547 : 1975 Acct:[id number] Age/Sex: 49 / F ADM Date: 02/01/25 Loc: HO.MAMMO Attending Dr: Dory Ramírez MD Ordering Physician: Dory Ramírez MD Results: 1Ne gative Date of Service: 02/01/25 Follow Up: 1 Year From [facility] Mammogram Procedure(s): MM tomosynthesis diagnostic BI Accession Number(s): [id number] cc: Dory Ramírez MD EXAMINATION: MM DIAGNOSTIC [...] 02/01/25 1310 DD/ 1155 TD/TT: 02/01/25 1215 Electronics Lead: Procedure Note Donotuseinterpreter, Image - 02/01/2025 [facility] [address] [place] [address] [place] [address] Mammography Report Signed Patient: Anahi Meléndez#: [id number] 547 : 1975Acct:[id number] Age/Sex: 49 / FADM Date: 02/01/25 Loc: COLLINSO Attending Dr: Dory Ramírez MD Ordering Physician: Dory Ramírez MDResults: 1Ne gative Date of Service: 02/01/25Follow Up: 1 Year From [facility] Mammogram Procedure(s): MM tomosynthesis diagnostic BI Accession Number(s): [id number] cc: Dory Ramírez MD EXAMINATION: MM DIAGNOSTIC [...] 02/01/25 1310 DD/ 1155 TD/TT: 02/01/25 1215 Electronics Lead: Dory Ramírez MD IMG BI PROCEDURES Final Result * XR Chest 2 Views (01/24/2025 2:53 PM EDT) Anatomical Region Laterality Modality Chest Radiographic Venessa ging 01/24/2025 2:53 PM EDT Narrative 01/24/2025 3:53 PM EDT [address] [address] XRay Report Signed Patient: Eliza Meléndez MR#: [id number] 547 : 1975 Acct:[id number] Age/Sex: 49 / F ADM Date: 01/24/25 Loc: JEANCBradley Attending Dr: Dory Ramírez MD Ordering Physician: Dory Ramírez MD Date of Service: 01/24/25 Procedure(s): XR chest 2V Accession Number(s): [id number] cc: Dory Ramírez MD Reason for Exam: [...] 01/24/25 1550 DD/ 1453 TD/TT: 01/24/25 1545 Electronics Lead: Procedure Note Donotuseinterpreter, Image - 01/24/[address] [address] XRay Report Signed Patient: Angel MeléndezR#: [id number] 547 : 1975Acct:[id number] Age/Sex: 49 / FADM Date: 01/24/25 Loc: HHCX Attending Dr: Dory Ramírez MD Ordering Physician: Dory Ramírez MD Date of Service: 01/24/25 Procedure(s): XR chest 2V Accession Number(s): [id number] cc: Dory Ramírez MD Reason for Exam: [...] 01/24/25 1550 DD/ 1453 TD/TT: 01/24/25 1545 Electronics Lead: Dory Ramírez MD IMG XR PROCEDURES Final Result * XR Lumbar Spine 2-3 Views (11/07/2024 5:00 PM EDT) Anatomical Region Laterality Modality Spine, L-spine Radiographic Venessa ging 11/07/2024 5:00 PM EDT Narrative 11/07/2024 6:04 PM EDT [place] [address] XRay Report Signed Patient: Eliza Meléndez MR#: [id number] 547 : 1975 Acct:[id number] Age/Sex: 48 / F ADM Date: 11/07/24 Loc: DANYELLE Attending Dr: Dory Ramírez MD Ordering Physician: Dory Ramírez MD Date of Service: 11/07/24 Procedure(s): XR lumbar spine 2-3V Accession Number(s): [id number] cc: Dory Ramírez MD EXAMINATION: XR LUMBOSACRAL [...] 11/07/24 1801 DD/ 1700 TD/TT: 11/07/24 1715 Electronics Lead: Procedure Note Donotuseinterpreter, Image - 11/07/[address] [address] XRay Report Signed Patient: Anahi Meléndez#: [id number] 547 : 1975Acct:[id number] Age/Sex: 48 / FADM Date: 11/07/24 Loc: HO.GARRETTAY Attending Dr: Dory Ramírez MD Ordering Physician: Dory Ramírez MD Date of Service: 11/07/24 Procedure(s): XR lumbar spine 2-3V Accession Number(s): [id number] cc: Dory Ramírez MD EXAMINATION: XR LUMBOSACRAL [...] 11/07/24 1801 DD/ 1700 TD/TT: 11/07/24 1715 Electronics Lead: Dory Ramírez MD IMG XR PROCEDURES Final Result * XR Thoracic Spine 3 Views (11/07/2024 5:00 PM EDT) Anatomical Region Laterality Modality Spine, T-spine Radiographic Venessa ging 11/07/2024 5:00 PM EDT Narrative 11/07/2024 6:05 PM EDT [place] [address] XRay Report Signed Patient: Eliza Meléndez MR#: [id number] 547 : 1975 Acct:[id number] Age/Sex: 48 / F ADM Date: 11/07/24 Loc: DANYELLE Attending Dr: Dory Ramírez MD Ordering Physician: Dory Ramírez MD Date of Service: 11/07/24 Procedure(s): XR thoracic spine 3V Accession Number(s): [id number] cc: Dory Ramírez MD EXAMINATION: XR THORACIC [...] OV> 11/07/24 1802 DD/ 1700 TD/TT: 11/07/241714 Electronics Lead: Procedure Note Donotdebbieinterpreter, Image - 11/07/[address] [address] XRay Report Signed Patient: Angel MeléndezR#: [id number] 547 : 1975Acct:[id number] Age/Sex: 48 / FADM Date: 11/07/24 Loc: HO.XRAY Attending Dr: Dory Ramírez MD Ordering Physician: Dory Ramírez MD Date of Service: 11/07/24 Procedure(s): XR thoracic spine 3V Accession Number(s): [id number] cc: Dory Ramírez MD EXAMINATION: XR THORACIC [...] OV> 11/07/24 1802 DD/ 1700 TD/TT: 11/07/241714 Electronics Lead: Dory Ramírez MD IMG XR PROCEDURES Final Result * Hepatitis B, C Profile (11/07/2024 4:49 PM EDT) ~Hepatitis B Surface Antibody NONREACTIVE Nonreactive [facility] Comment:Nonreactive: < 8.00 mIU/mL Hepatitis B Core Antibody Nonreactive Nonreactive [facility] Hepatitis C Antibody Nonreactive Nonreactive [facility] Comment:Antibodies to HCV no t detected; does not exclude early acuteHCV infection. Hepatitis B Surface Ag Negative Negative [facility] 11/07/2024 4:49 PM EDT 11/07/2024 4:49 PM EDT us Generic External Data Provider LAB BLOOD ORDERAB LES Final Result [facility] [address] [place] [address] [phone] * (ABNORMAL) Complete Blood Count Manual Diff (11/07/2024 4:49 PM EDT) White Blood Count 8.4 4.8 - 10.8 X10*3/uL [facility] Red Blood Count 4.41 4.20 - 5.50 X10*6/uL [facility] Hemoglobin 13.7 12.0 - 16.0 g/dl [facility] Hematocrit 40.6 37.0 - 47.0 % [facility] Mean Corpuscular Volume 92.1 80.0 - 98.0 fL [facility] Mean Corpuscular Hemoglobin 31.1 27.0 - 33.0 pg [facility] Mean Corpuscular HGB Conc 33.7 31.0 - 35.0 g/dl [facility] Red Cell Distribution Width 12.1 11.0 - 16.0 % [facility] Platelet Count 360 160 - 400 X10*3/uL [facility] Mean Platelet Volume 10.9 9.4 - 12.3 fL [facility] NRBC Pct Auto 0.0 0.0 - 0.2 /100WBC [facility] NRBC Abs Auto 0.000 0.0 - 0.012 X10*3/uL [facility] Neutrophils % Manual 51 45 - 73 % [facility] Band Neutrophils Percent 1(L) 3 - 5 % [facility] Lymphocytes Percent Manual 40 20 - 40 % [facility] Atypical Lymphs Percent Manual 4 0 - 6 % [facility] Monocytes Percent Manual 2 2 - 11 % [facility] EOSINOPHILS % MANUAL 2 0 - 4 % [facility] NEUTROPHILS ABSOLUTE MANUAL 4.4 2.0 - 8.3 X10*3/uL [facility] LYMPHOCYTES ABSOLUTE MANUAL 3.4 1.2 - 4.9 X10*3/uL [facility] Atypical Lymph Absolute Manual 0.3 x10*3/uL [facility] MONOCYTES ABSOLUTE MANUAL 0.2 0.1 - 1.2 X10*3/uL [facility] EOSINOPHILS ABSOLUTE MANUAL 0.2 0.0 - 0.4 X10*3/uL [facility] Platelet Estimate NORMAL [facility] Platelet Morphology Comment NORMAL [facility] RBC Morphology NORMAL [facility] 11/07/2024 4:49 PM EDT 11/07/2024 4:49 PM EDT us Generic External Data Provider LAB BLOOD ORDERAB LES Final Result [facility] [address] [place] [phone] [phone] * (ABNORMAL) T-SPOT??.TB (11/07/2024 4:49 PM EDT) T Spot TB Positive( A) Negative [facility] Comment: Diagnosing or excluding tuberculosis [...] as aquantitative test. TS PANEL A 21 [facility] TS PANEL B 33 [facility] Negative Control Passed [facility] Positive Control Passed [facility] Comment:For additional infor polina, please refer tohttp://education.[employer]/faq/DPB330(This link is being provided for informational/educational purposes only.)THIS TEST WAS PERFORMED AT:[employer] [id number] [place] [address]AGEVUCUAPOLINAR CARRERO MD,PHD 11/07/2024 4:49 PM EDT 11/07/2024 4:49 PM EDT Generic External Data Provider LAB BLOOD ORDERAB LES Final Result Performing Organization Address [facility]/ZIP Co de Phone Number [facility] [address] [place] [phone] * Sed Rate by Modified Westergren (11/07/2024 4:49 PM EDT) [facility] Erythrocyte Sedimentation Rate 9 0 - 20 MM/HR [facility] Comment:Patients with polycy themia and many hemoglobin abnormalitiesmay have depressed sed rates whereas patients with anemiamay have elevated sed rates. 11/07/2024 4:49 PM EDT 11/07/2024 4:49 PM EDT Generic External Data Provider LAB BLOOD ORDERAB LES Final Result Performing Organization Address [facility] Co de Phone Number [facility] [address] [place] [phone] * C-reactive Protein (11/07/2024 4:49 PM EDT) [facility] C Reactive Protein 0.18 < or = 0.50 mg/dL [facility] 11/07/2024 4:49 PM EDT 11/07/2024 4:49 PM EDT us Generic External Data Provider LAB BLOOD ORDERAB LES Final Result [facility] [address] [place] [address] [phone] * (ABNORMAL) Comprehensive Metabolic Panel (11/07/2024 4:49 PM EDT) Pathologist [facility] Sodium 140 135 - 145 mmol/L [facility] Potassium 3.8 3.3 - 5.1 mmol/L [facility] Chloride 111(H) 96 - 108 mmol/L [facility] Carbon Dioxide 21(L) 22 - 29 mmol/L [facility] Anion Gap 12 12 - 20 [facility] Urea Nitrogen (BUN) 13 9 - 16 mg/dL [facility] Creatinine, Serum 0.80 0.5 - 1.4 mg/dL [facility] Estimated Glomerular Filt Rate >60 [facility] Comment:Chronic Kidney Disea se: Estimated GFR < 60 mL/min/1.97i5Vsdgzr Kidney Disease: Estimated GFR < 15 mL/min/1.73m2 Glucose 90 60 - 115 mg/dL [facility] Calcium 9.5 8.4 - 10.2 mg/dL [facility] Bilirubin, Total 0.5 0.0 - 1.0 mg/dL [facility] Aspartate Amino Transferase 17 5 - 31 U/L [facility] Alanine Aminotransferase 22 0 - 31 U/L [facility] Total Protein 7.2 6.5 - 8.0 g/dL [facility] Albumin Level 4.3 3.5 - 5.0 g/dL [facility] Alkaline Phosphatase 70 39 - 117 U/L [facility] 11/07/2024 4:49 PM EDT 11/07/2024 4:49 PM EDT us Generic External Data Provider LAB BLOOD ORDERAB LES Final Result Performing Organization Address City/[facility]/ZIP Co de Phone Number [facility] [address] [place] [address] [phone] * (ABNORMAL) LIPID PANEL, STANDARD (10/31/2020 [...] LDL-C. Eric SS et al. EDUARDA. 2013;310(19): 3857-0749 (http://education.[employer]/faq/ZJB557) Non-HDL Cholesterol 161(H) <130 mg/dL (calc) [facility] [...] 10:0 9 AM EDT us Jessica Interiano COLOR STRAINING BAG WASHER LAB BLOOD ORDERABLES Final Resu lt [facility] [address] from Last 3 Months or Most Recently Relevant to Health Maintenance Insurance [employer] MEDICARE REPLACEMENT Care Teams Technical Document Writer Relationship Specialty Start Date End Date Dory Ramírez MD [address] [place] [address] [place] [phone] PCP - General Internal Medicine 05/06/24
== END 2025-02-03 14:21 | disposition home or self-care (01) ==
LOC: HO.PMC 13:57
PROVIDERS: PCP Nurse Practitioner; Visit Provider Registered Nurse Emergency
DX: M53.3 Sacrococcygeal disorders, not elsewhere classified (principal)
CPT/HCPCS: 99213; G2211

== ENCOUNTER → 2025-02-03 13:57 | Outpatient (BNVA) | payer MEDICARE, SELFPAY | PROVIDERS: PCP Nurse Practitioner; Visit Provider Registered Nurse Emergency | DX: M53.3 Sacrococcygeal disorders, not elsewhere classified (principal) | CPT/HCPCS: 99212 ==

== ENCOUNTER 2025-03-09 07:47 | Outpatient (REF) | payer MEDICARE, SELFPAY ==
[2025-03-09 13:28] LABS: MANUAL DIFF FLAG NO
[2025-03-09 13:39] LABS: Hematocrit 39.7 % (37.0-47.0); Hemoglobin 12.9 g/dl (12.0-16.0); Imm Gran Abs Auto 0.03 X10*3/uL (0.00-0.03); Imm Gran Pct Auto 0.4 % (0.0-0.4); Lymphocytes Absolute Auto 3.0 X10*3/uL (1.2-4.9); Mean Corpuscular HGB Conc 32.5 g/dl (31.0-35.0); Mean Corpuscular Hemoglobin 30.5 pg (27.0-33.0); Mean Corpuscular Volume 93.9 fL (80.0-98.0); NRBC Abs Auto 0.000 X10*3/uL (0.0-0.012); NRBC Pct Auto 0.0 /100WBC (0.0-0.2); Platelet Count 369 X10*3/uL (160-400); Red Blood Count 4.23 X10*6/uL (4.20-5.50); White Blood Count 7.8 X10*3/uL (4.8-10.8)
[2025-03-09 14:08] LABS: Alanine Aminotransferase 13 U/L (0-31); Albumin Level 4.3 g/dL (3.5-5.0); Alkaline Phosphatase 62 U/L (39-117); Anion Gap 11 (12-20); Aspartate Amino Transferase 15 U/L (5-31); Blood Urea Nitrogen 18 mg/dL (9-16); Calcium 9.9 mg/dL (8.4-10.2); Carbon Dioxide 22 mmol/L (22-29); Chloride 114 mmol/L (96-108); Estimated Glomerular Filt Rate > 60; Potassium 4.4 mmol/L (3.3-5.1); Sodium 143 mmol/L (135-145); Total Protein 7.1 g/dL (6.5-8.0)
== END 2025-03-09 07:48 | disposition home or self-care (01) ==
LOC: HO.HKASLDS 07:47
PROVIDERS: PCP Internal Medicine; Visit Provider Student in an Organized Health Care Education/Training Program
DX: M05.9 Rheumatoid arthritis with rheumatoid factor, unspecified (principal); M79.7 Fibromyalgia; G89.29 Other chronic pain; Z51.81 Encounter for therapeutic drug level monitoring; Z79.620 Long term (current) use of immunosuppressive biologic; Z79.899 Other long term (current) drug therapy
CPT/HCPCS: 36415; 80053; 85025; 85652; 86140; 99212

== ENCOUNTER 2025-03-09 07:47 | Outpatient (AMB) | payer MEDICARE, MEDICAID, SELFPAY ==
--- OUTSIDE RECORDS SUMMARY | 2025-03-09 07:50 | XMS_ITS | Encounter Summary ---
Author Organization [employer] Address [address] [facility] [address] 7t [place] [address] Care Team Providers Care Piece Dye Worker Name Role Phone Corrine Barth Primary Care Provider [phone] No Quach MD Primary Care Provider Luz Elena Jiménez MD Primary Care Provide r Dory Ramírez MD Primary Care Provider + Reason for Visit * Reason Onset Date Comments Med Refill 10/27/2023 Encounter Details Date Type Department Care Team (Late st Contact Info) Description 10/27/2023 Refill [facility] [address] [place], [place] [phone] Corrine Barth FNP [address] [place], [place] [phone] Social History Tobacco Use Types Packs/Day Years [...] Care Team (Late st Contact Info) Description 03/09/2025 8:45 AM EDT Office Visit [facility] ADULT D[facility] [address] [place] [address] Job, Phyllis [address] [place] [address] 03/13/2025 10:00 AM EDT Nutrition [facility] DIABETES/NUTRITION [address] [place] [address] [place] [address] 04/25/2025 10:00 AM EST Office Visit [facility] MEDICINE [address] [place] [address] Dory Ramírez MD 230 [place] [address] documented as of this encounter Visit Diagnoses Not on filedocumented in this encounter Additional Health Concerns Assessment Noted Time PHQ-9 Depression Total Score: 20 024 9:51 AM EDT documented as of this encounter Care Teams Piece Dye Worker Relationship Specialty Start Date End Date Corrine Barth FNP [address] [place] [address] PCP - General Family Medicine 11/28/22 01/25/24 No Quach MD [address] [place] [address] PCP - General Family Medicine 01/26/24 03/29/24 Luz Elena Jiménez MD [address] [place] [address] PCP - General Internal Medicine 03/30/24 05/05/24 Dory Ramírez MD [address] [place] [address] PCP - General Internal Medicine 05/06/24 documented as of this encounter
--- OUTSIDE RECORDS SUMMARY | 2025-03-09 07:50 | XMS_ITS | Encounter Summary ---
Author Organization [employer] Address 75 [facility] 7 [place] [address] Care Team Providers Care Fish Worm Grower Name Role Phone Dory Ramírez MD Primary Care Provider + Reason for Visit * Reason Onset Date Comments Med Refill 12/01/2024 Encounter Details Date Type Department Care Team (Late st Contact Info) Description 12/01/2024 Refill [facility] [address] [place] [address] Corrine Barth, TIRE SERVICER [address] [facility] [place] [address] Social History Tobacco Use Types Packs/Day Years [...] others, in a hotel, in a senior care, living outside on the street, on a [...] the past 12 months, has t he [employer], gas, oil or water company threatened to [...] Description 03/09/2025 8:45 AM EDT Office Visit [facility] ADULT DENT[facility] [address] [place] [address] Job, Phyllis [address] [place] [address] 03/13/2025 10:00 AM EDT Nutrition [facility] DIABETES/NUTRITION [address] [place] [address] Kourtney Valenzuela, MATTHEW 230 [place] [address] 04/25/2025 10:00 AM EST Office Visit [facility] MEDICINE [address] [place] [address] Dory Ramírez MD 230 [place] [address] documented as of this encounter Visit Diagnoses Not on filedocumented in this encounter Additional Health Concerns Assessment Noted Time PHQ-9 Depression Total Score: 12 07/18/ 025 4:04 PM EST documented as of this encounter Care Teams Fish Worm Grower Relationship Specialty Start Date End Date Dory Ramírez MD 230 [place] [address] PCP - General Internal Medicine 05/06/24 documented as of this encounter
--- OUTSIDE RECORDS SUMMARY | 2025-03-09 07:50 | XMS_ITS | Encounter Summary ---
Author Organization [employer] Address [address] [facility] [address] 7t [place] [address] Care Team Providers Care Slip Bridge Operator Name Role Phone Corrine Barth Primary Care Provider [phone] No Quach MD Primary Care Provider [phone] Luz Elena Jiménez MD Primary Care Provide r Dory Ramírez MD Primary Care Provider + Reason for Visit * Reason Onset Date Comments Med Refill 10/27/2023 Encounter Details Date Type Department Care Team (Late st Contact Info) Description 10/27/2023 Refill [facility] [address] [place] [address] Corrine Barth FNP [address] [place], [place] [phone] Social History Tobacco Use Types Packs/Day Years [...] Description 03/09/2025 8:45 AM EDT Office Visit [facility] ADULT DENTAL 230 [place] [address] Job, Phyllis 230 [place] [address] 03/13/2025 10:00 AM EDT Nutrition [facility] DIABETES/NUTRITION [address] [place] [address] [place] [address] 04/25/2025 10:00 AM EST Office Visit [facility] MEDICINE [address] [place] [address] Dory Ramírez MD 230 [place] [address] documented as of this encounter Visit Diagnoses Not on filedocumented in this encounter Additional Health Concerns Assessment Noted Time PHQ-9 Depression Total Score: 20 024 9:51 AM EDT documented as of this encounter Care Teams Slip Bridge Operator Relationship Specialty Start Date End Date Corrine Barth FNP 230 [place] [address] PCP - General Family Medicine 11/28/22 01/25/24 No Quach MD [address] [place] [address] PCP - General Family Medicine 01/26/24 03/29/24 Luz Elena Jiménez MD [address] [place] [address] PCP - General Internal Medicine 03/30/24 05/05/24 Dory Ramírez MD [address] [place] [address] PCP - General Internal Medicine 05/06/24 documented as of this encounter
--- OUTSIDE RECORDS SUMMARY | 2025-03-09 07:50 | XMS_ITS | Encounter Summary ---
Author Organization [employer] Address [address] [facility] [address] 7t [place] [address] Care Team Providers Care Sales Recruitment Specialist Name Role Phone Corrine Barth Primary Care Provider [phone] No Quach MD Primary Care Provider Luz Elena Jiménez MD Primary Care Provide r Dory Ramírez MD Primary Care Provider + Reason for Visit * Reason Onset Date Comments Med Refill 03/09/2023 Encounter Details Date Type Department Care Team (Late st Contact Info) Description 03/09/2023 Refill [facility] MED & PEDS [address] [place] [address] Corrine Barth FNP [address] [place], [place] [phone] Social History Tobacco Use Types Packs/Day Years [...] Description 03/09/2025 8:45 AM EDT Office Visit [facility] ADULT DENTAL [address] [place] [address] Dimitri Kaiseraris [address] [place] [address] 03/13/2025 10:00 AM EDT Nutrition [facility] DIABETES/NUTRITION [address] [place] [address] [place] [address] 04/25/2025 10:00 AM EST Office Visit [facility] MEDICINE [address] [place] [address] Dory Ramírez MD [address] [place] [address] documented as of this encounter Visit Diagnoses Not on filedocumented in this encounter Additional Health Concerns Assessment Noted Time PHQ-9 Depression Total Score: 8 08/30/19 23 2:28 PM EDT documented as of this encounter Care Teams Sales Recruitment Specialist Relationship Specialty Start Date End Date Corrine Barth FNP 230 [place] [address] PCP - General Family Medicine 11/28/22 01/25/24 No Quach MD [address] [place] [address] PCP - General Family Medicine 01/26/24 03/29/24 Luz Elena Jiménez MD [address] [place] [address] PCP - General Internal Medicine 03/30/24 05/05/24 Dory Ramírez MD [address] [place] [address] PCP - General Internal Medicine 05/06/24 documented as of this encounter
--- OUTSIDE RECORDS SUMMARY | 2025-03-09 07:50 | XMS_ITS | Encounter Summary ---
Author Organization [employer] Address 75 [facility] 7 [place] [address] Care Team Providers Care Central Lab Technician Name Role Phone Dory Ramírez MD Primary Care Provider + Reason for Visit * Reason Onset Date Comments Med Refill 12/01/2024 Encounter Details Date Type Department Care Team (Late st Contact Info) Description 12/01/2024 Refill [facility] MEDICINE [address] [place], [place] [phone] Dory Ramírez MD [address] [place], [place] [phone] Social History Tobacco Use Types Packs/Day Years [...] with others, in a hotel, in a care home, living outside on the street, on [...] the past 12 months, has t he [employer], gas, oil or water company threatened to [...] Description 03/09/2025 8:45 AM EDT Office Visit [facility] ADULT DENTAL [address] [place] [address] Job, Phyllis [address] [place] [address] 03/13/2025 10:00 AM EDT Nutrition [facility] DIABETES/NUTRITION [address] [place] [address] [place] [address] 04/25/2025 10:00 AM EST Office Visit [facility] MEDICINE [address] [place] [address] Dory Ramírez MD 230 [place] [address] documented as of this encounter Visit Diagnoses Not on filedocumented in this encounter Additional Health Concerns Assessment Noted Time PHQ-9 Depression Total Score: 12 07/18/ 025 4:04 PM EST documented as of this encounter Care Teams Central Lab Technician Relationship Specialty Start Date End Date Dory Ramírez MD 230 [place] [address] PCP - General Internal Medicine 05/06/24 documented as of this encounter
--- OUTSIDE RECORDS SUMMARY | 2025-03-09 07:50 | XMS_ITS | Encounter Summary ---
Author Organization [employer] Address [address] [facility] [address] 7 [place] [address] Care Team Providers Care Certified Surgical Assistant Name Role Phone Dory Ramírez MD Primary Care Provider + Reason for Visit * Reason Onset Date Comments Appointment Request 05/06/2024 Encounter Details Date Type Department Care Team ([facility] st Contact Info) Description 05/06/2024 Telephone [facility] MEDICINE [address] [place], [place] [phone] Luz Elena Jiménez MD [address] [place], [place] [phone] Appointment Request Social History Tobacco Use Types [...] TP apt from 05/06. Contact pt at [phone] documented in this encounter Plan of Treatment Upcoming Encounters Date Type Department Care Team (Late st Contact Info) Description 03/09/2025 8:45 AM EDT Office Visit [facility] ADULT DENTAL [address] [place] [address] Job, Phyllis [address] [place] [address] 03/13/2025 10:00 AM EDT Nutrition [facility] DIABETES/NUTRITION [address] [place] [address] Kourtney Valenzuela, MATTHEW [address] [place] [address] 04/25/2025 10:00 AM EST Office Visit [facility] MEDICINE [address] [place] [address] Dory Ramírez MD [address] [place] [address] documented as of this encounter Visit Diagnoses Not on filedocumented in this encounter Additional Health Concerns Assessment Noted Time PHQ-9 Depression Total Score: 11 024 9:38 AM EDT documented as of this encounter Care Teams Certified Surgical Assistant Relationship Specialty Start Date End Date Dory Ramírez MD [address] [place] [address] PCP - General Internal Medicine 05/06/24 documented as of this encounter
--- OUTSIDE RECORDS SUMMARY | 2025-03-09 07:50 | XMS_ITS | Encounter Summary ---
Author Organization [employer] Address [address] [facility] [address] 7t [place] [address] Care Team Providers Care Wholesale Agronomist Name Role Phone Corrine Barth Primary Care Provider [phone] Quach MD Primary Care Provider [phone] Luz Elena Jiménez MD Primary Care Provide r Dory Ramírez MD Primary Care Provider + Reason for Visit * Reason Comments Med Refill Encounter Details Date Type Department Care Team (Late st Contact Info) Description 09/25/2023 Refill [facility] [address] [place], [place] [phone] Corrine Barth FNP [address] [place], [place] [phone] Social History Tobacco Use Types Packs/Day Years [...] the past 12 months, has t he [employer], gas, oil or water company threatened to [...] Description 03/09/2025 8:45 AM EDT Office Visit [facility] ADULT DENTAL [address] [place] [address] Phyllis Kaiser [address] [place] [address] 03/13/2025 10:00 AM EDT Nutrition [facility] DIABETES/NUTRITION [address] [place] [address] [place] [address] 04/25/2025 10:00 AM EST Office Visit [facility] MEDICINE [address] [place] [address] Dory Ramírez MD [address] [place] [address] documented as of this encounter Visit Diagnoses Not on filedocumented in this encounter Additional Health Concerns Assessment Noted Time PHQ-9 Depression Total Score: 20 024 11:50 AM EDT documented as of this encounter Care Teams Wholesale Agronomist Relationship Specialty Start Date End Date Corrine Barth FNP [address] [place] [address] PCP - General Family Medicine 11/28/22 01/25/24 No Quach MD [address] [place] [address] PCP - General Family Medicine 01/26/24 03/29/24 Luz Elena Jiménez MD [address] [place] [address] PCP - General Internal Medicine 03/30/24 05/05/24 Dory Ramírez MD [address] [place] [address] PCP - General Internal Medicine 05/06/24 documented as of this encounter
--- OUTSIDE RECORDS SUMMARY | 2025-03-09 07:50 | XMS_ITS | Encounter Summary ---
Author Organization [employer] Address [address] [facility] [address] [place] [address] Care Team Providers Care Investment Counselor Name Role Phone Dory Ramírez MD Primary Care Provider + Reason for Visit * Reason Onset Date Comments Med Refill 12/01/2024 Encounter Details Date Type Department Care Team (Late st Contact Info) Description 12/01/2024 Refill [facility] [address] [place], [place] [phone] Corrine Barth FNP [address] [place], [place] [phone] Social History Tobacco Use Types Packs/Day Years [...] the past 12 months, has t he [employer], gas, oil or water company threatened to [...] Description 03/09/2025 8:45 AM EDT Office Visit [facility] [address] [place] [address] Job, Phyllis [address] [place] [address] 03/13/2025 10:00 AM EDT Nutrition [facility] [address] [place] [address] Kourtney Valenzuela, MATTHEW 230 [place] [address] 04/25/2025 10:00 AM EST Office Visit [facility] [address] [place] [address] Dory Ramírez MD 230 [place] [address] documented as of this encounter Visit Diagnoses Not on filedocumented in this encounter Additional Health Concerns Assessment Noted Time PHQ-9 Depression Total Score: 12 07/18/ 025 4:04 PM EST documented as of this encounter Care Teams Investment Counselor Relationship Specialty Start Date End Date Dory Ramírez MD 230 [place] [address] PCP - General Internal Medicine 05/06/24 documented as of this encounter
--- OUTSIDE RECORDS SUMMARY | 2025-03-09 07:50 | XMS_ITS | Clinical Summary ---
Author Organization [employer] Address [address] [place] [address] Care Team Providers Care Information Technology Officer Name Role Phone Dory Ramírez MD [...] 180 tablet 3 12/02/19 25 Active rizatriptan TICKET TAKER FERRYBOAT (Maxalt-TICKET TAKER FERRYBOAT) 5 MG disintegrating tablet DISSOLVE 1 TABLET [...] 30 tablet 11 12/14/19 25 026 Active Active Problems Problem Noted Date Diagnosed Date Tooth infection 12/31/2024 Open fracture of tooth 12/31/2024 TB lung, latent 12/13/2024 Assessment & Plan (12/13/2024 1:53 PM EDT): Old, reportedly status post INH, will obtain records from coremaker helper. Order CXR. Mastalgia 09/13/2024 Assessment & Plan [...] of mammogram, will order BMI 40.0-44.9, adult ([facility]) 07/01/2024 Assessment & Plan (07/01/2024 10:02 AM [...] and Tylenol as needed and follow-up with coremaker helper Migraine with aura 11/04/2020 Palpitations 01/11/2020 Overview (07/20/2024): Holter monitor on 01/19/2020 was within normal limits, average rhythm was NSR at 61-116 bpm Diastolic heart failure 12/23/2019 Overview (07/20/2024): Echo on 12/23/2019 at [facility] showed normal LVEF and no wall abnormalities, essentially normal echo. Nuclear stress test on 12/23/2019 was negative for ischemia, no arrhythmias and normotensive response to test Patient last seen at [facility] cardiology by Penelope Bhakta NP Assessment & Plan (07/01/2024 9:57 AM EST): Seen last time in 2019 by Jessica Interiano, no recent notes available I will obtain results of most recent echocardiogram and a stress test is available. Seropositive rheumatoid arthritis ([facility]) 12/2017 Assessment & Plan (11/29/2024 12:48 PM EDT): Continue Humira and fu with rheumatology Assessment & Plan (07/01/2024 10:01 AM EST): Doing well on Humira twice per month, follow-up with coremaker helper Will retrieve recent labs from [facility]. COVID influenza and pneumonia immunizations are [...] have a female counselor, will contact Denise De Jesus for this. Start Wellbutrin XL100 50 mg [...] to follow-up with counselor, will refer to geriatric case manager to help her with housing [...] Encounters Date Type Department Care Team Description 02/17/[address] Nutrition referral 02/14/[address] [address] Dory Ramírez MD CHART PREP 02/09/[address] [address] Dory Ramírez MD Change Location & PCP 02/07/2025 Patient Outreach [address] [address] Dory Ramírez MD Pre-visit Planning (SDOH screening completed on 12/13/2024) 02/01/2025 Orders Only [address] [address] Dory Ramírez MD 12/31/2024 9:20 AM EDT Office Visit [facility] [address] [place] [address] Luz Elena Jiménez MD Tooth infection; Open fracture of tooth, initial encounter 12/31/2024 Travel 12/13/2024 11:30 AM EDT Office Visit [address] [address] Dory Ramírez MD Mastalgia (Primary Dx); Class 3 severe obesity with serious comorbidity and body mass index (BMI) of 40.0 to 44.9 in adult; Recurrent major depressive episodes (CMS/HCC); TB lung, latent; Fibromyalgia 12/13/[address] [facility] [address] [place], [place] [phone] Dory Ramírez MD Care Coordination (CHW outreach for SDOH PT-1 and food needs-referral completed /) 12/13/2024 Travel 12/10/[address] [facility] [address] [place], [place] [phone] Dory Ramírez MD Chart Prep from Last 3 Months Immunizations Immunization Administration [...] Description 03/09/2025 8:45 AM EDT Office Visit [facility] [address] [place] [address] Dimitri Kaiseraris [address] [place] [address] 03/13/2025 10:[address] [facility] [address] [place] [address] Kourtney Valenzuela, RD [address] [place] [address] 04/25/2025 10:00 AM EST Office Visit [facility] [address] [place] [address] Dory Ramírez MD [address] [place] [address] Health Maintenance Due Date Last Done Comments CT Colonography 1975 Colonoscopy 1975 Colorectal Cancer Screening 1975 Dental Oral Exam 1975 Dental Prophylaxis 1975 Dental X-Ray: Bitewings 1975 Dental X-Ray: Full Mouth 1976 FIT DNA/Cologuard 1976 FIT 1975 FOBT [...] 01/24/2025 2:53 PM EDT Positive TB test HEPATITIS B, C PROFILE Routine 4:49 PM EDT LIPID PANEL, STANDARD Routine 10/31/2020 10:09 AM EDT from Last 3 Months or Most Recently Relevant to Health Maintenance Results * BI US Breast Limited Bilateral (02/01/2025 12:18 PM EDT) Anatomical Region Laterality Modality Breast Bilateral Ultrasound 02/01/2025 12:1 8 PM EDT Narrative 02/01/2025 1:13 PM EDT [address] [place] [address] Ultrasound Report Signed Patient: Eliza Meléndez MR#: [id number] : 1975 Acct:[id number] Age/Sex: 49 / F ADM Date: 02/01/25 Loc: HO.MAMMO Attending Dr: Dory Ramírez MD Ordering Physician: Dory Ramírez MD Date of Service: 02/01/25 Procedure(s): US breast BI limited mamm only Accession Number(s): [id number] cc: Dory Ramírez MD Reason for Exam: [...] 02/01/25 1310 DD/ 1218 TD/TT: 02/01/25 1233 Curriculum Development Manager: Procedure Note Donotuseinterpreter, Image - 02/01/2025 [facility] [address] [place], [place] [address] Ultrasound Report Signed Patient: Anahi Meléndez#: [id number] : 1975Acct:[id number] Age/Sex: 49 / FADM Date: 02/01/25 Loc: HO.MAMMO Attending Dr: Dory Ramírez MD Ordering Physician: Dory Ramírez MD Date of Service: 02/01/25 Procedure(s): US breast BI limited mamm only Accession Number(s): [id number] cc: Dory Ramírez MD Reason for Exam: [...] 02/01/25 1310 DD/ 1218 TD/TT: 02/01/25 1233 Curriculum Development Manager: us Dory Ramírez MD IMG US PROCEDURES Final Result * BI Mammogram Diagnostic Tomosynthesis Bilateral (02/01/2025 11:55 AM EDT) Anatomical Region Laterality Modality Breast Bilateral Mammography 02/01/2025 11:5 5 AM EDT Narrative 02/01/2025 1:13 PM EDT [facility] [address] [place] [address] Mammography Report Signed Patient: Eliza Meléndez MR#: [id number] 547 : 1975 Acct:[id number] Age/Sex: 49 / F ADM Date: 02/01/25 Loc: [facility] Attending Dr: Dory Ramírez MD Ordering Physician: Dory Ramírez MD Results: 1Ne gative Date of Service: 02/01/25 Follow Up: 1 Year From Orig inal Mammogram Procedure(s): MM tomosynthesis diagnostic BI Accession Number(s): [id number] cc: Dory Ramírez MD EXAMINATION: MM DIAGNOSTIC [...] 02/01/25 1310 DD/ 1155 TD/TT: 02/01/25 1215 Curriculum Development Manager: Procedure Note Donotuseinterpreter, Image - 02/01/2025 [facility] [address] [place] [address] Mammography Report Signed Patient: Anahi Meléndez#: [id number] : 1975Acct:[id number] Age/Sex: 49 / FADM Date: 02/01/25 Loc: HO.MAMMO Attending Dr: Dory Ramírez MD Ordering Physician: Dory Ramírez MDResults: 1Ne gative Date of Service: 02/01/25Follow Up: 1 Year From Orig inal Mammogram Procedure(s): MM tomosynthesis diagnostic BI Accession Number(s): [id number] cc: Dory Ramírez MD EXAMINATION: MM DIAGNOSTIC [...] 02/01/25 1310 DD/ 1155 TD/TT: 02/01/25 1215 Curriculum Development Manager: us Dory Ramírez MD IMG BI PROCEDURES Final Result * XR Chest 2 Views (01/24/2025 2:53 PM EDT) Anatomical Region Laterality Modality Chest Radiographic Venessa ging 01/24/2025 2:53 PM EDT Narrative 01/24/2025 3:53 PM EDT [address] [address] XRay Report Signed Patient: Eliza Meléndez MR#: [id number] 547 : 1975 Acct:[id number] Age/Sex: 49 / F ADM Date: 01/24/25 Loc: [facility] Attending Dr: Dory Ramírez MD Ordering Physician: Dory Ramírez MD Date of Service: 01/24/25 Procedure(s): XR chest 2V Accession Number(s): [id number] cc: Dory Ramírez MD Reason for Exam: [...] 01/24/25 1550 DD/ 1453 TD/TT: 01/24/25 1545 Curriculum Development Manager: Procedure Note Donotuseinterpreter, Image - 01/24/2025 [facility] [address] [place] [address] XRay Report Signed Patient: Anahi Meléndez#: [id number] 547 : 1975Acct:[id number] Age/Sex: 49 / FADM Date: 01/24/25 [facility] Dr: Dory Ramírez MD Ordering Physician: Dory Ramírez MD Date of Service: 01/24/25 Procedure(s): XR chest 2V Accession Number(s): [id number] cc: Dory Ramírez MD Reason for Exam: [...] 01/24/25 1550 DD/ 1453 TD/TT: 01/24/25 1545 Curriculum Development Manager: Dory Ramírez MD IMG XR PROCEDURES Final [...] LES Final Result [facility] [address] [place] [address] [phone] * (ABNORMAL) LIPID PANEL, STANDARD (10/31/2020 [...] LDL-C. Eric SS et al. EDUARDA. 2013;310(19): 1401-2269 (http://education.Snap Trends/faq/OVR373) Non-HDL Cholesterol 161(H) <130 mg/dL (calc) [facility] [...] 10:0 9 AM EDT us Jessica Interiano SEED ANALYSIS LABORATORY ASSISTANT LAB BLOOD ORDERABLES Final Resu lt [facility] [address] [place], [place] [address] from Last 3 Months or Most Recently Relevant to Health Maintenance Insurance [employer] MEDICARE REPLACEMENT DENTAL-[facility] MEDICAID STAND ADULT Care Teams Information Technology Officer Relationship Specialty Start Date End Date Dory Ramírez MD [address] [place] [address] [place] [address] PCP - General Internal Medicine 05/06/24
--- OUTSIDE RECORDS SUMMARY | 2025-03-09 07:50 | XMS_ITS | Encounter Summary ---
Author Organization [employer] Address [address] [facility] 7 [place] [address] Care Team Providers Care Snowboarding Instructor Name Role Phone Dory Ramírez MD Primary Care Provider + Reason for Visit * Reason Onset Date Comments Med Refill 12/01/2024 Encounter Details Date Type Department Care Team (Late st Contact Info) Description 12/01/2024 Refill [facility] [address] [place] [address] Corrine Barth, SAFETY ENGINEER [address] [facility] [place] [address] Neuropathy Social History Tobacco Use Types Packs/Day [...] the past 12 months, has t he [employer], gas, oil or water company threatened to [...] Description 03/09/2025 8:45 AM EDT Office Visit [facility] [address] [place] [address] Job, Phyllis [address] [place] [address] 03/13/2025 10:00 AM EDT Nutrition [facility] [address] [place] [address] Kourtney Valenzuela, MATTHEW [address] [place] [address] 04/25/2025 10:00 AM EST Office Visit [facility] [address] [place] [address] Dory Ramírez MD [address] [place] [address] documented as of this encounter Visit Diagnoses Diagnosis Neuropathy Mononeuritis of unspecified site documented in this encounter Additional Health Concerns Assessment Noted Time PHQ-9 Depression Total Score: 12 07/18/ 025 4:04 PM EST documented as of this encounter Care Teams Snowboarding Instructor Relationship Specialty Start Date End Date Dory Ramírez MD [address] [place] [address] PCP - General Internal Medicine 05/06/24 documented as of this encounter
--- OUTSIDE RECORDS SUMMARY | 2025-03-09 07:50 | XMS_ITS | Encounter Summary ---
Author Organization [employer] Address [address] [facility] [address] [address] 7[address] [place] [address] Care Team Providers Care Building Construction Supervisor Name Role Phone Corrine Barth Primary Care Provider +-0 No Quach MD Primary Care Provider Luz Elena Jiménez MD Primary Care Provide r Dory Ramírez MD Primary Care Provider + Reason for Visit * Reason Onset Date Comments Med Refill 03/09/2023 Encounter Details Date Type Department Care Team (Late st Contact Info) Description 03/09/[address] [facility] [address] [place] [address] Corrine Barth FNP [address] [place], [place] [phone] Social History Tobacco Use Types Packs/Day Years [...] Description 03/09/2025 8:45 AM EDT Office Visit [facility] [address] [place] [address] Dimitri Kaiseraris [address] [place] [address] 03/13/2025 10:00 AM EDT Nutrition [facility] DI[facility]NUTRITION [address] [place] [address] [place] [address] 04/25/2025 10:00 AM EST Office Visit [facility] [address] [place] [address] Dory Ramírez MD [address] [place] [address] documented as of this encounter Visit Diagnoses Not on filedocumented in this encounter Additional Health Concerns Assessment Noted Time PHQ-9 Depression Total Score: 8 08/30/19 23 2:28 PM EDT documented as of this encounter Care Teams Building Construction Supervisor Relationship Specialty Start Date End Date Corrine Barth FNP [address] [place] [address] PCP - General Family Medicine 11/28/22 01/25/24 No Quach MD [address] [place] [address] PCP - General Family Medicine 01/26/24 03/29/24 Luz Elena Jiménez MD [address] [place] [address] PCP - General Internal Medicine 03/30/24 05/05/24 Dory Ramírez MD [address] [place] [address] PCP - General Internal Medicine 05/06/24 documented as of this encounter
--- OUTSIDE RECORDS SUMMARY | 2025-03-09 07:50 | XMS_ITS | Encounter Summary ---
Author Organization [employer] Address [address] [facility] 7 [place] [address] Care Team Providers Care Computing Tutor Name Role Phone Dory Ramírez MD Primary Care Provider + Reason for Visit * Reason Onset Date Comments Med Refill 12/01/2024 Encounter Details Date Type Department Care Team (Late st Contact Info) Description 12/01/2024 Refill [facility] [address] [place] [address] Corrine Barth, ROOFING MACHINE OPERATOR [address] [facility] [place] [address] Social History Tobacco Use Types Packs/Day Years [...] with others, in a hotel, in a jail, living outside on the street, on a [...] the past 12 months, has t he [employer], gas, oil or water company threatened to [...] Description 03/09/2025 8:45 AM EDT Office Visit [facility] [address] [place] [address] Job, Phyllis [address] [place] [address] 03/13/2025 10:00 AM EDT Nutrition [facility] [address] [place] [address] Kourtney Valenzuela, MATTHEW [address] [place] [address] 04/25/2025 10:00 AM EST Office Visit [facility] [address] [place] [address] Dory Ramírez MD [address] [place] [address] documented as of this encounter Visit Diagnoses Not on filedocumented in this encounter Additional Health Concerns Assessment Noted Time PHQ-9 Depression Total Score: 12 07/18/ 025 4:04 PM EST documented as of this encounter Care Teams Computing Tutor Relationship Specialty Start Date End Date Dory Ramírez MD [address] [place] [address] PCP - General Internal Medicine 05/06/24 documented as of this encounter
--- OUTSIDE RECORDS SUMMARY | 2025-03-09 07:50 | XMS_ITS | Encounter Summary ---
Author Organization [employer] Address [address] [facility] 7 [place] [address] Care Team Providers Care Endocrinology Physician Name Role Phone Dory Ramírez MD Primary Care Provider + Reason for Visit * Reason Onset Date Comments Med Refill 12/01/2024 Encounter Details Date Type Department Care Team (Late st Contact Info) Description 12/01/2024 Refill [facility] [address] [place], [place] [phone] Dory Ramírez MD [address] [place], [place] [phone] Social History Tobacco Use Types Packs/Day Years [...] the past 12 months, has t he [employer], gas, oil or water company threatened to [...] 03/09/2025 8:45 AM EDT Office Visit [facility] [address] [place] [address] Job, Phyllis [address] [place] [address] 03/13/2025 10:00 AM EDT Nutrition [facility]ITION [address] [place] [address] [place] [address] 04/25/2025 10:00 AM EST Office Visit [facility] [address] [place] [address] Dory Ramírez MD [address] [place] [address] documented as of this encounter Visit Diagnoses Not on filedocumented in this encounter Additional Health Concerns Assessment Noted Time PHQ-9 Depression Total Score: 12 07/18/ 025 4:04 PM EST documented as of this encounter Care Teams Endocrinology Physician Relationship Specialty Start Date End Date Dory Ramírez MD [address] [place] [address] PCP - General Internal Medicine 05/06/24 documented as of this encounter
--- OUTSIDE RECORDS SUMMARY | 2025-03-09 07:50 | XMS_ITS | Encounter Summary ---
Author Organization [employer] Address [address] [place] [address] Care Team Providers Care Goods Layer Name Role Phone Corrine Barth Primary Care Provider +1-1 No Quach MD Primary Care Provider Luz Elena Jiménez MD Primary Care Provide r Dory Ramírez MD Primary Care Provider + Reason for Visit * Reason Onset Date Comments Med Refill 03/09/2023 Encounter Details Date Type Department Care Team (Late st Contact Info) Description 03/09/2023 Refill [facility] [address] [place], [place] [phone] Corrine Barth FNP [address] [place], [place] [phone] Neuropathy Social History Tobacco Use Types Packs/Day [...] Description 03/09/2025 8:45 AM EDT Office Visit [facility] ADULT [facility] [address] [place] [address] Dimitri Kaiseraris [address] [place] [address] 03/13/2025 10:00 AM EDT Nutrition [facility] DI[facility]/NUTRITION [address] [place] [address] [place] [address] 04/25/2025 10:00 AM EST Office Visit [facility] [address] [place] [address] Dory Ramírez MD [address] [place] [address] documented as of this encounter Visit Diagnoses Diagnosis Neuropathy Mononeuritis of unspecified site documented in this encounter Additional Health Concerns Assessment Noted Time PHQ-9 Depression Total Score: 8 08/30/19 23 2:28 PM EDT documented as of this encounter Care Teams Goods Layer Relationship Specialty Start Date End Date Corrine Barth FNP [address] [place] [address] PCP - General Family Medicine 11/28/22 01/25/24 No Quach MD [address] [place] [address] PCP - General Family Medicine 01/26/24 03/29/24 Luz Elena Jiménez MD [address] [place] [address] PCP - General Internal Medicine 03/30/24 05/05/24 Dory Ramírez MD [address] [place] [address] PCP - General Internal Medicine 05/06/24 documented as of this encounter
--- NOTE | 2025-03-09 07:52 | A.OFFVIS_ITS ---
Vital Signs 03/09/25 07:59 Height 5 ft 4 in Weight 242 lb 11.663 oz BMI 41.7 BP 112/84 Blood Pressure Location Rt radial Position Sitting Pulse 66 Pulse Source Pulse Oximeter Pulse Oximetry (%) 98 Oxygen Delivery Method Room Air Intake Visit Reasons: follow up Intake Note: Patient presents for RA/Fibromyalgia follow up. Lead Javascript Engineer Required: Yes Lead Javascript Engineer Language: Primary Care Nurse Practitioner Services: Lead Javascript Engineer Present Lead Javascript Engineer Name: Kiran [id number] Information Interpreted: non-clinical & clinical Allergies methotrexate Allergy (Intermediate, Verified 03/09/25 07:58) rash Medication List - Last Reconciled 03/09/25 by Ashley Hurley MD adalimumab (Humira(CF)) 40 mg (0.4 mL) subcut QWEEK amitriptyline 50 mg PO DAILY amlodipine 10 mg PO DAILY bupropion HCl XL 300 mg PO DAILY buspirone 10 mg PO BID diclofenac sodium 1% 4 grams topical QID enalapril maleate 5 mg PO DAILY gabapentin 300 mg PO TID labetalol 100 mg PO BID omeprazole 20 mg PO DAILY tizanidine 2 mg PO TID topiramate 50 mg PO Q12H trazodone 100 mg PO BEDTIME HPI Comments Details: Patient is a 49-year-old female with hypertension, GERD, history of latent TB status post treatment, polyarticular osteoarthritis, fibromyalgia and seropositi ve rheumatoid arthritis here today for follow up Interval History: Patient last seen 11/09/24 with me - On Humira 40mg every other week and topical diclofenac 1% - complain about joint pain - Humira increase to weekly - prednisone taper ordered Today - On Humira 40mg SC every week - Completed prednisone course - Feels much better on the increased frequency of Humira and after the prednisone taper - 70-75% improved overall Rheumatologic History: +++RF-ve CCP Humira August 2018 - present effective Methotrexate- 2018- failed due to rash Enbrel- 07/2018-08/2018-ineffective Current Rheumatology Medication(s): Humira 40 mg every week Topical diclofenac 1% [facility] Medical History History of latent tuberculosis Osteoarthritis of left knee Osteoarthritis of right knee History of high blood pressure Low back pain, unspecified Fibromyalgia Seropositive rheumatoid arthritis Morbid obesity with BMI of 45.0-49.9, adult Surgical History History of surgery Hx of section Family History (Updated 11/09/24 @ 09:09 by KIARA Nicole) Father Diabetes Hypertension Cancer Mother Diabetes Hypertension Rheumatoid arthritis Kidney transplant recipient Sister Thyroid disease Social History Household Members: Spouse and Children Housing: Apartment Alcohol intake: never Patient Tobacco Use Status: Never used Tobacco Female Reproductive History Menstrual Age of Menarche: 12 Review of Systems Const Details: Review of Systems Constitutional: Denies fever, chills, weight loss ENT: Denies vision changes, eye pain or eye redness, dental caries, dry mouth GI: Denies nausea, vomiting, diarrhea, abdominal pain, change in BM Pulm: Denies SOB, RYAN, hemoptysis, wheezing Cards: Denies chest pain, palpitations Skin: Denies Raynaud's, rash, nail changes, photosensitivity, 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 Well appearing and in no apparent painful distress MSK Hands * Right Hand: Able to make a fist. No swelling or tenderness to palpation of the MCPs, PIPs or DIPs. * Left Hand: Able to make a fist. No swelling or tenderness to palpation of the MCPs, PIPs or DIPs. Wrists * Right Wrist: Full ROM to flexion and extension. No swelling or TTP * Left Wrist: Full ROM to flexion and extension. No swelling or TTP Elbows * Right Elbow: Full ROM. No swelling or TTP. No TTP of the medial epicondyle. No TTP of the lateral epicondyle * Left Elbow: Full ROM. No swelling or TTP. No TTP of the medial epicondyle. No TTP of the lateral epicondyle Shoulders * Right shoulder: Decreased ROM. No swelling noted. No TTP of the AC joint. No TTP of the subacromial bursa. No TTP of the posterior shoulder * Left shoulder: Decreased ROM. No swelling noted. No TTP of the AC joint. No TTP of the subacromial bursa. No TTP of the posterior shoulder Knees * Right knee: Full ROM. No swelling noted. No TTP of the knee joint line. No TTP of pes anserine bursa * Left knee: Full ROM. No swelling noted. TTP of the knee joint line. No TTP of pes anserine bursa. * Crepitations felt bilaterally Ankles * Right ankle: Good ankle dorsiflexion and plantar flexion. No swelling. No TTP of the ankle joint * Left ankle: Good ankle dorsiflexion and plantar flexion. No swelling. No TTP of the ankle joint Feet * Right foot: Negative squeeze test * Left foot: Negative squeeze test Tender points? * Tenderness to palpation of the bilateral trapezius, supraspinatus, anterior costochondral junctions, bilateral suboccipital muscle insertions SKIN No rashes Vital Signs: Last Vital Signs Pulse 66 03/09/25 07:59 BP 112/84 03/09/25 07:59 Pulse Ox 98 03/09/25 07:59 Oxygen Delivery Method Room Air 03/09/25 07:59 BMI result Body Mass Index 41.7 Results Reviewed Results Reviewed: Laboratory Tests 11/07/24 16:49 WBC 8.4 RBC 4.41 Hgb 13.7 Hct 40.6 Plt Count 360 ESR 9 Sodium 140 Potassium 3.8 Chloride 111 H Carbon Dioxide 21 L BUN 13 Creatinine 0.80 AST 17 ALT 22 Alkaline Phosphatase 70 C-Reactive Protein 0.18 Total Protein 7.2 Albumin 4.3 Laboratory Tests 11/07/24 16:49 Hep Bs Antigen Negative Hep Bs Antibody NONREACTIVE Hep B Core Total Ab Nonreactive Hepatitis C Ab (EIA) Nonreactive TB Test (T-Spot) Com Pending Assessment & Plan Assessment & Plan (1) Seropositive rheumatoid arthritis: Comment: +++RF-ve CCP Humira August 2018 - present effective Methotrexate- 2018- failed due to rash Enbrel- 07/2018-08/2018-ineffective Code(s): M05.9 - Rheumatoid arthritis with rheumatoid factor, unspecified Category: Medical Plan: #Seropositive RA Patient is a 49-year-old female with seropositive rheumatoid arthritis here today for follow up. Disease improved after increased frequency of Humira Plan - Humira 40mg SC every week - Labs today: CBC, CMP, ESR, CRP - RTC 4 months - Labs before visit: CBC, CMP, ESR, CRP (2) Fibromyalgia: Code(s): M79.7 - Fibromyalgia Category: Medical Plan: #Fibromyalgia Patient still with residual fibromyalgia chronic pain. 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) use of immunosuppressive biologic Plan: #Long-term Use of TNF Inhibitors: Briana Discussed with the patient the benefits and risks of TNF inhibitors for the management of the rheumatic condition Benefits include reduce pain, maintenance of remission and reduction of flares as well as ?progression of the disease Risks include injection sites/infusion reactions, serious infections (such as bacterial infections, opportunistic infections), malignancy, delaminating syndromes, autoimmune phenomena, CHF exacerbations, palmar plantar psoriasis and cytopenias Recommended rotating injection sites, and holding medication during and for up to 1 week after resolution of a febrile illness or open skin wound Plan I spent 35 minutes reviewing the record and labs, taking a history, examining the patient, discussing the treatment plan, ordering diagnostic work up and documenting in the medical record Orders: Orders Complete Blood Count Auto Diff 4 Months Z79.899 - Other residential (current) drug therapy Comprehensive Met. Panel 4 Months Z79.899 - Other residential (current) drug therapy C Reactive Protein 4 Months Z79.899 - Other residential (current) drug therapy Erythrocyte Sedimentation Rate 4 Months Z79.899 - Other terminal operations manager (current) drug therapy Medications: Changed From gabapentin 300 mg PO TID 90 caps 1RF M79.7 - Fibromyalgia To gabapentin 400 mg PO TID 270 caps 1RF 90 days M79.7 - Fibromyalgia Coding Level of Care Code Est Pt Level 4 (48072) Complex EM visit Add On G2211 Diagnoses Seropositive rheumatoid arthritis M05.9 Fibromyalgia M79.7 Encounter for monitoring of adalimumab therapy Z51.81; Z79.620
[2025-03-09 07:59] VITALS: BP 112/84; PULSE 66; O2SAT 98; BMI 41.7
== END 2025-03-09 08:24 | disposition home or self-care (01) ==
PROVIDERS: Visit Provider Student in an Organized Health Care Education/Training Program
DX: M05.9 Rheumatoid arthritis with rheumatoid factor, unspecified (principal); M79.7 Fibromyalgia; Z51.81 Encounter for therapeutic drug level monitoring; Z79.620 Long term (current) use of immunosuppressive biologic
CPT/HCPCS: 99214; G2211

== ENCOUNTER 2025-03-14 06:19 | Outpatient (REF) | payer MEDICARE, MEDICAID, SELFPAY ==
--- NOTE | ~2025-03-14 | FL_ITS ---
EXAMINATION: FL GUIDANCE ONLY HISTORY: M53.3 - Sacrococcygeal disorders, not elsewhere classified COMPARISON: None available. TECHNIQUE: Fluoroscopy time: 0.4 minutes. Cumulative Dose: 7.60 mGy. DAP: 231.98 uGym2 Images: 5. FINDINGS: Fluoroscopic spot films of the pelvis demonstrate needles and contrast material in the regions of the bilateral sacroiliac joints. FL/FL guidance in treatment room IMPRESSION: Fluoroscopy during procedure. Please see procedure report for additional information. Electronically signed by: Deondre Grace MD 03/15/2025 03:02 PM EDT
== END 2025-03-14 06:20 | disposition home or self-care (01) ==
LOC: CF 06:19
PROVIDERS: Visit Provider Anesthesiology
DX: M53.3 Sacrococcygeal disorders, not elsewhere classified (principal)
CPT/HCPCS: 27096; J2795; J3301; Q9967

== ENCOUNTER 2025-03-14 13:06 | Outpatient (AMB) | payer MEDICARE, MEDICAID, SELFPAY ==
--- OUTSIDE RECORDS SUMMARY | 2025-03-13 10:00 | XMS_ITS | Encounter Summary ---
Author Organization [employer] Address [address] [place] [address] Care Team Providers Care Customs Port Director Name Role Phone Dory Ramírez MD Primary Care Provider + Reason for Visit * Consultation (Routine) - Authorized Specialty Diagnoses / Procedures Referred By Contac t Referred To Contact Nutrition Diagnoses Class 3 severe obesity with serious comorbidity and body mass index (BMI) of 40.0 to 44.9 in adult ([facility]) Dory Ramírez MD [address] [place] [address] Phone: tel: fax: Referral ID Status Reason Start Date Expiration Date Visits Requested Visits Authorized [id number] Authorized Consult and Treat 12/13/2024 12/13/2025 1 1 Encounter Details Date Type Department Care Team ([facility] st Contact Info) Description 03/13/2025 10:00 AM EDT Nutrition [facility] DIABETES/NUTRITION [address], [place] [id number] Kourtney Valenzuela RD [address], [place] [id number] Class 3 severe obesity with serious comorbidity and body mass index (BMI) of 40.0 to 44.9 in adult ([facility]) (Primary Dx); Class 3 severe obesity due to excess calories with serious comorbidity and body mass index (BMI) of 40.0 to 44.9 in adult ([facility]) Social History Tobacco Use Types Packs/Day Years [...] Sign Reading Time Taken Comments Blood Pressure - - Pulse - - Temperature - - Respiratory Rate - - Oxygen Saturation - - Inhaled Oxygen Concentration - - Weight 110 kg (242 lb 6.4 oz) 03/14/2025 3:49 PM EDT Height 162.6 cm (5' 4 ) 03/14/2025 3:49 PM EDT Body Mass Index 41.61 03/14/2025 3:49 PM EDT documented in this encounter Progress Notes * Kourtney Valenzuela RD - 03/13/2025 10:00 AM EDT In Person Visit Medical Diagnosis: E66.813, Z68.41 Class 3 severe obesity with serious comorbidity and body mass index (BMI) of 40.0 to 44.9 in adult Anthropometrics: Ht:5' 4 (1.626 m), Wt:242 lb 6.4 oz (110 kg), BMI: Body mass index is 41.61 kg/m??. Assessment: Patient (Pt) accepted nutrition education assessment appointment with RD. RD took Pt's weight. [employer] pediatric speech language pathologist, Jony [phone] took 24 hour recall/ typical daily intake from Pt. Intake revealed Pt skips breakfast and drinks a very light noodle soup. Pt's intake is low in: protein, healthy fats, fiber, fresh and cooked vegetables, fruits and whole grains. Pt only did the first half of First appointment. Once the second half of First appointment is finished, RD will fill in nutrition diagnosis, nutrition Intervention, goals, Tailored made meal plan, monitoring and evaluation will be put into Pt's chart here. Thus, all is to be followed by Pt with their agreement. The second half of First nutrition education assessment appointment is scheduled in the last week of March 2025. Until then, RD made some suggestions. They are: Get from [employer]: Magnesium Glycinate 200 mg- take 2 in the morning Get from [employer]: Magnesium Citrate 250 mg- take 2 at night after dinner Get from [employer]: Digestive Enzymes Basic- take one with every meal with protein in the meal Food Allergies: NKFA Exercise: irregularly Food Intolerance: milk Food Preferences: Water; Dm noodle soup, cucumber, Egyptian hot spice flavorings, apples, oranges, noodles/ pasta,rice, pizza, breads, beans, Coke regular, Kittitian food, chicken, beef, pork chops, eggs, tomatoes, pepper steak, pepperoni, lettuces, avocados, white vinegar Food Dislikes: Didn't say Frequency of Eating Out/ Restaurant: 1-2 x weekly Who Cooks?: Patient How much caffeine?: Only has a Coke when having a Kittitian food which is once per week. Other than this time, none. How much sugary beverages?: none Diet History: Breakfast: Skips Water: 2 cups Snack: None Water: 1 cup Lunch: Soup, Dm noodle soup: 2 cups Snack: [place] with hot Egyptian flavoring Water: 1+ cup Dinner: Spaghetti:1 1/2 cups Gr. Beef: 1/2 cup = 4 oz. Tomato sauce: 1/3 cup Water: 1+ cup Snack: None Water: 1 cup Nutrition Diagnosis: 1st half of First appointment was done today. When the 2nd half of First appointment is finished/ done, this area will be filled in. Nutrition Intervention: 1st half of First appointment was done today. When the 2nd half of First appointment is finished/ done, this area will be filled in. Monitoring and Evaluation: 1st half of First appointment was done today. When the 2nd half of First appointment is finished/ done, this area will be filled in. Provider: Kourtney Valenzuela RD, BERTA documented in this encounter Plan of Treatment Upcoming Encounters Date Type Department Care Team (Late st Contact Info) Description 04/18/2025 9:00 AM EST Clinical Support [facility] DIABETES/NUTRITION [address] [place] [id number] [place] [phone] 04/25/2025 10:00 AM EST Office Visit [facility] MEDICINE [address] [place] [phone] Dory Ramírez MD [address] [place] [phone] documented as of this encounter Visit Diagnoses Diagnosis Class 3 severe obesity due to excess calories with serious comorbidity and body mass index (BMI) of 40.0 to 44.9 in adult ([facility]) documented in this encounter Additional Health Concerns Assessment Noted Time PHQ-9 Depression Total Score: 0 12/14/19 25 11:21 AM EDT documented as of this encounter Care Teams Customs Port Director Relationship Specialty Start Date End Date Dory Ramírez MD [address] [place] [phone] PCP - General Internal Medicine 05/06/24 documented as of this encounter
[2025-03-14 13:12] VITALS: BP 127/81; PULSE 95; RESP 16; O2SAT 99; BMI 41.5
--- NOTE | 2025-03-14 13:12 | A.OFFVIS_ITS ---
Vital Signs 03/14/25 13:12 03/14/25 13:42 Height 5 ft 4 in Weight 242 lb BMI 41.5 BP 127/81 147/88 H Blood Pressure Location Rt radial Rt radial Position Sitting Sitting Respiration 16 16 Pulse 95 95 Pulse Source Pulse Oximeter Pulse Oximeter Pulse Oximetry (%) 99 99 Oxygen Delivery Method Room Air Room Air Intake Visit Reasons: Bilateral Therapeutic SIJ Injections Allergies methotrexate Allergy (Intermediate, Verified 03/09/25 07:58) rash [facility] Medical History History of latent tuberculosis Osteoarthritis of left knee Osteoarthritis of right knee History of high blood pressure Low back pain, unspecified Fibromyalgia Seropositive rheumatoid arthritis Morbid obesity with BMI of 45.0-49.9, adult Surgical History History of surgery Hx of section Family History (Updated 11/09/24 @ 09:09 by KIARA Nicole) Father Diabetes Hypertension Cancer Mother Diabetes Hypertension Rheumatoid arthritis Kidney transplant recipient Sister Thyroid disease Social History Household Members: Spouse and Children Housing: Apartment Alcohol intake: never Patient Tobacco Use Status: Never used Tobacco Female Reproductive History Menstrual Age of Menarche: 12 Physical Exam Vital Signs: Last Vital Signs Pulse 95 03/14/25 13:42 Resp 16 03/14/25 13:42 BP 147/88 H 03/14/25 13:42 Pulse Ox 99 03/14/25 13:42 Oxygen Delivery Method Room Air 03/14/25 13:42 BMI result Body Mass Index 41.5 Assessment & Plan Assessment & Plan (1) Sacroiliac joint dysfunction of both sides: Code(s): M53.3 - Sacrococcygeal disorders, not elsewhere classified Category: Medical Plan Bilateral therapeutic sacroiliac joint injection Informed consent was explained thoroughly to the patient.? All questions about benefits and risks for the procedure were answered. Patient came to the operating room and was positioned prone on the operating table with the pillow under the abdomen. The lower back and buttocks of the patient were prepped with ChloraPrep prepped and draped with sterile utility towels.? Sterilely draped C-arm was brought over the operating field and sq picture of patient's pelvis was demonstrated on the screen.? For the right joint tilting C-arm contralateral to the site of the joint the most posterior portion of the joints was superimposed with anterior silhouette of the joint.? Skin was injected in the projection of the joint slightly medial to the location of the joint with 25 gauge 1/2 inch needle using local lidocaine 2% . After that 22 gauge 3 and 1/2 inch needle was driven to the left joint in tunnel vision fashion.? When needle entered the joint capsule injection of the contrast was performed demonstrating intra-articular and minimally periarticular spread of the contrast.? After that 5 cc. of ropivacaine 0.5% mixed with Kenalog 40 mg was injected in the joint. Upon completion of the injections the needle the procedure was repeated on the right side in the mirroring fashion. Upon completion of the procedure needle was removed and Band-Aid was applied.? Upon completion of the injection patient was taken outside of the operating room to the recovery room where recovered uneventfully. Orders: Orders FL guidance in treatment room 03/14/25 M53.3 - Sacrococcygeal disorders, not elsewhere classified Coding Level of Care Code Procedure Only Diagnoses Sacroiliac joint dysfunction of both sides M53.3
[2025-03-14 13:42] VITALS: BP 147/88; PULSE 95; RESP 16; O2SAT 99
--- OUTSIDE RECORDS SUMMARY | 2025-03-14 16:53 | XMS_ITS | Clinical Summary ---
Author Organization [employer] Address [address] [place] [address] Care Team Providers Care Coke Oven Mason Name Role Phone Dory Ramírez MD Primary [...] 180 tablet 3 12/02/19 25 Active rizatriptan PASTRY BAKER (Maxalt-PASTRY BAKER) 5 MG disintegrating tablet DISSOLVE 1 TABLET [...] status post INH, will obtain records from architectural drafting instructor. Order CXR. Mastalgia 09/13/2024 Assessment & Plan [...] of mammogram, will order BMI 40.0-44.9, adult ([facility]) 07/01/2024 Assessment & Plan (07/01/2024 10:02 AM [...] and Tylenol as needed and follow-up with architectural drafting instructor Migraine with aura 11/04/2020 Palpitations 01/11/2020 Overview (07/20/2024): Holter monitor on 01/19/2020 was within normal limits, average rhythm was NSR at 61-116 bpm Diastolic heart failure 12/23/2019 Overview (07/20/2024): Echo on 12/23/2019 at [facility] showed normal LVEF and no wall abnormalities, essentially normal echo. Nuclear stress test on 12/23/2019 was negative for ischemia, no arrhythmias and normotensive response to test Patient last seen at [facility] cardiology by Penelope Bhakta NP Assessment & Plan (07/01/2024 9:57 AM EST): Seen last time in 2019 by Jessica Interiano, no recent notes available I will obtain results of most recent echocardiogram and a stress test is available. Seropositive rheumatoid arthritis (CMS/HCC) 12/2017 Assessment & Plan (11/29/2024 12:48 PM EDT): Continue Humira and fu with rheumatology Assessment & Plan (07/01/2024 10:01 AM EST): Doing well on Humira twice per month, follow-up with architectural drafting instructor Will retrieve recent labs from [facility]. COVID influenza and pneumonia immunizations are up-to-date. [...] to follow-up with counselor, will refer to family independence case manager to help her with housing [...] Encounters Date Type Department Care Team Description 03/13/2025 10:00 AM EDT Nutrition [facility] DIABETES/NUTRITION [address] [place] [phone] Class 3 severe obesity with serious comorbidity and body mass index (BMI) of 40.0 to 44.9 in adult ([facility]) (Primary Dx); Class 3 severe obesity due to excess calories with serious comorbidity and body mass index (BMI) of 40.0 to 44.9 in adult (HCC) 03/13/2025 Travel 03/09/2025 Orders Only GENERIC EXTERNAL DATA DEPARTMENT Provider, Generic External Data 02/17/2025 Telephone [facility] MEDICINE [address] [place] [phone] Nutrition referral 02/14/2025 Telephone [facility] MEDIC[facility] [address] [place] [phone] Dory Ramírez MD CHART PREP 02/09/[address] [phone] Dory Ramírez MD Change Location & PCP 02/07/2025 Patient Outreach [facility] MED[facility] [address] [place] [phone] Dory Ramírez MD Pre-visit Planning (SDOH screening completed on 12/13/2024) 02/01/2025 Orders Only [facility] MEDICINE [address] [place] [phone] Dory Ramírez MD 12/31/2024 9:20 AM EDT Office Visit [facility] [address] [place] [phone] Luz Elena Jiménez MD Tooth infection; Open fracture of tooth, initial encounter 12/31/2024 Travel 12/13/2024 11:30 AM EDT Office Visit [facility] MEDICINE [address] [place] [address] Dory Ramírez MD Mastalgia (Primary Dx); Class 3 severe obesity with serious comorbidity and body mass index (BMI) of 40.0 to 44.9 in adult; Recurrent major depressive episodes (CMS/HCC); TB lung, latent; Fibromyalgia 12/13/2024 Patient Outreach [facility] [address] [place] [phone] Dory Ramírez MD Care Coordination (CHW outreach for SDOH PT-1 and food needs-referral completed /) 12/13/2024 Travel from Last 3 Months Immunizations Immunization [...] Mass Index 41.61 03/14/2025 3:49 PM EDT Plan of Treatment Upcoming Encounters Date Type Department Care Team (Late st Contact Info) Description 04/18/2025 9:00 AM EST Clinical Support [facility] DIABETES/NUTRITION [address] [place] [address] Kourtney Valenzuela, MATTHEW [address] [place] [address] 04/25/2025 10:00 AM EST Office Visit [facility] [address] [place] [address] Dory Ramírez MD [address] [place], [place] [phone] Health Maintenance Due Date Last Done Comments [...] Screening 12/13/2025 12/13/2024 Depression Screening 12/13/2025 12/13/2024, 07/22/20 25 Disability Screening 12/13/2025 12/13/2024 SDOH Screening [...] Procedure Name Priority Date/Time Associated Diagnosis Comments SED RATE BY MODIFIED WESTERGREN Routine 03/09/2025 8:29 AM EDT C-REACTIVE PROTEIN Routine 03/09/2025 8: 29 AM EDT COMPREHENSIVE METABOLIC PANEL Routine 03/09/2025 8:29 AM EDT CBC WITH AUTO DIFFERENTIAL Routine 03/09/2025 8:29 AM EDT BI US BREAST LIMITED BILATERAL Routine 02/01/2025 12:18 PM EDT BI MAMMOGRAM DIAGNOSTIC TOMOSYNTHESIS BILATERAL Routine 02/01/2025 11:55 AM EDT XR CHEST 2 VIEWS Routine 01/24/2025 2:53 PM EDT Positive TB test HEPATITIS B, C PROFILE Routine 4:49 PM EDT LIPID PANEL, STANDARD Routine 10/31/2020 10:09 AM EDT from Last 3 Months or Most Recently Relevant to Health Maintenance Results * CBC auto differential (03/09/2025 8:29 AM EDT) White Blood Count 7.8 4.8 - 10.8 X10*3/uL [facility] Red Blood Count 4.23 4.20 - 5.50 X10*6/uL [facility] Hemoglobin 12.9 12.0 - 16.0 g/dl [facility] Hematocrit 39.7 37.0 - 47.0 % [facility] Mean Corpuscular Volume 93.9 80.0 - 98.0 fL [facility] Mean Corpuscular Hemoglobin 30.5 27.0 - 33.0 pg [facility] Mean Corpuscular HGB Conc 32.5 31.0 - 35.0 g/dl [facility] Red Cell Distribution Width 12.4 11.0 - 16.0 % [facility] Platelet Count 369 160 - 400 X10*3/uL [facility] Mean Platelet Volume 11.3 9.4 - 12.3 fL [facility] Neutrophils Percent Auto 52.9 45 - 73 % [facility] Imm Gran Pct Auto 0.4 0.0 - 0.4 % [facility] Lymphocytes Percent Auto 38.3 20 - 40 % [facility] Monocytes Percent Auto 6.2 2 - 11 % [facility] Eosinophils Percent Auto 1.7 0 - 4 % [facility] Basophils Percent Auto 0.5 0 - 2 % [facility] NRBC Pct Auto 0.0 0.0 - 0.2 /100WBC [facility] Neutrophils Absolute Auto 4.1 2.0 - 8.3 x10*3/uL [facility] Imm Gran Abs Auto 0.03 0.00 - 0.03 X10*3/uL [facility] Lymphocytes Absolute Auto 3.0 1.2 - 4.9 X10*3/uL [facility] Monocytes Absolute Auto 0.5 0.1 - 1.2 X10*3/uL [facility] Eosinophils Absolute Auto 0.1 0.0 - 0.4 X10*3/uL [facility] Basophils Absolute Auto 0.0 0.0 - 0.2 X10*3/uL [facility] NRBC Abs Auto 0.000 0.0 - 0.012 X10*3/uL [facility] 03/09/2025 8:29 AM EDT 03/09/2025 1:23 PM EDT us Generic External Data Provider LAB BLOOD ORDERAB LES Final Result Performing Organization Address City/[facility]/ZIP Co de Phone Number [facility] [address] [place] [phone] * Sed Rate by Modified Ben (03/09/2025 8:29 AM EDT) Erythrocyte Sedimentation Rate 19 0 - 20 MM/HR [facility] Comment:Patients with polycy themia and many hemoglobin abnormalitiesmay have depressed sed rates whereas patients with anemiamay have elevated sed rates. 03/09/2025 8:29 AM EDT 03/09/2025 1:23 PM EDT us Generic External Data Provider LAB BLOOD ORDERAB LES Final Result Performing Organization Address [facility]/ZIP Co de Phone Number [facility] [address] [place] [address] [phone] * C-reactive Protein (03/09/2025 8:29 AM EDT) C Reactive Protein 0.28 < or = 0.50 mg/dL [facility] 03/09/2025 8:29 AM EDT 03/09/2025 1:23 PM EDT us Generic External Data Provider LAB BLOOD ORDERAB LES Final Result [facility] [address] [place] [address] [phone] * (ABNORMAL) Comprehensive Metabolic Panel (03/09/2025 8:29 AM EDT) Pathologist [facility] Sodium 143 135 - 145 mmol/L [facility] Potassium 4.4 3.3 - 5.1 mmol/L [facility] Chloride 114(H) 96 - 108 mmol/L [facility] Carbon Dioxide 22 22 - 29 mmol/L [facility] Anion Gap 11(L) 12 - 20 [facility] Urea Nitrogen (BUN) 18(H) 9 - 16 mg/dL [facility] Creatinine, Serum 0.81 0.5 - 1.4 mg/dL [facility] Estimated Glomerular Filt Rate >60 [facility] Comment:Chronic Kidney Disea se: Estimated GFR < 60 mL/min/1.05u1Lygdmw Kidney Disease: Estimated GFR < 15 mL/min/1.73m2 Glucose 98 60 - 115 mg/dL [facility] Calcium 9.9 8.4 - 10.2 mg/dL [facility] Bilirubin, Total 0.4 0.0 - 1.0 mg/dL [facility] Aspartate Amino Transferase 15 5 - 31 U/L [facility] Alanine Aminotransferase 13 0 - 31 U/L [facility] Total Protein 7.1 6.5 - 8.0 g/dL [facility] Albumin Level 4.3 3.5 - 5.0 g/dL [facility] Alkaline Phosphatase 62 39 - 117 U/L [facility] 03/09/2025 8:29 AM EDT 03/09/2025 1:23 PM EDT us Generic External Data Provider LAB BLOOD ORDERAB LES Final Result [facility] [address] [place] [phone] * BI US Breast Limited Bilateral (02/01/2025 12:18 PM EDT) Anatomical Region Laterality Modality Breast Bilateral Ultrasound 02/01/2025 12:1 8 PM EDT Narrative 02/01/2025 1:13 PM EDT [address] [place] [address] Ultrasound Report Signed Patient: Eliza Meléndez MR#: [id number] 547 : 1975 Acct:[id number] Age/Sex: 49 / F ADM Date: 02/01/25 Loc: HO.MAMMO Attending Dr: Dory Ramírez MD Ordering Physician: Dory Ramírez MD Date of Service: 02/01/25 Procedure(s): US breast BI limited mamm only Accession Number(s): [id number] cc: Dory Ramírez MD Reason for Exam: [...] 02/01/25 1310 DD/ 1218 TD/TT: 02/01/25 1233 Early Childhood Education Worker: Procedure Note Donotuseinterpreter, Image - 02/01/[facility] [address] [place] [address] Ultrasound Report Signed Patient: Anahi Meléndez#: [id number] : 1975Acct:[id number] Age/Sex: 49 / FADM Date: 02/01/25 Loc: .MAMMO Attending Dr: Dory Ramírez MD Ordering Physician: Dory Ramírez MD Date of Service: 02/01/25 Procedure(s): US breast BI limited mamm only Accession Number(s): [id number] cc: Dory Ramírez MD Reason for Exam: [...] 02/01/25 1310 DD/ 1218 TD/TT: 02/01/25 1233 Early Childhood Education Worker: us Dory Ramírez MD IMG US PROCEDURES Final Result * BI Mammogram Diagnostic Tomosynthesis Bilateral (02/01/2025 11:55 AM EDT) Anatomical Region Laterality Modality Breast Bilateral Mammography 02/01/2025 11:5 5 AM EDT Narrative 02/01/2025 1:13 PM EDT [facility] [address] [place] [address] Mammography Report Signed Patient: Eliza Meléndez MR#: [id number] 547 : 1975 Acct:[id number] Age/Sex: 49 / F ADM Date: 02/01/25 Loc: HO.MAMMO Attending Dr: Dory Ramírez MD Ordering Physician: Dory Ramírez MD Results: 1Ne gative Date of Service: 02/01/25 Follow Up: 1 Year From [facility] Mammogram Procedure(s): MM tomosynthesis diagnostic BI Accession Number(s): [id number] cc: Dory Ramírez MD EXAMINATION: MM DIAGNOSTIC [...] 02/01/25 1310 DD/ 1155 TD/TT: 02/01/25 1215 Early Childhood Education Worker: Procedure Note Donotuseinterpreter, Image - 02/01/2025 [facility] [address] [place] [address] Mammography Report Signed Patient: Anahi Meléndez#: [id number] 547 : 1975Acct:[id number] Age/Sex: 49 / FADM Date: 02/01/25 Loc: HO.MAMMO Attending Dr: Dory Ramírez MD Ordering Physician: Dory Ramírez MDResults: 1Ne gative Date of Service: 02/01/25Follow Up: 1 Year From [facility] in[facility] Mammogram Procedure(s): MM tomosynthesis diagnostic BI Accession Number(s): [id number] cc: Dory Ramírez MD EXAMINATION: MM DIAGNOSTIC [...] 02/01/25 1310 DD/ 1155 TD/TT: 02/01/25 1215 Early Childhood Education Worker: us Dory Ramírez MD IMG BI PROCEDURES Final Result * XR Chest 2 Views (01/24/2025 2:53 PM EDT) Anatomical Region Laterality Modality Chest Radiographic Venessa ging 01/24/2025 2:53 PM EDT Narrative 01/24/2025 3:53 [place] [address] XRay Report Signed Patient: Eliza Meléndez MR#: [id number] 547 : 1975 Acct:[id number] Age/Sex: 49 / F ADM Date: 01/24/25 Loc: HO.HHCX Attending Dr: Dory Ramírez MD Ordering Physician: Dory Ramírez MD Date of Service: 01/24/25 Procedure(s): XR chest 2V Accession Number(s): [id number] cc: Dory Ramírez MD Reason for Exam: [...] 01/24/25 1550 DD/ 1453 TD/TT: 01/24/25 1545 Early Childhood Education Worker: Procedure Note Ignaciater, Image - 01/24/[address] [address] XRay Report Signed Patient: Anahi Meléndez#: [id number] 547 : 1975Acct:[id number] Age/Sex: 49 / FADM Date: 01/24/25 [facility] Attending Dr: Dory Ramírez MD Ordering Physician: Dory Ramírez MD Date of Service: 01/24/25 Procedure(s): XR chest 2V Accession Number(s): [id number] cc: Dory Ramírez MD Reason for Exam: [...] 01/24/25 1550 DD/ 1453 TD/TT: 01/24/25 1545 Early Childhood Education Worker: Dory Ramírez MD IMG XR PROCEDURES Final Result * Hepatitis B, C Profile (11/07/2024 4:49 PM EDT) ~Hepatitis B Surface Antibody NONREACTIVE Nonreactive [facility] Comment:Nonreactive: < 8.00 mIU/mL Hepatitis B Core Antibody Nonreactive Nonreactive [facility] Hepatitis C Antibody Nonreactive Nonreactive [facility] Comment:Antibodies to HCV no t detected; does not exclude early acuteHCV infection. Hepatitis B Surface Ag Negative Negative [facility] 11/07/2024 4:49 PM EDT 11/07/2024 4:49 PM EDT us Generic External Data Provider LAB BLOOD ORDERAB LES Final Result [facility] [address] [place] [phone] * (ABNORMAL) LIPID PANEL, STANDARD (10/31/2020 [...] LDL-C. Eric SS et al. EDUARDA. 2013;310(19): 9972-9369 (http://education.JobPlanet.[employer]fuels/faq/RTL279) Non-HDL Cholesterol 161(H) <130 mg/dL (calc) [facility] [...] 10:0 9 AM EDT us Jessica Interiano [facility] [place] LAB BLOOD ORDERABLES Final Resu lt [facility] [address] from Last 3 Months or Most Recently Relevant to Health Maintenance Insurance [employer]ETNA MEDICARE REPLACEMENT [facility] [place] [id number] [place] [id number] Care Teams Coke Oven Mason Relationship Specialty Start Date End Date Dory Ramírez MD [address] [place] [phone] PCP - General Internal Medicine 05/06/24
--- OUTSIDE RECORDS SUMMARY | 2025-03-14 16:53 | XMS_ITS | Encounter Summary ---
Author Organization [employer] Address [address] [place] [address] [address] [place] [address] Care Team Providers Care Cnc Operator Name Role Phone Corrine Barth Primary Care Provider [phone] No Quach MD Primary Care Provider [phone] Luz Elena Jiménez MD Primary Care Provide r Dory Ramírez MD Primary Care Provider + Reason for Visit * Reason Onset Date Comments Med Refill 10/27/2023 Encounter Details Date Type Department Care Team (Late st Contact Info) Description 10/27/2023 Refill [facility] [address], [place] [phone] Corrine Barth FNP [address], [place] [phone] Social History Tobacco Use Types Packs/Day Years [...] Description 04/18/2025 9:00 AM EST Clinical Support [facility] DIABETES/NUTRITION [address] [place] [address] [place] [address] 04/25/2025 10:00 AM EST Office Visit [facility] [address] [place] [address] Dory Ramírez MD [address] [place] [address] documented as of this encounter Visit Diagnoses Not on filedocumented in this encounter Additional Health Concerns Assessment Noted Time PHQ-9 Depression Total Score: 20 024 9:51 AM EDT documented as of this encounter Care Teams Cnc Operator Relationship Specialty Start Date End Date Corrine Barth FNP [address] [place] [address] PCP - General Family Medicine 11/28/22 01/25/24 No Quach MD [address] [place] [address] PCP - General Family Medicine 01/26/24 03/29/24 Luz Elena Jiménez MD [address] [place] [address] PCP - General Internal Medicine 03/30/24 05/05/24 Dory Ramírez MD [address] [place] [address] PCP - General Internal Medicine 05/06/24 documented as of this encounter
--- OUTSIDE RECORDS SUMMARY | 2025-03-14 16:53 | XMS_ITS | Encounter Summary ---
Author Organization [employer] Address [address] [place] [address] 7 [place] [address] Care Team Providers Care Lacquer Coater Name Role Phone Dory Ramírez MD Primary Care Provider + Encounter Details Date Type Department Care Team (Late st Contact Info) Description 03/09/2025 Orders Only GENERIC EXTERNAL DATA DEPARTMENT Provider, Generic External Data Social History Tobacco Use Types Packs/Day Years [...] t he electric, gas, oil or water [employer] threatened to shut off services in your [...] Description 04/18/2025 9:00 AM EST Clinical Support [facility] DIABETES/NUTRITION [address] [place] [address] [place] [address] 04/25/2025 10:00 AM EST Office Visit [facility] MEDICINE [address] [place] [address] Dory Ramírez MD 230 [place] [address] documented as of this encounter Procedures Procedure Name Priority Date/Time Associated Diagnosis Comments CBC WITH AUTO DIFFERENTIAL Routine 03/09/2025 8:29 AM EDT SED RATE BY MODIFIED WESTERGREN Routine 03/09/2025 8:29 AM EDT C-REACTIVE PROTEIN Routine 03/09/2025 8: 29 AM EDT COMPREHENSIVE METABOLIC PANEL Routine 03/09/2025 8:29 AM EDT documented in this encounter Results * Sed Rate by Modified Westergren (03/09/2025 8:29 AM EDT) Erythrocyte Sedimentation Rate 19 0 - 20 MM/HR [facility] Comment:Patients with polycy themia and many hemoglobin abnormalitiesmay have depressed sed rates whereas patients with anemiamay have elevated sed rates. 03/09/2025 8:29 AM EDT 03/09/2025 1:23 PM EDT Generic External Data Provider LAB BLOOD ORDERAB LES Final Result Performing Organization Address [facility]/ZIP Co de Phone Number [facility] [address] [place] [phone] * C-reactive Protein (03/09/2025 8:29 AM EDT) C Reactive Protein 0.28 < or = 0.50 mg/dL [facility] 03/09/2025 8:29 AM EDT 03/09/2025 1:23 PM EDT Generic External Data Provider LAB BLOOD ORDERAB LES Final Result Performing Organization Address [facility] Co de Phone Number [facility] [address] [place] [phone] * (ABNORMAL) Comprehensive Metabolic Panel (03/09/2025 8:29 AM EDT) Sodium 143 135 - 145 mmol/L [facility] Potassium 4.4 3.3 - 5.1 mmol/L [facility] Chloride 114(H) 96 - 108 mmol/L [facility] Carbon Dioxide 22 22 - 29 mmol/L [facility] Anion Gap 11(L) 12 - 20 [facility] Urea Nitrogen (BUN) 18(H) 9 - 16 mg/dL [facility] Creatinine, Serum 0.81 0.5 - 1.4 mg/dL [facility] Estimated Glomerular Filt Rate >60 [facility] Comment:Chronic Kidney Disea se: Estimated GFR < 60 mL/min/1.43v6Bitoho Kidney Disease: Estimated GFR < 15 mL/min/1.73m2 Glucose 98 60 - 115 mg/dL [facility] Calcium 9.9 8.4 - 10.2 mg/dL [facility] Bilirubin, Total 0.4 0.0 - 1.0 mg/dL [facility] Aspartate Amino Transferase 15 5 - 31 U/L [facility] Alanine Aminotransferase 13 0 - 31 U/L [facility] Total Protein 7.1 6.5 - 8.0 g/dL [facility] Albumin Level 4.3 3.5 - 5.0 g/dL [facility] Alkaline Phosphatase 62 39 - 117 U/L [facility] 03/09/2025 8:29 AM EDT 03/09/2025 1:23 PM EDT us Generic External Data Provider LAB BLOOD ORDERAB LES Final Result [facility] [address] [place] [address] [phone] * CBC auto differential (03/09/2025 8:29 AM EDT) White Blood Count 7.8 4.8 - 10.8 X10*3/uL [facility] Red Blood Count 4.23 4.20 - 5.50 X10*6/uL [facility] Hemoglobin 12.9 12.0 - 16.0 g/dl [facility] Hematocrit 39.7 37.0 - 47.0 % [facility] Mean Corpuscular Volume 93.9 80.0 - 98.0 fL [facility] Mean Corpuscular Hemoglobin 30.5 27.0 - 33.0 pg [facility] Mean Corpuscular HGB Conc 32.5 31.0 - 35.0 g/dl [facility] Red Cell Distribution Width 12.4 11.0 - 16.0 % [facility] Platelet Count 369 160 - 400 X10*3/uL [facility] Mean Platelet Volume 11.3 9.4 - 12.3 fL [facility] Neutrophils Percent Auto 52.9 45 - 73 % [facility] Imm Gran Pct Auto 0.4 0.0 - 0.4 % [facility] Lymphocytes Percent Auto 38.3 20 - 40 % [facility] Monocytes Percent Auto 6.2 2 - 11 % [facility] Eosinophils Percent Auto 1.7 0 - 4 % [facility] Basophils Percent Auto 0.5 0 - 2 % [facility] NRBC Pct Auto 0.0 0.0 - 0.2 /100WBC [facility] Neutrophils Absolute Auto 4.1 2.0 - 8.3 x10*3/uL [facility] Imm Gran Abs Auto 0.03 0.00 - 0.03 X10*3/uL [facility] Lymphocytes Absolute Auto 3.0 1.2 - 4.9 X10*3/uL [facility] Monocytes Absolute Auto 0.5 0.1 - 1.2 X10*3/uL [facility] Eosinophils Absolute Auto 0.1 0.0 - 0.4 X10*3/uL [facility] Basophils Absolute Auto 0.0 0.0 - 0.2 X10*3/uL [facility] NRBC Abs Auto 0.000 0.0 - 0.012 X10*3/uL [facility] 03/09/2025 8:29 AM EDT 03/09/2025 1:23 PM EDT us Generic External Data Provider LAB BLOOD ORDERAB LES Final Result Performing Organization Address City/State/[facility] Co de Phone Number [facility] [address] [place] [phone] documented in this encounter Visit Diagnoses Not on filedocumented in this encounter Additional Health Concerns Assessment Noted Time PHQ-9 Depression Total Score: 0 12/14/19 25 11:21 AM EDT documented as of this encounter Care Teams Lacquer Coater Relationship Specialty Start Date End Date Dory Ramírez MD [address] [place] [address] PCP - General Internal Medicine 05/06/24 documented as of this encounter
--- OUTSIDE RECORDS SUMMARY | 2025-03-14 16:53 | XMS_ITS | Encounter Summary ---
Author Organization [employer] Address [address] [place] [address] [facility] [place] [address] Care Team Providers Care Multicultural Manager Name Role Phone Corrine Barth Primary Care Provider [phone] No Quach MD Primary Care Provider [phone] Luz Elena Jiménez MD Primary Care Provide r Dory Ramírez MD Primary Care Provider + Reason for Visit * Reason Onset Date Comments Med Refill 10/27/2023 Encounter Details Date Type Department Care Team (Late st Contact Info) Description 10/27/2023 Refill [facility] MED & PEDS [address] [place] [address] Corrine Barth FNP [address] [place], [place] [phone] Social History Tobacco Use Types Packs/Day Years [...] Description 04/18/2025 9:00 AM EST Clinical Support [facility] DIABETES/NUTRITION [address] [place] [address] [place] [address] 04/25/2025 10:00 AM EST Office Visit [facility] MEDICINE [address] [place] [address] Dory Ramírez MD [address] [place] [address] documented as of this encounter Visit Diagnoses Not on filedocumented in this encounter Additional Health Concerns Assessment Noted Time PHQ-9 Depression Total Score: 20 024 9:51 AM EDT documented as of this encounter Care Teams Multicultural Manager Relationship Specialty Start Date End Date Corrine Barth FNP [address] [place] [address] PCP - General Family Medicine 11/28/22 01/25/24 No Quach MD [address] [place] [address] PCP - General Family Medicine 01/26/24 03/29/24 Luz Elena Jiménez MD 230 [place] [address] PCP - General Internal Medicine 03/30/24 05/05/24 Dory Ramírez MD [address] [place] [address] PCP - General Internal Medicine 05/06/24 documented as of this encounter
--- OUTSIDE RECORDS SUMMARY | 2025-03-14 16:53 | XMS_ITS | Encounter Summary ---
Author Organization [employer] Address [address] [facility] 7 [place] [address] Care Team Providers Care Child Care Supervisor Name Role Phone Dory Ramírez MD Primary Care Provider + Encounter Details Date Type Department Care Team (Latest Contact Info) Description 03/13/2025 Travel Social History Tobacco Use Types Packs/Day [...] Description 04/18/2025 9:00 AM EST Clinical Support [facility] DIABETES/NUTRITION [address] [place] [address] [place] [address] 04/25/2025 10:00 AM EST Office Visit [facility] MEDICINE [address] [place] [address] Dory Ramírez MD [address] [place] [address] documented as of this encounter Visit Diagnoses Not on filedocumented in this encounter Additional Health Concerns Assessment Noted Time PHQ-9 Depression Total Score: 0 12/14/19 25 11:21 AM EDT documented as of this encounter Care Teams Child Care Supervisor Relationship Specialty Start Date End Date Dory Ramírez MD [address] [place] [address] PCP - General Internal Medicine 05/06/24 documented as of this encounter
--- OUTSIDE RECORDS SUMMARY | 2025-03-14 16:54 | XMS_ITS | Encounter Summary ---
Author Organization [employer] Address [address] [place] [address] [facility] [place] [address] Care Team Providers Care Exercise Planner Name Role Phone Corrine Barth Primary Care Provider [phone] No Quach MD Primary Care Provider [phone] Luz Elena Jiménez MD Primary Care Provide r Dory Ramírez MD Primary Care Provider + Reason for Visit * Reason Onset Date Comments Med Refill 03/09/2023 Encounter Details Date Type Department Care Team (Late st Contact Info) Description 03/09/2023 Refill [facility] MED & PEDS [address] [place] [address] Corrine Barth FNP [address] [place], [place] [phone] Social History Tobacco Use Types Packs/Day Years [...] Description 04/18/2025 9:00 AM EST Clinical Support [facility] DIABETES/NUTRITION [address] [place] [address] [place] [address] 04/25/2025 10:00 AM EST Office Visit [facility] MEDICINE [address] [place] [address] Dory Ramírez MD 230 [place] [address] documented as of this encounter Visit Diagnoses Not on filedocumented in this encounter Additional Health Concerns Assessment Noted Time PHQ-9 Depression Total Score: 8 08/30/19 23 2:28 PM EDT documented as of this encounter Care Teams Exercise Planner Relationship Specialty Start Date End Date Corrine Barth FNP [address] [place] [address] PCP - General Family Medicine 11/28/22 01/25/24 No Quach MD [address] [place] [address] PCP - General Family Medicine 01/26/24 03/29/24 Luz Elena Jiménez MD [address] [place] [address] PCP - General Internal Medicine 03/30/24 05/05/24 Dory Ramírez MD [address] [place] [address] PCP - General Internal Medicine 05/06/24 documented as of this encounter
--- OUTSIDE RECORDS SUMMARY | 2025-03-14 16:54 | XMS_ITS | Encounter Summary ---
Author Organization [employer] Address [address] [place] [address] [place] [address] Care Team Providers Care Meat Clerk Name Role Phone Corrine Barth Primary Care Provider [phone] No Quach MD Primary Care Provider [phone] Luz Elena Jiménez MD Primary Care Provide r Dory Ramírez MD Primary Care Provider + Reason for Visit * Reason Comments Med Refill Encounter Details Date Type Department Care Team (Late st Contact Info) Description 09/25/[address] [facility] MEDICINE [address] [place], [place] [phone] Corrine Barth FNP [address] [place], [place] [phone] Social History Tobacco Use Types Packs/Day Years [...] the past 12 months, has t he [employer], gas, oil or water company threatened to [...] 9:00 AM EST Clinical Support [facility] DIABETES/NUTRITION [address] [place] [address] [place] [address] 04/25/2025 10:00 AM EST Office Visit [facility] MEDICINE [address] [place] [address] Dory Ramírez MD 230 [place] [address] documented as of this encounter Visit Diagnoses Not on filedocumented in this encounter Additional Health Concerns Assessment Noted Time PHQ-9 Depression Total Score: 20 024 11:50 AM EDT documented as of this encounter Care Teams Meat Clerk Relationship Specialty Start Date End Date Corrine Barth FNP [address] [place] [address] PCP - General Family Medicine 11/28/22 01/25/24 No Quach MD 230 [place] [address] PCP - General Family Medicine 01/26/24 03/29/24 Luz Elena Jiménez MD 230 [place] [address] PCP - General Internal Medicine 03/30/24 05/05/24 Dory Ramírez MD 230 [place] [address] PCP - General Internal Medicine 05/06/24 documented as of this encounter
--- OUTSIDE RECORDS SUMMARY | 2025-03-14 16:54 | XMS_ITS | Encounter Summary ---
Author Organization [employer] Address [address] [place] [address] [facility] [place] [address] Care Team Providers Care Film Composer Name Role Phone Corrine Barth Primary Care Provider [phone] No Quach MD Primary Care Provider [phone] Luz Elena Jiménez MD Primary Care Provide r Dory Ramírez MD Primary Care Provider + Reason for Visit * Reason Onset Date Comments Med Refill 03/09/2023 Encounter Details Date Type Department Care Team (Late st Contact Info) Description 03/09/2023 Refill [facility] MED & PEDS [address] [place] [address] Corrine Barth FNP [address] [place], [place] [phone] Social History Tobacco Use Types Packs/Day Years [...] Description 04/18/2025 9:00 AM EST Clinical Support [facility] DIABETES/NUTRITION [address] [place] [address] [place] [address] 04/25/2025 10:00 AM EST Office Visit [facility] MEDICINE [address] [place] [address] Dory Ramírez MD 230 [place] [address] documented as of this encounter Visit Diagnoses Not on filedocumented in this encounter Additional Health Concerns Assessment Noted Time PHQ-9 Depression Total Score: 8 08/30/19 23 2:28 PM EDT documented as of this encounter Care Teams Film Composer Relationship Specialty Start Date End Date Corrine Barth FNP [address] [place] [address] PCP - General Family Medicine 11/28/22 01/25/24 No Quach MD [address] [place] [address] PCP - General Family Medicine 01/26/24 03/29/24 Luz Elena Jiménez MD [address] [place] [address] PCP - General Internal Medicine 03/30/24 05/05/24 Dory Ramírez MD [address] [place] [address] PCP - General Internal Medicine 05/06/24 documented as of this encounter
--- OUTSIDE RECORDS SUMMARY | 2025-03-14 16:54 | XMS_ITS | Encounter Summary ---
Author Organization [employer] Address [address] [place] [address] Care Team Providers Care Truck Washer Name Role Phone Dory Ramírez MD Primary Care Provider + Reason for Visit * Reason Onset Date Comments Med Refill 12/01/2024 Encounter Details Date Type Department Care Team (Late st Contact Info) Description 12/01/2024 Refill [facility] MED & PEDS [address] [place] [address] Corrine Barth FNP [address] [facility] [place] [address] Social History Tobacco Use Types Packs/Day Years [...] the past 12 months, has t he [employer], gas, oil or water company threatened to [...] Description 04/18/2025 9:00 AM EST Clinical Support [facility] DIABETES/NUTRITION [address] [place] [address] [place] [address] 04/25/2025 10:00 AM EST Office Visit [facility] MEDICINE [address] [place] [address] Dory Ramírez MD [address] [place] [address] documented as of this encounter Visit Diagnoses Not on filedocumented in this encounter Additional Health Concerns Assessment Noted Time PHQ-9 Depression Total Score: 12 025 4:04 PM EST documented as of this encounter Care Teams Truck Washer Relationship Specialty Start Date End Date Dory Ramírez MD [address] [place] [address] PCP - General Internal Medicine 05/06/24 documented as of this encounter
--- OUTSIDE RECORDS SUMMARY | 2025-03-14 16:54 | XMS_ITS | Encounter Summary ---
Author Organization [employer] Address [address] [place] [address] Care Team Providers Care Gear Hobber Name Role Phone Dory Ramírez MD Primary Care Provider + Reason for Visit * Reason Onset Date Comments Med Refill 12/01/2024 Encounter Details Date Type Department Care Team (Late st Contact Info) Description 12/01/2024 Refill [facility] MEDICINE [address] [place] [address] Dory Ramírez MD [address] [place] [address] Social History Tobacco Use Types Packs/Day Years [...] with others, in a hotel, in a nursing home, living outside on the street, on [...] the past 12 months, has t he [employer], gas, oil or water company threatened to [...] Description 04/18/2025 9:00 AM EST Clinical Support [facility] DIABETES/NUTRITION [address] [place] [address] [place] [address] 04/25/2025 10:00 AM EST Office Visit [facility] MEDICINE [address] [place] [address] Dory Ramírez MD [address] [place] [address] documented as of this encounter Visit Diagnoses Not on filedocumented in this encounter Additional Health Concerns Assessment Noted Time PHQ-9 Depression Total Score: 12 025 4:04 PM EST documented as of this encounter Care Teams Gear Hobber Relationship Specialty Start Date End Date Dory Ramírez MD [address] [place] [address] PCP - General Internal Medicine 05/06/24 documented as of this encounter
--- OUTSIDE RECORDS SUMMARY | 2025-03-14 16:54 | XMS_ITS | Encounter Summary ---
Author Organization [employer] Address [address] [place] [address] Care Team Providers Care Associate Professor Computer Science Name Role Phone Dory Ramírez MD Primary Care Provider + Reason for Visit * Reason Onset Date Comments Med Refill 12/01/2024 Encounter Details Date Type Department Care Team (Late st Contact Info) Description 12/01/2024 Refill [facility] MED & PEDS [address] [place] [address] Corrine Barth FNP [address] [facility] [place] [address] Social History Tobacco Use Types Packs/Day Years [...] with others, in a hotel, in a halfway, living outside on the street, on a [...] the past 12 months, has t he [employer], gas, oil or water company threatened to [...] Description 04/18/2025 9:00 AM EST Clinical Support [facility] DIABETES/NUTRITION [address] [place] [address] [place] [address] 04/25/2025 10:00 AM EST Office Visit [facility] MEDICINE [address] [place] [address] Dory Ramírez MD [address] [place] [address] documented as of this encounter Visit Diagnoses Not on filedocumented in this encounter Additional Health Concerns Assessment Noted Time PHQ-9 Depression Total Score: 12 025 4:04 PM EST documented as of this encounter Care Teams Associate Professor Computer Science Relationship Specialty Start Date End Date Dory Ramírez MD [address] [place] [address] PCP - General Internal Medicine 05/06/24 documented as of this encounter
--- OUTSIDE RECORDS SUMMARY | 2025-03-14 16:54 | XMS_ITS | Encounter Summary ---
Author Organization [employer] Address [address] [place] [address] [place] [address] Care Team Providers Care Data Warehousing Specialist Name Role Phone Corrine Barth Primary Care Provider [phone] No Quach MD Primary Care Provider [phone] Luz Elena Jiménez MD Primary Care Provide r Dory Ramírez MD Primary Care Provider + Reason for Visit * Reason Onset Date Comments Med Refill 03/09/2023 Encounter Details Date Type Department Care Team (Late st Contact Info) Description 03/09/2023 Refill [facility] MEDICINE [address] [place], [place] [phone] Corrine Barth FNP [address] [place], [place] [phone] Neuropathy Social History Tobacco Use Types Packs/Day [...] Description 04/18/2025 9:00 AM EST Clinical Support [facility] DIABETES/NUTRITION [address] [place] [address] [place] [address] 04/25/2025 10:00 AM EST Office Visit [facility] MEDICINE [address] [place] [address] Dory Ramírez MD [address] [place] [address] documented as of this encounter Visit Diagnoses Diagnosis Neuropathy Mononeuritis of unspecified site documented in this encounter Additional Health Concerns Assessment Noted Time PHQ-9 Depression Total Score: 8 08/30/19 23 2:28 PM EDT documented as of this encounter Care Teams Data Warehousing Specialist Relationship Specialty Start Date End Date Corrine Barth FNP [address] [place] [address] PCP - General Family Medicine 11/28/22 01/25/24 No Quach MD [address] [place] [address] PCP - General Family Medicine 01/26/24 03/29/24 Luz Elena Jiménez MD [address] [place] [address] PCP - General Internal Medicine 03/30/24 05/05/24 Dory Ramírez MD [address] [place] [address] PCP - General Internal Medicine 05/06/24 documented as of this encounter
--- OUTSIDE RECORDS SUMMARY | 2025-03-14 16:54 | XMS_ITS | Encounter Summary ---
Author Organization [employer] Address [address] [place] [address] Care Team Providers Care Vice President Of Development Name Role Phone Dory Ramírez MD Primary Care Provider + Reason for Visit * Reason Onset Date Comments Appointment Request 05/06/2024 Encounter Details Date Type Department Care Team ([facility] st Contact Info) Description 05/06/[address] [facility] MEDICINE [address] [place] [address] Luz Elena Jiménez MD [address] [place] [address] Appointment Request Social History Tobacco Use Types [...] TP apt from 05/06. Contact pt at [phone] documented in this encounter Plan of Treatment Upcoming Encounters Date Type Department Care Team (Late st Contact Info) Description 04/18/2025 9:00 AM EST Clinical Support [facility] DIABETES/NUTRITION [address] [place] [address] Kourtney Valenzuela, MATTHEW [address] [place] [address] 04/25/2025 10:00 AM EST Office Visit [facility] MEDICINE [address] [place] [address] Dory Ramírez MD [address] [place] [address] documented as of this encounter Visit Diagnoses Not on filedocumented in this encounter Additional Health Concerns Assessment Noted Time PHQ-9 Depression Total Score: 11 024 9:38 AM EDT documented as of this encounter Care Teams Vice President Of Development Relationship Specialty Start Date End Date Dory Ramírez MD [address] [place] [address] PCP - General Internal Medicine 05/06/24 documented as of this encounter
--- OUTSIDE RECORDS SUMMARY | 2025-03-14 16:54 | XMS_ITS | Encounter Summary ---
Author Organization [employer] Address [address] [place] [address] Care Team Providers Care Campground Hand Name Role Phone Dory Ramírez MD Primary Care Provider + Reason for Visit * Reason Onset Date Comments Med Refill 12/01/2024 Encounter Details Date Type Department Care Team (Late st Contact Info) Description 12/01/2024 Refill [facility] MEDICINE [address] [place] [address] Dory Ramírez MD [address] [place] [address] Social History Tobacco Use Types Packs/Day Years [...] with others, in a hotel, in a prison, living outside on the street, on a [...] the past 12 months, has t he [employer], gas, oil or water company threatened to [...] Description 04/18/2025 9:00 AM EST Clinical Support [facility] DIABETES/NUTRITION [address] [place] [address] [place] [address] 04/25/2025 10:00 AM EST Office Visit [facility] MEDICINE [address] [place] [address] Dory Ramírez MD [address] [place] [address] documented as of this encounter Visit Diagnoses Not on filedocumented in this encounter Additional Health Concerns Assessment Noted Time PHQ-9 Depression Total Score: 12 025 4:04 PM EST documented as of this encounter Care Teams Campground Hand Relationship Specialty Start Date End Date Dory Ramírez MD [address] [place] [address] PCP - General Internal Medicine 05/06/24 documented as of this encounter
--- OUTSIDE RECORDS SUMMARY | 2025-03-14 16:54 | XMS_ITS | Encounter Summary ---
Author Organization [employer] Address [address] [place] [address] [place] [address] Care Team Providers Care Die Cast Technician Name Role Phone Dory Ramírez MD Primary Care Provider + Reason for Visit * Reason Onset Date Comments Med Refill 12/01/2024 Encounter Details Date Type Department Care Team (Late st Contact Info) Description 12/01/2024 Refill [facility] [address] [place] [address] Corrine Barth FNP [address] [place] [address] Social History Tobacco Use Types Packs/Day Years [...] the past 12 months, has t he [employer], gas, oil or water company threatened to [...] Description 04/18/2025 9:00 AM EST Clinical Support [facility] DIABETES/NUTRITION [address] [place] [address] [place] [address] 04/25/2025 10:00 AM EST Office Visit [facility] MEDICINE [address] [place] [address] Dory Ramírez MD [address] [place] [address] documented as of this encounter Visit Diagnoses Not on filedocumented in this encounter Additional Health Concerns Assessment Noted Time PHQ-9 Depression Total Score: 12 025 4:04 PM EST documented as of this encounter Care Teams Die Cast Technician Relationship Specialty Start Date End Date Dory Ramírez MD [address] [place] [address] PCP - General Internal Medicine 05/06/24 documented as of this encounter
--- OUTSIDE RECORDS SUMMARY | 2025-03-14 16:54 | XMS_ITS | Encounter Summary ---
Author Organization [employer] Address [address] [place] [address] [place] [address] Care Team Providers Care Hospital Admissions Officer Name Role Phone Dory Ramírez MD Primary Care Provider + Reason for Visit * Reason Onset Date Comments Med Refill 12/01/2024 Encounter Details Date Type Department Care Team (Late st Contact Info) Description 12/01/2024 Refill [facility] MED & PEDS [address] [place] [address] Corrine Barth FNP [address] [facility] [place] [address] Neuropathy Social History Tobacco Use Types Packs/Day [...] the past 12 months, has t he [employer], gas, oil or water company threatened to [...] Description 04/18/2025 9:00 AM EST Clinical Support [facility] DIABETES/NUTRITION [address] [place] [address] [place] [address] 04/25/2025 10:00 AM EST Office Visit [facility] MEDICINE [address] [place] [address] Dory Ramírez MD [address] [place] [address] documented as of this encounter Visit Diagnoses Diagnosis Neuropathy Mononeuritis of unspecified site documented in this encounter Additional Health Concerns Assessment Noted Time PHQ-9 Depression Total Score: 12 025 4:04 PM EST documented as of this encounter Care Teams Hospital Admissions Officer Relationship Specialty Start Date End Date Dory Ramírez MD [address] [place] [address] PCP - General Internal Medicine 05/06/24 documented as of this encounter
== END 2025-03-14 13:44 | disposition home or self-care (01) ==
LOC: HO.PMCPRC 13:06
PROVIDERS: PCP Internal Medicine; Visit Provider Anesthesiology
DX: M53.3 Sacrococcygeal disorders, not elsewhere classified (principal)
CPT/HCPCS: 27096

== ENCOUNTER 2025-04-13 11:33 | Outpatient (AMB) | payer MEDICARE, MEDICAID, SELFPAY ==
--- NOTE | 2025-04-13 11:36 | A.OFFVIS_ITS ---
Intake Visit Reasons: Inj-B/L knee Injections-last 01/17/25 Intake Note: Patient presents to the office today for repeat bilateral knee injections. Last injection 01/17/2025. Allergies methotrexate Allergy (Intermediate, Verified 04/13/25 11:39) rash HPI HPI Inj-B/L knee Injections-last 01/17/25: Details: Ms. Kenia Hernandes is a 49-year-old female who presents to the office today with label stamper aysha bilateral knee pain. Patient was last seen on 01/17/2025 where she was administered bilateral knee injections. This gave her relief and she is looking to repeat injections while in the office today. [facility] Medical History History of latent tuberculosis Osteoarthritis of left knee Osteoarthritis of right knee History of high blood pressure Low back pain, unspecified Fibromyalgia Seropositive rheumatoid arthritis Morbid obesity with BMI of 45.0-49.9, adult Surgical History History of surgery Hx of section Family History (Updated 11/09/24 @ 09:09 by KIARA Nicole) Father Diabetes Hypertension Cancer Mother Diabetes Hypertension Rheumatoid arthritis Kidney transplant recipient Sister Thyroid disease Social History Household Members: Spouse and Children Housing: Apartment Alcohol intake: never Patient Tobacco Use Status: Never used Tobacco Female Reproductive History Menstrual Age of Menarche: 12 Review of Systems Const All systems reviewed & are unremarkable except as noted in HPI and below Physical Exam Const General: cooperative, healthy appearing and no acute distress Resp Effort & Inspection: normal respiratory effort and able to speak in complete sentences Extrem Other: Bilateral knees: Normal to inspection. No ecchymosis, erythema, or joint effusion. No tenderness to palpation to the medial or lateral joint lines. Full knee extension and flexion. Crepitus felt with ROM. NVI. Office Procedures AMB Joint Injection/Aspiration Joint Injection/Aspiration Primary Site: Right Knee Secondary Site: Left Knee Prep: site was prepped using aseptic technique, ethochloride spray was applied and injection warnings given Injected: 40 mg of, Decadron, with 3 mL of, 1% plain Lidocaine, 0.25% Bupivacaine and in the joint Approach Used: anterolateral Procedure: The patient tolerated the procedure well, but had some pain with the injection and there was some relief with the local anesthesia Coding 18690 - Bilateral Large Joint Procedure code (CPT) selection complete Assessment & Plan Assessment & Plan (1) Osteoarthritis of right knee: Code(s): M17.11 - Unilateral primary osteoarthritis, right knee Category: Medical Qualifiers: Osteoarthritis type: primary Qualified Code(s): M17.11 - Unilateral primary osteoarthritis, right knee (2) Osteoarthritis of left knee: Code(s): M17.12 - Unilateral primary osteoarthritis, left knee Category: Medical Qualifiers: Osteoarthritis type: primary Qualified Code(s): M17.12 - Unilateral primary osteoarthritis, left knee Plan The patient was offered a cortisone injection in bilateral knees. The patient was explained the risks, benefits, and alternatives to receiving this injection. After receiving consent for the injection, the patient had the procedure done while in the office today. The patient tolerated the procedure well with no complications. The risks, benefits, and alternatives to a corticosteroid injection were discussed with the patient, including the potential benefits of decreased inflammation and pain, improved function, and diagnostic value. Risks were reviewed, including post-injection flare, skin or fat atrophy, transient facial flushing, temporary elevation in blood glucose, bruising, and rare but serious complications such as infection, tendon weakening or rupture, and cartilage damage with repeated injections. Procedure-related discomfort and possible vasovagal symptoms were also explained. Alternatives were reviewed, including NSAIDs, physical therapy, activity modification, bracing, ice/heat, weight management, hyaluronic acid injections when appropriate, PRP or other orthobiologics, oral steroids, surgery depending on pathology, and observation. The patient verbalized understanding and elected to proceed. After receiving consent for the injection, the patient had the procedure done while in the office today. The patient tolerated the procedure well with no complications. Follow-up will be PRN, or sooner if needed Medications: Discontinued adalimumab (Humira(CF)) Discontinued Reason: Doctor's Order 40 mg (0.4 mL) subcut QWEEK 4 ea 5RF M05.9 - Rheumatoid arthritis with rheumatoid factor, unspecified Coding Level of Care Code Est Pt Level 3 (26986) Diagnoses Primary osteoarthritis of right knee M17.11 Osteoarthritis type: primary Primary osteoarthritis of left knee M17.12 Osteoarthritis type: primary CPT Codes Coding - 80559 - Bilateral Large Joint: 54182 - Bilateral Large Joint ([id number])
--- OUTSIDE RECORDS SUMMARY | 2025-04-13 17:53 | XMS_ITS | Encounter Summary ---
Author Organization [employer] Address [address] [place] [address] [place] [address] Care Team Providers Care Tire Stripper Name Role Phone Corrine Barth Primary Care Provider + No Quach MD Primary Care Provider [phone] Luz Elena Jiménez MD Primary Care Provide r Dory Ramírez MD Primary Care Provider + Reason for Visit * Reason Comments Med Refill Encounter Details Date Type Department Care Team (Late st Contact Info) Description 09/25/2023 Refill [facility] MEDICINE [address] [place], [place] [phone] Corrine Barth FNP [address] [place], [place] [phone] Social History Tobacco Use Types Packs/Day Years [...] the past 12 months, has t he [employer], gas, oil or water company threatened to [...] Description 04/18/2025 9:00 AM EST Clinical Support [facility] DIABETES/NUTRITION [address] [place] [address] [place] [address] 04/25/2025 10:00 AM EST Office Visit [facility] MEDICINE [address] [place] [address] Dory Ramírez MD [address] [place] [address] documented as of this encounter Visit Diagnoses Not on filedocumented in this encounter Additional Health Concerns Assessment Noted Time PHQ-9 Depression Total Score: 20 024 11:50 AM EDT documented as of this encounter Care Teams Tire Stripper Relationship Specialty Start Date End Date Corrine Barth FNP [address] [place] [address] PCP - General Family Medicine 11/28/22 01/25/24 No Quach MD [address] [place] [address] PCP - General Family Medicine 01/26/24 03/29/24 Luz Elena Jiménez MD [address] [place] [address] PCP - General Internal Medicine 03/30/24 05/05/24 Dory Ramírze MD [address] [place] [address] PCP - General Internal Medicine 05/06/24 documented as of this encounter
--- OUTSIDE RECORDS SUMMARY | 2025-04-13 17:53 | XMS_ITS | Encounter Summary ---
Author Organization [employer] Address [address] [place] [address] [place] [address] Care Team Providers Care Triage Assistant Name Role Phone Corrine Barth Primary Care Provider [phone] No Quach MD Primary Care Provider [phone] Luz Elena Jiménez MD Primary Care Provide r Dory Ramírez MD Primary Care Provider + Reason for Visit * Reason Onset Date Comments Med Refill 03/09/2023 Encounter Details Date Type Department Care Team (Late st Contact Info) Description 03/09/2023 Refill [facility] MEDICINE [address] [place], [place] [phone] Corrine Barth FNP [address] [place], [place] [phone] Neuropathy Social History Tobacco Use Types Packs/Day [...] Description 04/18/2025 9:00 AM EST Clinical Support [facility] DIABETES/NUTRITION [address] [place] [address] [place] [address] 04/25/2025 10:00 AM EST Office Visit [facility] MEDICINE [address] [place] [address] Dory Ramírez MD [address] [place] [address] documented as of this encounter Visit Diagnoses Diagnosis Neuropathy Mononeuritis of unspecified site documented in this encounter Additional Health Concerns Assessment Noted Time PHQ-9 Depression Total Score: 8 08/30/19 23 2:28 PM EDT documented as of this encounter Care Teams Triage Assistant Relationship Specialty Start Date End Date Corrine Barth FNP [address] [place] [address] PCP - General Family Medicine 11/28/22 01/25/24 No Quach MD [address] [place] [address] PCP - General Family Medicine 01/26/24 03/29/24 Luz Elena Jiménez MD [address] [place] [address] PCP - General Internal Medicine 03/30/24 05/05/24 Dory Ramírez MD [address] [place] [address] PCP - General Internal Medicine 05/06/24 documented as of this encounter
--- OUTSIDE RECORDS SUMMARY | 2025-04-13 17:53 | XMS_ITS | Encounter Summary ---
Author Organization [employer] Address [address] [facility] 7 [place] [address] Care Team Providers Care Golf Course Architect Name Role Phone Dory Ramírez MD Primary Care Provider + Reason for Visit * Reason Comments Med Refill Encounter Details Date Type Department Care Team ([facility] st Contact Info) Description 04/12/2025 Refill [facility] [address] [place] [address] [phone] Name, MD Peterson [address] [place] [address] Social History Tobacco Use Types Packs/Day Years [...] Description 04/18/2025 9:00 AM EST Clinical Support [facility] DIABETES/NUTRITION [address] [place] [address] Kourtney Valenzuela, MATTHEW [address] [place] [address] 04/25/2025 10:00 AM EST Office Visit [facility] MEDICINE [address] [place] [address] Dory Ramírez MD [address] [place] [address] documented as of this encounter Visit Diagnoses Not on filedocumented in this encounter Additional Health Concerns Assessment Noted Time PHQ-9 Depression Total Score: 0 12/14/19 25 11:21 AM EDT documented as of this encounter Care Teams Golf Course Architect Relationship Specialty Start Date End Date Dory Ramírez MD [address] [place] [address] PCP - General Internal Medicine 05/06/24 documented as of this encounter
--- OUTSIDE RECORDS SUMMARY | 2025-04-13 17:53 | XMS_ITS | Encounter Summary ---
Author Organization [email or web address] Address [address] [place] [address] 7 [place] [address] Care Team Providers Care Proof Press Operator Name Role Phone Corrine Barth Primary Care Provider [phone] No Quach MD Primary Care Provider [phone] Luz Elena Jiménez MD Primary Care Provide r Dory Ramírez MD Primary Care Provider + Reason for Visit * Reason Onset Date Comments Med Refill 10/27/2023 Encounter Details Date Type Department Care Team (Late st Contact Info) Description 10/27/2023 Refill [facility] [address] [place], [place] [phone] Corrine Barth FNP [address] [place], [place] [phone] Social History Tobacco Use Types Packs/Day Years [...] Description 04/18/2025 9:00 AM EST Clinical Support [facility] DIABETES/NUTRITION [address] [place] [address] [place] [address] 04/25/2025 10:00 AM EST Office Visit [facility] MEDICINE [address] [place] [address] Dory Ramírez MD [address] [place] [address] documented as of this encounter Visit Diagnoses Not on filedocumented in this encounter Additional Health Concerns Assessment Noted Time PHQ-9 Depression Total Score: 20 024 9:51 AM EDT documented as of this encounter Care Teams Proof Press Operator Relationship Specialty Start Date End Date Corrine Barth FNP [address] [place] [address] PCP - General Family Medicine 11/28/22 01/25/24 No Quach MD [address] [place] [address] PCP - General Family Medicine 01/26/24 03/29/24 Luz Elena Jiménez MD [address] [place] [address] PCP - General Internal Medicine 03/30/24 05/05/24 Dory Ramírez MD [address] [place] [address] PCP - General Internal Medicine 05/06/24 documented as of this encounter
--- OUTSIDE RECORDS SUMMARY | 2025-04-13 17:53 | XMS_ITS | Encounter Summary ---
Author Organization [employer] Address [address] [place] [address] 7located [facility] [place] [address] Care Team Providers Care Quality Control Coordinator Name Role Phone Corrine Barth Primary Care Provider [phone] No Quach MD Primary Care Provider [phone] Luz Elena Jiménez MD Primary Care Provide r Dory Ramírez MD Primary Care Provider + Reason for Visit * Reason Onset Date Comments Med Refill 10/27/2023 Encounter Details Date Type Department Care Team (Late st Contact Info) Description 10/27/[address] [facility] MED & PEDS [address] [place] [address] Corrine Barth FNP [address] [place], [place] [phone] Social History Tobacco Use Types Packs/Day Years [...] 04/18/2025 9:00 AM EST Clinical Support [facility] DIABETES/NUTRITION [address] [place] [address] [place] [address] 04/25/2025 10:00 AM EST Office Visit [facility] MEDICINE [address] [place] [address] Dory Ramírez MD [address] [place] [address] documented as of this encounter Visit Diagnoses Not on filedocumented in this encounter Additional Health Concerns Assessment Noted Time PHQ-9 Depression Total Score: 20 024 9:51 AM EDT documented as of this encounter Care Teams Quality Control Coordinator Relationship Specialty Start Date End Date Corrine Barth FNP [address] [place] [address] PCP - General Family Medicine 11/28/22 01/25/24 No Quach MD [address] [place] [address] PCP - General Family Medicine 01/26/24 03/29/24 Luz Elena Jiménez MD [address] [place] [address] PCP - General Internal Medicine 03/30/24 05/05/24 Dory Ramírez MD [address] [place] [address] PCP - General Internal Medicine 05/06/24 documented as of this encounter
--- OUTSIDE RECORDS SUMMARY | 2025-04-13 17:53 | XMS_ITS | Clinical Summary ---
Author Organization [facility] Address [address] [place] [address] Care Team Providers Care Welfare Investigator Name Role Phone Dory Ramírez MD Primary [...] Prefilled Syringe Kit prefilled syringe 022 Active polyethylene glycol, PEG, 3350 (Glycolax) 17 GM/SCOOP powder TAKE 17 GM MIXED IN 8 OUNCES OF WATER, COFFEE OR TEA ONCE DAILY AT BEDTIME NEEDED FOR CONSTIPATION 510 g 5 024 Active hydrOXYzine pamoate (Vistaril) 25 MG capsule TAKE 1 CAPSULE BY MOUTH EVERY DAY AT BEDTIME NEEDED FOR ANXIETY 30 capsule 1 024 Active docusate sodium (Colace) 100 MG capsule TAKE 1 CAPSULE BY MOUTH TWICE DAILY NEEDED FOR CONSTIPATION 180 capsule 1 025 Active tiZANidine (Zanaflex) 2 MG tablet Take 1 tablet (2 mg) by mouth if needed in the morning and at bedtime for muscle spasms. 60 tablet 025 Active Acetaminophen Extra Strength 500 MG tablet TAKE 1 TABLET BY MOUTH EVERY 6 HOURS NEEDED FOR MILD PAIN 120 tablet 025 Active busPIRone (Buspar) 10 MG tablet TAKE 1 TABLET BY MOUTH TWICE A DAY 180 tablet 3 Active amLODIPine (Norvasc) 10 MG tablet TAKE 1 TABLET BY MOUTH EVERY DAY 90 tablet 3 Active topiramate 50 MG tabletIndications :Neuropathy TAKE 1 TABLET BY MOUTH EVERY TWELVE HOURS 180 tablet 1 Active meloxicam (Mobic) 15 MG tablet TAKE 1 TABLET BY MOUTH EVERY DAY 30 tablet Active omeprazole (PriLOSEC) [address] capsule TAKE 1 CAPSULE BY MOUTH EVERY DAY NEEDED FOR HEARTBURN 90 capsule 1 Active buPROPion XL (Wellbutrin XL) 150 MG 24 hr tablet Take 1 tablet (150 mg) by mouth Once per day. Do not crush, chew, or split. 30 tablet 11 2025 Active labetalol (Normodyne) 100 MG tablet TAKE 1 TABLET BY MOUTH TWICE DAILY 180 tablet 3 Active enalapril (Vasotec) 5 MG tablet TAKE 1 TABLET BY MOUTH EVERY DAY IN THE MORNING 90 tablet 3 Active SUMAtriptan (Imitrex) 25 MG tablet TAKE 1 TABLET BY MOUTH AT ONSET OF MIGRAINE. MAY REPEAT ONCE AFTER 2 HOURS IF NEEDED NO MORE THAN 2 DOSES IN 24 HOURS 9 tablet 04/13/20 25 5:29 PM EST Active labetalol (Normodyne) 100 MG tablet TAKE 1 TABLET BY MOUTH TWICE DAILY 180 tablet 3 024 2024 Discontinued enalapril (Vasotec) 5 MG tablet TAKE 1 TABLET BY MOUTH EVERY MORNING 90 tablet 3 024 2024 Discontinued rizatriptan VIRTUALIZATION ENGINEER (Maxalt-VIRTUALIZATION ENGINEER) 5 MG disintegrating tablet DISSOLVE 1 TABLET ON TONGUE AND SWALLOW ONCE NEEDED FOR MIGRAINE, MAY REPEAT IN 2 HOURS NEEDED, DO NOT EXCEED 6 TABLETS / 24 HOURS 9 tablet 025 2024 Discontinued(T herapy completed) SUMAtriptan (Imitrex) 25 MG tablet Take 1 tablet (25 mg) by mouth 1 (one) time if needed for migraine for up to 1 dose. May repeat dose once in 2 hours if no relief. Do not exceed 2 doses in 24 hours. 9 tablet 025 2024 Discontinued ondansetron (Zofran) 4 MG tabletIndications :Nonintractable headache, unspecified chronicity pattern, unspecified headache type Take 1 tablet (4 mg) by mouth every 8 (eight) hours if needed for nausea for up to 7 days. 20 tablet 025 2024 Active Problems Problem Noted Date Diagnosed Date Tooth infection 12/31/2024 Open fracture of tooth 12/31/2024 TB lung, latent 12/13/2024 Assessment & Plan (12/13/2024 1:53 PM EDT): Old, reportedly status post INH, will obtain records from clinical analyst. Order CXR. Mastalgia 09/13/2024 Assessment & Plan [...] of mammogram, will order BMI 40.0-44.9, adult ([facility]) 07/01/2024 Assessment & Plan (07/01/2024 10:02 AM [...] and Tylenol as needed and follow-up with clinical analyst Migraine with aura 11/04/2020 Palpitations 01/11/2020 Overview (07/20/2024): Holter monitor on 01/19/2020 was within normal limits, average rhythm was NSR at 61-116 bpm Diastolic heart failure 12/23/2019 Overview (07/20/2024): Echo on 12/23/2019 at [facility] showed normal LVEF and no wall abnormalities, essentially normal echo. Nuclear stress test on 12/23/2019 was negative for ischemia, no arrhythmias and normotensive response to test Patient last seen at [facility] cardiology by Penelope Bhakta NP Assessment & Plan (07/01/2024 9:57 AM EST): Seen last time in 2019 by Jessica Interiano, no recent notes available I will obtain results of most recent echocardiogram and a stress test is available. Seropositive rheumatoid arthritis (CMS/HCC) 0 12/2017 Assessment & Plan (11/29/2024 12:48 PM EDT): Continue Humira and ash with rheumatology Assessment & Plan (07/01/2024 10:01 AM EST): Doing well on Humira twice per month, follow-up with clinical analyst Will retrieve recent labs from [facility]. COVID influenza and pneumonia immunizations are up-to-date. [...] to follow-up with counselor, will refer to machine adjuster leader case trim to help her with housing issues. Start [...] Encounters Date Type Department Care Team Description 04/12/2025 Refill [facility] [address] [place] [phone] Peterson Roe MD 03/26/2025 Refill [facility] & PEDS [address] [place] [address] No Quach MD 03/20/2025 1:40 PM EDT Office Visit [facility] [address] [place] [address] NamePeterson MD Nonintractable headache, unspecified chronicity pattern, unspecified headache type (Primary Dx) 03/20/2025 Travel 03/13/2025 10:00 AM EDT Nutrition [facility]NUTRITION [address] [place] [address] Class 3 severe obesity with serious comorbidity and body mass index (BMI) of 40.0 to 44.9 in adult (HCC) (Primary Dx); Class 3 severe obesity due to excess calories with serious comorbidity and body mass index (BMI) of 40.0 to 44.9 in adult (HCC) 03/13/2025 Travel 03/09/2025 Orders Only GENERIC EXTERNAL DATA DEPARTMENT Provider, Generic External Data 02/17/2025 Telephone [facility] [address] [place] [phone] Nutrition referral 02/14/[address] [address] Dory Ramírez MD CHART PREP 02/09/[address] [address] Dory Ramírez MD Change Location & PCP 02/07/2025 Patient Outreach [facility] [address] [place] [address] [phone] Dory Ramírez MD Pre-visit Planning ([facility] screening completed on 12/13/2024) 02/01/2025 Orders Only [facility] [address] [place] [phone] Dory Ramírez MD from Last 3 Months Immunizations Immunization Administration [...] Sign Reading Time Taken Comments Blood Pressure 156/95 03/20/2025 1:46 PM EDT Pulse 95 03/20/2025 1:46 PM EDT Temperature 36.5 C (97.7 F) 03/20/2025 1:46 PM EDT Respiratory Rate 12 03/20/2025 1:46 PM EDT Oxygen Saturation 98% 03/20/2025 1:46 PM EDT Inhaled Oxygen Concentration - - Weight 110 kg (243 lb) 03/20/2025 1:46 PM EDT Height 162.6 cm (5' 4 ) 03/20/2025 1:46 PM EDT Body Mass Index 41.71 03/20/2025 1:46 PM EDT Plan of Treatment Upcoming Encounters Date Type Department Care Team (Late st Contact Info) Description 04/18/2025 9:00 AM EST Clinical Support [facility] DIABETES/NUTRITION [address] [place] [phone] [place] [address] 04/25/2025 10:00 AM EST Office Visit [facility] [address] [place] [phone] Dory Ramírez MD [address] [place] [address] Health Maintenance Due Date Last Done Comments [...] 1997 Cervical Cancer Screening 2006 HPV/Cotest 2006 COVID-19 Vaccine ( season) 2025 03/30/2024, 03/04/2023, 10/07/2021, Additional history exists Influenza Vaccine (#1) 2025 , 03/04/2023, 02/07/2022, Additional history exists Lipid Panel 10/31/2025 10/31/2020 Alcohol/Substance Use Screening 12/13/2025 12/13/2024 Depression Screening 12/13/2025 12/13/2024, 12/14/19 25 Disability Screening 12/13/2025 12/13/2024 SDOH Screening 12/13/2025 12/13/2024 Mammogram 02/01/2026 02/01/2025, 01/23, 03/19/2021, Additional history exists Tobacco Screening 03/20/2026 03/20/2025 DTaP/Tdap/Td Vaccines (3 - Td or Tdap) 06/04/2026 06/04/2016, 12/24/2015 Zoster Vaccines (1 of 2) 2026 RSV Patients and Patients Aged 60 years or older (1 - 1-dose 75+ series) 11/09/2051 Hepatitis B Vaccines Completed 03/30/2019, 04/01/2018, 02/16/2017 Hepatitis C Screening Completed 11/07/2024 HIB Vaccines [...] Procedure Name Priority Date/Time Associated Diagnosis Comments POCT INFLUENZA B (ID NOW RAPID MOLECULAR) Routine 03/20/2025 2:11 PM EDT Nonintractable headache, unspecified chronicity pattern, unspecified headache type POCT INFLUENZA A (ID NOW RAPID MOLECULAR) Routine 03/20/2025 2:11 PM EDT Nonintractable headache, unspecified chronicity pattern, unspecified headache type POCT RAPID COVID ANTIGEN Routine 03/20/2025 1:48 PM EDT Nonintractable headache, unspecified chronicity pattern, unspecified headache type SED RATE BY MODIFIED WESTERGREN Routine 03/09/2025 [...] Recently Relevant to Health Maintenance Results * POCT Rapid Influenza B LEWIS ID NOW (03/20/2025 2:11 PM EDT) Influenza B Negative Negative, Indeterminate [facility] QC Media Lot # [id number] [facility] Lot# Expiration Date [facility] Swab 03/20/2025 2:11 PM EDT Peterson Roe MD POINT OF CARE TEST ENTER/EDIT OR DERABLES Final Result Performing Organization Address [facility]/ZIP Co de Phone Number [facility] [address] [place] [phone] * POCT Rapid Influenza A LEWIS ID NOW (03/20/2025 2:11 PM EDT) Influenza A Negative Negative, Indeterminate [facility] QC Media Lot # [id number] [facility] Lot# Expiration Date [facility] Swab 03/20/2025 2:11 PM EDT us Peterson Roe MD POINT OF CARE TEST ENTER/EDIT OR DERABLES Final Result Performing Organization Address City/[facility]/ZIP Co de Phone Number [facility] [address] [place] [phone] * POCT Rapid Covid-19 BinaxNOW (03/20/2025 1:48 PM EDT) Rapid COVID Ag Negative QC Media Lot # [id number] Lot# Expiration Date [id number] Swab 03/20/2025 1:48 PM EDT us Peterson Roe MD POINT OF CARE TEST ENTER/EDIT OR DERABLES Final Result * CBC auto differential (03/09/2025 8:29 AM EDT) White Blood Count 7.8 4.8 - 10.8 X10*3/uL [facility] Red Blood Count 4.23 4.20 - 5.50 X10*6/uL [facility] Hemoglobin 12.9 12.0 - 16.0 g/dl [facility] Hematocrit 39.7 37.0 - 47.0 % [facility] Mean Corpuscular Volume 93.9 80.0 - 98.0 fL [facility] Mean Corpuscular Hemoglobin 30.5 27.0 - 33.0 pg [facility] Mean Corpuscular HGB Conc 32.5 31.0 - 35.0 g/dl [facility] Red Cell Distribution Width 12.4 11.0 - 16.0 % [facility] Platelet Count 369 160 - 400 X10*3/uL [facility] Mean Platelet Volume 11.3 9.4 - 12.3 fL [facility] Neutrophils Percent Auto 52.9 45 - 73 % [facility] Imm Gran Pct Auto 0.4 0.0 - 0.4 % [facility] Lymphocytes Percent Auto 38.3 20 - 40 % [facility] Monocytes Percent Auto 6.2 2 - 11 % [facility] Eosinophils Percent Auto 1.7 0 - 4 % [facility] Basophils Percent Auto 0.5 0 - 2 % [facility] NRBC Pct Auto 0.0 0.0 - 0.2 /100WBC [facility] Neutrophils Absolute Auto 4.1 2.0 - 8.3 x10*3/uL [facility] Imm Gran Abs Auto 0.03 0.00 - 0.03 X10*3/uL [facility] Lymphocytes Absolute Auto 3.0 1.2 - 4.9 X10*3/uL [facility] Monocytes Absolute Auto 0.5 0.1 - 1.2 X10*3/uL [facility] Eosinophils Absolute Auto 0.1 0.0 - 0.4 X10*3/uL [facility] Basophils Absolute Auto 0.0 0.0 - 0.2 X10*3/uL [facility] NRBC Abs Auto 0.000 0.0 - 0.012 X10*3/uL [facility] 03/09/2025 8:29 AM EDT 03/09/2025 1:23 PM EDT us Generic External Data Provider LAB BLOOD ORDERAB LES Final Result Performing Organization Address [facility] Co de Phone Number [facility] [address] [place] [phone] * Sed Rate by Modified Westergren (03/09/2025 8:29 AM EDT) Erythrocyte Sedimentation Rate 19 0 - 20 MM/HR [facility] Comment:Patients with polycy themia and many hemoglobin abnormalitiesmay have depressed sed rates whereas patients with anemiamay have elevated sed rates. 03/09/2025 8:29 AM EDT 03/09/2025 1:23 PM EDT us Generic External Data Provider LAB BLOOD ORDERAB LES Final Result Performing Organization Address [facility] de Phone Number [facility] [address] [place] [phone] * C-reactive Protein (03/09/2025 8:29 AM EDT) C Reactive Protein 0.28 < or = 0.50 mg/dL [facility] 03/09/2025 8:29 AM EDT 03/09/2025 1:23 PM EDT Generic External Data Provider LAB BLOOD ORDERAB LES Final Result Performing Organization Address [facility] de Phone Number [facility] [address] [place] [phone] * (ABNORMAL) Comprehensive Metabolic Panel (03/09/2025 8:29 AM EDT) Sodium 143 135 - 145 mmol/L [facility] Potassium 4.4 3.3 - 5.1 mmol/L [facility] Chloride 114(H) 96 - 108 mmol/L [facility] Carbon Dioxide 22 22 - 29 mmol/L [facility] Anion Gap 11(L) 12 - 20 [facility] Urea Nitrogen (BUN) 18(H) 9 - 16 mg/dL [facility] Creatinine, Serum 0.81 0.5 - 1.4 mg/dL [facility] Estimated Glomerular Filt Rate >60 [facility] Comment:Chronic Kidney Disea se: Estimated GFR < 60 mL/min/1.33q2[place] Kidney Disease: Estimated GFR < 15 mL/min/1.73m2 Glucose 98 60 - 115 mg/dL [facility] Calcium 9.9 8.4 - 10.2 mg/dL [facility] Bilirubin, Total 0.4 0.0 - 1.0 mg/dL [facility] Aspartate Amino Transferase 15 5 - 31 U/L [facility] Alanine Aminotransferase 13 0 - 31 U/L [facility] Total Protein 7.1 6.5 - 8.0 g/dL [facility] Albumin Level 4.3 3.5 - 5.0 g/dL [facility] Alkaline Phosphatase 62 39 - 117 U/L [facility] 03/09/2025 8:29 AM EDT 03/09/2025 1:23 PM EDT us Generic External Data Provider LAB BLOOD ORDERAB LES Final Result [facility] [address] [place] [phone] * BI US Breast Limited Bilateral (02/01/2025 12:18 PM EDT) Anatomical Region Laterality Modality Breast Bilateral Ultrasound 02/01/2025 12:1 8 PM EDT Narrative 02/01/2025 1:13 PM EDT [facility] [address] [place] [address] [place] [address] Ultrasound Report Signed Patient: Eliza Meléndez MR#: [id number] 547 : 1975 Acct:[id number] Age/Sex: 49 / F ADM Date: 02/01/25 Loc: HO.MAMMO Attending Dr: Dory Ramírez MD Ordering Physician: Dory Ramírez MD Date of Service: 02/01/25 Procedure(s): US breast BI limited mamm only Accession Number(s): [id number] cc: Dory Ramírez MD Reason for Exam: [...] 02/01/25 1310 DD/ 1218 TD/TT: 02/01/25 1233 Mobile Mechanic: Procedure Note Donotdebbieinterpreter, Image - 02/01/2025 [facility] [address] [place] [place], [place] [address] Ultrasound Report Signed Patient: Anahi Meléndez#: [id number] 547 : 1975Acct:[id number] Age/Sex: 49 / FADM Date: 02/01/25 Loc: HO.MAMMO Attending Dr: Dory Ramírez MD Ordering Physician: Dory Ramírez MD Date of Service: 02/01/25 Procedure(s): US breast BI limited mamm only Accession Number(s): [id number] cc: Dory Ramírez MD Reason for Exam: [...] Almita Ferraro DO 02/01/2025 01:10 PM EDT Workstation: [employer] Dictated By: Almita Ferraro DO Signed By: <Electronically signed by Almita Ferraro DO in OV> 02/01/25 1310 DD/ 1218 TD/TT: 02/01/25 1233 Mobile Mechanic: us Dory Ramírez MD IMG US PROCEDURES Final Result * BI Mammogram Diagnostic Tomosynthesis Bilateral (02/01/2025 11:55 AM EDT) Anatomical Region Laterality Modality Breast Bilateral Mammography 02/01/2025 11:5 5 AM EDT Narrative 02/01/2025 1:13 PM EDT [facility] [address] [place] [address] Mammography Report Signed Patient: Eliza Meléndez MR#: [id number] 547 : 1975 Acct:[id number] Age/Sex: 49 / F ADM Date: 02/01/25 Loc: HO.MAMMO Attending Dr: Dory Ramírez MD Ordering Physician: Dory Ramírez MD Results: 1Ne gative Date of Service: 02/01/25 Follow Up: 1 Year From [facility] Mammogram Procedure(s): MM tomosynthesis diagnostic BI Accession Number(s): [id number] cc: Dory Ramírez MD EXAMINATION: MM DIAGNOSTIC [...] 02/01/25 1310 DD/ 1155 TD/TT: 02/01/25 1215 Mobile Mechanic: Procedure Note Donotuseinterpreter, Image - 02/01/2025 [facility] [address] [place] [address] [place] [address] Mammography Report Signed Patient: Angel MeléndezR#: [id number] : 1975Acct:[id number] Age/Sex: 49 / FADM Date: 02/01/25 Loc: [facility] Attending Dr: Dory Ramírez MD Ordering Physician: Dory Ramírez MDResults: 1Ne gative Date of Service: 02/01/25Follow Up: 1 Year From Orig inal Mammogram Procedure(s): MM tomosynthesis diagnostic BI Accession Number(s): [id number] cc: Dory Ramírez MD EXAMINATION: MM DIAGNOSTIC [...] 02/01/25 1310 DD/ 1155 TD/TT: 02/01/25 1215 Mobile Mechanic: Dory Ramírez MD IMG BI PROCEDURES Final Result * XR Chest 2 Views (01/24/2025 2:53 PM EDT) Anatomical Region Laterality Modality Chest Radiographic Venessa ging 01/24/2025 2:53 PM EDT Narrative 01/24/2025 3:53 PM EDT [address] [address] XRay Report Signed Patient: Eliza Meléndez MR#: [id number] 547 : 1975 Acct:[id number] Age/Sex: 49 / F ADM Date: 01/24/25 Loc: [facility] Attending Dr: Dory Ramírez MD Ordering Physician: Dory Ramírez MD Date of Service: 01/24/25 Procedure(s): XR chest 2V Accession Number(s): [id number] cc: Dory Ramírez MD Reason for Exam: [...] 01/24/25 1550 DD/ 1453 TD/TT: 01/24/25 1545 Mobile Mechanic: Procedure Note Donotuseinterpreter, Image - 01/24/[address] [address] XRay Report Signed Patient: Angel MeléndezR#: [id number] : 1975Acct:[id number] Age/Sex: 49 / FADM Date: 01/24/25 Loc: [facility] Attending Dr: Dory Ramírez MD Ordering Physician: Dory Ramírez MD Date of Service: 01/24/25 Procedure(s): XR chest 2V Accession Number(s): [id number] cc: Dory Ramírez MD Reason for Exam: [...] 01/24/25 1550 DD/ 1453 TD/TT: 01/24/25 1545 Mobile Mechanic: us Dory Ramírez MD IMG XR PROCEDURES Final Result * Hepatitis B, C Profile (11/07/2024 4:49 PM EDT) ~Hepatitis B Surface Antibody NONREACTIVE Nonreactive [facility] Comment:Nonreactive: < 8.00 mIU/mL Hepatitis B Core Antibody Nonreactive Nonreactive [facility] Hepatitis C Antibody Nonreactive Nonreactive [facility] Comment:Antibodies to HCV no t detected; does not exclude early acuteHCV infection. Hepatitis B Surface Ag Negative Negative [facility] 11/07/2024 4:49 PM EDT 11/07/2024 4:49 PM EDT us Generic External Data Provider LAB BLOOD ORDERAB LES Final Result [facility] [address] [place] [phone] * (ABNORMAL) LIPID PANEL, STANDARD (10/31/2020 [...] LDL-C. Eric SS et al. EDUARDA. 2013;310(19): 4471-7544 (http://education.[employer]/faq/PDT935) Non-HDL Cholesterol 161(H) <130 mg/dL (calc) [facility]ATION [...] NP LAB BLOOD ORDERABLES Final Resu lt [facility] [address] from Last 3 Months or Most Recently Relevant to Health Maintenance Insurance AETNA MEDICARE REPLACEMENT [facility] MEDICAID STAND ADULT Care Teams Welfare Investigator Relationship Specialty Start Date End Date Dory Ramírez MD [address] [place] [address] [place] [address] PCP - General Internal Medicine 05/06/24
--- OUTSIDE RECORDS SUMMARY | 2025-04-13 17:53 | XMS_ITS | Encounter Summary ---
Author Organization [facility] Address [address] [place] [address] [facility] [place] [address] Care Team Providers Care Machine Repair Person Name Role Phone Corrine Barth Primary Care Provider [phone] No Quach MD Primary Care Provider [phone] Luz Elena Jiménez MD Primary Care Provide r Dory Ramírez MD Primary Care Provider + Reason for Visit * Reason Onset Date Comments Med Refill 03/09/2023 Encounter Details Date Type Department Care Team (Late st Contact Info) Description 03/09/2023 Refill [facility] [address] [place] [address] Corrine Barth FNP [address] [place], [place] [phone] Social History Tobacco Use Types Packs/Day Years [...] Description 04/18/2025 9:00 AM EST Clinical Support [facility] DI[facility]/NUTRITION [address] [place] [phone] [place] [address] 04/25/2025 10:00 AM EST Office Visit [facility] MEDICINE [address] [place] [phone] Dory Ramírez MD [address] [place] [address] documented as of this encounter Visit Diagnoses Not on filedocumented in this encounter Additional Health Concerns Assessment Noted Time PHQ-9 Depression Total Score: 8 08/30/19 23 2:28 PM EDT documented as of this encounter Care Teams Machine Repair Person Relationship Specialty Start Date End Date Corrine Barth FNP [address] [place] [phone] PCP - General Family Medicine 11/28/22 01/25/24 No Quach MD [address] [place] [phone] PCP - General Family Medicine 01/26/24 03/29/24 Luz Elena Jiménez MD [address] [place] [phone] PCP - General Internal Medicine 03/30/24 05/05/24 Dory Ramírez MD [address] [place] [phone] PCP - General Internal Medicine 05/06/24 documented as of this encounter
--- OUTSIDE RECORDS SUMMARY | 2025-04-13 17:53 | XMS_ITS | Encounter Summary ---
Author Organization [employer] Address [address] [place] [address] [place] [address] Care Team Providers Care Rail Doweling Machine Operator Name Role Phone Dory Ramírez MD Primary Care Provider + Reason for Visit * Reason Onset Date Comments Med Refill 12/01/2024 Encounter Details Date Type Department Care Team (Late st Contact Info) Description 12/01/2024 Refill [facility] [address] [place] [address] Corrine Barth FNP [address] [place] [address] Social History Tobacco Use Types Packs/Day Years [...] with others, in a hotel, in a snf, living outside on the street, on a [...] the past 12 months, has t he [employer], gas, oil or water company threatened to [...] Description 04/18/2025 9:00 AM EST Clinical Support [facility] [address] [place] [phone] [place] [address] 04/25/2025 10:00 AM EST Office Visit [facility] [address] [place] [address] Dory Ramírez MD [address] [place] [phone] documented as of this encounter Visit Diagnoses Not on filedocumented in this encounter Additional Health Concerns Assessment Noted Time PHQ-9 Depression Total Score: 12 025 4:04 PM EST documented as of this encounter Care Teams Rail Doweling Machine Operator Relationship Specialty Start Date End Date Dory Ramírez MD [address] [place] [phone] PCP - General Internal Medicine 05/06/24 documented as of this encounter
--- OUTSIDE RECORDS SUMMARY | 2025-04-13 17:53 | XMS_ITS | Encounter Summary ---
Author Organization [employer] Address [address] [place] [address] Care Team Providers Care Meat Carrier Name Role Phone Dory Ramírez MD Primary Care Provider + Reason for Visit * Reason Onset Date Comments Med Refill 12/01/2024 Encounter Details Date Type Department Care Team (Late st Contact Info) Description 12/01/2024 Refill [facility] MED[facility] [address] [place] [address] Dory Ramírez MD 230 [place] [address] Social History Tobacco Use Types Packs/Day Years [...] the past 12 months, has t he [employer], gas, oil or water company threatened to [...] Description 04/18/2025 9:00 AM EST Clinical Support [facility] DIABETES/NUTRITION [address] [place] [address] [place] [address] 04/25/2025 10:00 AM EST Office Visit [facility] MEDICINE [address] [place] [address] Dory Ramírez MD [address] [place] [address] documented as of this encounter Visit Diagnoses Not on filedocumented in this encounter Additional Health Concerns Assessment Noted Time PHQ-9 Depression Total Score: 12 025 4:04 PM EST documented as of this encounter Care Teams Meat Carrier Relationship Specialty Start Date End Date Dory Ramírez MD [address] [place] [address] PCP - General Internal Medicine 05/06/24 documented as of this encounter
--- OUTSIDE RECORDS SUMMARY | 2025-04-13 17:53 | XMS_ITS | Encounter Summary ---
Author Organization [employer] Address [address] [place] [address] [place] [address] Care Team Providers Care Chore Worker Name Role Phone Dory Ramírez MD Primary Care Provider + Reason for Visit * Reason Onset Date Comments Med Refill 12/01/2024 Encounter Details Date Type Department Care Team (Late st Contact Info) Description 12/01/2024 Refill [facility] MED & PEDS [address] [place] [address] Corrine Barth FNP [address] [facility] [place] [address] Social History Tobacco Use Types Packs/Day Years [...] the past 12 months, has t he [employer], gas, oil or water company threatened to [...] EST Clinical Support [facility] DIABETES/NUTRITION [address] [place] [address] [place] [address] 04/25/2025 10:00 AM EST Office Visit [facility] MEDICINE [address] [place] [address] Dory Ramírez MD [address] [place] [address] documented as of this encounter Visit Diagnoses Not on filedocumented in this encounter Additional Health Concerns Assessment Noted Time PHQ-9 Depression Total Score: 12 025 4:04 PM EST documented as of this encounter Care Teams Chore Worker Relationship Specialty Start Date End Date Dory Ramírez MD [address] [place] [address] PCP - General Internal Medicine 05/06/24 documented as of this encounter
--- OUTSIDE RECORDS SUMMARY | 2025-04-13 17:53 | XMS_ITS | Encounter Summary ---
Author Organization [employer] Address [address] [place] [address] Care Team Providers Care Monorail Helper Name Role Phone Dory Ramírez MD Primary Care Provider + Reason for Visit * Reason Onset Date Comments Med Refill 12/01/2024 Encounter Details Date Type Department Care Team (Late st Contact Info) Description 12/01/2024 Refill [facility] MEDICINE 230 [place] [address] Dory Ramírez MD [address] [place] [address] Social History Tobacco Use Types Packs/Day Years [...] the past 12 months, has t he [employer], gas, oil or water company threatened to [...] EST Clinical Support [facility] DIABETES/NUTRITION [address] [place] [address] [place] [address] 04/25/2025 10:00 AM EST Office Visit [facility] MEDICINE [address] [place] [address] Dory Ramírez MD [address] [place] [address] documented as of this encounter Visit Diagnoses Not on filedocumented in this encounter Additional Health Concerns Assessment Noted Time PHQ-9 Depression Total Score: 12 025 4:04 PM EST documented as of this encounter Care Teams Monorail Helper Relationship Specialty Start Date End Date Dory Ramírez MD [address] [place] [address] PCP - General Internal Medicine 05/06/24 documented as of this encounter
--- OUTSIDE RECORDS SUMMARY | 2025-04-13 17:53 | XMS_ITS | Encounter Summary ---
Author Organization [employer] Address [address] [place] [address] [place] [address] Care Team Providers Care Prepress Manager Name Role Phone Dory Ramírez MD Primary Care Provider + Reason for Visit * Reason Onset Date Comments Med Refill 12/01/2024 Encounter Details Date Type Department Care Team (Late st Contact Info) Description 12/01/2024 Refill [facility] MED & PEDS [address] [place] [address] Corrine Barth FNP 230 [facility] [place] [address] Neuropathy Social History Tobacco Use Types Packs/Day [...] the past 12 months, has t he [employer], gas, oil or water company threatened to [...] Description 04/18/2025 9:00 AM EST Clinical Support [facility] DIABETES/NUTRITION [address] [place] [address] [place] [address] 04/25/2025 10:00 AM EST Office Visit [facility] MEDICINE [address] [place] [address] Dory Ramírez MD [address] [place] [address] documented as of this encounter Visit Diagnoses Diagnosis Neuropathy Mononeuritis of unspecified site documented in this encounter Additional Health Concerns Assessment Noted Time PHQ-9 Depression Total Score: 12 025 4:04 PM EST documented as of this encounter Care Teams Prepress Manager Relationship Specialty Start Date End Date Dory Ramírez MD [address] [place] [address] PCP - General Internal Medicine 05/06/24 documented as of this encounter
--- OUTSIDE RECORDS SUMMARY | 2025-04-13 17:53 | XMS_ITS | Encounter Summary ---
Author Organization [employer] Address [address] [place] [address] [place] [address] Care Team Providers Care Manager Commercial Real Estate Name Role Phone Dory Ramírez MD Primary Care Provider + Reason for Visit * Reason Onset Date Comments Med Refill 12/01/2024 Encounter Details Date Type Department Care Team (Late st Contact Info) Description 12/01/2024 Refill [facility] MED & PEDS [address] [place] [address] Corrine Barth FNP 230 [facility] [place] [address] Social History Tobacco Use Types Packs/Day Years [...] the past 12 months, has t he [employer], gas, oil or water company threatened [...] 9:00 AM EST Clinical Support [facility] DIABETES/NUTRITION [address] [place] [address] [place] [address] 04/25/2025 10:00 AM EST Office Visit [facility] MEDICINE [address] [place] [address] Dory Ramírez MD [address] [place] [address] documented as of this encounter Visit Diagnoses Not on filedocumented in this encounter Additional Health Concerns Assessment Noted Time PHQ-9 Depression Total Score: 12 025 4:04 PM EST documented as of this encounter Care Teams Manager Commercial Real Estate Relationship Specialty Start Date End Date Dory Ramírez MD [address] [place] [address] PCP - General Internal Medicine 05/06/24 documented as of this encounter
--- OUTSIDE RECORDS SUMMARY | 2025-04-13 17:53 | XMS_ITS | Encounter Summary ---
Author Organization [employer] Address [address] [place] [address] Care Team Providers Care Ward Aide Name Role Phone Dory Ramírez MD Primary Care Provider + Reason for Visit * Reason Onset Date Comments Appointment Request 05/06/2024 Encounter Details Date Type Department Care Team ([facility] st Contact Info) Description 05/06/2024 Telephone [facility] MEDICINE [address] [place] [address] Luz Elena Jiménez MD 230 [place] [address] Appointment Request Social History Tobacco Use Types [...] TP apt from 05/06. Contact pt at [phone] documented in this encounter Plan of Treatment Upcoming Encounters Date Type Department Care Team (Late st Contact Info) Description 04/18/2025 9:00 AM EST Clinical Support [facility] DIABETES/NUTRITION [address] [place] [address] Kourtney Valenzuela, MATTHEW 230 [place] [address] 04/25/2025 10:00 AM EST Office Visit [facility] MEDICINE [address] [place] [address] Dory Ramírez MD [address] [place] [address] documented as of this encounter Visit Diagnoses Not on filedocumented in this encounter Additional Health Concerns Assessment Noted Time PHQ-9 Depression Total Score: 11 024 9:38 AM EDT documented as of this encounter Care Teams Ward Aide Relationship Specialty Start Date End Date Dory Ramírez MD [address] [place] [address] PCP - General Internal Medicine 05/06/24 documented as of this encounter
--- OUTSIDE RECORDS SUMMARY | 2025-04-13 17:53 | XMS_ITS | Encounter Summary ---
Author Organization [employer] Address [address] [place] [address] [facility] [place] [address] Care Team Providers Care Purification Operator Helper Name Role Phone Corrine Barth Primary Care Provider [phone] No Quach MD Primary Care Provider [phone] Luz Elena Jiménez MD Primary Care Provide r Dory Ramírez MD Primary Care Provider + Reason for Visit * Reason Onset Date Comments Med Refill 03/09/2023 Encounter Details Date Type Department Care Team (Late st Contact Info) Description 03/09/2023 Refill [facility] MED & PEDS [address] [place] [address] Corrine Barth FNP [address] [place], [place] [phone] Social History Tobacco Use Types Packs/Day Years [...] Description 04/18/2025 9:00 AM EST Clinical Support [facility] DIABETES/NUTRITION [address] [place] [address] [place] [address] 04/25/2025 10:00 AM EST Office Visit [facility] MEDICINE [address] [place] [address] Dory Ramírez MD 230 [place] [address] documented as of this encounter Visit Diagnoses Not on filedocumented in this encounter Additional Health Concerns Assessment Noted Time PHQ-9 Depression Total Score: 8 08/30/19 23 2:28 PM EDT documented as of this encounter Care Teams Purification Operator Helper Relationship Specialty Start Date End Date Corrine Barth FNP [address] [place] [address] PCP - General Family Medicine 11/28/22 01/25/24 No Quach MD [address] [place] [address] PCP - General Family Medicine 01/26/24 03/29/24 Luz Elena Jiménez MD [address] [place] [address] PCP - General Internal Medicine 03/30/24 05/05/24 Dory Ramírez MD [address] [place] [address] PCP - General Internal Medicine 05/06/24 documented as of this encounter
== END 2025-04-13 12:07 | disposition home or self-care (01) ==
LOC: HO.HOS 11:33
PROVIDERS: PCP Internal Medicine; Visit Provider Physician Assistant
DX: M17.0 Bilateral primary osteoarthritis of knee (principal)
CPT/HCPCS: 20610; 99213

== ENCOUNTER → 2025-04-13 11:33 | Outpatient (BNVA) | payer MEDICARE, MEDICAID, SELFPAY | PROVIDERS: PCP Internal Medicine; Visit Provider Physician Assistant | DX: M17.0 Bilateral primary osteoarthritis of knee (principal); M25.561 Pain in right knee; M25.562 Pain in left knee; G89.29 Other chronic pain | CPT/HCPCS: 20610; 99212; J0665; J1100; J2003 ==

== ENCOUNTER 2025-04-14 13:39 | Outpatient (AMB) | payer MEDICARE, MEDICAID, SELFPAY ==
--- NOTE | 2025-04-14 13:49 | A.OFFVIS_ITS ---
Vital Signs 04/14/25 13:55 Height 5 ft 4 in Weight 238 lb BMI 40.8 BP 145/85 H Blood Pressure Location Rt brachial Position Sitting Respiration 16 Pulse 91 Pulse Source Pulse Oximeter Pulse Oximetry (%) 97 Intake Visit Reasons: S/P Bilateral Therapeutic SIJ Injections Digital Recruiter Required: Yes Accompanied by: Self / Same As Patient Allergies methotrexate Allergy (Intermediate, Verified 04/14/25 13:56) rash HPI Comments Details: The patient is a 49-year-old individual presenting with sacroiliac joint pain, 1 month s/p bilateral therapeutic SIJ injection. The sacroiliac joint pain was treated with injections approximately a month ago, resulting in 90% relief of symptoms. However, the patient reported that the injection was more painful than previous ones, possibly due to increased inflammation or irritation in the area. The patient was advised to use lidocaine patches before future injections to numb the area and was offered Ativan if a ride is available to help manage anxiety related to the procedure. The patient also experiences coccyx pain, which may be exacerbated by prolonged sitting or lying down. The patient has a history of falling on cement stairs in [place] many years ago, which could contribute to the coccyx pain. The patient is considering using a maternity pillow or a donut cushion to alleviate discomfort during long periods of sitting, such as on an airplane ride. - Sacroiliac joint pain: Initially treated with injections, resulting in 90% relief, but the procedure was painful due to possible inflammation. - Coccyx pain: Exacerbated by prolonged sitting or lying down, with a history of falling on cement stairs. - Affect: No specific impact on mood or psychological wellbeing discussed. - Analgesia: Injections provided 90% relief; lidocaine patches and Ativan suggested for future procedures. - Adverse Effects: Pain during injection noted, possibly due to inflammation. - Activities of Daily Living: Pain affects sitting and lying down; considering use of cushions for relief. - Aberrant Drug Related Behaviors: No aberrant behaviors reported. [facility] Medical History History of latent tuberculosis Osteoarthritis of left knee Osteoarthritis of right knee History of high blood pressure Low back pain, unspecified Fibromyalgia Seropositive rheumatoid arthritis Morbid obesity with BMI of 45.0-49.9, adult Surgical History History of surgery Hx of section Family History (Updated 11/09/24 @ 09:09 by KIAAR Nicole) Father Diabetes Hypertension Cancer Mother Diabetes Hypertension Rheumatoid arthritis Kidney transplant recipient Sister Thyroid disease Social History Household Members: Spouse and Children Housing: Apartment Alcohol intake: never Patient Tobacco Use Status: Never used Tobacco Female Reproductive History Menstrual Age of Menarche: 12 Review of Systems Narrative - Musculoskeletal: Reports sacroiliac joint pain and coccyx pain. Physical Exam Exam Exam: General: awake, alert, oriented. Answers questions appropriately. Fully engaged in examination. Skin: warm, dry, intact HEENT: Normocephalic. Hearing intact. Cardiac: External chest normal in appearance. Respiratory: No cough, audible wheezing or stridor. Abdomen: without gross distension. MS: No obvious swelling or deformities. Neurological: Oriented to person, place, time and situation. Thought process intact. No gait abnormalities appreciated. Psychiatric: Appropriate mood and affect. Good judgment and insight. Vital Signs: Last Vital Signs Pulse 91 04/14/25 13:55 Resp 16 04/14/25 13:55 BP 145/85 H 04/14/25 13:55 Pulse Ox 97 04/14/25 13:55 BMI result Body Mass Index 40.8 Results Reviewed Results Reviewed: 10/27/2022 EXAMINATION: XR LUMBOSACRAL SPINE WITH OBLIQUES FINDINGS: The vertebral bodies and posterior elements appear unremarkable. Mild disc degenerative change at L4-L5 and L5-S1. The vertebral alignment appears unremarkable. The paraspinal soft tissues appear unremarkable. IMPRESSION: Mild disc degenerative change at L4-L5 and L5-S1.? Assessment & Plan Assessment & Plan (1) Sacroiliac joint dysfunction of both sides: Code(s): M53.3 - Sacrococcygeal disorders, not elsewhere classified Category: Medical (2) Sacroiliac joint dysfunction of left side: Code(s): M53.3 - Sacrococcygeal disorders, not elsewhere classified Category: Medical Plan The patient will continue with the current management plan for sacroiliac joint pain, which includes considering the use of lidocaine patches prior to injections to reduce discomfort. If the patient has a ride, Ativan may be administered before the procedure to alleviate anxiety. For coccyx pain, the patient is advised to use a maternity pillow or donut cushion to alleviate discomfort during prolonged sitting or lying down. Take NSAIDs as needed. The patient is encouraged to contact the office if the pain persists or worsens, and to consider a sprint temporary peripheral nerve stimulator for longer relief if insurance coverage is available. Patient was informed and verbally consented to the use of an ambient scribe for clinic note documentation during this visit. Patient Instructions: - Use lidocaine patches before injections to reduce pain. - If possible, arrange for a ride to receive Ativan before procedures. - Use a maternity pillow or donut cushion for comfort during long periods of sitting or lying down. - Contact the office if pain persists or worsens. Coding Level of Care Code Est Pt Level 3 (75730) Complex visit Add On G2211 Diagnoses Sacroiliac joint dysfunction of both sides M53.3 Sacroiliac joint dysfunction of left side M53.3
[2025-04-14 13:55] VITALS: BP 145/85; PULSE 91; RESP 16; O2SAT 97; BMI 40.8
--- OUTSIDE RECORDS SUMMARY | 2025-04-14 14:10 | XMS_ITS | Encounter Summary ---
Author Organization [employer] Address [address] [place] [address] [place] [address] Care Team Providers Care Incident Analyst Name Role Phone Corrine Barth Primary Care Provider [phone] No Quach MD Primary Care Provider [phone] Luz Elena Jiménez MD Primary Care Provide r Dory Ramírez MD Primary Care Provider + Reason for Visit * Reason Onset Date Comments Med Refill 03/09/2023 Encounter Details Date Type Department Care Team (Late st Contact Info) Description 03/09/2023 Refill [facility] MEDICINE [address] [place], [place] [phone] Corrine Barth FNP [address] [place], [place] [phone] Neuropathy Social History Tobacco Use Types Packs/Day [...] Description 04/18/2025 9:00 AM EST Clinical Support [facility] DIABETES/NUTRITION [address] [place] [address] [place] [address] 04/25/2025 10:00 AM EST Office Visit [facility] MEDICINE [address] [place] [address] Dory Ramírez MD 230 [place] [address] documented as of this encounter Visit Diagnoses Diagnosis Neuropathy Mononeuritis of unspecified site documented in this encounter Additional Health Concerns Assessment Noted Time PHQ-9 Depression Total Score: 8 08/30/19 23 2:28 PM EDT documented as of this encounter Care Teams Incident Analyst Relationship Specialty Start Date End Date Corrine Barth FNP 230 [place] [address] PCP - General Family Medicine 11/28/22 01/25/24 No Quach MD 230 [place] [address] PCP - General Family Medicine 01/26/24 03/29/24 Luz Elena Jiménez MD 230 [place] [address] PCP - General Internal Medicine 03/30/24 05/05/24 Dory Ramírez MD 230 [place] [address] PCP - General Internal Medicine 05/06/24 documented as of this encounter
--- OUTSIDE RECORDS SUMMARY | 2025-04-14 14:10 | XMS_ITS | Encounter Summary ---
Author Organization [employer] Address [address] [place] [address] Care Team Providers Care Emission Technician Name Role Phone Dory Ramírez MD Primary Care Provider + Reason for Visit * Reason Onset Date Comments Med Refill 12/01/2024 Encounter Details Date Type Department Care Team (Late st Contact Info) Description 12/01/2024 Refill [facility] MEDICINE [address] [place] [address] Dory Ramírez MD 230 [place] [address] Social History Tobacco Use Types Packs/Day Years [...] the past 12 months, has t he [employer], gas, oil or water company threatened to [...] Description 04/18/2025 9:00 AM EST Clinical Support [facility] DIABETES/NUTRITION [address] [place] [address] [place] [address] 04/25/2025 10:00 AM EST Office Visit [facility] MEDICINE [address] [place] [address] Dory Ramírez MD [address] [place] [address] documented as of this encounter Visit Diagnoses Not on filedocumented in this encounter Additional Health Concerns Assessment Noted Time PHQ-9 Depression Total Score: 12 025 4:04 PM EST documented as of this encounter Care Teams Emission Technician Relationship Specialty Start Date End Date Dory Ramírez MD [address] [place] [address] PCP - General Internal Medicine 05/06/24 documented as of this encounter
--- OUTSIDE RECORDS SUMMARY | 2025-04-14 14:10 | XMS_ITS | Encounter Summary ---
Author Organization [employer] Address [address] [place] [address] [facility] [place] [address] Care Team Providers Care Victim Witness Administrator Name Role Phone Corrine Barth Primary Care Provider [phone] No Quach MD Primary Care Provider [phone] Luz Elena Jiménez MD Primary Care Provide r Dory Ramírez MD Primary Care Provider + Reason for Visit * Reason Onset Date Comments Med Refill 03/09/2023 Encounter Details Date Type Department Care Team (Late st Contact Info) Description 03/09/2023 Refill [facility] MED & PEDS [address] [place] [address] Corrine Barth FNP [address] [place], [place] [phone] Social History Tobacco Use Types Packs/Day Years [...] Clinical Support [facility] DIABETES/NUTRITION [address] [place] [address] [place] [address] 04/25/2025 10:00 AM EST Office Visit [facility] MEDICINE [address] [place] [address] Dory Ramírez MD 230 [place] [address] documented as of this encounter Visit Diagnoses Not on filedocumented in this encounter Additional Health Concerns Assessment Noted Time PHQ-9 Depression Total Score: 8 08/30/19 23 2:28 PM EDT documented as of this encounter Care Teams Victim Witness Administrator Relationship Specialty Start Date End Date Corrine Barth FNP [address] [place] [address] PCP - General Family Medicine 11/28/22 01/25/24 No Quach MD [address] [place] [address] PCP - General Family Medicine 01/26/24 03/29/24 Luz Elena Jiménez MD [address] [place] [address] PCP - General Internal Medicine 03/30/24 05/05/24 Dory Ramírez MD [address] [place] [address] PCP - General Internal Medicine 05/06/24 documented as of this encounter
--- OUTSIDE RECORDS SUMMARY | 2025-04-14 14:10 | XMS_ITS | Clinical Summary ---
Author Organization [employer] Address [address] [place] [address] Care Team Providers Care Senior Cost Estimator Name Role Phone Dory Ramírez MD Primary [...] 90 tablet 3 024 2024 Discontinued rizatriptan MOTOR PATROL OPERATOR (Maxalt-MOTOR PATROL OPERATOR) 5 MG disintegrating tablet DISSOLVE 1 TABLET [...] status post INH, will obtain records from pharmacist critical care. Order CXR. Mastalgia 09/13/2024 Assessment & Plan [...] of mammogram, will order BMI 40.0-44.9, adult ([facility]) 07/01/2024 Assessment & Plan (07/01/2024 10:02 AM [...] discuss with her current counselor (Denise De Jseus) regarding long-term psychotherapist and prescriber. Will start [...] and Tylenol as needed and follow-up with pharmacist critical care Migraine with aura 11/04/2020 Palpitations 01/11/2020 Overview (07/20/2024): Holter monitor on 01/19/2020 was within normal limits, average rhythm was NSR at 61-116 bpm Diastolic heart failure 12/23/2019 Overview (07/20/2024): Echo on 12/23/[address] [facility] showed normal LVEF and no wall abnormalities, essentially normal echo. Nuclear stress test on 12/23/2019 was negative for ischemia, no arrhythmias and normotensive response to test Patient last seen at [facility] cardiology by Penelope Bhakta NP Assessment & [...] on Humira twice per month, follow-up with pharmacist critical care Will retrieve recent labs from [facility]. COVID influenza and pneumonia immunizations are up-to-date. [...] to follow-up with counselor, will refer to casework manager to help her with housing issues. [...] Type Department Care Team Description 04/12/2025 Refill [facility] [address] [place] [phone] Peterson Roe MD 03/26/2025 Refill [facility] PED[facility] [address] [place] [address] No Quach MD 03/20/2025 1:40 PM EDT Office Visit [facility] [address] [place] [address] NamePeterson MD Nonintractable headache, unspecified chronicity pattern, unspecified headache type (Primary Dx) 03/20/2025 Travel 03/13/2025 10:00 AM EDT Nutrition [facility] DI[facility]ET[facility]NUTRITION [address] [place] [address] Class 3 severe obesity with serious comorbidity and body mass index (BMI) of 40.0 to 44.9 in adult (HCC) (Primary Dx); Class 3 severe obesity due to excess calories with serious comorbidity and body mass index (BMI) of 40.0 to 44.9 in adult (HCC) 03/13/2025 Travel 03/09/2025 Orders Only GENERIC EXTERNAL DATA DEPARTMENT Provider, Generic External Data 02/17/2025 Telephone [facility] [address] [place] [phone] Nutrition referral 02/14/[address] [address] Dory Ramírez MD CHART PREP 02/09/[address] [address] Dory Ramírez MD Change Location & PCP 02/07/2025 Patient Outreach [facility] [address] [place] [address] [phone] Dory Ramírez MD Pre-visit Planning ([facility] screening completed on 12/13/2024) 02/01/2025 Orders Only [facility] [address] [place] [phone] Dory Ramírez MD from Last 3 Months [...] Description 04/18/2025 9:00 AM EST Clinical Support [facility] DI[facility]ETES[facility]NUTRITION [address] [place] [phone] [place] [address] 04/25/2025 10:00 AM EST Office Visit [facility] [address] [place] [address] Dory Ramírez MD [address] [place] [address] Health Maintenance Due Date Last Done Comments [...] PM EDT) Influenza B Negative Negative, Indeterminate [facility] QC Media Lot # [id number] [facility] Lot# Expiration Date [facility] Swab 03/20/2025 2:11 PM EDT Peterson Roe MD POINT OF CARE TEST ENTER/EDIT OR DERABLES Final Result Performing Organization Address [facility]/ZIP Co de Phone Number [facility] [address] [place] [phone] * POCT Rapid Influenza A LEWIS ID NOW (03/20/2025 2:11 PM EDT) Influenza A Negative Negative, Indeterminate [facility] QC Media Lot # [id number] [facility] Lot# Expiration Date [facility] Swab 03/20/2025 2:11 PM EDT us Peterson Roe MD POINT OF CARE TEST ENTER/EDIT OR DERABLES Final Result Performing Organization Address City/[facility]/ZIP Co de Phone Number [facility] [address] [place] [phone] * POCT Rapid Covid-19 BinaxNOW (03/20/2025 1:48 PM EDT) Rapid COVID Ag Negative QC Media Lot # [id number] Lot# Expiration Date [id number] Swab 03/20/2025 1:48 PM EDT us Peterson Roe MD POINT OF CARE TEST ENTER/EDIT OR DERABLES Final Result * CBC auto differential (03/09/2025 8:29 AM EDT) White Blood Count 7.8 4.8 - 10.8 X10*3/uL [facility] Red Blood Count 4.23 4.20 - 5.50 X10*6/uL [facility] Hemoglobin 12.9 12.0 - 16.0 g/dl [facility] Hematocrit 39.7 37.0 - 47.0 % [facility] Mean Corpuscular Volume 93.9 80.0 - 98.0 fL [facility] Mean Corpuscular Hemoglobin 30.5 27.0 - 33.0 pg [facility] Mean Corpuscular HGB Conc 32.5 31.0 - 35.0 g/dl [facility] Red Cell Distribution Width 12.4 11.0 - 16.0 % [facility] Platelet Count 369 160 - 400 X10*3/uL [facility] Mean Platelet Volume 11.3 9.4 - 12.3 fL [facility] Neutrophils Percent Auto 52.9 45 - 73 % [facility] Imm Gran Pct Auto 0.4 0.0 - 0.4 % [facility] Lymphocytes Percent Auto 38.3 20 - 40 % [facility] Monocytes Percent Auto 6.2 2 - 11 % [facility] Eosinophils Percent Auto 1.7 0 - 4 % [facility] Basophils Percent Auto 0.5 0 - 2 % [facility] NRBC Pct Auto 0.0 0.0 - 0.2 /100WBC [facility] Neutrophils Absolute Auto 4.1 2.0 - 8.3 x10*3/uL [facility] Imm Gran Abs Auto 0.03 0.00 - 0.03 X10*3/uL [facility] Lymphocytes Absolute Auto 3.0 1.2 - 4.9 X10*3/uL [facility] Monocytes Absolute Auto 0.5 0.1 - 1.2 X10*3/uL [facility] Eosinophils Absolute Auto 0.1 0.0 - 0.4 X10*3/uL [facility] Basophils Absolute Auto 0.0 0.0 - 0.2 X10*3/uL [facility] NRBC Abs Auto 0.000 0.0 - 0.012 X10*3/uL [facility] 03/09/2025 8:29 AM EDT 03/09/2025 1:23 PM EDT us Generic External Data Provider LAB BLOOD ORDERAB LES Final Result Performing Organization Address [facility] Co de Phone Number [facility] [address] [place] [phone] * Sed Rate by Modified Westergren (03/09/2025 8:29 AM EDT) Erythrocyte Sedimentation Rate 19 0 - 20 MM/HR [facility] Comment:Patients with polycy themia and many hemoglobin abnormalitiesmay have depressed sed rates whereas patients with anemiamay have elevated sed rates. 03/09/2025 8:29 AM EDT 03/09/2025 1:23 PM EDT us Generic External Data Provider LAB BLOOD ORDERAB LES Final Result Performing Organization Address [facility] de Phone Number [facility] [address] [place] [phone] * C-reactive Protein (03/09/2025 8:29 AM EDT) C Reactive Protein 0.28 < or = 0.50 mg/dL [facility] 03/09/2025 8:29 AM EDT 03/09/2025 1:23 PM EDT Generic External Data Provider LAB BLOOD ORDERAB LES Final Result Performing Organization Address [facility] de Phone Number [facility] [address] [place] [phone] * (ABNORMAL) Comprehensive Metabolic Panel (03/09/2025 8:29 AM EDT) Sodium 143 135 - 145 mmol/L [facility] Potassium 4.4 3.3 - 5.1 mmol/L [facility] Chloride 114(H) 96 - 108 mmol/L [facility] Carbon Dioxide 22 22 - 29 mmol/L [facility] Anion Gap 11(L) 12 - 20 [facility] Urea Nitrogen (BUN) 18(H) 9 - 16 mg/dL [facility] Creatinine, Serum 0.81 0.5 - 1.4 mg/dL [facility] Estimated Glomerular Filt Rate >60 [facility] Comment:Chronic Kidney Disea se: Estimated GFR < 60 mL/min/1.48i5[place] Kidney Disease: Estimated GFR < 15 mL/min/1.73m2 Glucose 98 60 - 115 mg/dL [facility] Calcium 9.9 8.4 - 10.2 mg/dL [facility] Bilirubin, Total 0.4 0.0 - 1.0 mg/dL [facility] Aspartate Amino Transferase 15 5 - 31 U/L [facility] Alanine Aminotransferase 13 0 - 31 U/L [facility] Total Protein 7.1 6.5 - 8.0 g/dL [facility] Albumin Level 4.3 3.5 - 5.0 g/dL [facility] Alkaline Phosphatase 62 39 - 117 U/L [facility] 03/09/2025 8:29 AM EDT 03/09/2025 1:23 PM EDT us Generic External Data Provider LAB BLOOD ORDERAB LES Final Result [facility] [address] [place] [phone] * BI US Breast Limited Bilateral (02/01/2025 12:18 PM EDT) Anatomical Region Laterality Modality Breast Bilateral Ultrasound 02/01/2025 12:1 8 PM EDT Narrative 02/01/2025 1:13 PM EDT [facility] [address] [place] [address] [place] [address] Ultrasound Report Signed Patient: Eliza Meléndez MR#: [id number] : 1975 Acct:[id number] Age/Sex: 49 / F ADM Date: 02/01/25 Loc: HO.MAMMO Attending Dr: Dory Ramírez MD Ordering Physician: Dory Ramírez MD Date of Service: 02/01/25 Procedure(s): US breast BI limited mamm only Accession Number(s): [id number] cc: Dory Ramírez MD Reason for Exam: [...] 02/01/25 1310 DD/ 1218 TD/TT: 02/01/25 1233 Compliance Manager: Procedure Note Donotdebbieinterpreter, Image - 02/01/2025 [facility] [address] [place], [place] [address] Ultrasound Report Signed Patient: Anahi Meléndez#: [id number] : 1975Acct:[id number] Age/Sex: 49 / FADM Date: 02/01/25 Loc: HO.MAMMO Attending Dr: Dory Ramírez MD Ordering Physician: Dory Ramírez MD Date of Service: 02/01/25 Procedure(s): US breast BI limited mamm only Accession Number(s): [id number] cc: Dory Ramírez MD Reason for Exam: [...] Ferraro DO 02/01/2025 01:10 PM EDT Workstation: [email or web address] Dictated By: Almita Ferraro DO Signed By: <Electronically signed by Almita Ferraro DO in OV> 02/01/25 1310 DD/ 1218 TD/TT: 02/01/25 1233 Compliance Manager: us Dory Ramírez MD IMG US PROCEDURES Final Result * BI Mammogram Diagnostic Tomosynthesis Bilateral (02/01/2025 11:55 AM EDT) Anatomical Region Laterality Modality Breast Bilateral Mammography 02/01/2025 11:5 5 AM EDT Narrative 02/01/2025 1:13 PM EDT [facility] [address] [place] [address] Mammography Report Signed Patient: Eliza Meléndez MR#: [id number] 547 : 1975 Acct:[id number] Age/Sex: 49 / F ADM Date: 02/01/25 Loc: HO.MAMMO Attending Dr: Dory Ramírez MD Ordering Physician: Dory Ramírez MD Results: 1Ne gative Date of Service: 02/01/25 Follow Up: 1 Year From [facility] Mammogram Procedure(s): MM tomosynthesis diagnostic BI Accession Number(s): [id number] cc: Dory Ramírez MD EXAMINATION: MM DIAGNOSTIC [...] 02/01/25 1310 DD/ 1155 TD/TT: 02/01/25 1215 Compliance Manager: Procedure Note Donotuseinterpreter, Image - 02/01/2025 [facility] [address] [place] [address] [place] [address] Mammography Report Signed Patient: Angel MeléndezR#: [id number] : 1975Acct:[id number] Age/Sex: 49 / FADM Date: 02/01/25 Loc: [place] Attending Dr: Dory Ramírez MD Ordering Physician: Dory Ramírez MDResults: 1Ne gative Date of Service: 02/01/25Follow Up: 1 Year From Orig inal Mammogram Procedure(s): MM tomosynthesis diagnostic BI Accession Number(s): [id number] cc: Dory Ramírez MD EXAMINATION: MM DIAGNOSTIC [...] 02/01/25 1310 DD/ 1155 TD/TT: 02/01/25 1215 Compliance Manager: Dory Ramírez MD IMG BI PROCEDURES Final Result * XR Chest 2 Views (01/24/2025 2:53 PM EDT) Anatomical Region Laterality Modality Chest Radiographic Venessa ging 01/24/2025 2:53 PM EDT Narrative 01/24/2025 3:53 PM EDT [address] [address] XRay Report Signed Patient: Eliza Meléndez MR#: [id number] : 1975 Acct:[id number] Age/Sex: 49 / F ADM Date: 01/24/25 Loc: [facility] Attending Dr: Dory Ramírez MD Ordering Physician: Dory Ramírez MD Date of Service: 01/24/25 Procedure(s): XR chest 2V Accession Number(s): [id number] cc: Dory Ramírez MD Reason for Exam: [...] 01/24/25 1550 DD/ 1453 TD/TT: 01/24/25 1545 Compliance Manager: Procedure Note Donotuseinterpreter, Image - 01/24/[address] [address] XRay Report Signed Patient: Angel MeléndezR#: [id number] : 1975Acct:[id number] Age/Sex: 49 / FADM Date: 01/24/25 Loc: [facility] Attending Dr: Dory Ramírez MD Ordering Physician: Dory Ramírez MD Date of Service: 01/24/25 Procedure(s): XR chest 2V Accession Number(s): [id number] cc: Dory Ramírez MD Reason for Exam: [...] 01/24/25 1550 DD/ 1453 TD/TT: 01/24/25 1545 Compliance Manager: us Dory Ramírez MD IMG XR PROCEDURES Final Result * Hepatitis B, C Profile (11/07/2024 4:49 PM EDT) ~Hepatitis B Surface Antibody NONREACTIVE Nonreactive [facility] Comment:Nonreactive: < 8.00 mIU/mL Hepatitis B Core Antibody Nonreactive Nonreactive [facility] Hepatitis C Antibody Nonreactive Nonreactive [facility] Comment:Antibodies to HCV no t detected; does not exclude early acuteHCV infection. Hepatitis B Surface Ag Negative Negative [facility] 11/07/2024 4:49 PM EDT 11/07/2024 4:49 PM EDT us Generic External Data Provider LAB BLOOD ORDERAB LES Final Result [facility] [address] [place] [phone] * (ABNORMAL) LIPID PANEL, STANDARD (10/31/2020 [...] LDL-C. Eric SS et al. EDUARDA. 2013;310(19): 0775-7569 (http://education.[employer]/faq/REN942) Non-HDL Cholesterol 161(H) <130 mg/dL (calc) [facility] [...] NP LAB BLOOD ORDERABLES Final Resu lt [facility] [address] from Last 3 Months or Most Recently Relevant to Health Maintenance Insurance [employer] MEDICARE REPLACEMENT [facility] COMMONHEALTH DENTAL-[facility] MEDICAID STAND ADULT Care Teams Senior Cost Estimator Relationship Specialty Start Date End Date Dory Ramírez MD [address] [place] [address] [place] [address] PCP - General Internal Medicine 05/06/24
--- OUTSIDE RECORDS SUMMARY | 2025-04-14 14:10 | XMS_ITS | Encounter Summary ---
Author Organization [employer] Address [address] [facility] 7 [place] [address] Care Team Providers Care Heading And Priming Operator Name Role Phone Dory Ramírez MD Primary Care Provider + Reason for Visit * Reason Comments Med Refill Encounter Details Date Type Department Care Team ([facility] st Contact Info) Description 04/12/2025 Refill [facility] [address] [place] [address] [phone] Name, MD Peterson [address] [place] [address] Social History Tobacco Use Types Packs/Day Years [...] Description 04/18/2025 9:00 AM EST Clinical Support [facility] DIABETES/NUTRITION [address] [place] [phone] Kourtney Valenzuela, MATTHEW [address] [place] [address] 04/25/2025 10:00 AM EST Office Visit [facility] [address] [place] [phone] Dory Ramírez MD [address] [place] [phone] documented as of this encounter Visit Diagnoses Not on filedocumented in this encounter Additional Health Concerns Assessment Noted Time PHQ-9 Depression Total Score: 0 12/14/19 25 11:21 AM EDT documented as of this encounter Care Teams Heading And Priming Operator Relationship Specialty Start Date End Date Dory Ramírez MD [address] [place] [phone] PCP - General Internal Medicine 05/06/24 documented as of this encounter
--- OUTSIDE RECORDS SUMMARY | 2025-04-14 14:10 | XMS_ITS | Encounter Summary ---
Author Organization [employer] Address [address] [place] [address] [place] [address] Care Team Providers Care Dairy Processing Supervisor Name Role Phone Dory Ramírez MD Primary Care Provider + Reason for Visit * Reason Onset Date Comments Med Refill 12/01/2024 Encounter Details Date Type Department Care Team (Late st Contact Info) Description 12/01/2024 Refill [facility] [address] [place] [address] Corrine Barth FNP [address] [place] [address] Social History Tobacco Use Types Packs/Day Years [...] with others, in a hotel, in a intermediate, living outside on the street, on a [...] the past 12 months, has t he [employer], gas, oil or water company threatened to [...] Description 04/18/2025 9:00 AM EST Clinical Support [facility] DIABETES/NUTRITION [address] [place] [address] [place] [address] 04/25/2025 10:00 AM EST Office Visit [facility] MEDIC[facility] [address] [place] [address] Dory Ramírez MD [address] [place] [address] documented as of this encounter Visit Diagnoses Not on filedocumented in this encounter Additional Health Concerns Assessment Noted Time PHQ-9 Depression Total Score: 12 025 4:04 PM EST documented as of this encounter Care Teams Dairy Processing Supervisor Relationship Specialty Start Date End Date Dory Ramírez MD [address] [place] [phone] PCP - General Internal Medicine 05/06/24 documented as of this encounter
--- OUTSIDE RECORDS SUMMARY | 2025-04-14 14:10 | XMS_ITS | Encounter Summary ---
Author Organization [employer] Address [address] [place] [address] Care Team Providers Care Ball Maker Name Role Phone Dory Ramírez MD Primary Care Provider + Reason for Visit * Reason Onset Date Comments Med Refill 12/01/2024 Encounter Details Date Type Department Care Team (Late st Contact Info) Description 12/01/2024 Refill [facility] MEDIC[facility] [address] [place] [address] Dory Ramírez MD [address] [place] [address] Social History Tobacco Use Types Packs/Day Years [...] the past 12 months, has t he [employer], gas, oil or water company threatened to [...] Description 04/18/2025 9:00 AM EST Clinical Support [facility] DIABETES/NUTRITION [address] [place] [address] [place] [address] 04/25/2025 10:00 AM EST Office Visit [facility] MEDICINE [address] [place] [phone] Dory Ramírez MD [address] [place] [phone] documented as of this encounter Visit Diagnoses Not on filedocumented in this encounter Additional Health Concerns Assessment Noted Time PHQ-9 Depression Total Score: 12 025 4:04 PM EST documented as of this encounter Care Teams Ball Maker Relationship Specialty Start Date End Date Dory Ramírez MD [address] [place] [phone] PCP - General Internal Medicine 05/06/24 documented as of this encounter
--- OUTSIDE RECORDS SUMMARY | 2025-04-14 14:10 | XMS_ITS | Encounter Summary ---
Author Organization [facility] [employer] Address [address] [place] [address] [place] [address] Care Team Providers Care Senior Electrical Project Manager Name Role Phone Dory Ramírez MD Primary Care Provider + Reason for Visit * Reason Onset Date Comments Med Refill 12/01/2024 Encounter Details Date Type Department Care Team (Late st Contact Info) Description 12/01/2024 Refill [facility] MED & PEDS [address] [place] [address] Corrine Barth FNP [address] [facility] [place] [address] Social History Tobacco Use Types Packs/Day Years [...] the past 12 months, has t he [employer], gas, oil or water company threatened to [...] Description 04/18/2025 9:00 AM EST Clinical Support [facility] DIABETES/NUTRITION [address] [place] [phone] [place] [address] 04/25/2025 10:00 AM EST Office Visit [facility] MEDICINE [address] [place] [address] Dory Ramírez MD [address] [place] [phone] documented as of this encounter Visit Diagnoses Not on filedocumented in this encounter Additional Health Concerns Assessment Noted Time PHQ-9 Depression Total Score: 12 025 4:04 PM EST documented as of this encounter Care Teams Senior Electrical Project Manager Relationship Specialty Start Date End Date Dory Ramírez MD [address] [place] [phone] PCP - General Internal Medicine 05/06/24 documented as of this encounter
--- OUTSIDE RECORDS SUMMARY | 2025-04-14 14:10 | XMS_ITS | Encounter Summary ---
Author Organization [employer] Address [address] [place] [address] [place] [address] Care Team Providers Care Medical Clerical Assistant Name Role Phone Dory Ramírez MD Primary Care Provider + Reason for Visit * Reason Onset Date Comments Med Refill 12/01/2024 Encounter Details Date Type Department Care Team (Late st Contact Info) Description 12/01/2024 Refill [facility] MED & PEDS [address] [place] [address] Corrine Barth FNP [address] [facility] [place] [address] Neuropathy Social History Tobacco Use Types Packs/Day [...] with others, in a hotel, in a alf, living outside on the street, on a [...] the past 12 months, has t he [employer], gas, oil or water company threatened to [...] Description 04/18/2025 9:00 AM EST Clinical Support [facility] DIABETES/NUTRITION [address] [place] [address] [place] [address] 04/25/2025 10:00 AM EST Office Visit [facility] MEDICINE [address] [place] [phone] Dory Ramírez MD [address] [place] [phone] documented as of this encounter Visit Diagnoses Diagnosis Neuropathy Mononeuritis of unspecified site documented in this encounter Additional Health Concerns Assessment Noted Time PHQ-9 Depression Total Score: 12 025 4:04 PM EST documented as of this encounter Care Teams Medical Clerical Assistant Relationship Specialty Start Date End Date Dory Ramírez MD [address] [place] [phone] PCP - General Internal Medicine 05/06/24 documented as of this encounter
--- OUTSIDE RECORDS SUMMARY | 2025-04-14 14:10 | XMS_ITS | Encounter Summary ---
Author Organization [employer] Address [address] [place] [address] [facility] [address] Care Team Providers Care Maintenance Technician 3Rd Shift Name Role Phone Corrine Barth Primary Care Provider [phone] No Quach MD Primary Care Provider [phone] Luz Elena Jiménez MD Primary Care Provide r Dory Ramírez MD Primary Care Provider + Reason for Visit * Reason Onset Date Comments Med Refill 10/27/2023 Encounter Details Date Type Department Care Team (Late st Contact Info) Description 10/27/2023 Refill [facility] MED & PEDS [address] [place] [address] Corrine Barth FNP [address] [place], [place] [phone] Social History Tobacco Use Types Packs/Day Years [...] Description 04/18/2025 9:00 AM EST Clinical Support [facility] DIABETES/NUTRITION [address] [place] [address] [place] [address] 04/25/2025 10:00 AM EST Office Visit [facility] MEDICINE [address] [place] [address] Dory Ramírez MD [address] [place] [address] documented as of this encounter Visit Diagnoses Not on filedocumented in this encounter Additional Health Concerns Assessment Noted Time PHQ-9 Depression Total Score: 20 024 9:51 AM EDT documented as of this encounter Care Teams Maintenance Technician 3Rd Shift Relationship Specialty Start Date End Date Corrine Barth FNP [address] [place] [address] PCP - General Family Medicine 11/28/22 01/25/24 No Quach MD [address] [place] [address] PCP - General Family Medicine 01/26/24 03/29/24 Luz Elena Jiménze MD [address] [place] [address] PCP - General Internal Medicine 03/30/24 05/05/24 Dory Ramírez MD [address] [place] [address] PCP - General Internal Medicine 05/06/24 documented as of this encounter
--- OUTSIDE RECORDS SUMMARY | 2025-04-14 14:10 | XMS_ITS | Encounter Summary ---
Author Organization [email or web address] Address [address] [place] [address] [place] [address] Care Team Providers Care Marble Polisher Hand Name Role Phone Corrine Barth Primary Care Provider [phone] No Quach MD Primary Care Provider [phone] Luz Elena Jiménez MD Primary Care Provide r Dory Ramírez MD Primary Care Provider + Reason for Visit * Reason Comments Med Refill Encounter Details Date Type Department Care Team (Late st Contact Info) Description 09/25/2023 Refill [facility] MEDICINE [address] [place], [place] [phone] Corrine Barth FNP [address] [place], [place] [phone] Social History Tobacco Use Types Packs/Day Years [...] the past 12 months, has t he [employer], gas, oil or water company threatened to [...] EST Clinical Support [facility] DIABETES/NUTRITION [address] [place] [address] [place] [address] 04/25/2025 10:00 AM EST Office Visit [facility] MEDICINE [address] [place] [address] Dory Ramírez MD [address] [place] [address] documented as of this encounter Visit Diagnoses Not on filedocumented in this encounter Additional Health Concerns Assessment Noted Time PHQ-9 Depression Total Score: 20 024 11:50 AM EDT documented as of this encounter Care Teams Marble Polisher Hand Relationship Specialty Start Date End Date Corrine Barth FNP [address] [place] [address] PCP - General Family Medicine 11/28/22 01/25/24 No Quach MD [address] [place] [address] PCP - General Family Medicine 01/26/24 03/29/24 Luz Elena Jiménez MD [address] [place] [address] PCP - General Internal Medicine 03/30/24 05/05/24 Dory Ramírez MD [address] [place] [address] PCP - General Internal Medicine 05/06/24 documented as of this encounter
--- OUTSIDE RECORDS SUMMARY | 2025-04-14 14:10 | XMS_ITS | Encounter Summary ---
Author Organization [employer] Address [address] [place] [address] 7 [place] [address] Care Team Providers Care Leather Roller Name Role Phone Corrine Barth Primary Care Provider [phone] No Quach MD Primary Care Provider [phone] Luz Elena Jiménez MD Primary Care Provide r Dory Ramírez MD Primary Care Provider + Reason for Visit * Reason Onset Date Comments Med Refill 10/27/2023 Encounter Details Date Type Department Care Team (Late st Contact Info) Description 10/27/2023 Refill [facility] WALK-IN CENTER [address] [place], [place] [phone] Corrine Barth FNP [address] [place], [place] [phone] Social History Tobacco Use Types Packs/Day Years [...] Description 04/18/2025 9:00 AM EST Clinical Support [facility] DIABETES/NUTRITION [address] [place] [address] [place] [address] 04/25/2025 10:00 AM EST Office Visit [facility] MEDICINE [address] [place] [address] Dory Ramírez MD [address] [place] [address] documented as of this encounter Visit Diagnoses Not on filedocumented in this encounter Additional Health Concerns Assessment Noted Time PHQ-9 Depression Total Score: 20 024 9:51 AM EDT documented as of this encounter Care Teams Leather Roller Relationship Specialty Start Date End Date Corrine Barth FNP [address] [place] [address] PCP - General Family Medicine 11/28/22 01/25/24 No Quach MD [address] [place] [address] PCP - General Family Medicine 01/26/24 03/29/24 Luz Elena Jiménez MD [address] [place] [address] PCP - General Internal Medicine 03/30/24 05/05/24 Dory Ramírez MD [address] [place] [address] PCP - General Internal Medicine 05/06/24 documented as of this encounter
--- OUTSIDE RECORDS SUMMARY | 2025-04-14 14:10 | XMS_ITS | Encounter Summary ---
Author Organization [employer] Address [address] [place] [address] Care Team Providers Care Water Conservationist Name Role Phone Dory Ramírez MD Primary Care Provider + Reason for Visit * Reason Onset Date Comments Appointment Request 05/06/2024 Encounter Details Date Type Department Care Team ([facility] st Contact Info) Description 05/06/2024 Telephone [facility] MEDICINE [address] [place] [address] Luz Elena Jiménez MD [address] [place] [address] Appointment Request Social History Tobacco Use Types [...] TP apt from 05/06. Contact pt at [phone] documented in this encounter Plan of Treatment Upcoming Encounters Date Type Department Care Team (Late st Contact Info) Description 04/18/2025 9:00 AM EST Clinical Support [facility] DIABETES/NUTRITION [address] [place] [address] Kourtney Valenzuela, MATTHEW [address] [place] [address] 04/25/2025 10:00 AM EST Office Visit [facility] MEDICINE [address] [place] [address] Dory Ramírez MD [address] [place] [address] documented as of this encounter Visit Diagnoses Not on filedocumented in this encounter Additional Health Concerns Assessment Noted Time PHQ-9 Depression Total Score: 11 024 9:38 AM EDT documented as of this encounter Care Teams Water Conservationist Relationship Specialty Start Date End Date Dory Ramírez MD [address] [place] [address] PCP - General Internal Medicine 05/06/24 documented as of this encounter
--- OUTSIDE RECORDS SUMMARY | 2025-04-14 14:10 | XMS_ITS | Encounter Summary ---
Author Organization [email or web address] Address [address] [place] [address] [place] [address] Care Team Providers Care Lithograph Press Feeder Name Role Phone Dory Ramírez MD Primary Care Provider + Reason for Visit * Reason Onset Date Comments Med Refill 12/01/2024 Encounter Details Date Type Department Care Team (Late st Contact Info) Description 12/01/2024 Refill [facility] MED & PEDS [address] [place] [address] Corrine Barth FNP 230 [facility] [place] [address] Social History Tobacco Use Types Packs/Day Years [...] the past 12 months, has t he [employer], gas, oil or water company threatened to [...] 04/18/2025 9:00 AM EST Clinical Support [facility] DIABETES/NUTRITION [address] [place] [address] [place] [address] 04/25/2025 10:00 AM EST Office Visit [facility] MEDICINE [address] [place] [address] Dory Ramírez MD [address] [place] [address] documented as of this encounter Visit Diagnoses Not on filedocumented in this encounter Additional Health Concerns Assessment Noted Time PHQ-9 Depression Total Score: 12 025 4:04 PM EST documented as of this encounter Care Teams Lithograph Press Feeder Relationship Specialty Start Date End Date Dory Ramírez MD [address] [place] [address] PCP - General Internal Medicine 05/06/24 documented as of this encounter
--- OUTSIDE RECORDS SUMMARY | 2025-04-14 14:10 | XMS_ITS | Encounter Summary ---
Author Organization [employer] Address [address] [place] [address] [facility] [place] [address] Care Team Providers Care Ornamental Metal Erector Name Role Phone Corrine Barth Primary Care Provider [phone] No Quach MD Primary Care Provider [phone] Luz Elena Jiménez MD Primary Care Provide r Dory Ramírez MD Primary Care Provider + Reason for Visit * Reason Onset Date Comments Med Refill 03/09/2023 Encounter Details Date Type Department Care Team (Late st Contact Info) Description 03/09/2023 Refill [facility] MED & PEDS [address] [place] [address] Corrine Barth FNP [address] [place], [place] [phone] Social History Tobacco Use Types Packs/Day Years [...] AM EST Clinical Support [facility] DIABETES/NUTRITION [address] [place] [address] [place] [address] 04/25/2025 10:00 AM EST Office Visit [facility] MEDICINE [address] [place] [address] Dory Ramírez MD [address] [place] [address] documented as of this encounter Visit Diagnoses Not on filedocumented in this encounter Additional Health Concerns Assessment Noted Time PHQ-9 Depression Total Score: 8 08/30/19 23 2:28 PM EDT documented as of this encounter Care Teams Ornamental Metal Erector Relationship Specialty Start Date End Date Corrine Barth FNP [address] [place] [address] PCP - General Family Medicine 11/28/22 01/25/24 No Quach MD [address] [place] [address] PCP - General Family Medicine 01/26/24 03/29/24 Luz Elena Jiménez MD [address] [place] [address] PCP - General Internal Medicine 03/30/24 05/05/24 Dory Ramírez MD [address] [place] [address] PCP - General Internal Medicine 05/06/24 documented as of this encounter
== END 2025-04-14 14:26 | disposition home or self-care (01) ==
PROVIDERS: Visit Provider Registered Nurse Emergency
DX: M53.3 Sacrococcygeal disorders, not elsewhere classified (principal)
CPT/HCPCS: 99213; G2211

== ENCOUNTER → 2025-04-14 13:39 | Outpatient (BNVA) | payer MEDICARE, MEDICAID, SELFPAY | PROVIDERS: Visit Provider Registered Nurse Emergency | DX: M53.3 Sacrococcygeal disorders, not elsewhere classified (principal) | CPT/HCPCS: 99212 ==